=== PATIENT | female | born 1950 | race Caucasian/White ===

== ENCOUNTER 2019-08-18 16:56 | Emergency (ER) | payer MEDICARE, SELFPAY ==
--- NOTE | 2019-08-18 17:00 | ED.GENADULT ---
HPI - General Adult General Chief complaint: Upper Respiratory Infection Stated complaint: cough and loss of voice Time Seen by Provider: 08/18/19 17:13 Source: patient and RN notes reviewed Mode of arrival: ambulatory Limitations: no limitations History of Present Illness HPI narrative: This patient has a history of asthma and 2 days ago she started having a cough which is been nonproductive. Cough is beginning to bother her sleep at night. In the past when she has had asthma flares with bronchitis she is needed to be on steroids and has been able to take Biaxin and Tessalon Perles well without adverse effects. She has had no chest pain. She has not noticed any wheezing. She has not had any ear pain, no nasal drainage, no sore throat. She has had no rashes. There is been no nausea, no vomiting, no diarrhea. She has had no hematuria, no dysuria, no pyuria. She has not been traveling. She has had no known exposure to anyone with strep throat, mono, influenza, bronchitis, pneumonia that she is aware of. Related Data Home Medications Medication Instructions Recorded Confirmed albuterol sulfate 2.5 mg INHALATION Q6H PRN 06/24/19 albuterol sulfate 90 mcg/actuation 1 puff INHALATION Q4H PRN 06/24/19 aerosol inhaler alprazolam 0.25 mg tablet 0.25 mg PO BID 06/24/19 cholestyramine-aspartame 4 gram 4 gm PO TID PRN gm 06/24/19 oral powder clopidogrel 75 mg tablet 75 mg PO DAILY 06/24/19 metoprolol succinate 50 mg 50 mg PO DAILY 06/24/19 tablet,extended release 24 hr nitroglycerin 0.4 mg sublingual 0.4 mg SUBLINGUAL Q5M PRN 06/24/19 tablet Allergies Allergy/AdvReac Type Severity Reaction Status Date / Time Sulfa (Sulfonamide Allergy Mild HIVES Verified 08/18/19 17:14 Antibiotics) clavulanic acid AdvReac Mild VOMITING Verified 04/27/19 19:12 propoxyphene AdvReac Mild FLIPPED Verified 04/27/19 19:12 OUT codeine AdvReac Unknown PASSES OUT Verified 08/18/19 17:14 Review of Systems Review of Systems: Narrative: CONSTITUTIONAL: Denies fever, chills, or sweats. Noncontributory except as pertains the past medical history and history of present illness. EYES: Denies visual changes, redness, or discharge. ENT: Denies rhinorrhea, congestion, sore throat, or otalgia. CARDIOVASCULAR: Denies chest pain, palpitations, or edema. RESPIRATORY: Denies cough or dyspnea. GASTROINTESTINAL: Denies abdominal pain, nausea, vomiting, or diarrhea. GENITOURINARY: Denies dysuria or hematuria. SKIN: Denies rash or itching. MUSCULOSKELETAL: Denies back pain, joint pain, or myalgia. NEUROLOGIC: Denies headache, numbness, or weakness. PSYCHIATRIC: Denies anxiety or depression. [facility] Family History Family History (Updated 07/04/17 @ 14:25 by DOCTOR UNKNOWN) Mother Hypertension Cerebrovascular accident Family history of diabetes mellitus in first degree relative Family history of congestive heart failure Diabetes mellitus Family history of hypercholesterolemia Grandparent Cerebrovascular accident Family history of hepatitis Family history of malignant neoplasm Father Hypertension Acute myocardial infarction Social History Social History Smoking status: Former smoker Smoking end date: 07/22/07 Alcohol intake: never Gender identity (if verbalized by the patient): Female Comments At time of signature, I have reviewed and agree with nursing past medical, surgical, social, and family history.Please see nursing chart for further information. There is no relevant family history pertinent to the presenting complaint. Exam Narrative: Exam Narrative: GENERAL: Well-appearing, well-nourished, and in no acute distress. HEAD: Normocephalic, atraumatic. EYES: PERRLA and EOMI. EARS: TM's clear bilaterally and the canals are clear. NOSE: Nares clear, no rhinorrhea or epistaxis. THROAT:Mucous membranes moist.Oropharynx normal without erythema or exudates. NECK: Supple. No adenopathy of the neck, supraclav
[2019-08-18 17:09] VITALS: BP 133/64; PULSE 88; RESP 16; TEMP 37.1; O2SAT 98
== END 2019-08-18 17:41 | disposition home or self-care (01) ==
PROVIDERS: Emergency Provider Family Medicine; PCP Internal Medicine
DX: J40 Bronchitis, not specified as acute or chronic (principal); J45.909 Unspecified asthma, uncomplicated; Z87.891 Personal history of nicotine dependence; I20.9 Angina pectoris, unspecified; I25.10 Atherosclerotic heart disease of native coronary artery without angina pectoris; Z95.5 Presence of coronary angioplasty implant and graft; E78.00 Pure hypercholesterolemia, unspecified; I34.1 Nonrheumatic mitral (valve) prolapse; J44.9 Chronic obstructive pulmonary disease, unspecified; K21.9 Gastro-esophageal reflux disease without esophagitis; E11.9 Type 2 diabetes mellitus without complications
CPT/HCPCS: 99213; G0463

== ENCOUNTER 2020-05-09 10:06 | Outpatient (CLI) | payer MEDICARE, SELFPAY ==
--- NOTE | ~2020-05-09 | DEXA_ITS ---
Bone Density Report Name: Beatrice Calero Age: 70 Sex: Female Ethnicity: White Date of : 1950 Indication: postmenopausal; parental hip fracture; height loss; asthma or emphysema; rheumatoid arthritis; Referring Provider: CALISTA UMAÑA Study: Bone densitometry was performed. Exam Date: May 09, 2020 Accession number: [id number] Bone Density: Region BMD T-score Z-score Classification AP Spine (L1-L4) 0.810 -2.2 0.0 Osteopenia Femoral Neck (Left) 0.555 -2.6 -0.8 Osteoporosis Total Hip (Left) 0.669 -2.2 -0.7 Osteopenia Total Hip Bilateral Avg 0.682 -2.1 -0.6 Osteopenia Femoral Neck (Right) 0.579 -2.4 -0.6 Osteopenia Total Hip (Right) 0.693 -2.0 -0.5 Osteopenia World Health Organization criteria for BMD impression classify patients as: Normal (T-score at or above -1.0), Osteopenia (T-score between -1.0 and -2.5), or Osteoporosis (T-score at or below -2.5). 10-year Fracture Risk: FRAX not reported because: Some T-score for Spine Total or Hip Total or Femoral Neck at or below -2.5 Clinical Information Provided by Patient: Parent has had a hip fracture Has rheumatoid arthritis Has the following medical conditions: Asthma or Emphysema Patient maximum height was 66 Menopause Age: 50 No regular weight bearing exercise Drinks caffeinated beverages Onset of menses at age 14 Number of children 1 Impression: The patient has osteoporosis, based on the Left Femoral Neck T-score. The patient has risk factors, including: parental hip fracture. Discussion: INCREASED RISK OF FRACTURE. BONE DENSITY IS UNDESIRABLY LOW AT ONE OR MORE SKELETAL SITES, CONSISTENT WITH POSTMENOPAUSAL OSTEOPOROSIS. This patient's lowest T-score meets the World Health Organization's (WHO) criteria for osteoporosis at one or more sites (T-score -2.5 or below). In untreated patients, the risk of osteoporotic fracture increases approximately two-fold for each 1.0 SD decrease in T-score. Low bone density is not the only risk factor for fracture; also consider factors such as patient's age, frailty or poor health, risk of falling, risk of injury, previous osteoporotic fracture, family history of osteoporosis, cigarette smoking, low body weight, etc. Not everyone with low bone mineral density has osteoporosis; osteomalacia and other metabolic bone disorders should also be considered. Patients who have osteoporosis should be evaluated for specific diseases and conditions (secondary causes) that may cause or contribute to bone loss. The [place] [employer]ocrinologists (AACE) and National Osteoporosis Foundation (NOF) recommend pharmacologic intervention for all postmenopausal women whose T-score is in this range. The patient should follow a healthful lifestyle (good nutrition with adequate calcium and vitamin D, and appropriate weight-b
== END 2020-05-09 10:07 | disposition home or self-care (01) ==
LOC: ANHIMG 10:10
PROVIDERS: PCP Internal Medicine; Visit Provider Nurse Practitioner
DX: Z78.0 Asymptomatic menopausal state (principal); M85.88 Other specified disorders of bone density and structure, other site; M81.0 Age-related osteoporosis without current pathological fracture; M85.852 Other specified disorders of bone density and structure, left thigh; M85.851 Other specified disorders of bone density and structure, right thigh
CPT/HCPCS: 77080

== ENCOUNTER 2020-10-13 14:45 | Emergency (ER) | payer MEDICARE, SELFPAY ==
[2020-10-13 15:02] VITALS: BP 114/61; PULSE 91; RESP 20; TEMP 36.5; O2SAT 97
--- NOTE | 2020-10-13 15:04 | ED.GENADULT ---
HPI - General Adult General Chief complaint: Skin/Abscess/Foreign Body Stated complaint: Boil on Back Time Seen by Provider: 10/13/20 15:04 Source: patient and RN notes reviewed Mode of arrival: ambulatory Limitations: no limitations History of Present Illness HPI narrative: 70-year-old female presents with complaints of tenderness and swelling to genital area for the past 3 days. Beatrice reports increase tenderness over the past 48 hours. No treatment. Tender to touch. No drainage. Denies history of skin abscess. No fever. No abdominal pain, nausea, and vomiting. Tolerating po intake well. LMP postmenopausal. Remains active. The patient reports she received second COVID-19 vaccine 09/30/20. The patient reports she have not been diagnosed with COVID-19. The patient reports she is not waiting for the results of a COVID-19 lab test. The patient reports she do not have chills, weakness, or fatigue. The patient reports she do not have a new or worsening cough or shortness of breath. Denies chest pain. The patient reports she do not have any rhinorrhea, congestion, sore throat, loss of taste or smell, and diarrhea. Denies recent traveling. Denies concerns for COVID-19 or exposures been home with limited outdoor exposure except for essential household needs and return home. At this time, patient is not suspected of having COVID-19. Some parts of this dictation were generated by voice recognition software and may contain typographical and/or grammatical inaccuracies. Related Data Home Medications Medication Instructions Recorded Confirmed cholestyramine-aspartame 4 gram 4 gm PO TID gm 06/24/19 10/13/20 oral powder metoprolol succinate 50 mg 50 mg PO DAILY 06/24/19 10/13/20 tablet,extended release 24 hr beclomethasone dipropionate 2 inh INHALATION Q12H 08/18/19 10/13/20 doxycycline hyclate 20 mg PO BID 10/13/20 10/13/20 Allergies Allergy/AdvReac Type Severity Reaction Status Date / Time Sulfa (Sulfonamide Allergy Mild HIVES Verified 10/13/20 14:54 Antibiotics) clavulanic acid AdvReac Mild VOMITING Verified 10/13/20 14:54 propoxyphene AdvReac Mild FLIPPED Verified 10/13/20 14:54 OUT codeine AdvReac Unknown PASSES OUT Verified 10/13/20 14:54 Review of Systems Review of Systems: Narrative: CONSTITUTIONAL: Denies fever, chills, sweats. EYES: Denies visual changes, redness, discharge. ENT: Denies rhinorrhea, congestion, sore throat, otalgia. CARDIOVASCULAR: Denies chest pain, palpitations, edema. RESPIRATORY: Denies dyspnea, wheezing, cough. GASTROINTESTINAL: Denies abdominal pain, nausea, vomiting, diarrhea. SKIN: Denies rash or itching. complaints of tenderness and swelling to genital area. Denies drainage. MUSCULOSKELETAL: Denies acute back pain, joint pain, or myalgia. NEUROLOGIC: Denies numbness or focal weakness. PSYCHIATRIC: Denies anxiety or depression. All systems reviewed & are unremarkable except as noted in HPI and below. [facility] Past Medical History Medical History (Updated 10/13/20 @ 16:25 by BARON Agustin) ASHD (arteriosclerotic heart disease) Benign essential hypertension Brain aneurysm CAD (coronary atherosclerotic disease) Cataract Chronic GERD Chronic obstructive pulmonary disease, unspecified Depression History of CVA (cerebrovascular accident) without residual deficits Low back pain Migraine Mitral valve prolapse On long term care phlebotomist drug therapy DARCY (obstructive sleep apnea) Other and unspecified hyperlipidemia Postmenopausal disorder Type 2 diabetes mellitus without complication, without long-term current use of insulin Surgical History Surgical History (Updated 10/13/20 @ 16:25 by BARON Agustin) History of cardiac catheterization History of carotid endarterectomy LT History of cholecystectomy History of tonsillectomy Family History Family History Mother Hypertension Cerebrovascular ac
--- NOTE | 2020-10-13 15:28 | PC.NURSE ---
1523-- PUBLICATION MANAGER attempt to stick #18 gauge needle and to squeeze out some pus for culture, but when poked no fluid came out.
== END 2020-10-13 15:31 | disposition home or self-care (01) ==
PROVIDERS: Emergency Provider Nurse Practitioner Family; PCP Internal Medicine
DX: L02.31 Cutaneous abscess of buttock (principal); Z87.891 Personal history of nicotine dependence; K21.9 Gastro-esophageal reflux disease without esophagitis; Z86.73 Personal history of transient ischemic attack (TIA), and cerebral infarction without residual deficits; G47.33 Obstructive sleep apnea (adult) (pediatric); E11.9 Type 2 diabetes mellitus without complications; I25.10 Atherosclerotic heart disease of native coronary artery without angina pectoris
CPT/HCPCS: 10160; 99213; G0463

== ENCOUNTER 2020-12-16 12:12 | Outpatient (CLI) | payer MEDICARE, SELFPAY ==
--- NOTE | 2020-12-16 09:30 | ECG_ITS ---
Measurements Intervals [place] Rate: 61 P: 12 GA: 250 QRS: 4 QRSD: 84 T: 80 QT: 430 QTc: 433 Interpretive Statements SINUS RHYTHM WITH FIRST DEGREE AV BLOCK INCOMPLETE RIGHT BUNDLE BRANCH BLOCK NONSPECIFIC ST & T-WAVE ABNORMALITY- HIGH LATERAL LEADS BASELINE ARTIFACT- I, II, III, AVR, AVL ABNORMAL ECG Electronically Signed On 12-16-2020 10:36:16 CDT by Chago Watkins D.O.
[2020-12-16 10:17] LABS: Anion Gap 4 mmol/L (8-16); Blood Urea Nitrogen 8 mg/dL (7-17); Calcium 9.7 mg/dL (8.4-10.2); Carbon Dioxide 34 mmol/L (22-30); Chloride 101 mmol/L (98-107); Estimated Glomerular Filt Rate > 60; Glucose 202 mg/dL (65-105); Potassium 4.1 mmol/L (3.4-5.0); Sodium 139 mmol/L (137-145)
== END 2020-12-16 12:13 ==
LOC: ANHSURGERY 01-03 12:15
PROVIDERS: Anesthesiology; PCP Internal Medicine; Visit Provider Surgery
DX: E11.9 Type 2 diabetes mellitus without complications (principal); Z01.818 Encounter for other preprocedural examination; I44.0 Atrioventricular block, first degree; I45.10 Unspecified right bundle-branch block
CPT/HCPCS: 36415; 80048; 93005

== ENCOUNTER → 2020-12-17 02:59 | Outpatient (CLI) | payer MEDICARE, SELFPAY ==
[2020-12-17 19:46] LABS: SARS-CoV-2 RNA PCR Negative
== END ==
PROVIDERS: PCP Internal Medicine; Visit Provider Surgery
DX: Z01.812 Encounter for preprocedural laboratory examination (principal); Z20.822 Contact with and (suspected) exposure to COVID-19
CPT/HCPCS: C9803; U0003; U0005

== ENCOUNTER 2020-12-20 00:43 | Day surgery (SDC) | payer MEDICARE, SELFPAY ==
[2020-12-14 15:06] VITALS: BMI 29.1
[2020-12-20] VITALS (9 sets, daily range): BP systolic 92–105; BP diastolic 49–73; PULSE 63–82; RESP 10–23; TEMP 36.1–36.8; O2SAT 92–100; BMI 28.0
--- NOTE | 2020-12-20 09:20 | WPDANESEPPF ---
Anes - Initial Pre Proc Eval Procedure: Operation Date: 12/20/20 10:30 Proposed Procedures p Anal Fistulotomy - German Barcenas MD Date/Time: 12/20/20 09:20 Surgeon: German Barcneas MD Pre Op Diagnosis: fistula in ano Patient Data Age: 70 Gender: F Height: 5 ft 6 in Weight: 79 kg Allergies Allergy/AdvReac Type Severity Reaction Status Date / Time Sulfa (Sulfonamide Allergy Mild HIVES Verified 12/20/20 08:40 Antibiotics) propoxyphene AdvReac Mild FLIPPED Verified 12/20/20 08:40 OUT codeine AdvReac Unknown PASSES OUT Verified 12/20/20 08:40 Home Medications Medication Instructions Recorded Confirmed Type cholestyramine-aspartame 4 gram 4 gm PO TID gm 06/24/19 12/20/20 History oral powder metoprolol succinate 50 mg 50 mg PO HS 06/24/19 12/20/20 History tablet,extended release 24 hr umeclidinium 62.5 mcg/actuation 1 inhalation INHALATION DAILY #30 11/11/19 12/14/20 Rx blister powder for inhalation each albuterol sulfate 2.5 mg INHALATION Q6H PRN #90 ml 04/18/20 12/20/20 Rx nitroglycerin 0.4 mg sublingual 0.4 mg SUBLINGUAL Q5M PRN #30 05/05/20 12/14/20 Rx tablet tablet omega-3 fatty acids 1,000 mg 1,000 mg PO DAILY #90 cap 05/05/20 12/20/20 Rx capsule denosumab 60 mg/mL subcutaneous 60 mg SUBCUT [id number] #1 ml 05/10/20 12/14/20 Rx syringe calcium carbonate 500 mg(1,250 1 tablet PO DAILY #90 tablet 05/12/20 12/20/20 Rx mg)-vitamin D3 400 unit chewable tablet blood-glucose meter #1 ea 11/08/20 12/12/20 Rx blood sugar diagnostic #100 ea 11/10/20 12/12/20 Rx clopidogrel 75 mg tablet 75 mg PO DAILY #90 tablet 11/10/20 12/20/20 Rx lancets #100 ea 11/10/20 12/12/20 Rx alprazolam [Xanax] 0.25 mg PO BID PRN 12/14/20 12/20/20 History aspirin 325 mg PO HS 12/14/20 12/20/20 History atorvastatin 10 mg HS 12/14/20 12/20/20 History doxycycline hyclate 20 mg PO HS 12/14/20 12/20/20 History pantoprazole 40 mg PO HS 12/14/20 12/20/20 History sitagliptin [Januvia] 100 mg PO HS 12/14/20 12/20/20 History Patient hx anesthesia problems: post op nausea/vomiting Family hx anesthesia problems: none PMFSH Past Medical History Medical History ASHD (arteriosclerotic heart disease) Asthma Benign essential hypertension Brain aneurysm CAD (coronary atherosclerotic disease) Cataract Chronic GERD Chronic obstructive pulmonary disease, unspecified Depression Heart attack High cholesterol History of CVA (cerebrovascular accident) without residual deficits Kidney stone Low back pain Migraine Mitral valve prolapse On retirement drug therapy DARCY (obstructive sleep apnea) Other and unspecified hyperlipidemia Peptic ulcer disease Postmenopausal disorder Type 2 diabetes mellitus without complication, without long-term current use of insulin Surgical History Surgical History History of cardiac catheterization History of carotid endarterectomy LT History of cholecystectomy History of tonsillectomy Family History Family History Mother Hypertension Cerebrovascular accident Family history of diabetes mellitus in first degree relative Family history of congestive heart failure Diabetes mellitus Family history of hypercholesterolemia CHF (congestive heart failure) Grandparent Cerebrovascular accident Family history of hepatitis Family history of malignant neoplasm Father Hypertension Acute myocardial infarction Social History Social History Smoking packs per day: 2 Smoking cigarettes per day: 40.0 Years smoked: 30 Smoking pack-years: 60.00 Smoking status: Former smoker Tobacco type: cigarettes Second hand tobacco smoke exposure: Yes Smoking end date: 07/22/07 Additional smoking assessment comments: QUIT 2007 Alcohol intake: never
[2020-12-20 09:22] LABS: Glucose Point of Care 205 mg/dl (65-105)
[2020-12-20] MEDS: LACTATED RINGERS 1,000 ML 30 ML IV CONT (09:25)
[2020-12-20] MEDS: MIDAZOLAM HCL (*CRX) 2 MG/2 ML VIAL 1 MG IV PUSH (09:28)
--- NOTE | 2020-12-20 09:33 | SUR.PREOP ---
0900; DR BHAT NOTIFIED THAT PT STATES SHE FELL GETTING OFF THE TOILET THIS MORNING. PT STATES SHE IS UNHARMED. DENIES PAIN. BLOOD SUGAR 205, AND PT C/O ANXIOUSNESS. DR BHAT NOTIFIED OF ALL THESE. 0930; PT GIVEN VERSED PER ORDER.
--- NOTE | 2020-12-20 09:47 | SUR.PREOP ---
PT RESTING QUIETLY. RESP EVEN UNLABORED. P,W,D. CALL LIGHT IN REACH
--- NOTE | 2020-12-20 09:56 | WPDHPUPDATE1 ---
History and Physical Update Update Date/Time: 12/20/20 09:56 History and Physical has been reviewed, including an updated exam of the patient. There are NO changes in the patient's condition. Risks, benefits, and alternatives have been discussed and questions answered. Patient agrees to proceed with procedure.
[2020-12-20] MEDS: ceFAZolin 2 GM/D5W 50 ML 2 GM/50 ML BAG IVPB (10:36)
--- NOTE | 2020-12-20 10:36 | SUR.PREOP ---
DR HOPSON NOTIFIED THAT PT STATES SHE FELL GETTING OFF THE TOILET THIS MORNING. PT STATES SHE IS UNHARMED
[2020-12-20] MEDS: BUPIVACAINE HCL 0.5% PF 30 ML VIAL INFILTRATE (10:59)
--- NOTE | 2020-12-20 11:49 | P.OP_ITS ---
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 She was then turned into prone yvette-knife position. The buttocks were taped apart. Prep and drape was carried out. Hill-Mckeon anoscope were introduced into the rectum. No internal opening was readily apparent. Even by palpation on the external opening, I was unable to elicit any purulent fluid from the rectum. Using a blunt clamp I gently probed into the external opening. It wanted to track towards the rectum. I increased this opening slightly with the scalpel. I continued to probe both with a rectal probe as well as a curved clamp. Eventually the probe directed to the rectum to the left lateral position. It was directed to a small opening in the left lateral position and then was advanced into the rectum delineating the fistula. I then infiltrated local anesthetic throughout the area of the fistula and the overlying skin mucosa and skin. I then unroof the fistula using the cautery. There was minimal bleeding. The probe was removed. I curetted the fistula tract. All granulation tissue was removed. Cautery was again used and the wound was made hemostatic. I then dressed the fistulotomy wound with Xeroform gauze fluffs and promise panties. The patient was returned to a supine position, awakened and taken to recovery in good condition. Sponge and needle counts were correct x2. Anesthesia: GETA and local (0.5% Marcaine with Exparel) Surgeon: German Barcenas MD Residential Care Facility Manager: Antonio BARBOUR Estimated blood loss (mL): 5 Drains: No Packing: No Pathology: none sent Complications: None Condition: stable Disposition: PACU Findings: Fistula in ANO of the left anterior quadrant, status post fistulotomy, intersphincteric fistula.
[2020-12-21 07:22] LABS: Glucose Point of Care 183 mg/dl (65-105)
== END 2020-12-20 13:33 | disposition home or self-care (01) ==
PROVIDERS: PCP Internal Medicine; Visit Provider Surgery
PROC: (CPT 46275; principal; 2020-12-20 10:30)
DX: K60.3 Anal fistula (principal); I25.10 Atherosclerotic heart disease of native coronary artery without angina pectoris; I10 Essential (primary) hypertension; J45.909 Unspecified asthma, uncomplicated; K21.9 Gastro-esophageal reflux disease without esophagitis; J44.9 Chronic obstructive pulmonary disease, unspecified; F32.9 Major depressive disorder, single episode, unspecified; E78.00 Pure hypercholesterolemia, unspecified; Z86.73 Personal history of transient ischemic attack (TIA), and cerebral infarction without residual deficits; I34.1 Nonrheumatic mitral (valve) prolapse; G47.33 Obstructive sleep apnea (adult) (pediatric); E78.5 Hyperlipidemia, unspecified; E11.9 Type 2 diabetes mellitus without complications; K27.9 Peptic ulcer, site unspecified, unspecified as acute or chronic, without hemorrhage or perforation; Z79.51 Long term (current) use of inhaled steroids; Z79.02 Long term (current) use of antithrombotics/antiplatelets; Z79.84 Long term (current) use of oral hypoglycemic drugs; Z87.891 Personal history of nicotine dependence
CPT/HCPCS: 46275; 82948; 99281; A9270; C9290; C9803; J0330; J0690; J1100; J2250; J2405; J2704; J7120; U0003; U0005

== ENCOUNTER 2020-12-20 22:56 | Emergency (ER) | payer MEDICARE, SELFPAY ==
[2020-12-20 23:24] VITALS: BP 110/57; PULSE 104; RESP 18; TEMP 37.2; O2SAT 94
--- NOTE | 2020-12-21 03:07 | PC.NURSE ---
diabetic pt who has hx of rectal fistula with repair 12/20 (yesterday). c/o increased bleeding to surgical site.
--- NOTE | 2020-12-21 04:38 | PC.NURSE ---
pt has multiple complaints the longer she is in department. First, requested a nebulizer for breathing issues. pt currently has O2 sats 98% and HR 80. no s/s of resp distress or increased work of breathing. pt reports she was told to breathe deeply post surgery, but has chronic bronchitis and sometimes coughs, making it difficult to do so. will continue to monitor. pt used restroom and reported that it was more difficult to urinate than normal. stated that's new . also requested new adult brief and provided with new pad for drainage. abd pad in place that pt removed had dried dark red/brown drainage, but was not saturated when changed. pt stated the bleeding has eased up since earlier. Pt did not like style of adult brief that ED could provide, and instead chose to use her own extra adult brief brought from home. awaiting further instructions from .
--- NOTE | 2020-12-21 04:45 | ED.GENADULT ---
HPI - General Adult General Chief complaint: Unspecified Stated complaint: rectal bleed Time Seen by Provider: 12/21/20 02:52 Source: patient and RN notes reviewed Limitations: no limitations History of Present Illness HPI narrative: Patient is 70 years old white female status post fistula in ano 12 hours ago presents to the ED with bleeding at the site of surgery. Patient denies other symptoms. Related Data Home Medications Medication Instructions Recorded Confirmed cholestyramine-aspartame 4 gram 4 gm PO TID gm 06/24/19 12/20/20 oral powder metoprolol succinate 50 mg 50 mg PO HS 06/24/19 12/20/20 tablet,extended release 24 hr Januvia 100 mg PO HS 12/14/20 12/20/20 alprazolam [Xanax] 0.25 mg PO BID PRN 12/14/20 12/20/20 aspirin 325 mg PO HS 12/14/20 12/20/20 atorvastatin 10 mg HS 12/14/20 12/20/20 pantoprazole 40 mg PO HS 12/14/20 12/20/20 Allergies Allergy/AdvReac Type Severity Reaction Status Date / Time Sulfa (Sulfonamide Allergy Mild HIVES Verified 12/20/20 08:40 Antibiotics) propoxyphene AdvReac Mild FLIPPED Verified 12/20/20 08:40 OUT codeine AdvReac Unknown PASSES OUT Verified 12/20/20 08:40 Review of Systems Review of Systems: Narrative: CONSTITUTIONAL: Denies fever, chills, or sweats. EYES: Denies visual changes, redness, or discharge. ENT: Denies rhinorrhea, congestion, sore throat, or otalgia. CARDIOVASCULAR: Denies chest pain, palpitations, or edema. RESPIRATORY: Denies cough or dyspnea. GASTROINTESTINAL: Denies abdominal pain, nausea, vomiting, or diarrhea. GENITOURINARY: Denies dysuria or hematuria. SKIN: Denies rash or itching. MUSCULOSKELETAL: Denies back pain, joint pain, or myalgia. NEUROLOGIC: Denies headache, numbness, or weakness. PSYCHIATRIC: Denies anxiety or depression. 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 DARCY (obstructive sleep apnea) Other and unspecified hyperlipidemia Peptic ulcer disease Postmenopausal disorder Type 2 diabetes mellitus without complication, without long-term current use of insulin Surgical History Surgical History History of cardiac catheterization History of carotid endarterectomy LT History of cholecystectomy History of tonsillectomy Family History Family History Mother Hypertension Cerebrovascular accident Family history of diabetes mellitus in first degree relative Family history of congestive heart failure Diabetes mellitus Family history of hypercholesterolemia CHF (congestive heart failure) Grandparent Cerebrovascular accident Family history of hepatitis Family history of malignant neoplasm Father Hypertension Acute myocardial infarction Social History Social History Smoking packs per day: 2 Smoking cigarettes per day: 40.0 Years smoked: 30 Smoking pack-years: 60.00 Smoking status: Former smoker Tobacco type: cigarettes Second hand tobacco smoke exposure: Yes Smoking end date: 07/22/07 Additional smoking assessment comments: QUIT 2007 Alcohol intake: never Substance use: never Substance use type: does not use Additional living arrangements comments: LIVES WITH SON Additional occupation/education comments: looking for a job Gender identity (if verbalized by the patient): Female Spiritual care concerns: No Exam Narrative: Exam Narrative: General appearance: Well-dev
[2020-12-21 04:55] VITALS: PULSE 86; RESP 20; O2SAT 98
== END 2020-12-21 04:57 | disposition home or self-care (01) ==
PROVIDERS: Emergency Provider Emergency Medicine; PCP Internal Medicine
DX: K91.841 Postprocedural hemorrhage of a digestive system organ or structure following other procedure (principal); Z87.891 Personal history of nicotine dependence; J45.909 Unspecified asthma, uncomplicated; I10 Essential (primary) hypertension; I25.10 Atherosclerotic heart disease of native coronary artery without angina pectoris; K21.9 Gastro-esophageal reflux disease without esophagitis; G47.30 Sleep apnea, unspecified; E78.5 Hyperlipidemia, unspecified; I25.2 Old myocardial infarction; E11.9 Type 2 diabetes mellitus without complications
CPT/HCPCS: 99281

== ENCOUNTER 2021-04-19 10:02 | Observation (INO) | payer MEDICARE, SELFPAY ==
[2021-04-19] VITALS (9 sets, daily range): BP systolic 128–144; BP diastolic 66–88; PULSE 62–85; RESP 13–18; TEMP 36.3–36.6; O2SAT 93–96; BMI 30.9
--- NOTE | ~2021-04-19 | XR_ITS ---
EXAMINATION: XR chest 1V EXAM DATE: 04/19/2021 11:48 INDICATION: Cough. TECHNIQUE: Portable AP frontal chest x-ray was obtained. Comparison is made to prior examination from 10/12/2014. FINDINGS: The lungs are clear. There are no pleural effusions. The cardiomediastinal silhouette is within normal limits. There is no pneumothorax suspected. The bones and soft tissues are unremarka ble. IMPRESSION: No acute cardiopulmonary findings. Reviewed, dictated and finalized at location A.
--- NOTE | ~2021-04-19 | CT_ITS ---
EXAMINATION: CTA brain carotid EXAM DATE: 04/19/2021 13:13 INDICATION: Double/blurry vision, dizziness . TECHNIQUE: Spiral CTA of the carotid arteries was performed with intravenous injection 100 cc of Om nipaque 350. Axial, coronal, sagittal reformatted images reviewed. Additional reformatted images cre ated on dedicated 3-D workstation. NASCET comparable standard used to assess the degree of arterial stenosis. Spiral CT angiogram cerebral arteries performed with the same intravenous injection of con trast. Source images of the brain CTA transferred to dedicated workstation for 3-D rotational image c reation. Coronal, sagittal maximum intensity pixel images also reviewed. The dose-length product (D LP) for this examination was 1103.66 mGy-cm. The exposure was tailored according to patient size, a nd iterative reconstruction (ASIR) was used as additional dose reduction technique. Comparison is mad e to prior examination from 11/30/2010. FINDINGS: There is mild to moderate right carotid, mild left carotid atherosclerosis with 25% stenosi s on the right and 0% stenosis on the left. There is right-sided suprasellar aneurysm coiling which i s obscuring evaluation of the right carotid siphon. There is mild left carotid parasellar arterial sc lerosis with no stenosis. There is right-sided posterior communicating artery dominant posterior cere bral artery. There is no carotid or vertebral basilar arterial dissection or fibromuscular dysplas ia. There are no cerebral artery aneurysms. The sagittal, transverse and sigmoid sinuses enhance norm ally, no venous sinus thrombosis. Internal cerebral veins also enhance normally. Moderate stenosis of the right M1 segment before the trifurcation. Severe stenosis of one of the righ t trifurcation, M2 branches. Compared to previous examination, the right ICA aneurysm has been coiled , and there has been interval development of severe stenosis of the left P1 segment (indicated on seq uence 3 image 107). This left PHD INTERN has a small but patent posterior communicating artery. Remainder of this posterior cerebral artery enhances normally. Incidental Findings: Moderate-sized left maxillary sinus mucous retention cyst. Small old left fronto parietal lobe infarctions. IMPRESSION: 1. No acute carotid or intracranial findings. 2. Interval development of scattered intracranial cerebral atherosclerosis. 3. Old left frontoparietal lobe infarctions. 4. Right carotid bulb 25% stenosis. Reviewed, dictated and finalized at location A.
--- NOTE | ~2021-04-19 | US_ITS ---
EXAMINATION: US carotid duplex BI EXAM DATE: 04/19/2021 11:48 INDICATION: Double vision, dizziness. TECHNIQUE: Grayscale, color and pulsed Doppler images of the cervical carotid arteries were obtained . The degree of vessel stenosis is placed in one of the following categories: normal, <50% stenosis, 50-69% stenosis, >=70% stenosis but less than near-occlusion, near-occlusion, or occlusion. Note that percent stenosis relative to normal distal artery lumen diameter is indirectly measured from velocit y measurements as described by Wild, et al. Radiology 2003; 229:340-346. Comparison is made to prior examination from 01/07/2012. FINDINGS: RIGHT SIDE: Right common carotid artery peak systolic velocity (PSV in cm/s): 78 Right bulb/internal carotid artery peak systolic velocity (PSV in cm/s): 86 Right internal carotid artery end diastolic velocity (EDV in cm/s): 25 Right ICA/CCA peak systolic ratio: 1.1 Right external carotid artery peak systolic velocity (PSV in cm/s): 89 Right vertebral artery antegrade flow: yes There is no focal plaque identified. LEFT SIDE: Left common carotid artery peak systolic velocity (PSV in cm/s): 79 Left bulb/internal carotid artery peak systolic velocity (PSV in cm/s): 111 Left internal carotid artery end diastolic velocity (EDV in cm/s): 36 Left ICA/CCA peak systolic ratio: 1.4 Left external carotid artery peak systolic velocity (PSV in cm/s): 92 Left vertebral artery antegrade flow: yes There is no focal plaque identified. IMPRESSION: 1. Normal right internal carotid artery. 2. Normal left internal carotid artery. Reviewed, dictated and finalized at location A.
--- NOTE | ~2021-04-19 | CT_ITS ---
EXAMINATION: CT brain wo con DATE: 04/19/2021 11:25 INDICATION: Blurred vision TECHNIQUE: Computed tomography (CT) of the head was performed without intravenous contrast. Sagittal and coronal reconstructions were performed. The mA was adjusted according to patient size. Iterative reconstruction technique was employed. The dose-length product was 605.33 mGy-cm. COMPARISON: head CT dated 11/30/2010 FINDINGS: Metallic streak artifact centered in the region of the right carotid siphon where an aneurysms identi fied on the prior CT angiogram suggesting interval aneurysm coiling. No acute intracranial hemorrhage , acute infarction or abnormal extra axial fluid collection. There are a few small chronic regions of encephalomalacia in the left frontoparietal region consistent with chronic infarcts. There is mild s cattered white matter hypoattenuation consistent with chronic small vessel ischemic disease. Ventric les are normal and symmetric. No mass/mass effect. The orbits and mastoid air cells are normal. Mucou s retention cyst in the left maxillary sinus. IMPRESSION: 1. No acute intracranial process. 2. A few small chronic infarcts in the left frontoparietal region. 3. 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 4. Mild scattered white matter hypoattenuation consistent with chronic small vessel ischemic disease. Reviewed, dictated and finalized at location A. IMPRESSION: 1. No acute intracranial process. 2. A few small chronic infarcts in the left frontoparietal region. 3. 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 4. Mild scattered white matter hypoattenuation consistent with chronic small ve ssel ischemic disease.
--- NOTE | 2021-04-19 10:51 | ED.EYEPROB ---
HPI - Eye Problem General Chief complaint: Eye Problems <Nurys Montague PA-C - Last Filed: 04/19/21 16:19> Stated complaint: double vision <Nurys Montague PA-C - Last Filed: 04/19/21 16:19> Time Seen by Provider: 04/19/21 10:33 <Nurys Montague PA-C - Last Filed: 04/19/21 16:19> Source: patient <WILBER Lopez Last Filed: 04/19/21 16:19> Mode of arrival: ambulatory <WILBER Lopez Last Filed: 04/19/21 16:19> Limitations: no limitations <Nurys Montague PA-C - Last Filed: 04/19/21 16:19> History of Present Illness HPI Narrative: This is a 71 year old female that presents to the ER for intermittent double vision present over the last couple of days. Reports the episodes are sometimes brought on by standing. They last very briefly, only seconds. Associated with some lightheadedness. She also reports some mild cold symptoms over the last couple of days. Reports some sinus congestion and cough. Denies fever, chest pain, shortness of breath, numbness or weakness. <Nurys Montague PA-C - Last Filed: 04/19/21 16:19> Related Data Home medications: Home Medications Medication Instructions Recorded Confirmed metoprolol succinate 50 mg 50 mg PO HS 06/24/19 04/11/21 tablet,extended release 24 hr atorvastatin 10 mg HS 12/14/20 04/11/21 <Nurys Montague PA-C - Last Filed: 04/19/21 16:19> Allergies/adverse reactions: Allergies Allergy/AdvReac Type Severity Reaction Status Date / Time Sulfa (Sulfonamide Allergy Mild HIVES Verified 04/11/21 12:21 Antibiotics) propoxyphene AdvReac Mild FLIPPED Verified 04/11/21 12:21 OUT codeine AdvReac Unknown PASSES OUT Verified 04/11/21 12:21 <WILBER Lopez Last Filed: 04/19/21 16:19> Review of Systems Review of Systems: CONSTITUTIONAL: Denies fever ENT: Reports rhinorrhea, congestion CARDIOVASCULAR: Denies chest pain, or edema. RESPIRATORY: Reports cough GASTROINTESTINAL: Denies nausea, vomiting GENITOURINARY: Denies dysuria NEUROLOGIC: Reports headache. Denies numbness, or weakness. <Nurys Montague PA-C - Last Filed: 04/19/21 16:19> All systems reviewed & are unremarkable except as noted in HPI and below <Nurys Montague PA-C - Last Filed: 04/19/21 16:19> [facility] Past Medical History Medical History: Medical History ASHD (arteriosclerotic heart disease) Asthma Benign essential hypertension Brain aneurysm CAD (coronary atherosclerotic disease) Cataract Chronic GERD Chronic obstructive pulmonary disease, unspecified Depression Heart attack High cholesterol History of CVA (cerebrovascular accident) without residual deficits Kidney stone Low back pain Migraine Mitral valve prolapse On prison drug therapy DARCY (obstructive sleep apnea) Other and unspecified hyperlipidemia Peptic ulcer disease Postmenopausal disorder Type 2 diabetes mellitus without complication, without long-term current use of insulin <Nurys Montague PA-C - Last Filed: 04/19/21 16:19> Surgical History Surgical History: Surgical History History of cardiac catheterization History of carotid endarterectomy LT History of cholecystectomy History of rectal surgery 12/20/20 Anal fistulotomy History of tonsillectomy <Nurys Montague PA-C - Last Filed: 04/19/21 16:19> Family History Family History: Family History Mother Hypertension Cerebrovascular accident Family history of diabetes mellitus in first degree relative Family history of congestive heart failure Diabetes mellitus Family history of hypercholesterolemia CHF (congestive heart failure) Grandparent Cerebrovascular accident Family history of hepatitis Family history of malignant neoplasm Father Hypertension Acute myocardial infarction <Brigida
[2021-04-19 11:14] LABS: Basophils Percent Auto 0.5 % (0.2-1.2); Eosinophils Absolute Auto 0.2 K/mm3 (0-0.3); Eosinophils Percent Auto 3.7 % (0-4.4); Hematocrit 39.4 % (37.0-47.0); Hemoglobin 13.8 g/dL (12.0-15.0); Immature Granulocyte Absolute 0.03 K/mm3 (0.00-0.031); Immature Granulocyte Percent A 0.5 % (0-0.5); Lymphocytes Absolute Auto 2.31 K/mm3 (0.9-3.2); Mean Corpuscular Volume 94.3 fl (80-100); Mean Platelet Volume 10.7 fl (7.4-10.4); Monocytes Absolute Auto 0.5 K/mm3 (0.1-0.6); Monocytes Percent Auto 7.7 % (2.6-8.5); Neutrophils Absolute Auto 3.2 K/mm3 (1.3-6.7); Neutrophils Percent Auto 50.6 % (45.5-73.1); Platelet Count Result 263 k/mm3 (150-375); Red Blood Count 4.18 M/mm3 (4.2-5.4); Red Cell Distribution Width 12.2 % (11.5-14.5); White Blood Count 6.2 K/mm3 (4.5-10.0)
[2021-04-19 11:26] LABS: Alanine Aminotransferase 21 U/L (4-35); Albumin Level 4.2 g/dL (3.5-5.1); Alkaline Phosphatase 172 U/L (38-126); Anion Gap 5 mmol/L (8-16); Aspartate Amino Transferase 31 U/L (14-36); Bilirubin,Total 0.9 mg/dL (0.2-1.3); Blood Urea Nitrogen 7 mg/dL (7-17); Calcium 9.2 mg/dL (8.4-10.2); Carbon Dioxide 29 mmol/L (22-30); Chloride 102 mmol/L (98-107); Estimated CRCL calculation 81 ml/min; Estimated Glomerular Filt Rate > 60; Glucose 228 mg/dL (65-110); Lipase 101 U/L (23-300); Potassium 3.9 mmol/L (3.4-5.0); Sodium 136 mmol/L (137-145)
--- NOTE | 2021-04-19 11:29 | ECG_ITS ---
Measurements Intervals [place] Rate: 62 P: 11 ME: 268 QRS: 4 QRSD: 80 T: 79 QT: 419 QTc: 429 Interpretive Statements SINUS RHYTHM WITH FIRST DEGREE AV BLOCK EARLY PRECORDIAL R/S TRANSITION NONSPECIFIC ST & T-WAVE ABNORMALITY- HIGH LATERAL LEADS BASELINE ARTIFACT- II, III, AVF ABNORMAL ECG Electronically Signed On 04-19-2021 16:17:33 CDT by Chago Watkins D.O.
[2021-04-19 13:07] LABS: Add Urine Microscopic? NO; Appearance Urine Clear (Clear); Bilirubin Urine Negative (Negative); Blood Urine Negative (Negative); Color Urine Yellow (Yellow); Glucose Urine UA Negative (Negative); Ketones Urine Negative (Negative); Leukocyte Esterase Ur Negative LEU/UL (Negative); Nitrate Urine Negative (Negative); Protein Urine Negative (Negative); Specific Grav Ur 1.009 (1.001-1.035); Urobilinogen Urine Negative mg/dL (<2.0)
[2021-04-19 16:58] LABS: Glucose Point of Care 212 mg/dl (65-105)
--- NOTE | 2021-04-19 17:06 | WPDNEURCNPN ---
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, and normal internal carotid arteries on carotid study, we are waiting for the MRI to give the final recommendations with the patient has any acute problem or chronic or subacute problem and needs further intervention Consult date: 04/19/21 Time Seen: 17:15 HPI: Beatrice Calero is a 71 year old female Has been admitted to [facility] through the emergency room for the complaints of diplopia over the last 48 hours with specific description that episodes of sometime brought on by standing last for very few seconds along with the lightheadedness she also gave the history of some cold symptoms and congestion over the last couple of days has been taking metoprolol 50 mg at night extended release COVID statin 10 mg at night in addition she has ongoing history of multiple medical problems particularly 1. Hypertension 2. History of brain aneurysm 3. History of coronary artery disease 4. History of chronic obstructive pulmonary disease 5. Previous cerebrovascular accident with no residual of deficit 6. Mitral valve prolapse 7. Obstructive sleep apnea and 8. Peptic ulcer disease and 9. Diabetes mellitus, she has smoked 40 cigarettes per day for years smoked 30 and smoking pack years 60 but no drinker Review of Systems Review of Systems: All systems reviewed & are unremarkable except as noted in HPI and below PMFSH Past Medical History Medical History ASHD (arteriosclerotic heart disease) Asthma Benign essential hypertension Brain aneurysm CAD (coronary atherosclerotic disease) Cataract Chronic GERD Chronic obstructive pulmonary disease, unspecified Depression Heart attack High cholesterol History of CVA (cerebrovascular accident) without residual deficits Kidney stone Low back pain Migraine Mitral valve prolapse On half-way drug therapy DARCY (obstructive sleep apnea) Other and unspecified hyperlipidemia Peptic ulcer disease Postmenopausal disorder Type 2 diabetes mellitus without complication, without long-term current use of insulin Surgical History Surgical History History of cardiac catheterization History of carotid endarterectomy LT History of cholecystectomy History of rectal surgery 12/20/20 Anal fistulotomy History of tonsillectomy Family History Family History Mother Hypertension Cerebrovascular accident Family history of diabetes mellitus in first degree relative Family history of congestive heart failure Diabetes mellitus Family history of hypercholesterolemia CHF (congestive heart failure) Grandparent Cerebrovascular accident Family history of hepatitis Family history of malignant neoplasm Father Hypertension Acute myocardial infarction Social History Social History Smoking packs per day: 2 Smoking cigarettes per day: 40.0 Years smoked: 30 Smoking pack-years: 60.00 Tobacco type: cigarettes Second hand tobacco smoke exposure: Yes Smoking end date: 07/22/07 Additional smoking assessment comments: QUIT 2007 Alcohol intake: never Substance use: never Substance use type: does not use Additional living arrangements comments: LIVES WITH SON Additional occupation/education comments: looking for a job Gender identity (if verbalized by the patient): Female Spiritual care concerns: No Meds Home Medications and Allergies Home Medications Medication Instructions Recorded Confirmed Type metoprolol succinate 50 mg 50 mg PO HS 06/24/19 04/11/21 History tablet,extended release 24 hr umeclidinium 62.5 mcg/actuation 1 inhalation INHALATION DAILY #30 11/11/19 09
[2021-04-19 21:25] LABS: Glucose Point of Care 224 mg/dl (65-105)
--- NOTE | 2021-04-19 22:00 | PM.IMHP ---
H&P: HPI History of Present Illness Date/Time: 04/19/21 22:00 this is a 71-year-old female patient who has a past medical history of hypertension and prediabetes. The patient stated that she did not receive a glucose monitor strips and thought that she had await for a prescription in order to get 1. The patient has not been monitoring her blood sugars. The patient came to the emergency room today for intermittent double vision that has been coming and going over the last couple days. She currently does not have double vision. She stated that this occurred by standing up. It only lasted a few seconds. She has some lightheadedness as well. Patient denies any fever chills or any numbness or tingling. No focal weakness. Neurology has been consulted and has already seen the patient. 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 We are awaiting an MRI final recommendations. Her blood sugars have been in the 200s. The patient is being admitted for observation Chief Complaint: Diplopia Review of Systems Review of Systems: All systems reviewed & are unremarkable except as noted in HPI and below Constitutional: Constitutional: Reports as per HPI and Reports no additional constitutional complaints Eyes: Eyes: Reports as per HPI and Reports no additional eye complaints ENT: Reports system reviewed and no additional complaints, except as documented and Reports Normal hearing present Cardiovascular: Cardiovascular: Reports no additional cardiovascular complaints Respiratory: Respiratory: Reports no additional respiratory complaints and Reports no additional respiratory complaints Gastrointestinal: Gastrointestinal: Reports as per HPI and Reports no additional gastrointestinal complaints Musculoskeletal: Musculoskeletal: Reports no additional musculoskeletal complaints Integumentary/Breasts: Skin/Breast: Reports system reviewed and no additional complaints, except as docu and Reports as per HPI Neurologic: Reports system reviewed and no additional complaints, except as documented, Reports as per HPI and Reports Normal hearing present Psychiatric: Psychiatric: Reports no additional psychiatric complaints and Reports as per HPI Endocrine: Endocrine: Reports no additional endocrine complaints Hematologic/Lymphatic: Hematologic/Lymphatic: Reports no additional hematologic/lymphatic complaints Allergic/Immunologic: Allergic/Immunologic: Reports no additional allergic/immunologic complaints [facility] Past Medical History Medical History (Updated 04/19/21 @ 22:15 by Mirian Fink NP) ASHD (arteriosclerotic heart disease) Asthma Benign essential hypertension Brain aneurysm CAD (coronary atherosclerotic disease) Cataract Chronic GERD Chronic obstructive pulmonary disease, unspecified Depression Heart attack Hemorrhoids High cholesterol History of CVA (cerebrovascular accident) without residual deficits Kidney stone Low back pain Migraine Mitral valve prolapse On detention drug therapy DARCY (obstructive sleep apnea) Other and unspecified hyperlipidemia Peptic ulcer disease Postmenopausal disorder Type 2 diabetes mellitus without complication, without long-term current use of insulin Surgical History Surgical History (Updated 04/19/21 @ 22:06 by Mirian Fink NP) History of cardiac catheterization History of carotid endarterectomy LT History of cholecystectomy History of rectal surgery 12/20/20 Anal fistulotomy History of tonsillectomy S/P coil embolization of cerebral aneurysm Family History Family History Mother Hypertension Cerebrovascular accident Family history of diabetes mellitus in first degree relative Family history of congestive heart failure Diabetes mellitus Family history
[2021-04-19] MEDS: INSULIN ASPART (*BKC) 100 UNITS/ML SUB-Q (22:25)
[2021-04-19] MEDS: ATORVASTATIN 10 MG TABLET PO (22:26)
[2021-04-19] MEDS: PANTOPRAZOLE 40 MG TABLET PO (22:27)
[2021-04-19] MEDS: METOPROLOL SUCCINATE EXT REL 50 MG TABCR PO (22:27)
[2021-04-19] MEDS: CYCLOBENZAPRINE HCL 5 MG TABLET PO (22:56)
[2021-04-20] VITALS: PULSE 65
--- NOTE | 2021-04-20 | ECHO_ITS ---
Patient Info Name: Beatrice Calero Age: 71 years : 1950 Gender: Female Ht: 66 in Wt: 191 lbs BSA: 2.04 m2 HR: 56 bpm BP: 103 / 47 mmHg Technical Quality: Fair Exam Date: 04/20/2021 10:17 AM Exam Location: [facility] Pul[facility] Patient Status: Outpatient Admit Date: 04/19/2021 Staff Ordering Physician: Mirian Fink NP Blending Machine Feeder: Trena Elizabeth RDCS Attending Provider: Shi Ugarte MD Referring Physician: Aleks DAWN; Exam Type: CA echo doppler color flow Study Info Indications - STROKE LIKE SYMPTOMS Complete two-dimensional, color flow and Doppler transthoracic echocardiogram is performed. Summary 1. Complete two-dimensional, color flow and Doppler transthoracic echocardiogram is performed. 2. Left ventricular systolic function is normal, estimated at 60-65%. 3. There is mildly increased left ventricular wall thickness. 4. The left ventricular diastolic function is grade I diastolic dysfunction. 5. Left atrial chamber dimension is mildly enlarged. 6. There is mild aortic valve calcification. 7. There is no aortic valve stenosis. 8. There is trace mitral valve regurgitation. 9. There is mild tricuspid valve regurgitation. 10. No pulmonary hypertension, estimated pulmonary arterial systolic pressure is 15 mmHg. Left Ventricle Left ventricular chamber dimension is normal. Left ventricular systolic function is normal, estimated at 60-65%. There is mildly increased left ventricular wall thickness. Left ventricular septal wall motion is normal. The left ventricular diastolic function is grade I diastolic dysfunction. Global longitudinal strain is normal at -18 %. Right Ventricle Right ventricular chamber dimension is normal. Right ventricular systolic function is normal. Left Atria Left atrial chamber dimension is mildly enlarged. Right Atria Right atrial chamber dimension is normal. Atrial Septum Intact interatrial septum visualized by color flow imaging. Aortic Valve The aortic valve is trileaflet. There is no aortic valve stenosis. There is no aortic valve regurgitation. There is mild aortic valve calcification. Pulmonic Valve The pulmonic valve is normal. There is no pulmonic valve stenosis. There is no pulmonic regurgitation. Mitral Valve The mitral valve has normal leaflets. There is no mitral valve stenosis. There is trace mitral valve regurgitation. There is mild mitral valve calcification. Tricuspid Valve The tricuspid valve leaflets are normal. There is no significant tricuspid valve stenosis. There is mild tricuspid valve regurgitation. No pulmonary hypertension, estimated pulmonary arterial systolic pressure is 15 mmHg. Pericardium/Pleural The pericardium appears normal. There is no pericardial effusion. Inferior Vena Cava Normal inferior vena cava with >50% collapse upon inspiration consistent with Empty right atrial pressure, 5 mmHg. Aorta The aortic root size at the sinus of Valsalva is normal. The prox ascending aorta size is normal. Left Ventricular Outflow Tract Name Value Normal LVOT 2D LVOT Diameter 2.0 cm LVOT Doppler
[2021-04-20 04:00] VITALS: PULSE 56
[2021-04-20 06:00] VITALS: BP 103/47; PULSE 57; RESP 13; TEMP 36.4; O2SAT 96
[2021-04-20 06:19] LABS: Basophils Percent Auto 0.5 % (0.2-1.2); Eosinophils Absolute Auto 0.3 K/mm3 (0-0.3); Eosinophils Percent Auto 3.4 % (0-4.4); Hematocrit 40.3 % (37.0-47.0); Hemoglobin 13.6 g/dL (12.0-15.0); Immature Granulocyte Absolute 0.02 K/mm3 (0.00-0.031); Immature Granulocyte Percent A 0.3 % (0-0.5); Lymphocytes Absolute Auto 2.92 K/mm3 (0.9-3.2); Lymphocytes Percent Auto 39.2 % (18.3-44.2); Mean Corpuscular HGB Conc 33.7 g/dl (32-36); Mean Corpuscular Hemoglobin 32.8 pg (26-34); Mean Corpuscular Volume 97.1 fl (80-100); Mean Platelet Volume 11.3 fl (7.4-10.4); Monocytes Absolute Auto 0.6 K/mm3 (0.1-0.6); Monocytes Percent Auto 7.8 % (2.6-8.5); Neutrophils Absolute Auto 3.6 K/mm3 (1.3-6.7); Neutrophils Percent Auto 48.8 % (45.5-73.1); Platelet Count Result 255 k/mm3 (150-375); Red Blood Count 4.15 M/mm3 (4.2-5.4); Red Cell Distribution Width 12.2 % (11.5-14.5); White Blood Count 7.5 K/mm3 (4.5-10.0)
[2021-04-20 06:20] LABS: Hemoglobin A1C 8.7 % (<5.7)
[2021-04-20 06:29] LABS: Alanine Aminotransferase 18 U/L (4-35); Albumin Level 4.1 g/dL (3.5-5.1); Alkaline Phosphatase 153 U/L (38-126); Anion Gap 7 mmol/L (8-16); Aspartate Amino Transferase 28 U/L (14-36); Blood Urea Nitrogen 9 mg/dL (7-17); CRP < 0.5 mg/dL (<1.0); Calcium 9.1 mg/dL (8.4-10.2); Carbon Dioxide 28 mmol/L (22-30); Chloride 104 mmol/L (98-107); Estimated CRCL calculation 71 ml/min; Estimated Glomerular Filt Rate > 60; Glucose 168 mg/dL (65-110); Lactate Dehydrogenase 537 U/L (313-618); Magnesium 1.8 mg/dL (1.6-2.3); Potassium 3.6 mmol/L (3.4-5.0); Sodium 139 mmol/L (137-145)
[2021-04-20 08:00] VITALS: PULSE 57; PULSE 60; RESP 13; O2SAT 96
[2021-04-20 08:15] LABS: Glucose Point of Care 146 mg/dl (65-105)
[2021-04-20] MEDS: OMEGA 3 POLYUNSAT FATTY ACIDS 1 GM CAP PO (08:30)
[2021-04-20] MEDS: CLOPIDOGREL BISULFATE 75 MG TABLET PO (08:33)
[2021-04-20] MEDS: UMECLIDINIUM BROMIDE 62.5 MCG ELLIPTA 1 PUFF INHALATION (08:33)
--- NOTE | 2021-04-20 10:35 | WPDNEUROPN ---
Progress Note: A&P Additional Plan patient does have history of documented stroke on the left side but in addition she is diabetic she can easily have 6 nerve involvement but the nystagmus this morning is completely gone and her neurological examination is stable no further intervention is necessary and I explained to her accordingly Subjective Date/time seen: 04/20/21 10:35 71 years old lady admitted to the hospital for the complaints of diplopia of 48 hours duration and with clinical examination revealing her to have mild nystagmus on looking to the right side, patient is known diabetic has undergone coiling of the aneurysm in the region of the right carotid siphon evaluation documented mild to moderate right carotid mild left carotid sclerosis with 25% stenosis and obvious right-sided suprasellar aneurysm coiling which is obscuring the evaluation of the right carotid siphon the right posterior communicating artery is dominant there is no evidence of fibromuscular dysplasia or any other additional aneurysm but there is documentation of left frontoparietal infarction Review of Systems Review of Systems: All systems reviewed & are unremarkable except as noted in HPI and below Exam Narrative: examination revealed her to be awake alert cooperative in no obvious acute distress his speech normal with no dysphagia no dysarthria cranial examination revealed no change in the focal neurological deficit motor and sensory exam normal reflexes symmetrical and plantars downgoing Objective Data Vital Signs Vital Signs: Vital Signs - 24 hr 04/19/21 14:04 04/19/21 14:05 04/19/21 14:32 Temperature Pulse Rate 63 78 62 Respiratory Rate 18 Blood Pressure 141/82 H 144/88 H 139/71 Pulse Oximetry 96 04/19/21 16:00 04/19/21 16:15 04/19/21 20:00 Temperature 36.3 C L Pulse Rate 80 78 65 Respiratory Rate 14 Blood Pressure 139/73 Pulse Oximetry 96 04/19/21 22:00 04/19/21 22:27 04/20/21 00:00 Temperature 36.6 C Pulse Rate 66 85 65 Respiratory Rate 13 Blood Pressure 134/66 Pulse Oximetry 93 04/20/21 04:00 04/20/21 06:00 Temperature 36.4 C Pulse Rate 56 L 57 L Respiratory Rate 13 Blood Pressure 103/47 L Pulse Oximetry 96 Intake/Output Intake/Output: Intake & Output 04/17/21 04/18/21 04/19/21 04/20/21 23:59 23:59 23:59 23:59 Intake Total 240 200 Output Total 300 Balance 240 -100 Meds/Results Medications: Active Medications Generic Name Dose Route Start Last Admin Trade Name Freq PRN Reason Stop Dose Admin Acetaminophen 650 mg 04/19/21 22:06 Acetaminophen 325 Mg Tablet PO Q4H PRN Headache Albuterol 2 puff 04/19/21 21:51 Albuterol Sulfate (*Sp) Aerosol 1 Puff INHALATION Q4H PRN shortness of breath or wheezing Alprazolam 0.25 mg 04/19/21 21:51 Alprazolam (*Crx) 0.25 Mg Tablet PO BID PRN Anxiety Atorvastatin Calcium 40 mg 04/20/21 21:00 Atorvastatin 40 Mg Tablet PO HS TIFFANY Calcium Carbonate 500 mg 04/20/21 09:00 04/20/21 08:30 Calcium/Vitamin D 500 Mg Tablet PO 500 mg DAILY TIFFANY Administration Clopidogrel Bisulfate 75 mg 04/20/21 09:00 04/20/21 08:33 Clopidogrel Bisulfate 75 Mg Tablet PO 75 mg DAILY TIFFANY Administration Cyclobenzaprine HCl 5 mg 04/19/21 22:30 04/19/21 22:56 Cyclobenzaprine Hcl 5 Mg Tablet PO 5 mg Q8H PRN Administration Muscle Spasm Dextrose 12.5 gm 04/19/21 21:52 Dextrose 50% 25 Gm/50 Ml Syringe IV PUSH PRN PRN Hypoglycemia Protocol Fenofibrate 145 mg 04/21/21 09:00 Fenofibrate Nanocrystallized 145 Mg Tablet PO QAM TIFFANY Fish Oil 1 gm 04/20/21 09:00 04/20/21 08:30 [place] 3 Polyunsat Fatty Acids 1 Gm Cap PO 1 gm DAILY TIFFANY Administration Glucagon 1 mg 04/19/21 21:52 Glucagon For Inj 1 Mg Vial IM PRN PRN Hypoglycemia Protocol Glucose 15 gm 04/19/21 21:52 Glucose Oral Gel 15 Gm Of Glucse In 37.5 Gm Tub
--- NOTE | 2021-04-20 10:44 | PM.IMPN ---
Progress Note: A&P Additional Plan START OF DOCTOR NAVJOT?S PROGRESS NOTE Subjective: The patient complains of some degree of diplopia/blurry vision. Aside from that she endorses no complaints. She denies dysphasia, dysphagia, paresthesia/anesthesia/biopsy of any part of her body. She denies headache, lightheadedness, dizziness, chest pain, palpitations, sensory rapid heartbeat, soft tissue Heart Penilla. Overnight she had fever, rigors, nausea, vomiting, cough, wheeze, abdominal pain, chest pain. I have explained to the patient her current medical condition and plan of care and answered all questions Objective: General: -Alert -No acute distress -No dyspnea -No tachypnea -obese Heart: -Regular rate -Regular rhythm -No murmurs -No gallops -No rubs Lungs: -No wheeze -No rhonchi -No rales -distant breath sounds bilaterally Abdomen: -Normal bowel sounds in all four quadrants -No rebound -No guarding -No tenderness Extremities: -2/4 pulse in all four extremities -No clubbing -No cyanosis -No edema Additional Details / Additional Findings / Exceptions / Miscellaneous: Cranial nerves 2-12 are intact. Eyes: Pupils equally round and reactive to light accommodation. Extraocular muscles are intact The patient has 5/5 bilateral upper and lower extremity strength. Toes are bilateral upper lower extremities are equal and intact Pertinent Laboratory Results / Pertinent Radiology Results / Pertinent Diagnostic Results / Pertinent Vital Signs: Heart rate 57, alkaline phosphatase 153 Assessment / Plan: CVA versus TIA. CT of the head and neck unremarkable. Appreciate Neurology evaluate the patient. Echocardiogram pending. MRI of the brain pending. Will monitor patient on telemetry and check serial cardiac enzymes. Neuro checks q.4 hours. Check B12, folic acid, magnesium, free T4. TSH within normal limits. Lipitor 40 mg p.o. q.h.s. plus Plavix 75 mg p.o. daily History of CVA. Lipitor 40 mg p.o. q.h.s. plus Plavix at 5 mg. Diabetes. Will check fingerstick glucose q.a.c. and HS and provide [place]ak/scale Hyperlipidemia/Hypertriglyceridemia. Tricor 145 mg p.o. daily plus fish oil 1000 mg p.o. daily History of right carotid siphon aneurysm, status post coiling COPD. Incruse Ellipta 1 inhalation daily Osteoporosis. Calcium/vitamin-D: 500 mg p.o. daily Coronary artery disease, status post [place]. Lipitor 40 mg p.o. q.h.s. post Plavix and 5 mg p.o. daily plus metoprolol XL 50 mg p.o. q.h.s. History of mitral valve prolapse Peptic ulcer disease/GERD. Protonix 40 mg p.o. q.h.s. Anxiety Obesity. Patient counseled regarding lifestyle modification History of nephrolithiasis Diverticulosis Hypertension. Metoprolol XL 50 mg p.o. q.h.s. Depression History of migraine Obstructive sleep apnea. CPAP/BiPAP: Okay to use home device and/or pressure when sleeping if the patient uses CPAP/BiPAP at home Peripheral vascular disease with history of carotid endarterectomy. Lipitor 40 mg p.o. q.h.s. post Plavix and high mg p.o. daily DVT prophylaxis. Bilateral SCDs Disposition: The patient may potentially account for discharge on this day of April 20, 2021. This is pending results of echocardiogram, MRI of the brain, reassessment by Neurology, evaluation by Physical therapy, evaluation by Occupational therapy. I suspect the patient will be medically stable for discharge END OF DOCTOR NAVJOT?S PROGRESS NOTE Subjective Date/time seen: 04/20/21 10:44 Objective Data Vital Signs Vital Signs: Vital Signs - 24 hr 04/19/21 14:04 04/19/21 14:05 04/19/21 14:32 Temperature Pulse Rate 63 78 62 Respiratory Rate 18 Blood Pressure 141/82 H 144/88 H 139/71 Pulse Oximetry 96 04/19/21 16:00 04/19/21 16:15 04/19/21 20:00 Temperature 97.3 F L Pulse Rate 80 78 65 Respiratory Rate 14 Blood Pressure 139/73 Pulse Oximetry 96 04/19/21
[2021-04-20 11:25] LABS: Free T4 Free Thyroxine 1.11 ng/mL (0.78-2.19)
[2021-04-20 11:26] LABS: Troponin I < 0.012 ng/mL (0.000-0.034)
[2021-04-20 12:00] VITALS: PULSE 82
[2021-04-20 12:15] LABS: Glucose Point of Care 190 mg/dl (65-105)
[2021-04-20 14:00] VITALS: BP 138/70; PULSE 82; RESP 21; TEMP 36; O2SAT 94
[2021-04-20] MEDS: HYDROCORTISONE ACETATE 25 MG SUPPOSITORY RECTAL (14:01)
--- NOTE | 2021-04-20 14:48 | PM.DS ---
DS: Admitting Diagnosis Discharge Date 2:40 p.m. on April 20, 2021 Admitting Diagnosis TIA DS: Summary Hospital Course Hospital Course: See discharge summary below Time Spent with Patient Time attestation: Total time spent providing and/or coordinating discharge services: START OF DOCTOR NAVJOT?S DISCHARGE SUMMARY Date of Admission: April 19, 2021 Date of Discharge: 2:49 p.m. on April 20, 2021 Primary Diagnosis: TIA Secondary Diagnosis: History of CVA Diabetes Hyperlipidemia/Hypertriglyceridemia History of right carotid siphon aneurysm, status post coiling COPD. Osteoporosis Coronary artery disease, status post [place] Mitral valve prolapse GERD/peptic ulcer disease paragraph anxiety paragraph obesity paragraph history of nephrolithiasis Diverticulosis Hypertension Depression History of migraine Obstructive sleep apnea Peripheral vascular disease with history of carotid endarterectomy Consultations: Neurology Disposition: The patient will be dialyzed follow up with Neurology as directed The patient is advised follow-up with her primary care physician 5-7 days post discharge for post hospitalization evaluation Discharge Medications: Albuterol 2.5 mg nebulized q.6 hours Proventil HFA: 90 microsphere spray: 2 puffs q.4 hours p.r.n. shortness of breath/wheeze Xanax 0.25 mg p.o. b.i.d. p.r.n. anxiety Lipitor 40 mg p.o. q.h.s. Calcium/vitamin-D: 500 mg/400 IU: 1 tab p.o. daily Plavix 75 mg p.o. daily Metoprolol XL 50 mg p.o. q.h.s. Nicotine gum: 2 mg p.o. q.2 hours p.r.n. nicotine withdrawal Nitroglycerin 0.4 mg sublingual Q 5 minutes p.r.n. chest pain. She has culture 911 if there is no resolution of chest pain after 3rd dose Fish oil 1000 mg p.o. daily Protonix 40 mg p.o. q.h.s. Incruse Ellipta 62.5 mg inhaled daily Tricor 145 mg p.o. daily END OF DOCTOR NAVJOT?S DISCHARGE SUMMARY DS: Data Data Completed and Pending Labs on day of discharge: Labs from last 24 hours 04/20/21 04/20/21 04/20/21 12:09 10:57 08:08 WBC RBC Hgb Hct MCV MCH MCHC RDW Plt Count MPV Immature Gran % (Auto) Neut % (Auto) Lymph % (Auto) Cecil % (Auto) Eos % (Auto) Baso % (Auto) Lymph # (Auto) Cecil # (Auto) Eos # (Auto) Baso # (Auto) Abs Immat Gran (auto) Absolute Neuts (auto) Absolute Nucleated RBC Nucleated RBC % Sodium Potassium Chloride Carbon Dioxide Anion Gap BUN Creatinine Estim Creat Clear Calc Estimated GFR Glucose POC Capillary Glucose 190 H 146 H Hemoglobin A1c Calcium Magnesium Total Bilirubin AST ALT Alkaline Phosphatase Lactate Dehydrogenase Troponin I < 0.012 C-Reactive Protein Total Protein Albumin Vitamin B12 Folate TSH (Reflex) Free T4 04/20/21 04/20/21 04/20/21 05:49 05:49 05:49 WBC RBC Hgb Hct MCV MCH MCHC RDW Plt Count MPV Immature Gran % (Auto) Neut % (Auto) Lymph % (Auto) Cecil % (Auto) Eos % (Auto) Baso % (Auto) Lymph # (Auto) Cecil # (Auto) Eos # (Auto) Baso # (Auto) Abs Immat Gran (auto) Absolute Neuts (auto) Absolute Nucleated RBC Nucleated RBC % Sodium Potassium Chloride Carbon Dioxide Anion Gap BUN Creatinine Estim Creat Clear Calc Estimated GFR Glucose POC Capillary Glucose Hemoglobin A1c 8.7 H Calcium Magnesium Cancelled Total Bilirubin AST ALT Alkaline Phosphatase Lactate Dehydrogenase Troponin I C-Reactive Protein Total Protein Albumin Vitamin B12 261.0 Folate 17.0 TSH (Reflex) Free T4 1.11 04/20/21 04/20/21 04/20/21 05:49 05:49 05:49 WBC 7.5 RBC 4.15 L Hgb 13.6 Hct 40.3 MCV 97.1 MCH 32.8 MCHC
[2021-04-20 15:40] LABS: Troponin I 0.025 ng/mL (0.000-0.034)
== END 2021-04-20 16:35 | disposition home or self-care (01) ==
LOC: ANHED 10:33 → ANHCPC 15:54
PROVIDERS: Nurse Practitioner; Physician Assistant; Admitting Provider Family Medicine; Emergency Provider Emergency Medicine; PCP Internal Medicine; Visit Provider Internal Medicine
DX: G45.9 Transient cerebral ischemic attack, unspecified (principal); H53.2 Diplopia; E11.9 Type 2 diabetes mellitus without complications; E78.5 Hyperlipidemia, unspecified; F41.8 Other specified anxiety disorders; G47.33 Obstructive sleep apnea (adult) (pediatric); I10 Essential (primary) hypertension; I25.2 Old myocardial infarction; J44.9 Chronic obstructive pulmonary disease, unspecified; K64.9 Unspecified hemorrhoids; K21.9 Gastro-esophageal reflux disease without esophagitis; Z86.73 Personal history of transient ischemic attack (TIA), and cerebral infarction without residual deficits; Z79.899 Other long term (current) drug therapy; Z87.891 Personal history of nicotine dependence
CPT/HCPCS: 36415; 70450; 70496; 70498; 71045; 80053; 81003; 82607; 82746; 82948; 83036; 83615; 83690; 83735; 84439; 84443; 84484; 85025; 86140; 93005; 93306; 93880; 94640; 97165; 99285; A9270; G0378; J1815; Q9967

== ENCOUNTER → 2021-05-16 01:46 | Outpatient (CLI) | payer MEDICARE, SELFPAY ==
[2021-05-16 18:23] LABS: SARS-CoV-2 RNA PCR Negative
== END ==
PROVIDERS: PCP Internal Medicine; Visit Provider Internal Medicine
DX: Z20.822 Contact with and (suspected) exposure to COVID-19 (principal)
CPT/HCPCS: C9803; U0003; U0005

== ENCOUNTER → 2021-08-10 10:29 | Outpatient (CLI) | payer MEDICARE, SELFPAY ==
[2021-08-10 21:12] LABS: SARS-CoV-2 RNA PCR Negative
== END ==
PROVIDERS: PCP Internal Medicine; Visit Provider Internal Medicine
DX: R09.89 Other specified symptoms and signs involving the circulatory and respiratory systems (principal); Z20.822 Contact with and (suspected) exposure to COVID-19
CPT/HCPCS: C9803; U0003; U0005

== ENCOUNTER 2021-09-11 01:17 | Emergency (ER) | payer MEDICARE, SELFPAY ==
--- NOTE | ~2021-09-11 | CT_ITS ---
EXAMINATION: CTA brain carotid EXAM DATE: 09/11/2021 02:35 INDICATION: eye pain/ headache X 2 DAYS. TECHNIQUE: Noncontrast head CT. Spiral CTA of the carotid arteries was performed with intravenous i njection 100 cc of Omnipaque 350. Axial, coronal, sagittal reformatted images reviewed. Additional r eformatted images created on dedicated 3-D workstation. NASCET comparable standard used to assess th e degree of arterial stenosis. Spiral CT angiogram cerebral arteries performed with the same intrave nous injection of contrast. Source images of the brain CTA transferred to dedicated workstation for 3 -D rotational image creation. Coronal, sagittal maximum intensity pixel images also reviewed. The d ose-length product (DLP) for this examination was 1915.90 mGy-cm. The exposure was tailored accordi ng to patient size, and iterative reconstruction (ASIR) was used as additional dose reduction techniq ue. Comparison is made to prior examination from 04/19/2021. FINDINGS: There is mild to moderate right carotid, mild left carotid atherosclerosis with 20% stenosi s on the right and 0% stenosis on the left. There is right-sided suprasellar aneurysm coiling which i s obscuring evaluation of the right carotid siphon. There is mild left carotid parasellar arterial sc lerosis with no stenosis. There is right-sided posterior communicating artery dominant posterior cere bral artery. Mildly patulous appearing basilar tip, an infundibulum on the left and on the right, unc ertain whether or not this is an infundibulum to a very small or occluded P1 segment versus a 2 mm an eurysm. Moderate stenosis of the right M1 segment before the trifurcation. Severe stenosis of one of the right trifurcation, M2 branches. Severe left P1 segment stenosis. There is no carotid or verteb ral basilar arterial dissection or fibromuscular dysplasia. The sagittal, transverse and sigmoid sin uses enhance normally, no venous sinus thrombosis. Internal cerebral veins also enhance normally. The re is right ICA embolic coil material, a treated parasellar aneurysm causing some artifact and limita tions. Incidental Findings: Moderate-sized left maxillary sinus mucous retention cyst. Small old left fronto parietal lobe infarctions are unchanged. There is mild atrophy and microangiopathy. No brain mass, ex tra-axial collections, obstructive hydrocephalus or evidence of acute infarction. There is no significant interval change. IMPRESSION: 1. No acute carotid or intracranial findings or interval change. 2. Scattered intracranial cerebral atherosclerosis. 3. Old left frontoparietal lobe infarctions. 4. Right carotid bulb 20% stenosis. 5. Basilar tip infundibulum versus 2 mm aneurysm. Reviewed, dictated and finalized at location [employer]
[2021-09-11 01:16] VITALS: BP 138/66; PULSE 86; RESP 18; TEMP 36.9; O2SAT 95
--- NOTE | 2021-09-11 01:39 | ED.GENADULT ---
HPI - General Adult General Chief complaint: Headache Stated complaint: headache x 2 days with blurry vision Time Seen by Provider: 09/11/21 01:20 Source: patient, RN notes reviewed and old records reviewed Mode of arrival: ambulatory Limitations: no limitations History of Present Illness HPI narrative: 71-year-old female presents [facility] for evaluation of headache and sinus congestion for the past few days. Patient states that she has had worsening sinus congestion, fatigue and headache. Patient states earlier she did have some double vision but denies any current double vision at this time. Patient does have prior history of brain aneurysm that was coiled in 2010. Related Data Home Medications Medication Instructions Recorded Confirmed metoprolol succinate 50 mg 50 mg PO HS 06/24/19 07/20/21 tablet,extended release 24 hr Incruse Ellipta 1 inhalation INHALATION DAILY PRN 04/19/21 07/20/21 nicotine (polacrilex) [Nicorette] 2 mg BUCCAL Q2-3H PRN 04/19/21 07/20/21 Allergies Allergy/AdvReac Type Severity Reaction Status Date / Time Sulfa (Sulfonamide Allergy Mild HIVES Verified 09/11/21 01:23 Antibiotics) propoxyphene AdvReac Mild FLIPPED Verified 09/11/21 01:23 OUT codeine AdvReac Unknown PASSES OUT Verified 09/11/21 01:23 Review of Systems Review of Systems: CONSTITUTIONAL: Denies fever, chills, or sweats. EYES: Denies visual changes, redness, or discharge. ENT: Sinus pressure and nasal congestion CARDIOVASCULAR: Denies chest pain, palpitations, or edema. RESPIRATORY: Denies cough or dyspnea. GASTROINTESTINAL: Denies abdominal pain, nausea, vomiting, or diarrhea. GENITOURINARY: Denies dysuria or hematuria. SKIN: Denies rash or itching. MUSCULOSKELETAL: Denies back pain, joint pain, or myalgia. NEUROLOGIC: Sinus pressure headache but denies any associated numbness or weakness. PSYCHIATRIC: Denies anxiety or depression. 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 DARCY (obstructive sleep apnea) Other and unspecified hyperlipidemia Peptic ulcer disease Postmenopausal disorder Type 2 diabetes mellitus without complication, without long-term current use of insulin Surgical History Surgical History History of cardiac catheterization History of carotid endarterectomy LT History of cholecystectomy History of rectal surgery 12/20/20 Anal fistulotomy History of tonsillectomy S/P coil embolization of cerebral aneurysm Family History Family History Mother Hypertension Cerebrovascular accident Family history of diabetes mellitus in first degree relative Family history of congestive heart failure Diabetes mellitus Family history of hypercholesterolemia CHF (congestive heart failure) Grandparent Cerebrovascular accident Family history of hepatitis Family history of malignant neoplasm Father Hypertension Acute myocardial infarction Social History Social History Social History: The patient is single home and has 1 son. 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 She is a full code and son is the durable power of vaccine customer representative for healthcare. The patient smokes cigarettes in the past. No alcohol marijuana or illicit drugs. She lives with her son Smoking packs per day: 1.25 Smoking cigarettes
--- NOTE | 2021-09-11 01:52 | PC.NURSE ---
Pt refused after opening medication.
[2021-09-11 01:56] LABS: Basophils Absolute Auto 0.1 K/mm3 (0.0-0.1); Basophils Percent Auto 0.5 % (0.2-1.2); Eosinophils Absolute Auto 0.2 K/mm3 (0-0.3); Eosinophils Percent Auto 1.7 % (0-4.4); Hematocrit 41.3 % (37.0-47.0); Immature Granulocyte Absolute 0.06 K/mm3 (0.00-0.031); Immature Granulocyte Percent A 0.5 % (0-0.5); Lymphocytes Absolute Auto 3.49 K/mm3 (0.9-3.2); Lymphocytes Percent Auto 30.9 % (18.3-44.2); Mean Corpuscular HGB Conc 33.9 g/dl (32-36); Mean Corpuscular Hemoglobin 32.4 pg (26-34); Mean Corpuscular Volume 95.6 fl (80-100); Mean Platelet Volume 10.7 fl (7.4-10.4); Monocytes Absolute Auto 0.9 K/mm3 (0.1-0.6); Monocytes Percent Auto 7.6 % (2.6-8.5); Neutrophils Absolute Auto 6.6 K/mm3 (1.3-6.7); Neutrophils Percent Auto 58.8 % (45.5-73.1); Platelet Count Result 298 k/mm3 (150-375); Red Blood Count 4.32 M/mm3 (4.2-5.4); White Blood Count 11.3 K/mm3 (4.5-10.0)
[2021-09-11 02:07] LABS: Alanine Aminotransferase 14 U/L (4-35); Albumin Level 4.1 g/dL (3.5-5.1); Alkaline Phosphatase 159 U/L (38-126); Anion Gap 7 mmol/L (8-16); Aspartate Amino Transferase 28 U/L (14-36); Bilirubin,Total 0.7 mg/dL (0.2-1.3); Blood Urea Nitrogen 14 mg/dL (7-17); Calcium 9.8 mg/dL (8.4-10.2); Carbon Dioxide 28 mmol/L (22-30); Chloride 103 mmol/L (98-107); Estimated CRCL calculation 60 ml/min; Estimated Glomerular Filt Rate > 60; Glucose 115 mg/dL (65-110); Potassium 3.8 mmol/L (3.4-5.0); Sodium 138 mmol/L (137-145)
--- NOTE | 2021-09-11 02:20 | PC.NURSE ---
Patient taken to CT via w/c.
[2021-09-11 02:21] LABS: Partial Thromboplastin Time 27.1 SECONDS (22.3-36.8)
[2021-09-11 02:26] LABS: Prothrombin Time 12.3 Seconds (11.1-14.7)
[2021-09-11 02:45] LABS: SARS-CoV-2 RNA PCR Negative
[2021-09-11 03:46] VITALS: BP 116/60; PULSE 80; RESP 16; O2SAT 99
== END 2021-09-11 03:52 | disposition home or self-care (01) ==
PROVIDERS: Emergency Provider Emergency Medicine; PCP Internal Medicine
DX: R51.9 Headache, unspecified (principal); Z20.822 Contact with and (suspected) exposure to COVID-19; I25.10 Atherosclerotic heart disease of native coronary artery without angina pectoris; I10 Essential (primary) hypertension; E11.9 Type 2 diabetes mellitus without complications; I25.2 Old myocardial infarction; I34.1 Nonrheumatic mitral (valve) prolapse; J45.909 Unspecified asthma, uncomplicated; E78.00 Pure hypercholesterolemia, unspecified; K21.9 Gastro-esophageal reflux disease without esophagitis; G47.33 Obstructive sleep apnea (adult) (pediatric); Z87.11 Personal history of peptic ulcer disease; Z87.442 Personal history of urinary calculi; Z87.891 Personal history of nicotine dependence; Z79.84 Long term (current) use of oral hypoglycemic drugs
CPT/HCPCS: 36415; 70496; 70498; 80053; 85025; 85610; 85730; 99284; A9270; C9803; Q9967; U0003; U0005

== ENCOUNTER 2021-09-18 01:34 | Emergency (ER) | payer MEDICARE, SELFPAY ==
[2021-09-18 01:36] VITALS: BP 139/81; PULSE 100; RESP 16; TEMP 36.6; O2SAT 100
[2021-09-18 01:49] LABS: Glucose Point of Care 140 mg/dl (65-105)
--- NOTE | 2021-09-18 02:20 | ED.GENADULT ---
HPI - General Adult General Chief complaint: Unspecified Stated complaint: unsure if she took two pills instead of one Time Seen by Provider: 09/18/21 01:46 Source: patient Mode of arrival: ambulatory Limitations: no limitations History of Present Illness HPI narrative: This is a 71 year old female with history of diabetes mellitus who presents for evaluation of possible accidental overdose. Patient takes metformin 500 mg once day. She is afraid that she took 1000 mg tonight accidentally. She thinks she took 500 mg at 8 and another 500 mg at 10pm . She was afraid her blood sugar would drop too low so she came to ER. She denies issues with hypoglycemia. She denies abdominal pain, nausea, vomiting, diarrhea or fatigue. Her blood sugar in normal in ER. Related Data Home Medications Medication Instructions Recorded Confirmed metoprolol succinate 50 mg 50 mg PO HS 06/24/19 07/20/21 tablet,extended release 24 hr Incruse Ellipta 1 inhalation INHALATION DAILY PRN 04/19/21 07/20/21 nicotine (polacrilex) [Nicorette] 2 mg BUCCAL Q2-3H PRN 04/19/21 07/20/21 Allergies Allergy/AdvReac Type Severity Reaction Status Date / Time Sulfa (Sulfonamide Allergy Mild HIVES Verified 09/18/21 01:46 Antibiotics) propoxyphene AdvReac Mild FLIPPED Verified 09/18/21 01:46 OUT codeine AdvReac Unknown PASSES OUT Verified 09/18/21 01:46 Review of Systems Review of Systems: All systems reviewed & are unremarkable except as noted in HPI and below PMFSH Past Medical History Medical History ASHD (arteriosclerotic heart disease) Asthma Benign essential hypertension Brain aneurysm CAD (coronary atherosclerotic disease) Cataract Chronic GERD Chronic obstructive pulmonary disease, unspecified Depression Heart attack Hemorrhoids High cholesterol History of CVA (cerebrovascular accident) without residual deficits Kidney stone Low back pain Migraine Mitral valve prolapse On snf drug therapy DARCY (obstructive sleep apnea) Other and unspecified hyperlipidemia Peptic ulcer disease Postmenopausal disorder Type 2 diabetes mellitus without complication, without long-term current use of insulin Surgical History Surgical History History of cardiac catheterization History of carotid endarterectomy LT History of cholecystectomy History of rectal surgery 12/20/20 Anal fistulotomy History of tonsillectomy S/P coil embolization of cerebral aneurysm Family History Family History Mother Hypertension Cerebrovascular accident Family history of diabetes mellitus in first degree relative Family history of congestive heart failure Diabetes mellitus Family history of hypercholesterolemia CHF (congestive heart failure) Grandparent Cerebrovascular accident Family history of hepatitis Family history of malignant neoplasm Father Hypertension Acute myocardial infarction Social History Social History Social History: The patient is single home and has 1 son. 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 She is a full code and son is the durable power of cellar hand for healthcare. The patient smokes cigarettes in the past. No alcohol marijuana or illicit drugs. She lives with her son Smoking packs per day: 1.25 Smoking cigarettes per day: 25.0 Years smoked: 30 Smoking pack-years: 37.50 Smoking status: Former smoker Second hand tobacco smoke exposure: Yes Smoking end date: 07/22/07 Additional smoking assessment comments: QUIT 2007 Alcohol intake: former Alcohol use details: quit 1998 Substance use: never Substance use type: does not use Additional living arrangements comments: LIVES WITH SON Additional occupation/education comments: looking for a job Gender identity
[2021-09-18 02:40] VITALS: BP 117/60; PULSE 90; RESP 16; O2SAT 95
== END 2021-09-18 02:44 | disposition home or self-care (01) ==
PROVIDERS: Emergency Provider General Practice; PCP Internal Medicine
DX: T38.3X1A Poisoning by insulin and oral hypoglycemic [antidiabetic] drugs, accidental (unintentional), initial encounter (principal); E11.9 Type 2 diabetes mellitus without complications; I25.10 Atherosclerotic heart disease of native coronary artery without angina pectoris; J44.9 Chronic obstructive pulmonary disease, unspecified; I10 Essential (primary) hypertension; I25.2 Old myocardial infarction; E78.00 Pure hypercholesterolemia, unspecified; I34.1 Nonrheumatic mitral (valve) prolapse; K21.9 Gastro-esophageal reflux disease without esophagitis; G47.33 Obstructive sleep apnea (adult) (pediatric); F32.A Depression, unspecified; Z86.73 Personal history of transient ischemic attack (TIA), and cerebral infarction without residual deficits; Z87.442 Personal history of urinary calculi; Z87.11 Personal history of peptic ulcer disease; Z79.84 Long term (current) use of oral hypoglycemic drugs; Z87.891 Personal history of nicotine dependence
CPT/HCPCS: 82948; 99282

== ENCOUNTER 2021-10-25 17:30 | Emergency (ER) | payer MEDICARE, SELFPAY ==
[2021-10-25 17:37] VITALS: BP 143/69; PULSE 76; RESP 16; TEMP 36.6; O2SAT 100
--- NOTE | 2021-10-25 17:55 | ED.URI ---
HPI - URI/Sore Throat General Chief Complaint: Upper Respiratory Infection Stated Complaint: cough Time Seen by Provider: 10/25/21 17:55 Source: patient Mode of arrival: ambulatory Limitations: no limitations History of Present Illness HPI Narrative: Ms. Calero is a 71-year-old female patient presenting to the clinic today with complaints of cough, nasal congestion, headache, sore throat, body aches, x5 days. 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 She denies any known exposure to anyone with Covid or influenza. She has been vaccinated against Covid MD elicited complaint: sore throat and nasal congestion Related Data Home Medications Medication Instructions Recorded Confirmed metoprolol succinate 50 mg 50 mg PO HS 06/24/19 10/25/21 tablet,extended release 24 hr Incruse Ellipta 1 inhalation INHALATION DAILY PRN 04/19/21 10/25/21 nicotine (polacrilex) [Nicorette] 2 mg BUCCAL Q2-3H PRN 04/19/21 10/25/21 Allergies Allergy/AdvReac Type Severity Reaction Status Date / Time Sulfa (Sulfonamide Allergy Mild HIVES Verified 10/25/21 17:41 Antibiotics) propoxyphene AdvReac Mild FLIPPED Verified 10/25/21 17:41 OUT codeine AdvReac Unknown PASSES OUT Verified 10/25/21 17:41 Review of Systems Review of Systems: Pertinent positives per HPI. Patient denies any fever, chills, rash, headache, visual changes, dizziness, cough, shortness of breath, chest pain, palpitations, nausea, vomiting, diarrhea, constipation, abdominal pain, or any urinary issues. [facility] Past Medical History Medical History ASHD (arteriosclerotic heart disease) Asthma Benign essential hypertension Brain aneurysm CAD (coronary atherosclerotic disease) Cataract Chronic GERD Chronic obstructive pulmonary disease, unspecified Depression Heart attack Hemorrhoids High cholesterol History of CVA (cerebrovascular accident) without residual deficits Kidney stone Low back pain Migraine Mitral valve prolapse On tank terminal gauger drug therapy DARCY (obstructive sleep apnea) Other and unspecified hyperlipidemia Peptic ulcer disease Postmenopausal disorder Type 2 diabetes mellitus without complication, without long-term current use of insulin Surgical History Surgical History History of cardiac catheterization History of carotid endarterectomy LT History of cholecystectomy History of rectal surgery 12/20/20 Anal fistulotomy History of tonsillectomy S/P coil embolization of cerebral aneurysm Family History Family History Mother Hypertension Cerebrovascular accident Family history of diabetes mellitus in first degree relative Family history of congestive heart failure Diabetes mellitus Family history of hypercholesterolemia CHF (congestive heart failure) Grandparent Cerebrovascular accident Family history of hepatitis Family history of malignant neoplasm Father Hypertension Acute myocardial infarction Social History Social History Social History: The patient is single home and has 1 son. 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 She is a full code and son is the durable power of criminal attorney for healthcare. The patient smokes cigarettes in the past. No alcohol marijuana or illicit drugs. She lives with her son Smoking packs per day: 1.25 Smoking cigarettes per day: 25.0 Years smoked: 30 Smoking pack-years: 37.50 Smoking status: Former smoker Second hand tobacco smoke exposure: Yes Smoking end date: 07/22/07 Additional smoking assessment comments: QUIT 2007 Alcohol intake: former Alcohol use details: quit 1998 Substance use: never Substance use type: does not use Additional living arrangements comments: LIVES WITH SON Additional occupation/education comments: looking
== END 2021-10-25 18:28 | disposition home or self-care (01) ==
PROVIDERS: Emergency Provider Nurse Practitioner Family
DX: J06.9 Acute upper respiratory infection, unspecified (principal); B34.9 Viral infection, unspecified; Z20.822 Contact with and (suspected) exposure to COVID-19; Z87.891 Personal history of nicotine dependence; I25.10 Atherosclerotic heart disease of native coronary artery without angina pectoris; K21.9 Gastro-esophageal reflux disease without esophagitis; J44.9 Chronic obstructive pulmonary disease, unspecified; I25.2 Old myocardial infarction; E78.00 Pure hypercholesterolemia, unspecified; I34.1 Nonrheumatic mitral (valve) prolapse; G47.33 Obstructive sleep apnea (adult) (pediatric); E11.9 Type 2 diabetes mellitus without complications; I10 Essential (primary) hypertension; Z79.84 Long term (current) use of oral hypoglycemic drugs
CPT/HCPCS: 87081; 87426; 87804; 87880; 99213; C9803; G0463

== ENCOUNTER 2022-01-26 13:19 | Emergency (ER) | payer MEDICARE, SELFPAY ==
[2022-01-26 13:28] VITALS: BP 142/97; PULSE 89; RESP 18; O2SAT 98
--- NOTE | 2022-01-26 13:37 | PC.NURSE ---
Dr. Quinn at bedside to assess pt.
--- NOTE | 2022-01-26 14:03 | ED.GENADULT ---
HPI - General Adult General Chief complaint: Extremity Problem,Nontraumatic Stated complaint: right leg pain Time Seen by Provider: 01/26/22 13:28 History of Present Illness HPI narrative: Patient is a 71-year-old female who presents ER with right thigh pain. Sudden onset last night while sleeping. Pain is decreased. She did not take any pain medication. She has no numbness or tingling to lower extremity. No functional deficit. Able to walk without issue. Reports she thought she did see her PCP about it today because she had a previously scheduled appointment. Unfortunately she arrived in 15 minutes late and could not be seen. Apparently she was threatened that the police may be called to have her removed from the building. Unsure what transpired. Related Data Home Medications Medication Instructions Recorded Confirmed metoprolol succinate 50 mg 50 mg PO HS 06/24/19 10/25/21 tablet,extended release 24 hr nicotine (polacrilex) 2 mg gum 2 mg buccal Q2-3H PRN Nicotine 04/19/21 10/25/21 (Nicorette) Cravings umeclidinium 62.5 mcg/actuation 1 inhalation inhalation DAILY PRN 04/19/21 10/25/21 blister powder for inhalation Shortness Of Breath (Incruse Ellipta) Allergies Allergy/AdvReac Type Severity Reaction Status Date / Time Sulfa (Sulfonamide Allergy Mild HIVES Verified 10/25/21 17:41 Antibiotics) propoxyphene AdvReac Mild FLIPPED Verified 10/25/21 17:41 OUT codeine AdvReac Unknown PASSES OUT Verified 10/25/21 17:41 Review of Systems Review of Systems: All systems reviewed & are unremarkable except as noted in HPI and below Constitutional: Constitutional: Denies chills and Denies fever(s) Cardiovascular: Cardiovascular: Denies chest pain and Denies rapid heart rate Gastrointestinal: Gastrointestinal: Denies abdominal pain, Denies nausea and Denies vomiting Musculoskeletal: Musculoskeletal: Denies back pain, Denies arthralgias, Denies joint swelling and Reports muscle cramps PMFSH Past Medical History Medical History ASHD (arteriosclerotic heart disease) Asthma Benign essential hypertension Brain aneurysm CAD (coronary atherosclerotic disease) Cataract Chronic GERD Chronic obstructive pulmonary disease, unspecified Depression Heart attack Hemorrhoids High cholesterol History of CVA (cerebrovascular accident) without residual deficits Kidney stone Low back pain Migraine Mitral valve prolapse On intermediate frame tender drug therapy DARCY (obstructive sleep apnea) Other and unspecified hyperlipidemia Peptic ulcer disease Postmenopausal disorder Type 2 diabetes mellitus without complication, without long-term current use of insulin Surgical History Surgical History History of cardiac catheterization History of carotid endarterectomy LT History of cholecystectomy History of rectal surgery 12/20/20 Anal fistulotomy History of tonsillectomy S/P coil embolization of cerebral aneurysm Family History Family History Mother Hypertension Cerebrovascular accident Family history of diabetes mellitus in first degree relative Family history of congestive heart failure Diabetes mellitus Family history of hypercholesterolemia CHF (congestive heart failure) Grandparent Cerebrovascular accident Family history of hepatitis Family history of malignant neoplasm Father Hypertension Acute myocardial infarction Social History Social History Social History: The patient is single home and has 1 son. 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 She is a full code and son is the durable power of family law attorney for healthcare. The patient smokes cigarettes in the past. No alcohol marijuana or illicit drugs. She lives with her son Smoking packs per day: 1.25 Smoking cigarettes per day
[2022-01-26 14:29] LABS: Anion Gap 7 mmol/L (8-16); Blood Urea Nitrogen 10 mg/dL (7-17); Calcium 9.5 mg/dL (8.4-10.2); Carbon Dioxide 26 mmol/L (22-30); Chloride 104 mmol/L (98-107); Estimated CRCL calculation 59 ml/min; Estimated Glomerular Filt Rate > 60; Glucose 81 mg/dL (65-110); Magnesium 1.7 mg/dL (1.6-2.3); Potassium 3.4 mmol/L (3.4-5.0); Sodium 137 mmol/L (137-145)
== END 2022-01-26 15:32 | disposition home or self-care (01) ==
PROVIDERS: Emergency Provider Emergency Medicine
DX: R25.2 Cramp and spasm (principal); I25.10 Atherosclerotic heart disease of native coronary artery without angina pectoris; I10 Essential (primary) hypertension; J44.9 Chronic obstructive pulmonary disease, unspecified; I25.2 Old myocardial infarction; I34.1 Nonrheumatic mitral (valve) prolapse; E11.9 Type 2 diabetes mellitus without complications; G47.33 Obstructive sleep apnea (adult) (pediatric); K21.9 Gastro-esophageal reflux disease without esophagitis; Z86.73 Personal history of transient ischemic attack (TIA), and cerebral infarction without residual deficits; Z87.442 Personal history of urinary calculi; Z87.11 Personal history of peptic ulcer disease; Z87.891 Personal history of nicotine dependence; Z79.84 Long term (current) use of oral hypoglycemic drugs
CPT/HCPCS: 36415; 80048; 83735; 99283

== ENCOUNTER 2022-02-14 10:13 | Emergency (ER) | payer MEDICARE, SELFPAY ==
--- NOTE | ~2022-02-14 | CT_ITS ---
EXAMINATION: CT brain wo con INDICATION: Headache COMPARISON: 09/11/2021 TECHNIQUE: Standard unenhanced head CT. The dose-length product (DLP) was 681.00 mGy-cm. The mA was a djusted according to patient size. Iterative reconstruction technique was employed. FINDINGS: There is no acute intraparenchymal hemorrhage. No evidence of mass lesion. No evidence of a cute infarction. There is an old infarct in the left frontoparietal region. Embolization coils are no bret in the right internal cerebral artery region. There is mild periventricular and subcortical hypod ensity probably related to small vessel ischemic disease. There is mild prominence of the sulci and v entricles related to cerebral atrophy. Intracranial calcified cerebral atherosclerosis is noted. Ther e are no extra-axial collections. There is no mass effect or midline shift. The orbits and soft tissu es are unremarkable. There is a polyp or mucous retention cyst in the left maxillary sinus. IMPRESSION: 1. Prior infarct and aneurysm coiling without acute intracranial abnormality. 2. Age related findings. Reviewed, dictated and finalized at location B.
--- NOTE | 2022-02-14 10:17 | ED.HA ---
HPI - Headache General Chief Complaint: Headache Stated Complaint: acute ko History of Present Illness HPI Narrative: Pt was sitting at doctor's office waiting on appointment and developed a posterior KO and pain in her neck. Pt has a history of SAH so 911 called. Pt says the pain is better now than what it was. Pt denies injury or numbness weakness or nausea Related Data Home Medications Medication Instructions Recorded Confirmed metoprolol succinate 50 mg 50 mg PO HS 06/24/19 10/25/21 tablet,extended release 24 hr nicotine (polacrilex) 2 mg gum 2 mg buccal Q2-3H PRN Nicotine 04/19/21 10/25/21 (Nicorette) Cravings Allergies Allergy/AdvReac Type Severity Reaction Status Date / Time Sulfa (Sulfonamide Allergy Mild HIVES Verified 02/14/22 10:24 Antibiotics) propoxyphene AdvReac Mild FLIPPED Verified 02/14/22 10:24 OUT codeine AdvReac Unknown PASSES OUT Verified 02/14/22 10:24 Review of Systems Review of Systems: All systems reviewed & are unremarkable except as noted in HPI and below PMFSH Past Medical History Medical History ASHD (arteriosclerotic heart disease) Asthma Benign essential hypertension Brain aneurysm CAD (coronary atherosclerotic disease) Cataract Chronic GERD Chronic obstructive pulmonary disease, unspecified Depression Heart attack Hemorrhoids High cholesterol History of CVA (cerebrovascular accident) without residual deficits Kidney stone Low back pain Migraine Mitral valve prolapse On prison drug therapy DARCY (obstructive sleep apnea) Other and unspecified hyperlipidemia Peptic ulcer disease Postmenopausal disorder Type 2 diabetes mellitus without complication, without long-term current use of insulin Surgical History Surgical History History of cardiac catheterization History of carotid endarterectomy LT History of cholecystectomy History of rectal surgery 12/20/20 Anal fistulotomy History of tonsillectomy S/P coil embolization of cerebral aneurysm Family History Family History Mother Hypertension Cerebrovascular accident Family history of diabetes mellitus in first degree relative Family history of congestive heart failure Diabetes mellitus Family history of hypercholesterolemia CHF (congestive heart failure) Grandparent Cerebrovascular accident Family history of hepatitis Family history of malignant neoplasm Father Hypertension Acute myocardial infarction Social History Social History Social History: The patient is single home and has 1 son. 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 She is a full code and son is the durable power of health and nutrition specialist for healthcare. The patient smokes cigarettes in the past. No alcohol marijuana or illicit drugs. She lives with her son Smoking packs per day: 1.25 Smoking cigarettes per day: 25.0 Years smoked: 30 Smoking pack-years: 37.50 Smoking status: Former smoker Second hand tobacco smoke exposure: Yes Smoking end date: 07/22/07 Additional smoking assessment comments: QUIT 2007 Alcohol intake: former Alcohol use details: quit 1998 Substance use: never Substance use type: does not use Additional living arrangements comments: LIVES WITH SON Additional occupation/education comments: looking for a job Gender identity (if verbalized by the patient): Female Spiritual care concerns: No Exam Const: General: healthy appearing Nutritional Appearance: well nourished Orientation/consciousness: patient oriented x3 Limitations: no limitations HENMT: Head: normal to inspection Eyes: Conjunctivae: conjunctivae normal Pupils: Equal, round and reactive pupils present EOM: EOMs intact bilaterally Direct Ophthalmoscopy: no photophobia Neck: Neck: normal visual inspection and no m
[2022-02-14 10:20] VITALS: BP 124/75; PULSE 88; RESP 22; TEMP 36.6; O2SAT 93
[2022-02-14 10:22] LABS: Glucose Point of Care 260 mg/dl (65-105)
[2022-02-14] MEDS: CYCLOBENZAPRINE HCL 10 MG TABLET PO (10:38)
== END 2022-02-14 11:16 | disposition home or self-care (01) ==
PROVIDERS: Emergency Provider Emergency Medicine; PCP Internal Medicine
DX: G44.209 Tension-type headache, unspecified, not intractable (principal); J45.909 Unspecified asthma, uncomplicated; I25.10 Atherosclerotic heart disease of native coronary artery without angina pectoris; K21.9 Gastro-esophageal reflux disease without esophagitis; I25.2 Old myocardial infarction; E78.5 Hyperlipidemia, unspecified; E11.9 Type 2 diabetes mellitus without complications
CPT/HCPCS: 70450; 82948; 99284; A9270; J3010

== ENCOUNTER 2022-05-31 11:36 | Emergency (ER) | payer MEDICARE, SELFPAY ==
[2022-05-31 11:50] VITALS: BP 147/77; PULSE 81; RESP 16; TEMP 36.2; O2SAT 97
--- NOTE | 2022-05-31 12:09 | ED.FEMALEGU ---
HPI - Female Genitourinary General Chief complaint: Urogenital-Female Stated complaint: BLADDER INFECTION Time Seen by Provider: 05/31/22 12:00 Source: patient Mode of arrival: ambulatory Limitations: no limitations History of Present Illness HPI Narrative: Beatrice is a 72-year-old female patient presenting to clinic today with complaints of possible urinary tract infection. She reports that she developed some burning with urination, some blood in her urine, and increase urgency and low output. She denies any fever chills. She denies any back pain or flank pain. Related Data Home Medications Medication Instructions Recorded Confirmed metoprolol succinate 50 mg 50 mg PO HS 06/24/19 05/31/22 tablet,extended release 24 hr nicotine (polacrilex) 2 mg gum 2 mg buccal Q2-3H PRN Nicotine 04/19/21 05/31/22 (Nicorette) Cravings Allergies Allergy/AdvReac Type Severity Reaction Status Date / Time Sulfa (Sulfonamide Allergy Mild HIVES Verified 04/03/22 13:56 Antibiotics) propoxyphene AdvReac Mild FLIPPED Verified 04/03/22 13:56 OUT codeine AdvReac Unknown PASSES OUT Verified 04/03/22 13:56 Review of Systems Review of Systems: Pertinent positives per HPI. Patient denies any fever, chills, rash, headache, visual changes, dizziness, cough, runny nose, sore throat, shortness of breath, chest pain, palpitations, nausea, vomiting, diarrhea, constipation, abdominal pain. 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 DARCY (obstructive sleep apnea) Other and unspecified hyperlipidemia Peptic ulcer disease Postmenopausal disorder Type 2 diabetes mellitus without complication, without long-term current use of insulin Surgical History Surgical History History of cardiac catheterization History of carotid endarterectomy LT History of cholecystectomy History of rectal surgery 6/1/21 Anal fistulotomy History of tonsillectomy S/P coil embolization of cerebral aneurysm Family History Family History Mother Hypertension Cerebrovascular accident Family history of diabetes mellitus in first degree relative Family history of congestive heart failure Diabetes mellitus Family history of hypercholesterolemia CHF (congestive heart failure) Grandparent Cerebrovascular accident Family history of hepatitis Family history of malignant neoplasm Father Hypertension Acute myocardial infarction Social History Social History Social History: The patient is single home and has 1 son. 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 She is a full code and son is the durable power of trademark attorney for healthcare. The patient smokes cigarettes in the past. No alcohol marijuana or illicit drugs. She lives with her son Smoking packs per day: 1.25 Smoking cigarettes per day: 25.0 Years smoked: 30 Smoking pack-years: 37.50 Smoking status: Former smoker Second hand tobacco smoke exposure: Yes Smoking end date: 07/22/07 Additional smoking assessment comments: QUIT 2007 Alcohol intake: former Alcohol use details: quit 1998 Substance use: never Substance use type: does not use Additional living arrangements comments: LIVES WITH SON Additional occupation/education comments: looking for a job Gender identity (if verbalized by the patient): Female Spiritual car
== END 2022-05-31 12:15 | disposition home or self-care (01) ==
PROVIDERS: Emergency Provider Nurse Practitioner Family; PCP Internal Medicine
DX: N39.0 Urinary tract infection, site not specified (principal); Z87.891 Personal history of nicotine dependence; I25.10 Atherosclerotic heart disease of native coronary artery without angina pectoris; I10 Essential (primary) hypertension; K21.9 Gastro-esophageal reflux disease without esophagitis; J44.9 Chronic obstructive pulmonary disease, unspecified; I25.2 Old myocardial infarction; E78.00 Pure hypercholesterolemia, unspecified; I34.1 Nonrheumatic mitral (valve) prolapse; G47.33 Obstructive sleep apnea (adult) (pediatric); E11.9 Type 2 diabetes mellitus without complications; Z79.84 Long term (current) use of oral hypoglycemic drugs
CPT/HCPCS: 81003; 87086; 99213; G0463

== ENCOUNTER 2022-07-03 05:11 | Emergency (ER) | payer MEDICARE, SELFPAY ==
--- NOTE | ~2022-07-03 | XR_ITS ---
EXAMINATION: XR chest 2V DATE: 07/03/2022 05:59 INDICATION: Back pain. TECHNIQUE: Frontal and lateral views of the chest were obtained. COMPARISON: Chest single view 04/19/2021, CT abdomen and pelvis 02/05/2018 FINDINGS: There is stable mild scarring at the lung apices. There is mild atelectasis at left lung ba se. No pleural effusion or pneumothorax. The heart size is normal. Surgical clips in the right upper quadrant are likely from cholecystectomy. IMPRESSION: 1. Mild atelectasis at left lung base. 2. Stable mild scarring at the lung apices. Reviewed, dictated and finalized at location A. IT RISK ANALYTICS MANAGER
--- NOTE | ~2022-07-03 | CT_ITS ---
EXAMINATION: CT abdomen pelvis w con DATE: 07/03/2022 07:47 INDICATION: Abdominal pain. Back pain. TECHNIQUE: Computed tomography (CT) of the abdomen and pelvis was performed with 100 mL Omnipaque 350 intravenous contrast. Automated exposure control and iterative reconstruction technique were employe d. The dose-length product was 454.56 mGy-cm. COMPARISON: CT abdomen and pelvis 02/05/2018 FINDINGS: The visualized portions of the lung bases demonstrate mild atelectasis. No pleural effusion . The heart size is normal. No pericardial effusion. The liver is normal. There are changes of cholec ystectomy. The spleen, pancreas, adrenal glands, and kidneys are normal. There are scattered divertic reji in the colon. There is mild fat stranding around the sigmoid colon, consistent with diverticuliti s. The appendix is normal. There are no pathologically enlarged lymph nodes. There is no free intrape ritoneal fluid. There is mild thoracolumbar spondylosis. IMPRESSION: 1. Mild sigmoid diverticulitis. No perforation or abscess. Reviewed, dictated and finalized at location A. K FEEDER
[2022-07-03 05:13] VITALS: BP 117/67; PULSE 76; RESP 18; TEMP 36.6; O2SAT 92
--- NOTE | 2022-07-03 05:22 | ECG_ITS ---
Measurements Intervals [place] Rate: 72 P: 20 IN: 240 QRS: 16 QRSD: 89 T: 65 QT: 405 QTc: 444 Interpretive Statements SINUS RHYTHM WITH SINUS ARRHYTHMIA WITH FIRST DEGREE AV BLOCK COMPARED TO ECG 04/19/2021 12:47:37 SINUS ARRHYTHMIA NOW PRESENT Electronically Signed On 07-03-2022 16:25:15 MOTOR VEHICLE ASSEMBLY SUPERVISOR by Cally Florentino M.D.
[2022-07-03 05:49] LABS: Basophils Absolute Auto 0.1 K/mm3 (0.0-0.1); Basophils Percent Auto 0.5 % (0.2-1.2); Eosinophils Absolute Auto 0.2 K/mm3 (0-0.3); Hematocrit 36.5 % (37.0-47.0); Hemoglobin 12.3 g/dL (12.0-15.0); Immature Granulocyte Absolute 0.04 K/mm3 (0.00-0.031); Immature Granulocyte Percent A 0.4 % (0-0.5); Lymphocytes Absolute Auto 2.53 K/mm3 (0.9-3.2); Lymphocytes Percent Auto 24.7 % (18.3-44.2); Mean Corpuscular HGB Conc 33.7 g/dl (32-36); Mean Corpuscular Hemoglobin 32.9 pg (26-34); Mean Corpuscular Volume 97.6 fl (80-100); Monocytes Absolute Auto 0.7 K/mm3 (0.1-0.6); Monocytes Percent Auto 6.9 % (2.6-8.5); Neutrophils Absolute Auto 6.7 K/mm3 (1.3-6.7); Neutrophils Percent Auto 65.5 % (45.5-73.1); Platelet Count Result 256 k/mm3 (150-375); Red Blood Count 3.74 M/mm3 (4.2-5.4); Red Cell Distribution Width 12.1 % (11.5-14.5); White Blood Count 10.2 K/mm3 (4.5-10.0)
[2022-07-03 05:58] LABS: Alanine Aminotransferase 14 U/L (6-35); Albumin Level 3.8 g/dL (3.5-5.1); Alkaline Phosphatase 136 U/L (38-126); Anion Gap 5 mmol/L (8-16); Aspartate Amino Transferase 21 U/L (14-36); Bilirubin,Total 0.7 mg/dL (0.2-1.3); Blood Urea Nitrogen 15 mg/dL (7-17); Calcium 8.8 mg/dL (8.4-10.2); Carbon Dioxide 31 mmol/L (22-30); Chloride 104 mmol/L (98-107); Estimated CRCL calculation 52 ml/min; Estimated Glomerular Filt Rate > 60; Glucose 129 mg/dL (65-110); Lipase 186 U/L (23-300); Potassium 3.6 mmol/L (3.4-5.0); Sodium 140 mmol/L (137-145)
[2022-07-03 06:00] LABS: Partial Thromboplastin Time 29.3 SECONDS (22.3-36.8); Prothrombin Time 13.1 Seconds (11.1-14.7)
[2022-07-03 06:10] LABS: Troponin I < 0.012 ng/mL (0.000-0.034)
[2022-07-03] MEDS: ASPIRIN 81 MG CHEWABLE TABLET 324 MG PO (06:13)
--- NOTE | 2022-07-03 07:14 | ED.GENADULT ---
HPI - General Adult General Chief complaint: Back Pain/Injury Stated complaint: CHEST PAIN Time Seen by Provider: 07/03/22 06:51 History of Present Illness HPI narrative: 72-year-old female presenting to the emergency department for evaluation of back pain. Patient states that the back pain woke her from sleep. Patient states that she took some baking soda and water and this helped a small amount. Patient tried ice and Aleve and a muscle relaxant with no significant improvement. Patient states she does have a prior history of coronary disease and had a stent back in 2014. Patient states she has since had a stress test and does follow-up with Dr. Burciaga. And last month she had a kidney infection and does have a kidney stone and is scheduled to follow-up with Dr. Kellogg on July 25. Related Data Home Medications Medication Instructions Recorded Confirmed metoprolol succinate 50 mg 50 mg PO HS 06/24/19 05/31/22 tablet,extended release 24 hr nicotine (polacrilex) 2 mg gum 2 mg buccal Q2-3H PRN Nicotine 04/19/21 05/31/22 (Nicorette) Cravings Allergies Allergy/AdvReac Type Severity Reaction Status Date / Time Sulfa (Sulfonamide Allergy Mild HIVES Verified 04/03/22 13:56 Antibiotics) propoxyphene AdvReac Mild FLIPPED Verified 04/03/22 13:56 OUT codeine AdvReac Unknown PASSES OUT Verified 04/03/22 13:56 Review of Systems Review of Systems: CONSTITUTIONAL: Denies fever, chills, or sweats. EYES: Denies visual changes, redness, or discharge. ENT: Denies rhinorrhea, congestion, sore throat, or otalgia. CARDIOVASCULAR: Denies chest pain, palpitations, or edema. RESPIRATORY: Denies cough or dyspnea. GASTROINTESTINAL: Denies abdominal pain, nausea, vomiting, or diarrhea. GENITOURINARY: Denies dysuria or hematuria. SKIN: Denies rash or itching. MUSCULOSKELETAL: Back pain, see HPI NEUROLOGIC: Denies headache, numbness, or weakness. PSYCHIATRIC: Denies anxiety or depression. [facility] Past Medical History Medical History ASHD (arteriosclerotic heart disease) Asthma Benign essential hypertension Brain aneurysm CAD (coronary atherosclerotic disease) Cataract Chronic GERD Chronic obstructive pulmonary disease, unspecified Depression Heart attack Hemorrhoids High cholesterol History of CVA (cerebrovascular accident) without residual deficits Kidney stone Low back pain Migraine Mitral valve prolapse On senior care drug therapy DARCY (obstructive sleep apnea) Other and unspecified hyperlipidemia Peptic ulcer disease Postmenopausal disorder Type 2 diabetes mellitus without complication, without long-term current use of insulin Surgical History Surgical History History of cardiac catheterization History of carotid endarterectomy LT History of cholecystectomy History of rectal surgery 12/20/20 Anal fistulotomy History of tonsillectomy S/P coil embolization of cerebral aneurysm Family History Family History Mother Hypertension Cerebrovascular accident Family history of diabetes mellitus in first degree relative Family history of congestive heart failure Diabetes mellitus Family history of hypercholesterolemia CHF (congestive heart failure) Grandparent Cerebrovascular accident Family history of hepatitis Family history of malignant neoplasm Father Hypertension Acute myocardial infarction Social History Social History Social History: The patient is single home and has 1 son. 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 She is a full code and son is the durable power of patent attorney for healthcare. The patient smokes cigarettes in the past. No alcohol marijuana or illicit drugs. She lives with her son Smoking packs per day: 1.25 Smoking cigarettes per day: 2
--- NOTE | 2022-07-03 07:49 | PC.NURSE ---
Pt refused fentanyl. States she never takes narcotics. States she usually uses ice, heat, or takes ibuprofen or tylenol. Ice pack given to pt. Will ask MD for PO tylenol.
[2022-07-03 08:11] VITALS: BP 141/62; PULSE 73; RESP 16; O2SAT 94
[2022-07-03] MEDS: ACETAMINOPHEN 325 MG TABLET 650 MG PO (08:12)
[2022-07-03 08:45] LABS: Add Urine Microscopic? NO; Appearance Urine Clear (Clear); Bilirubin Urine Negative (Negative); Blood Urine Negative (Negative); Color Urine Light Yellow (Yellow); Glucose Urine UA Negative (Negative); Ketones Urine Negative (Negative); Leukocyte Esterase Ur Negative LEU/UL (Negative); Nitrate Urine Negative (Negative); Protein Urine Negative (Negative); Urobilinogen Urine 0.2 mg/dL (<2.0)
[2022-07-03 08:47] LABS: Troponin I < 0.012 ng/mL (0.000-0.034)
[2022-07-03 09:34] VITALS: BP 105/92; PULSE 82; RESP 18; TEMP 36.6; O2SAT 100
[2022-07-03] MEDS: AMOXICILLIN/CLAVULANATE K 875-125 MG TAB 1 TABLET PO (09:38)
[2022-07-03 09:55] VITALS: BP 110/90; PULSE 80; RESP 18; TEMP 36.6; O2SAT 99
== END 2022-07-03 09:57 | disposition home or self-care (01) ==
PROVIDERS: Emergency Medicine; Emergency Provider Emergency Medicine; PCP Internal Medicine
DX: K57.32 Diverticulitis of large intestine without perforation or abscess without bleeding (principal); J45.909 Unspecified asthma, uncomplicated; I10 Essential (primary) hypertension; K21.9 Gastro-esophageal reflux disease without esophagitis; F32.9 Major depressive disorder, single episode, unspecified; I25.2 Old myocardial infarction; E11.9 Type 2 diabetes mellitus without complications; Z79.4 Long term (current) use of insulin
CPT/HCPCS: 36415; 71046; 74177; 80053; 81003; 83690; 84484; 85025; 85610; 85730; 93005; 99284; A9270; Q9967

== ENCOUNTER 2022-07-08 17:34 | Emergency (ER) | payer MEDICARE, SELFPAY ==
--- NOTE | 2022-07-08 17:39 | ED.URI ---
HPI - URI/Sore Throat General Chief Complaint: Upper Respiratory Infection Stated Complaint: uri Time Seen by Provider: 07/08/22 18:08 Source: patient, RN notes reviewed and old records reviewed Mode of arrival: ambulatory Limitations: no limitations History of Present Illness HPI Narrative: 72-year-old female presents to the [facility] with sinus congestion, fatigue, cough, postnasal drainage, sore throat since Saturday or . Was seen in the ER on SaturdayJuly 03. Patient at the time in the emergency room was diagnosed with diverticulitis, prescribed Augmentin which she is currently taking. States that she takes her daily medications. Has been using her inhaler. Denies taking any other medications. Related Data Home Medications Medication Instructions Recorded Confirmed metoprolol succinate 50 mg 50 mg PO HS 06/24/19 07/08/22 tablet,extended release 24 hr nicotine (polacrilex) 2 mg gum 2 mg buccal Q2-3H PRN Nicotine 04/19/21 07/08/22 (Nicorette) Cravings Allergies Allergy/AdvReac Type Severity Reaction Status Date / Time Sulfa (Sulfonamide Allergy Mild HIVES Verified 07/08/22 18:07 Antibiotics) propoxyphene AdvReac Mild FLIPPED Verified 07/08/22 18:07 OUT codeine AdvReac Unknown PASSES OUT Verified 07/08/22 18:07 Review of Systems Review of Systems: All systems reviewed & are unremarkable except as noted in HPI and below Constitutional: Constitutional: Reports as per HPI, Reports chills, Reports fatigue and Reports fever(s) Eyes: Eyes: Reports no additional eye complaints ENT: Reports as per HPI, Reports nasal congestion and Reports sore throat Cardiovascular: Cardiovascular: Reports no additional cardiovascular complaints, Denies chest pain and Denies dyspnea Respiratory: Respiratory: Reports as per HPI, Reports chest congestion, Reports cough and Denies dyspnea Gastrointestinal: Gastrointestinal: Reports no additional gastrointestinal complaints, Denies abdominal pain, Denies nausea and Denies vomiting Musculoskeletal: Musculoskeletal: Reports no additional musculoskeletal complaints Integumentary/Breasts: Skin/Breast: Reports system reviewed and no additional complaints, except as docu Neurologic: Reports system reviewed and no additional complaints, except as documented Psychiatric: Psychiatric: Reports no additional psychiatric complaints Allergic/Immunologic: Allergic/Immunologic: Reports no additional allergic/immunologic complaints PMFSH Past Medical History Medical History ASHD (arteriosclerotic heart disease) Asthma Benign essential hypertension Brain aneurysm CAD (coronary atherosclerotic disease) Cataract Chronic GERD Chronic obstructive pulmonary disease, unspecified Depression Heart attack Hemorrhoids High cholesterol History of CVA (cerebrovascular accident) without residual deficits Kidney stone Low back pain Migraine Mitral valve prolapse On half-way drug therapy DARCY (obstructive sleep apnea) Other and unspecified hyperlipidemia Peptic ulcer disease Postmenopausal disorder Type 2 diabetes mellitus without complication, without long-term current use of insulin Surgical History Surgical History History of cardiac catheterization History of carotid endarterectomy LT History of cholecystectomy History of rectal surgery 12/20/20 Anal fistulotomy History of tonsillectomy S/P coil embolization of cerebral aneurysm Family History Family History Mother Hypertension Cerebrovascular accident Family history of diabetes mellitus in first degree relative Family history of congestive heart failure Diabetes mellitus Family history of hypercholesterolemia CHF (congestive heart failure) Grandparent Cerebrovascular accident Family history of hepatitis Family history of malignant royce
[2022-07-08 17:42] VITALS: BP 124/74; PULSE 99; RESP 16; TEMP 36.5; O2SAT 100
== END 2022-07-08 18:29 | disposition home or self-care (01) ==
PROVIDERS: Emergency Provider Nurse Practitioner; PCP Internal Medicine
DX: U07.1 COVID-19 (principal); Z87.891 Personal history of nicotine dependence; I25.10 Atherosclerotic heart disease of native coronary artery without angina pectoris; I10 Essential (primary) hypertension; K21.9 Gastro-esophageal reflux disease without esophagitis; J44.9 Chronic obstructive pulmonary disease, unspecified; I25.2 Old myocardial infarction; E78.00 Pure hypercholesterolemia, unspecified; Z86.73 Personal history of transient ischemic attack (TIA), and cerebral infarction without residual deficits; I34.1 Nonrheumatic mitral (valve) prolapse; E11.9 Type 2 diabetes mellitus without complications; E78.5 Hyperlipidemia, unspecified
CPT/HCPCS: 87426; 87804; 99213; C9803; G0463

== ENCOUNTER 2022-08-16 16:23 | Emergency (ER) | payer MEDICARE, SELFPAY ==
--- NOTE | 2022-08-16 16:28 | ED.URI ---
HPI - URI/Sore Throat General Chief Complaint: Upper Respiratory Infection Stated Complaint: Sore Throat/ Sinus Time Seen by Provider: 08/16/22 17:03 Source: patient and RN notes reviewed Mode of arrival: ambulatory Limitations: no limitations History of Present Illness HPI Narrative: 72-year-old female presents concern for cough, nasal congestion, runny nose, sneezing metallic taste in her mouth that started on Saturday. She reports she had COVID in June. 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 MD elicited complaint: cough and sore throat Related Data Home Medications Medication Instructions Recorded Confirmed metoprolol succinate 50 mg 50 mg PO HS 06/24/19 08/16/22 tablet,extended release 24 hr nicotine (polacrilex) 2 mg gum 2 mg buccal Q2-3H PRN Nicotine 04/19/21 08/16/22 (Nicorette) Cravings Allergies Allergy/AdvReac Type Severity Reaction Status Date / Time Sulfa (Sulfonamide Allergy Mild HIVES Verified 08/16/22 16:33 Antibiotics) propoxyphene AdvReac Mild FLIPPED Verified 08/16/22 16:33 OUT codeine AdvReac Unknown PASSES OUT Verified 08/16/22 16:33 Review of Systems Review of Systems: CONSTITUTIONAL: Reports malaise. Denies chills, sweats, or fever. EYES: Denies visual changes, redness, or discharge. ENT: Reports rhinorrhea, congestion, and sore throat. Denies sinus pain or otalgia CARDIOVASCULAR: Denies chest pain, palpitations, or edema. RESPIRATORY: Reports cough. Denies dyspnea. GASTROINTESTINAL: Denies abdominal pain, nausea, vomiting, diarrhea SKIN: Denies rash or itching. MUSCULOSKELETAL: Denies myalgia. NEUROLOGIC: Reports headache. All systems reviewed & are unremarkable except as noted in HPI and below PMFSH Past Medical History Medical History ASHD (arteriosclerotic heart disease) Asthma Benign essential hypertension Brain aneurysm CAD (coronary atherosclerotic disease) Cataract Chronic GERD Chronic obstructive pulmonary disease, unspecified Depression Heart attack Hemorrhoids High cholesterol History of CVA (cerebrovascular accident) without residual deficits Kidney stone Low back pain Migraine Mitral valve prolapse On long term care social worker drug therapy DARCY (obstructive sleep apnea) Other and unspecified hyperlipidemia Peptic ulcer disease Postmenopausal disorder Type 2 diabetes mellitus without complication, without long-term current use of insulin Surgical History Surgical History History of cardiac catheterization History of carotid endarterectomy LT History of cholecystectomy History of rectal surgery 12/20/20 Anal fistulotomy History of tonsillectomy S/P coil embolization of cerebral aneurysm Family History Family History Mother Hypertension Cerebrovascular accident Family history of diabetes mellitus in first degree relative Family history of congestive heart failure Diabetes mellitus Family history of hypercholesterolemia CHF (congestive heart failure) Grandparent Cerebrovascular accident Family history of hepatitis Family history of malignant neoplasm Father Hypertension Acute myocardial infarction Social History Social History Social History: The patient is single home and has 1 son. 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 She is a full code and son is the durable power of collections attorney for healthcare. The patient smokes cigarettes in the past. No alcohol marijuana or illicit drugs. She lives with her son Smoking packs per day: 1.25 Smoking cigarettes per day: 25.0 Years smoked: 30 Smoking pack-years: 37.50 Smoking status: Former smoker Second hand tobacco smoke exposure: Yes Smoking end date: 07/22/07 Additional smoking assessment comments: QUIT 2007 Alcohol intake: former Alcohol use details: quit 1998 Substance
[2022-08-16 16:41] VITALS: BP 126/63; PULSE 74; RESP 16; TEMP 36.5; O2SAT 100
== END 2022-08-16 17:25 | disposition home or self-care (01) ==
PROVIDERS: Emergency Provider Nurse Practitioner; PCP Internal Medicine
DX: J06.9 Acute upper respiratory infection, unspecified (principal); R05.9 Cough, unspecified; Z87.891 Personal history of nicotine dependence; I25.10 Atherosclerotic heart disease of native coronary artery without angina pectoris; I10 Essential (primary) hypertension; J44.9 Chronic obstructive pulmonary disease, unspecified; I25.2 Old myocardial infarction; Z86.73 Personal history of transient ischemic attack (TIA), and cerebral infarction without residual deficits; I34.1 Nonrheumatic mitral (valve) prolapse; E11.9 Type 2 diabetes mellitus without complications; Z86.16 Personal history of COVID-19
CPT/HCPCS: 87081; 87804; 87880; 99213; G0463

== ENCOUNTER 2022-12-01 13:26 | Emergency (ER) | payer MEDICARE, SELFPAY ==
--- NOTE | ~2022-12-01 | CT_ITS ---
EXAMINATION: CT brain wo con DATE: 12/01/2022 14:28 INDICATION: Head Injury, On Blood Thinners . TECHNIQUE: Computed tomography (CT) of the head was performed without intravenous contrast. The mA wa s adjusted according to patient size. Iterative reconstruction technique was employed. The dose-lengt h product was 908.00 mGy-cm. COMPARISON: 02/14/2022. FINDINGS: No acute intracranial hemorrhage or extra-axial fluid collection. No hydrocephalus, mass, or herniation. No acute ischemic infarct. Unremarkable dural venous sinus attenuation. No acute osseous abnormality. The aerated spaces are clear. Moderate atrophy and chronic white matter change. Atherosclerotic intracranial calcification. Encepha lomalacia in the left MCA territory, likely old infarct. Embolization coils in the right suprasellar cistern. IMPRESSION: No acute intracranial process. Reviewed, dictated and finalized at location K.
--- NOTE | ~2022-12-01 | XR_ITS ---
EXAM: XR ankle LT min 3V DATE: 12/01/2022 15:43 HISTORY: pain, fall, PAIN AND SWELLING TO LATERAL ANKLE . COMPARISON: None available. FINDINGS: Normal mineralization. Cortical regularly over the origin of the talonavicular capsule. No other fracture. No dislocation. No lytic or blastic lesion. Mild scattered degenerative change. Achi lles and plantar enthesopathy. No erosion or periosteal change. Lateral soft tissue swelling. IMPRESSION: Talonavicular capsular avulsion. Reviewed, dictated and finalized at location K.
--- NOTE | ~2022-12-01 | CT_ITS ---
EXAMINATION: CT cervical spine wo con DATE: 12/01/2022 14:29 INDICATION: fall, neck pain TECHNIQUE: Computed tomography (CT) of the cervical spine was performed without intravenous contrast. Automated exposure control and iterative reconstruction technique were employed. The dose-length pro duct was 177.81 mGy-cm. COMPARISON: None. FINDINGS: Vertebral Body Alignment: Intact. Craniocervical and atlantoaxial alignment: Moderate degenerative change. Alignment intact. Osseous structures/fracture: No evidence of a lytic or blastic process in the visualized spine. No e vidence of acute fracture. . Cervical soft tissues: The paraspinal soft tissues planes are maintained. Biapical scarring, greater on the right. Degenerative changes: Severe left C4-5 and right C5-6 neural foraminal narrowing. No significant cent ral canal stenosis. Multilevel facet arthropathy and degenerative disc disease. IMPRESSION: No acute fracture or traumatic malalignment in the cervical spine. Reviewed, dictated and finalized at location K.
[2022-12-01 13:33] VITALS: BP 133/59; PULSE 65; RESP 18; TEMP 36.4; O2SAT 100
--- NOTE | 2022-12-01 15:07 | ED.FALL ---
HPI - Fall General Chief Complaint: Fall Stated Complaint: Fall, Blood Thinners Time Seen by Provider: 12/01/22 15:03 Source: patient and RN notes reviewed Mode of arrival: ambulatory Limitations: no limitations History of Present Illness HPI Narrative: This is a 72 year old female who presents for evaluation of head injury. Patient states she was trying to step onto bleachers and she lost her balance. This caused her to fall backwards and hit her head. She denies LOC, dizziness, nausea, vomiting or rib pain. She reports chronic back pain but she denies new or worsening pain. She does reports left ankle pain but she states she is able to walk. She denies swelling or bruising to her ankle. She takes plavix. Related Data Home Medications Medication Instructions Recorded Confirmed metoprolol succinate 50 mg 50 mg PO HS 06/24/19 10/26/22 tablet,extended release 24 hr nicotine (polacrilex) 2 mg gum 2 mg buccal Q2-3H PRN Nicotine 04/19/21 10/26/22 (Nicorette) Cravings Allergies Allergy/AdvReac Type Severity Reaction Status Date / Time Sulfa (Sulfonamide Allergy Mild HIVES Verified 10/26/22 15:23 Antibiotics) propoxyphene AdvReac Mild FLIPPED Verified 10/26/22 15:23 OUT codeine AdvReac Unknown PASSES OUT Verified 10/26/22 15:23 Review of Systems Constitutional: Constitutional: Denies weakness Cardiovascular: Cardiovascular: Denies syncope, Denies rapid heart rate, Denies irregular heart rhythm, Denies leg edema and Denies dyspnea Respiratory: Respiratory: Denies chest congestion, Denies hemoptysis, Denies excessive phlegm production and Denies dyspnea Gastrointestinal: Gastrointestinal: Denies abdominal pain, Denies hematochezia, Denies diarrhea and Denies vomiting Genitourinary: Genitourinary: Denies hematuria and Denies dysuria Musculoskeletal: Musculoskeletal: Denies joint swelling, Denies loss of height and Denies muscle weakness Neurologic: Denies syncope, Denies focal weakness and Denies weakness PMFSH Past Medical History Medical History ASHD (arteriosclerotic heart disease) Asthma Benign essential hypertension Brain aneurysm CAD (coronary atherosclerotic disease) Cataract Chronic GERD Chronic obstructive pulmonary disease, unspecified Depression Heart attack Hemorrhoids High cholesterol History of CVA (cerebrovascular accident) without residual deficits Kidney stone Low back pain Migraine Mitral valve prolapse On pmo business analyst drug therapy DARCY (obstructive sleep apnea) Other and unspecified hyperlipidemia Peptic ulcer disease Postmenopausal disorder Type 2 diabetes mellitus without complication, without long-term current use of insulin Surgical History Surgical History History of cardiac catheterization History of carotid endarterectomy LT History of cholecystectomy History of rectal surgery 12/20/20 Anal fistulotomy History of tonsillectomy S/P coil embolization of cerebral aneurysm Family History Family History Mother Hypertension Cerebrovascular accident Family history of diabetes mellitus in first degree relative Family history of congestive heart failure Diabetes mellitus Family history of hypercholesterolemia CHF (congestive heart failure) Grandparent Cerebrovascular accident Family history of hepatitis Family history of malignant neoplasm Father Hypertension Acute myocardial infarction Social History Social History Social History: The patient is single home and has 1 son. 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 She is a full code and son is the durable power of tax associate attorney for healthcare. The patient smokes cigarettes in the past. No alcohol marijuana or illicit drugs. She lives with her son Smoking packs per day: 2 Smoking cigarettes p
[2022-12-01 15:45] VITALS: BP 135/76; PULSE 70; RESP 18; O2SAT 100
== END 2022-12-01 15:45 | disposition home or self-care (01) ==
PROVIDERS: Emergency Provider General Practice; PCP Family Medicine
DX: S93.402A Sprain of unspecified ligament of left ankle, initial encounter (principal); S09.90XA Unspecified injury of head, initial encounter; I10 Essential (primary) hypertension; I25.10 Atherosclerotic heart disease of native coronary artery without angina pectoris; E11.9 Type 2 diabetes mellitus without complications; J44.9 Chronic obstructive pulmonary disease, unspecified; Z87.891 Personal history of nicotine dependence; W17.89XA Other fall from one level to another, initial encounter
CPT/HCPCS: 70450; 72125; 73610; 99284

== ENCOUNTER 2023-03-06 15:01 | Outpatient (CLI) | payer MEDICARE, SELFPAY ==
--- NOTE | ~2023-03-06 | XR_ITS ---
EXAM: XR abdomen obstructive series DATE: 03/06/2023 15:21 HISTORY: Abdominal pain X 1 week . COMPARISON: 01/16/2018; CT abdomen pelvis 07/03/2022. FINDINGS: Left basilar atelectasis/consolidation. Cholecystectomy clips. Normal bowel gas pattern. N o organomegaly. No abnormal abdominal calcification. Lumbar degenerative disc disease. Bilateral hip osteoarthritis. IMPRESSION: No radiographic evidence of obstruction or ileus. Reviewed, dictated and finalized at location K.
== END 2023-03-06 15:02 | disposition home or self-care (01) ==
LOC: ANHIMG 15:03
PROVIDERS: PCP Family Medicine; Visit Provider Family Medicine
DX: R10.9 Unspecified abdominal pain (principal)
CPT/HCPCS: 74019

== ENCOUNTER 2023-04-03 15:55 | Emergency (ER) | payer MEDICARE, SELFPAY ==
[2023-04-03 16:04] VITALS: BP 107/75; PULSE 89; RESP 16; TEMP 37.2; O2SAT 98
--- NOTE | 2023-04-03 16:09 | ED.SKABFB ---
HPI - Skin/Abscess/Foreign Bdy General Chief complaint: Skin/Abscess/Foreign Body Stated complaint: Insect Bite Time Seen by Provider: 04/03/23 16:09 Source: patient Mode of arrival: ambulatory Limitations: no limitations History of Present Illness HPI narrative: 73 yo F presents with concern for spider bite to R hand. Reports red bump to R hand since yesterday. Denies pain, itching, swelling. States yesterday her blood sugars were up and down. Went to her PCP office for evaluation and was told she was fine. Pt's A1C was normal at last visit and was told to stop takign her metformin but she states last week her BS were high and restarted metformin. did not tell her PCP she restarted metformin. States she stopped taking it again. Ate more often today and BS better today. Pt is alert and oriented. all systems reviewed and negative except as noted above. Related Data Home Medications Medication Instructions Recorded Confirmed metoprolol succinate 50 mg 50 mg PO HS 06/24/19 04/03/23 tablet,extended release 24 hr nicotine (polacrilex) 2 mg gum 2 mg buccal Q2-3H PRN Nicotine 04/19/21 04/03/23 (Nicorette) Cravings Allergies Allergy/AdvReac Type Severity Reaction Status Date / Time Sulfa (Sulfonamide Allergy Mild HIVES Verified 04/03/23 16:08 Antibiotics) propoxyphene AdvReac Mild FLIPPED Verified 04/03/23 16:08 OUT codeine AdvReac Unknown PASSES OUT Verified 04/03/23 16:08 Review of Systems Review of Systems: CONSTITUTIONAL: Denies fever, chills, or sweats. EYES: Denies visual changes, redness, or discharge. ENT: Denies rhinorrhea, congestion, sore throat, or otalgia. CARDIOVASCULAR: Denies chest pain, palpitations, or edema. RESPIRATORY: Denies cough or dyspnea. GASTROINTESTINAL: Denies abdominal pain, nausea, vomiting, or diarrhea. GENITOURINARY: Denies dysuria or hematuria. SKIN: Denies rash or itching. reports bump to R hand. MUSCULOSKELETAL: Denies back pain, joint pain, or myalgia. NEUROLOGIC: Denies headache, numbness, or weakness. PSYCHIATRIC: Denies anxiety or depression. All other systems reviewed are negative, except as documented in HPI. [facility] Past Medical History Medical History ASHD (arteriosclerotic heart disease) Asthma Benign essential hypertension Brain aneurysm CAD (coronary atherosclerotic disease) Cataract Chronic GERD Chronic obstructive pulmonary disease, unspecified Depression Heart attack Hemorrhoids High cholesterol History of CVA (cerebrovascular accident) without residual deficits Kidney stone Low back pain Migraine Mitral valve prolapse On care home drug therapy DARCY (obstructive sleep apnea) Other and unspecified hyperlipidemia Peptic ulcer disease Postmenopausal disorder Type 2 diabetes mellitus without complication, without long-term current use of insulin Surgical History Surgical History History of cardiac catheterization History of carotid endarterectomy LT History of cholecystectomy History of rectal surgery 12/20/20 Anal fistulotomy History of tonsillectomy S/P coil embolization of cerebral aneurysm Family History Family History Mother Hypertension Cerebrovascular accident Family history of diabetes mellitus in first degree relative Family history of congestive heart failure Diabetes mellitus Family history of hypercholesterolemia CHF (congestive heart failure) Grandparent Cerebrovascular accident Family history of hepatitis Family history of malignant neoplasm Father Hypertension Acute myocardial infarction Social History Social History Social History: The patient is single home and has 1 son. 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 She is a full code and son is the durable power of environmental attorney for healthcare. The broderick
== END 2023-04-03 16:48 | disposition home or self-care (01) ==
PROVIDERS: Emergency Provider Nurse Practitioner Family; PCP Family Medicine
DX: S60.521A Blister (nonthermal) of right hand, initial encounter (principal); X58.XXXA Exposure to other specified factors, initial encounter; J44.9 Chronic obstructive pulmonary disease, unspecified; K21.9 Gastro-esophageal reflux disease without esophagitis; E78.00 Pure hypercholesterolemia, unspecified; I34.1 Nonrheumatic mitral (valve) prolapse; E78.49 Other hyperlipidemia; I25.10 Atherosclerotic heart disease of native coronary artery without angina pectoris; I10 Essential (primary) hypertension; I25.2 Old myocardial infarction; E11.9 Type 2 diabetes mellitus without complications; Z79.84 Long term (current) use of oral hypoglycemic drugs
CPT/HCPCS: 82948; 99212; G0463

== ENCOUNTER 2023-06-04 10:39 | Emergency (ER) | payer MEDICARE, SELFPAY ==
--- NOTE | ~2023-06-04 | XR_ITS ---
XR chest 2V DATE: 06/04/2023 11:45 INDICATION: Wheezing, congestion TECHNIQUE: PA and lateral views COMPARISON: 07/03/2022 PA and lateral chest FINDINGS: Normal heart size. There is minimal aortic unfolding. No hilar or mediastinal enlargement. There is bilateral pulmonary moderate hyperinflation suggesting obstructive airways disease. Mild kj ateral apical capping. No pulmonary infiltrate or consolidation, pleural effusion or pulmonary vascul ar congestion or pneumothorax is detected. Mild thoracic levoscoliosis and mild spurring. Osteopenia. Status post cholecystectomy. IMPRESSION: Moderate bilateral hyperinflation suggesting obstructive airways disease; otherwise no ac tive cardiopulmonary disease Status post cholecystectomy Reviewed, dictated and finalized at location L. PER FEEDER IMPRESSION: Moderate bilateral hyperinflation suggesting obstructive airways di sease; otherwise no active cardiopulmonary disease Status post cholecystectomy
[2023-06-04 10:56] VITALS: BP 127/72; PULSE 62; RESP 18; TEMP 36.4; O2SAT 98
--- NOTE | 2023-06-04 11:03 | ED.URI ---
HPI - URI/Sore Throat General Chief Complaint: Upper Respiratory Infection Stated Complaint: Ears/Throat/Cough Time Seen by Provider: 06/04/23 11:03 Source: patient, RN notes reviewed and old records reviewed Mode of arrival: ambulatory Limitations: no limitations History of Present Illness HPI Narrative: 73-year-old female presents to the [facility] with complaints of 2-3 days history of sneezing, sore throat, ear pain and a frontal headache. Denies fevers. Has tried taking Zyrtec D and Mucinex with no relief. Patient also reports shortness of breath. Denies chest pain or abdominal pain. Related Data Home Medications Medication Instructions Recorded Confirmed metoprolol succinate 50 mg 50 mg PO HS 06/24/19 06/04/23 tablet,extended release 24 hr nicotine (polacrilex) 2 mg gum 2 mg buccal Q2-3H PRN Nicotine 04/19/21 06/04/23 (Nicorette) Cravings albuterol sulfate 90 mcg/actuation 2 inh inhalation Q4H shortness of 06/04/23 06/04/23 aerosol inhaler breath or wheezing alprazolam 0.25 mg tablet (Xanax) 0.25 mg PO BID Anxiety 06/04/23 06/04/23 cyclobenzaprine 10 mg tablet 10 mg PO TID muscle spasm 06/04/23 06/04/23 Allergies Allergy/AdvReac Type Severity Reaction Status Date / Time Sulfa (Sulfonamide Allergy Mild HIVES Verified 06/04/23 10:52 Antibiotics) propoxyphene AdvReac Mild FLIPPED Verified 06/04/23 10:52 OUT codeine AdvReac Unknown PASSES OUT Verified 06/04/23 10:52 Review of Systems Review of Systems: All systems reviewed & are unremarkable except as noted in HPI and below Constitutional: Constitutional: Reports no additional constitutional complaints Eyes: Eyes: Reports no additional eye complaints ENT: Reports as per HPI Cardiovascular: Cardiovascular: Reports no additional cardiovascular complaints, Denies chest pain and Denies dyspnea Respiratory: Respiratory: Reports no additional respiratory complaints, Denies chest congestion, Denies cough and Denies dyspnea Gastrointestinal: Gastrointestinal: Reports no additional gastrointestinal complaints, Denies abdominal pain, Denies nausea and Denies vomiting Musculoskeletal: Musculoskeletal: Reports no additional musculoskeletal complaints Integumentary/Breasts: Skin/Breast: Reports system reviewed and no additional complaints, except as docu Neurologic: Reports system reviewed and no additional complaints, except as documented Psychiatric: Psychiatric: Reports no additional psychiatric complaints Allergic/Immunologic: Allergic/Immunologic: Reports no additional allergic/immunologic complaints [facility] Past Medical History Medical History ASHD (arteriosclerotic heart disease) Asthma Benign essential hypertension Brain aneurysm CAD (coronary atherosclerotic disease) Cataract Chronic GERD Chronic obstructive pulmonary disease, unspecified Depression Heart attack Hemorrhoids High cholesterol History of CVA (cerebrovascular accident) without residual deficits Kidney stone Low back pain Migraine Mitral valve prolapse On tank terminal gauger drug therapy DARCY (obstructive sleep apnea) Other and unspecified hyperlipidemia Peptic ulcer disease Postmenopausal disorder Type 2 diabetes mellitus without complication, without long-term current use of insulin Surgical History Surgical History History of cardiac catheterization History of carotid endarterectomy LT History of cholecystectomy History of rectal surgery 12/20/20 Anal fistulotomy History of tonsillectomy S/P coil embolization of cerebral aneurysm Family History Family History Mother Hypertension Cerebrovascular accident Family history of diabetes mellitus in first degree relative Family history of congestive heart failure Diabetes mellitus Family history of hypercholesterolemia CHF (congestive heart failure) Grandpa
--- NOTE | 2023-06-04 11:40 | PC.NURSE ---
pt reports she is dizzy and hasnt eaten. Pt is diabetic. Will check blood glucose, provide crackers. Breathing tx to follow.
[2023-06-04 11:45] LABS: Glucose Point of Care 115 mg/dl (65-105)
[2023-06-04] MEDS: ALBUTEROL SULFATE NEB 2.5 MG/3 ML INH INHALATION (11:56)
[2023-06-04] MEDS: IPRATROPIUM BR 0.02% INH SOLN 0.5 MG/2.5 ML VIAL INHALATION (11:56)
== END 2023-06-04 12:50 | disposition home or self-care (01) ==
PROVIDERS: Emergency Provider Nurse Practitioner; PCP Family Medicine
DX: J40 Bronchitis, not specified as acute or chronic (principal); J06.9 Acute upper respiratory infection, unspecified; Z20.822 Contact with and (suspected) exposure to COVID-19; Z87.891 Personal history of nicotine dependence; I25.10 Atherosclerotic heart disease of native coronary artery without angina pectoris; I10 Essential (primary) hypertension; K21.9 Gastro-esophageal reflux disease without esophagitis; J44.9 Chronic obstructive pulmonary disease, unspecified; I25.2 Old myocardial infarction; E78.00 Pure hypercholesterolemia, unspecified; I34.1 Nonrheumatic mitral (valve) prolapse; E11.9 Type 2 diabetes mellitus without complications; Z79.84 Long term (current) use of oral hypoglycemic drugs; Z86.73 Personal history of transient ischemic attack (TIA), and cerebral infarction without residual deficits
CPT/HCPCS: 71046; 82948; 87081; 87426; 87804; 87880; 99213; C9803; G0463

== ENCOUNTER 2023-09-25 03:35 | Inpatient (IN) | payer MEDICARE, SELFPAY ==
[2023-09-25] VITALS (25 sets, daily range): BP systolic 124–153; BP diastolic 51–80; PULSE 50–85; RESP 11–20; TEMP 36–36.4; O2SAT 92–99; BMI 24.8
--- NOTE | ~2023-09-25 | NM_ITS ---
EXAMINATION: NM tito stress w perfusion DATE: 09/26/2023 11:49 INDICATION: Chest pain TECHNIQUE: Rest images were obtained following intravenous administration of 9.6 mCi Tc99m tetrofosmi n (Myoview). The patient was infused intravenously with Lexiscan (Regadenoson). Then, 30.8 mCi Tc99m tetrofosmin (Myoview) was administered intravenously, and stress images were obtained. Data was recon structed into short axis and horizontal and vertical long axis SPECT images. Gated SPECT images were also obtained. COMPARISON: None. FINDINGS: There is no definite reversible or fixed perfusion abnormality to suggest ischemia or infar ction. There is normal left ventricular chamber size, wall motion and ejection fraction. Left ventr icular ejection fraction measures 68%. IMPRESSION: 1. Normal myocardial perfusion at rest and during stress. 2. Left ventricular ejection fraction measuring 68%. Reviewed, dictated and finalized at location A. TTER SETTER UP
--- NOTE | ~2023-09-25 | XR_ITS ---
Portable chest x-ray Comparison: 06/04/2023 Clinical History: Chest pain Findings: Lungs are clear, without focal consolidation or pleural effusion. Cardiomediastinal silho uette is stable. Bones and soft tissues are unremarkable. Impression: Normal chest. Reviewed, dictated and finalized at [facility]. ING CREELER Impression: Normal chest.
--- NOTE | 2023-09-25 03:39 | ECG_ITS ---
Measurements Intervals [place] Rate: 59 P: -3 [place]: 241 QRS: 30 QRSD: 75 T: 80 QT: 430 QTc: 427 Interpretive Statements SINUS BRADYCARDIA WITH FIRST DEGREE AV BLOCK NONSPECIFIC ST & T-WAVE ABNORMALITY- HIGH LATERAL LEADS BASELINE ARTIFACT- V1, V3-V4 BORDERLINE ECG COMPARED TO ECG 07/03/2022 05:28:19 SINUS BRADYCARDIA NOW PRESENT Electronically Signed On 09-25-2023 6:37:45 RN SURGERY ICU by Chago Watkins D.O.
[2023-09-25 03:58] LABS: Basophils Percent Auto 0.5 % (0.2-1.2); Eosinophils Absolute Auto 0.2 K/mm3 (0-0.3); Eosinophils Percent Auto 2.2 % (0-4.4); Hematocrit 37.3 % (37.0-47.0); Hemoglobin 12.5 g/dL (12.0-15.0); Immature Granulocyte Absolute 0.02 K/mm3 (0.00-0.031); Immature Granulocyte Percent A 0.2 % (0-0.5); Lymphocytes Absolute Auto 2.14 K/mm3 (0.9-3.2); Lymphocytes Percent Auto 26.1 % (18.3-44.2); Mean Corpuscular HGB Conc 33.5 g/dl (32-36); Mean Corpuscular Hemoglobin 32.9 pg (26-34); Mean Corpuscular Volume 98.2 fl (80-100); Monocytes Absolute Auto 0.6 K/mm3 (0.1-0.6); Monocytes Percent Auto 7.8 % (2.6-8.5); Neutrophils Absolute Auto 5.2 K/mm3 (1.3-6.7); Neutrophils Percent Auto 63.2 % (45.5-73.1); Platelet Count Result 262 k/mm3 (150-375); Red Cell Distribution Width 11.9 % (11.5-14.5); White Blood Count 8.2 K/mm3 (4.5-10.0)
[2023-09-25] MEDS: ASPIRIN 81 MG CHEWABLE TABLET 324 MG PO (03:59)
[2023-09-25 04:08] LABS: Lactic Acid Reflex 0.8 mmol/L (0.7-2.0)
[2023-09-25 04:09] LABS: Prothrombin Time 13.2 Seconds (11.1-14.7)
[2023-09-25 04:10] LABS: Alanine Aminotransferase 12 U/L (6-35); Albumin Level 3.8 g/dL (3.5-5.1); Alkaline Phosphatase 136 U/L (38-126); Anion Gap 3 mmol/L (8-16); Aspartate Amino Transferase 23 U/L (14-36); Bilirubin,Total 0.9 mg/dL (0.2-1.3); Blood Urea Nitrogen 15 mg/dL (7-17); Calcium 9.4 mg/dL (8.4-10.2); Carbon Dioxide 28 mmol/L (22-30); Chloride 106 mmol/L (98-107); Estimated CRCL calculation 58 ml/min; Estimated Glomerular Filt Rate > 60; Glucose 128 mg/dL (65-110); Lipase 167 U/L (23-300); Partial Thromboplastin Time 29.2 SECONDS (22.3-36.8); Potassium 3.6 mmol/L (3.4-5.0); Sodium 137 mmol/L (137-145)
[2023-09-25 04:22] LABS: Troponin I < 0.012 ng/mL (0.000-0.034)
[2023-09-25] MEDS: PANTOPRAZOLE SODIUM IV 40 MG VIAL IV PUSH (04:30)
--- NOTE | 2023-09-25 05:20 | ED.CHESTPAIN ---
HPI - Chest Pain General Chief Complaint: Chest Pain Stated Complaint: cp Time Seen by Provider: 09/25/23 03:46 History of Present Illness HPI narrative: Patient is a 73-year-old female who presents to the emergency department this morning complaining of chest pain and back pain. Patient admits that she normally gets chest pain with indigestion or acid reflux as she has a history of hiatal hernia and she takes baking soda for it which usually alleviates her symptoms. Patient states that she tried to do that today with mild to no resolution of her symptoms. Patient called EMS and was brought to our facility for further evaluation. Patient admits to mid thoracic back pain as well. She denies any recent falls or trauma and denies lifting any heavy objects. Related Data Home Medications Medication Instructions Recorded Confirmed metoprolol succinate 50 mg 50 mg PO HS 06/24/19 09/25/23 tablet,extended release 24 hr alprazolam 0.25 mg tablet (Xanax) 0.25 mg PO BID PRN Anxiety 06/04/23 09/25/23 sitagliptin phosphate 100 mg 100 mg PO HS 09/25/23 09/25/23 tablet (Januvia) Allergies Allergy/AdvReac Type Severity Reaction Status Date / Time Sulfa (Sulfonamide Allergy Mild HIVES Verified 06/12/23 08:48 Antibiotics) propoxyphene AdvReac Mild FLIPPED Verified 06/12/23 08:48 OUT codeine AdvReac Unknown PASSES OUT Verified 06/12/23 08:48 Review of Systems Review of Systems: All systems are reviewed and are negative unless stated otherwise in the HPI. [facility] Past Medical History Medical History Anxiety Asthma Benign essential hypertension Brain aneurysm Cerebrovascular accident Chronic obstructive pulmonary disease, unspecified Coronary artery disease Depression Gastroesophageal reflux disease Hemorrhoids Hyperlipidemia Kidney stone Migraine Mitral valve prolapse Myocardial infarction Obstructive sleep apnea does not use CPAP Peptic ulcer disease Postmenopausal disorder Type 2 diabetes mellitus without complication, without long-term current use of insulin Surgical History Surgical History History of cardiac catheterization History of cholecystectomy History of left-sided carotid endarterectomy History of rectal surgery anal fistulotomy History of tonsillectomy Status post coil embolization of cerebral aneurysm Family History Family History Mother Hypertension Cerebrovascular accident Family history of diabetes mellitus in first degree relative Family history of congestive heart failure Diabetes mellitus Family history of hypercholesterolemia CHF (congestive heart failure) Grandparent Cerebrovascular accident Family history of hepatitis Family history of malignant neoplasm Father Hypertension Acute myocardial infarction Social History Social History Social History: Surrogate medical decision maker: Sheldon Troncoso, son. Code status: Full code. Smoking packs per day: 1 Smoking cigarettes per day: 20.0 Years smoked: 39 Smoking pack-years: 39.00 Smoking status: Former smoker Second hand tobacco smoke exposure: Yes Smoking end date: 07/22/07 Additional smoking assessment comments: quit 2007 Alcohol intake: former Alcohol use details: quit 1998 Substance use: never Substance use type: does not use Do You Feel Safe in your Home?: Yes Lack of Transportation: No Lack of Food: Never True Current Housing: I Have Housing Concerned About Future Housing: No Difficulty Paying Gas/Electric Bills: No Difficulty Paying for Meds: No Currently Unemployed: No Education: Master's Degree or Higher Difficulty w/ Childcare or Family Care: No Living arrangements: with family Additional living arrangements comments: Single. [place]
[2023-09-25] MEDS: KETOROLAC 15 MG/ML VIAL (*BKC) IV PUSH (05:26)
--- NOTE | 2023-09-25 06:25 | ECG_ITS ---
Measurements Intervals [place] Rate: 54 P: 96 TN: 245 QRS: 36 QRSD: 77 T: 82 QT: 442 QTc: 422 Interpretive Statements SINUS BRADYCARDIA WITH FIRST DEGREE AV BLOCK BORDERLINE ST-T WAVE ABNORMALITY- HIGH LATERAL LEADS BORDERLINE ECG COMPARED TO ECG 09/25/2023 03:42:44 NO SIGNIFICANT CHANGES Electronically Signed On 09-25-2023 6:39:29 VARITYPE OPERATOR by Chago Watkins D.O.
[2023-09-25 07:00] LABS: Troponin I 0.029 ng/mL (0.000-0.034)
[2023-09-25 09:55] LABS: Glucose Point of Care 135 mg/dl (65-105)
--- NOTE | 2023-09-25 09:56 | PC.NURSE ---
6 HOUR EKG COMPLETED AND SHOWN TO PROVIDER
--- NOTE | 2023-09-25 09:56 | ECG_ITS ---
Measurements Intervals [place] Rate: 60 P: 91 IL: 246 QRS: 36 QRSD: 77 T: 90 QT: 426 QTc: 427 Interpretive Statements SINUS RHYTHM WITH FIRST DEGREE AV BLOCK BORDERLINE ST-T WAVE ABNORMALITY- LAT/HIGH LAT LEADS BASELINE WANDER- II BORDERLINE ECG COMPARED TO ECG 09/25/2023 06:33:02 SINUS RHYTHM NOW PRESENT Electronically Signed On 09-25-2023 10:18:27 TRANSPORTATION DISPATCHER by Chago Watkins D.O.
[2023-09-25 10:21] LABS: Troponin I < 0.012 ng/mL (0.000-0.034)
--- NOTE | 2023-09-25 10:42 | ADMGEN ---
This patient, Beatrice Calero, was admitted to IMU Room 205-01 at 1034. Patient/family oriented to hospital policies and general routines including ID bracelet, bed and alarms, visiting hours, pain management, procedures, bathroom and other care routines, personal items, smoking policy, room service/diet, and visiting hours. Information on how to activate the Rapid Response Team has been discussed. Patient/Family are encouraged to report perceived risks to care and to ask questions if they do not understand what they are told or what they should do.
--- NOTE | 2023-09-25 13:18 | PM.IMHP ---
H&P: HPI History of Present Illness Date/Time: 09/25/23 13:00 Chief Complaint: Chest pain. Narrative: This is a 73-year-old female with history of coronary artery disease, myocardial infarction with stent to the circumflex marginal branch in July 2014, cerebrovascular accident without residual deficits, cerebral aneurysm status post coiling, carotid artery disease status post endarterectomy, hypertension, hyperlipidemia, type 2 diabetes mellitus, gastroesophageal reflux disease, and remote history of peptic ulcers who presented to the emergency department via EMS from home for evaluation of chest pain. The patient provides the following history. The last several days she has been experiencing more indigestion than usual and has been taking baking soda with water without much benefit. She has been belching and reports feeling gassy and bloated in the stomach. Gas-X did help somewhat. Today she developed a tightness in the upper chest which was different and she came in for evaluation. She also mentions mid to upper back pain however that is chronic and unchanged. She typically takes Aleve a couple of times a week for the back pain and alternates heat and ice which seems to help. She denies sweats, syncope, near syncope, pleuritic pain, palpitations, sensations of racing heart, shortness of breath, nausea, vomiting, and dark stools. In the ED: She was afebrile on arrival with stable vital signs. CMP, CBC, and lipase were unremarkable. Initial troponin was negative. EKG showed borderline ST T-wave abnormalities in the lateral/high lateral leads. Chest x-ray was unremarkable. She was given a GI cocktail and aspirin 324 mg and is being admitted in this setting for further evaluation. Review of Systems Review of Systems: Twelve systems were reviewed and are negative except for as per HPI. [facility] Past Medical History Medical History Anxiety Asthma Benign essential hypertension Brain aneurysm Cerebrovascular accident Chronic obstructive pulmonary disease, unspecified Coronary artery disease Depression Gastroesophageal reflux disease Hemorrhoids Hyperlipidemia Kidney stone Migraine Mitral valve prolapse Myocardial infarction Obstructive sleep apnea does not use CPAP Peptic ulcer disease Postmenopausal disorder Type 2 diabetes mellitus without complication, without long-term current use of insulin Surgical History Surgical History History of cardiac catheterization History of cholecystectomy History of left-sided carotid endarterectomy History of rectal surgery anal fistulotomy History of tonsillectomy Status post coil embolization of cerebral aneurysm Family History Family History Mother Hypertension Cerebrovascular accident Family history of diabetes mellitus in first degree relative Family history of congestive heart failure Diabetes mellitus Family history of hypercholesterolemia CHF (congestive heart failure) Grandparent Cerebrovascular accident Family history of hepatitis Family history of malignant neoplasm Father Hypertension Acute myocardial infarction Social History Social History Social History: Surrogate medical decision maker: Sheldon Troncoso, son. Code status: Full code. Smoking packs per day: 1 Smoking cigarettes per day: 20.0 Years smoked: 39 Smoking pack-years: 39.00 Smoking status: Former smoker Second hand tobacco smoke exposure: Yes Smoking end date: 07/22/07 Additional smoking assessment comments: quit 2007 Alcohol intake: former Alcohol use details: quit 1998 Substance use: never Substance use type: does not use Do You Feel Safe in your Home?: Yes Lack of Transportation: No Lack of Food: Never True Current Housing: [place]
--- NOTE | 2023-09-25 16:22 | PM.CNCAR ---
Assessment and Plan Assessment and plan (1) Chest pain: Code(s): R07.9 - Chest pain, unspecified Status: Acute Assessment and Plan: Given her cardiac history and her symptoms, reasonable to obtain stress testing. Will obtain Lexiscan tomorrow. Patient to be NPO at midnight. (2) Coronary artery disease: Code(s): I25.10 - Atherosclerotic heart disease of [place] coronary artery without angina pectoris Status: Acute Assessment and Plan: S/p stenting to the circumflex marginal branch in July 2014. Continue Plavix, statin, beta andriy (3) Hypertension: Code(s): I10 - Essential (primary) hypertension Status: Acute Assessment and Plan: Stable, continue beta andriy (4) Hyperlipidemia: Code(s): E78.5 - Hyperlipidemia, unspecified Status: Acute Assessment and Plan: Continue statin. (5) Type 2 diabetes mellitus: Code(s): E11.9 - Type 2 diabetes mellitus without complications Status: Acute Assessment and Plan: Management as per primary team. History of Present Illness History of Present Illness Consult date/time: 09/25/23 16:22 Requesting physician: Joy Johansen PA-C Consult reason: chest pain Reason For Visit: cp Narrative: We are consulted for chest pain. This is a 73 year old female patient of Dr. Burciaga's with coronary artery disease s/p stenting to the circumflex marginal branch in July 2014. She last saw Dr. Burciaga in August 2023 and was doing well at that time. Patient reports significant indigestion and back pain that has been ongoing since the weekend. Chest pain is epigastric and to the right chest. When she normally gets ingestion, she takes baking soda which usually helps but it did not help this time. Patient states when she had her PCI done, she was having back pain at that time and no chest pain. Troponins are negative x 3. EKG with sinus rhythm, first degree AVB, nonspecific STTW in the high lateral leads; no changes compared to previously. Review of Systems Review of Systems: All systems reviewed & are unremarkable except as noted in HPI and below (HPI) [facility] Past Medical History Medical History Anxiety Asthma Benign essential hypertension Brain aneurysm Cerebrovascular accident Chronic obstructive pulmonary disease, unspecified Coronary artery disease Depression Gastroesophageal reflux disease Hemorrhoids Hyperlipidemia Kidney stone Migraine Mitral valve prolapse Myocardial infarction Obstructive sleep apnea does not use CPAP Peptic ulcer disease Postmenopausal disorder Type 2 diabetes mellitus without complication, without long-term current use of insulin Surgical History Surgical History History of cardiac catheterization History of cholecystectomy History of left-sided carotid endarterectomy History of rectal surgery anal fistulotomy History of tonsillectomy Status post coil embolization of cerebral aneurysm Family History Family History Mother Hypertension Cerebrovascular accident Family history of diabetes mellitus in first degree relative Family history of congestive heart failure Diabetes mellitus Family history of hypercholesterolemia CHF (congestive heart failure) Grandparent Cerebrovascular accident Family history of hepatitis Family history of malignant neoplasm Father Hypertension Acute myocardial infarction Social History Social History Social History: Surrogate medical decision maker: Sheldon Troncoso, son. Code status: Full code. Smoking packs per day: 1 Smoking cigarettes per day: 20.0 Years smoked: 39 Smoking pack-years: 39.00 Smoking status: Former smoker Second hand tobacco smoke exposure: Yes Smoking end date: 07/22/07
[2023-09-25 17:02] LABS: Glucose Point of Care 156 mg/dl (65-105)
[2023-09-25] MEDS: ENOXAPARIN 40 MG/0.4 ML SYRINGE SUB-Q (17:21)
[2023-09-25] MEDS: BELLADONNA ALK/PHENOB ELIX 10 ML, MAG HYDROX/ALUMINUM HYD/SIMETH 30 ML, LIDOCAINE HCL 2... PO (17:35)
[2023-09-25] MEDS: IPRATROPIUM 0.5 MG/ALBUTEROL SULFATE 2.5 MG AMPUL.NEB 3 ML INHALATION (17:58)
[2023-09-25] MEDS: ALPRAZolam (*CRX) 0.25 MG TABLET PO (18:35)
[2023-09-25] MEDS: ATORVASTATIN 40 MG TABLET PO (20:07)
[2023-09-25] MEDS: METOPROLOL SUCCINATE EXT REL 50 MG TABCR PO (20:07)
[2023-09-25] MEDS: PANTOPRAZOLE 40 MG TABLET PO (20:07)
[2023-09-25 20:32] LABS: Glucose Point of Care 133 mg/dl (65-105)
[2023-09-26] VITALS (11 sets, daily range): BP systolic 143–144; BP diastolic 57–66; PULSE 50–70; RESP 20; TEMP 36.1–36.6; O2SAT 94–100
--- NOTE | 2023-09-26 | EST_ITS ---
Patient Info Name: Beatrice Calero Age: 73 years : 1950 Gender: Female Ht: 66 in Wt: 154 lbs BSA: 1.81 m2 HR: 47 bpm BP: 136 / 62 mmHg Heart Rhythm: Sinus Rhythm Exam Date: 09/26/2023 11:00 AM Exam Location: Echo Lab Patient Status: Inpatient Admit Date: 09/25/2023 Staff Ordering Physician: Cally Florentino MD Attending Provider: Lisa Barajas MD Exercise Technologist: Janiya Jin, BRET Nurse: Marianne Salvador APN Exam Type: CA stress tito w NM Study Info Indications R07.89 - Other chest pain A regadenoson stress test was performed. Summary 1. Please correlate with nuclear medicine images, reported separately. 2. No abnormal ST-T wave changes with lexiscan. 3. Stress test was supervised and personally interpreted by Dr. Sheldon Stock. Protocol: Lexiscan Stress ECG Details Stage: REST Duration (min): 1 min : 28 sec HR (bpm): 48 SBP (mmHg): 136 DBP (mmHg): 62 Stage: REST Duration (min): 6 min : 14 sec HR (bpm): 47 SBP (mmHg): 136 DBP (mmHg): 62 Stage: STAGE 1 Duration (min): 1 min : 0 sec HR (bpm): 64 SBP (mmHg): 113 DBP (mmHg): 61 Stage: RECOVERY Duration (min): 1 min : 0 sec HR (bpm): 75 SBP (mmHg): 113 DBP (mmHg): 61 Stage: RECOVERY Duration (min): 2 min : 0 sec HR (bpm): 72 SBP (mmHg): 113 DBP (mmHg): 61 Stage: RECOVERY Duration (min): 3 min : 0 sec HR (bpm): 69 SBP (mmHg): 106 DBP (mmHg): 60 Stage: RECOVERY Duration (min): 3 min : 18 sec HR (bpm): 68 SBP (mmHg): 106 DBP (mmHg): 60 Rest HR: 47 bpm Peak HR: 77 bpm Rest Sys BP: 136 mmHg Peak Sys BP: 113 mmHg Max Pred HR: 147 bpm % Max Pred HR: 52 % Target HR: 125 bpm Max RPP: 8,701 bpm*mmHg Target HR Summary: Hemodynamic response to exercise was normal BP Response: Normal blood pressure response Termination Reason: Completed protocol Cardiac Symptoms: Shortness of breath Total Time: 1 min : 0 sec Rest [place] BP: 62 mmHg Peak [place] BP: 61 mmHg Total Dose: 0.4 mg Resting ECG Sinus bradycardia. Resting ST/T wave changes. Stress ECG No abnormal ST/T wave changes with exercise. Arrhythmias None. Report Signatures
[2023-09-26 05:48] LABS: Anion Gap 2 mmol/L (8-16); Blood Urea Nitrogen 12 mg/dL (7-17); Calcium 9.1 mg/dL (8.4-10.2); Carbon Dioxide 31 mmol/L (22-30); Chloride 105 mmol/L (98-107); Estimated CRCL calculation 51 ml/min; Estimated Glomerular Filt Rate > 60; Glucose 94 mg/dL (65-110); Magnesium 2.1 mg/dL (1.6-2.3); Potassium 3.8 mmol/L (3.4-5.0); Sodium 138 mmol/L (137-145)
[2023-09-26 08:08] LABS: Glucose Point of Care 117 mg/dl (65-105)
--- NOTE | 2023-09-26 08:50 | WPDGICN ---
Assessment and Plan Assessment and plan (1) Chest pain: Code(s): R07.9 - Chest pain, unspecified Status: Acute Assessment and Plan: -chest pain since the weekend that was not relieved with baking soda. It was relieved with Nitroglycerin in ER. LFT and Lipase were normal. Hx of cholecystectomy in the past -EGD in 2007 was normal -symptoms could be related to GERD or esophagitis or dysmotility. Cardiac is being rule out at this time. -she is having a stress test today to rule out cardiac etiology due to her past cardiac history. stress test normal -would recommend continued PPI IV twice per day, continue PO at discharge -consider EGD tomorrow if stress test is normal. she does not want EGD at this time f/u outpatient in GI clinic if symptoms persist. (2) Gastroesophageal reflux disease: Code(s): K21.9 - Gastro-esophageal reflux disease without esophagitis Status: Acute Assessment and Plan: PPI IV BID (3) Coronary artery disease: Code(s): I25.10 - Atherosclerotic heart disease of [place] coronary artery without angina pectoris Status: Acute Assessment and Plan: on Plavix (4) Hypertension: Code(s): I10 - Essential (primary) hypertension Status: Acute (5) Type 2 diabetes mellitus: Code(s): E11.9 - Type 2 diabetes mellitus without complications Status: Acute (6) Hyperlipidemia: Code(s): E78.5 - Hyperlipidemia, unspecified Status: Acute (7) Chronic back pain: Code(s): M54.9 - Dorsalgia, unspecified; G89.29 - Other chronic pain Status: Acute GI Consult Note Consult date/time: 09/26/23 08:50 Reason for consult: epigastric pain and hx of PUD HPI: Beatrice Calero is a 73 year old female asked to be seen at the request of the hospitalist for epigastric pain and history of peptic ulcer disease. She has a past medical history of coronary artery disease status post stenting in 2014, CVA, cerebral aneurysm status post coiling, carotid artery disease status post endarterectomy, hypertension, hyperlipidemia, type 2 diabetes, GERD, history of cholecystectomy, and fistulotomy and peptic ulcer disease. She presented to [facility] ER yesterday as she had been experiencing chest pain and back pain that had been ongoing since the weekend. Typically when she gets ?indigestion? she will take baking soda which will alleviate the symptoms. She did try taking baking soda at home for the symptoms and did not get any relief. She does report that she had been having increasing belching and complaints of lower abdominal bloating and feeling ?gassy?-she did get relief with Gas-X for this. She takes Aleve around 1 time per week on average but sometimes she will not take it for over 1 month. She is not on any other NSAIDs. She denies any dysphagia, odynophagia, decreased appetite, nausea, vomiting, epigastric abdominal pain, unintentional weight loss, melena or hematochezia. She does report chronic diarrhea since her gallbladder has been removed and will intermittently use Questran powder. No recent EGD, last EGD reviewed in 2007 was normal. Cardiology has been consult to due to her cardiac history and plans to do stress test today and has been NPO for this. Her troponin have been negative. CBC, CMP, lipase were unremarkable. Review of Systems Review of Systems: As of right now she is concerned just complaining of upper back pain. She denies any chest pain or indigestion or reflux symptoms. Constitutional: Constitutional: Denies headache(s) and Denies weakness Eyes: Eyes: Denies blurry vision ENT: Reports Normal hearing present, Denies headache(s) and Denies neck pain Cardiovascular: Cardiovascular: Denies chest pain and Denies dyspnea Respiratory: Respiratory: Denies dyspnea Gastrointestinal: Gastrointestinal: Reports no additional gastrointestinal complaints Genitourinary: Genitourinary: Denies dysuria
[2023-09-26] MEDS: FLUTICASONE PROPIONATE 0.05% NA SPR 16 GM BTL (*BKC) 2 SPRAY NASAL (09:03)
[2023-09-26] MEDS: CLOPIDOGREL BISULFATE 75 MG TABLET PO (09:03)
[2023-09-26] MEDS: ACETAMINOPHEN 325 MG TABLET 650 MG PO (09:03)
[2023-09-26] MEDS: FLUTICASONE/SALMETEROL 115-21 MCG INHALER 1 PUFF 2 PUFF INHALATION (09:48)
--- NOTE | 2023-09-26 11:37 | PM.PNCARD ---
Progress Note: A&P Assessment and Plan (1) Chest pain: Code(s): R07.9 - Chest pain, unspecified Status: Acute Assessment and Plan: Lexiscan performed this morning and showed normal perfusion - no infarct or ischemia, EF 68%. Continue plavix and statin. No further cardiac workup recommended at this time. OK for discharge from a cardiac standpoint. Cardiology will sign off please call with questions. (2) Coronary artery disease: Code(s): I25.10 - Atherosclerotic heart disease of [place] coronary artery without angina pectoris Status: Acute Assessment and Plan: S/p stenting to the circumflex marginal branch in July 2014. Continue Plavix, statin, beta andriy (3) Hypertension: Code(s): I10 - Essential (primary) hypertension Status: Acute Assessment and Plan: Stable, continue beta andriy (4) Hyperlipidemia: Code(s): E78.5 - Hyperlipidemia, unspecified Status: Acute Assessment and Plan: Continue statin. (5) Type 2 diabetes mellitus: Code(s): E11.9 - Type 2 diabetes mellitus without complications Status: Acute Assessment and Plan: Management as per primary team. Subjective Date/time seen: 09/26/23 11:37 Interval history: Cardiology follow up for chest pain, CAD Complaining of back and neck pain. No chest pain or shortness of breath. Review of Systems Review of Systems: All systems reviewed & are unremarkable except as noted in HPI and below (HPI) Exam Const: General: comfortable and no acute distress HENMT: Mouth: Yes moist mucous membranes Eyes: General: appearance normal, both eyes and all related structures Sclera: sclerae normal Neck: Neck: supple Resp: Effort & Inspection: normal respiratory effort Auscultation: clear to auscultation bilaterally Cardio: Rate: regular rate Rhythm: regular rhythm Heart sounds: no murmurs Skin: General skin exam: normal color Neuro: Speech: normal speech Extrem: General: normal to inspection Psych: Mental Status: mental status grossly normal Affect: normal affect Objective Data Vital Signs Vital Signs: Vital Signs - 24 hr 09/25/23 12:00 09/25/23 12:00 09/25/23 14:00 Temperature Pulse Rate 70 65 Respiratory Rate Blood Pressure Pulse Oximetry 99 Oxygen Delivery Room Air Fraction of Inspired Oxygen 09/25/23 16:00 09/25/23 16:00 09/25/23 16:00 Temperature 36.1 C L Pulse Rate 66 72 Respiratory Rate 20 Blood Pressure 153/55 H Pulse Oximetry 98 Oxygen Delivery Room Air Fraction of Inspired Oxygen 09/25/23 17:58 09/25/23 17:58 09/25/23 18:05 Temperature Pulse Rate 74 82 Respiratory Rate 18 18 Blood Pressure Pulse Oximetry 98 Oxygen Delivery Room Air Fraction of Inspired Oxygen 21 09/25/23 18:00 09/25/23 20:07 09/25/23 20:12 Temperature Pulse Rate 74 74 Respiratory Rate Blood Pressure Pulse Oximetry 97 Oxygen Delivery Fraction of Inspired Oxygen 09/25/23 20:00 09/25/23 20:00 09/25/23 20:00 Temperature 36.3 C L Pulse Rate 74 85 Respiratory Rate 20 Blood Pressure 143/63 H Pulse Oximetry 96 97 Oxygen Delivery Room Air Fraction of Inspired Oxygen 09/26/23 00:00 09/26/23 00:00 09/25/23 22:00 Temperature 36.1 C L Pulse Rate 70 84 Respiratory Rate 20 Blood Pressure 144/58 H Pulse Oximetry 98 Oxygen Delivery Room Air Fraction of Inspired Oxygen 09/26/23 00:00 09/26/23 02:00 09/26/23 04:00 Temperature Pulse Rate 52 L 56 L Respiratory Rate Blood Pressure Pulse Oximetry 98 Oxygen Delivery Room Air Fraction of Inspired Oxygen 09/26/23 04:57 09/26/23 04:00 09/26/23 06:00 Temperature 36.5 C Pulse Rate 57 L 51 L 53 L Respiratory Rate 20 Blood Pressure 144/66 H Pulse Oximetry 100 Oxygen Delivery Fraction of Inspired Oxygen 09/26/23 08:22 09/26/23 08:00 09/26/23 08:00 Temper
--- NOTE | 2023-09-26 14:34 | PC.NURSE ---
Patient states to this nurse and the customer care consultant that she prefer to have the scope [EGD], outpatient if possible . This RN let the doctor know the patient requests at this time.
--- NOTE | 2023-10-10 17:59 | PM.DS ---
DS: Admitting Diagnosis Discharge Date 09/26/23 Admitting Diagnosis 09/25/23 DS: Discharge Diagnosis Discharge Diagnosis (1) Chest pain: Code(s): R07.9 - Chest pain, unspecified Status: Acute Assessment and Plan: The patient presented to the emergency department for evaluation of chest pain as detailed in HPI. Labs, imaging, EKG, and all reports were personally reviewed. Initial troponin was negative and her EKG did not demonstrate any acute ST segment depressions or elevations. Her symptoms are somewhat atypical however her pain did resolve with nitroglycerin. Given her cardiac history, she is being admitted for close monitoring and consultation with her traffic reporter. Symptoms may very well be related to GERD and she may possibly have a recurrent peptic ulcer. Troponins will be trended. Continue clopidogrel, metoprolol, and atorvastatin. Cardiology and GI have been consulted. Continue PPI. Her blood pressures were reviewed and they have been stable. Random glucose was 130; continue sitagliptin. Initiate sliding scale insulin, Accu-Cheks, and hypoglycemic protocol. The rest of her home medications will be reviewed and resumed as appropriate. Regarding her back pain, a heating pad has been ordered. We discussed that she should probably avoid taking NSAIDs and try Tylenol instead. (2) Gastroesophageal reflux disease: Code(s): K21.9 - Gastro-esophageal reflux disease without esophagitis Status: Acute (3) Coronary artery disease: Code(s): I25.10 - Atherosclerotic heart disease of wiyot coronary artery without angina pectoris Status: Acute (4) Hypertension: Code(s): I10 - Essential (primary) hypertension Status: Acute (5) Type 2 diabetes mellitus: Code(s): E11.9 - Type 2 diabetes mellitus without complications Status: Acute (6) Hyperlipidemia: Code(s): E78.5 - Hyperlipidemia, unspecified Status: Acute (7) Chronic back pain: Code(s): M54.9 - Dorsalgia, unspecified; G89.29 - Other chronic pain Status: Acute DS: Summary Hospital Course Hospital Course: Pt has cad, cva and here with chest pain with negative cardiac work up and some indigestion, she is feeling better now and prefers conservative treatment without egd. She is going home. she can follow-up in office if similar problem and always can set up EGD as outpatient if indicated Back pain she will go to physical therapy for more therapy. Time Spent with Patient Time attestation: Total time spent providing and/or coordinating discharge services:40 minutes Exam Narrative: General: Well-developed, nontoxic-appearing female Neck: Supple. Respiratory: Lungs are clear to auscultation bilaterally. Chest: Mild tenderness to palpation over the upper, anterior chest. Cardiovascular: Regular rate and rhythm with S1-S2. Gastrointestinal: Abdomen is soft and nondistended with positive bowel sounds. Mild tenderness to deeper palpation epigastric region. No guarding or rebound tenderness. Skin: Warm and dry. No rash or lesions on limited exam. Extremities: No cyanosis, clubbing, or edema. Radial and pedal pulses intact. Neurological: Alert. Cranial nerves 2-12 are grossly intact. No gross focal deficits to casual conversation. Psychiatric: Pleasant and cooperative with normal mood and affect. Judgment and insight intact. Discharge Plan Discharge Attending physician on discharge: Lisa Barajas Consulting providers: Cally Florentino; Mikie Jamil; Shania Barbosa; Sheldon Stock; Joy Johansen Rafe M.; Marianne Salvador; Lonnie Oneil Discharging Clinician: Lisa Barajas Anticipated Discharge Date/Time: 09/26/23 15:06 Patient Disposition: Home, Self-Care Activity: as tolerated Diet: bland Discharge Instructions: CAN CONTACT GI IF SHE DOES NOT FEEL BETTER CAN CONTACT ORTHOPEDIC CLINIC FOR BACK PAINS Patient Instructions: An
== END 2023-09-26 16:29 | disposition home or self-care (01) | DRG 313 ==
LOC: ANHED 07:23 → ANHIMU 07:50
PROVIDERS: Physician Assistant; Admitting Provider Family Medicine; Emergency Provider Emergency Medicine; PCP Family Medicine; Visit Provider Family Medicine
DX: R07.9 Chest pain, unspecified (principal); K21.9 Gastro-esophageal reflux disease without esophagitis; I25.10 Atherosclerotic heart disease of native coronary artery without angina pectoris; E78.5 Hyperlipidemia, unspecified; M54.9 Dorsalgia, unspecified; G89.29 Other chronic pain; I10 Essential (primary) hypertension; J44.9 Chronic obstructive pulmonary disease, unspecified; G47.33 Obstructive sleep apnea (adult) (pediatric); I25.2 Old myocardial infarction; Z87.11 Personal history of peptic ulcer disease; Z86.73 Personal history of transient ischemic attack (TIA), and cerebral infarction without residual deficits; Z90.49 Acquired absence of other specified parts of digestive tract; Z87.891 Personal history of nicotine dependence; Z95.5 Presence of coronary angioplasty implant and graft
CPT/HCPCS: 36415; 71045; 78452; 80048; 80053; 82948; 83605; 83690; 83735; 84484; 85025; 85610; 85730; 93005; 93017; 94640; 96374; 96375; 99285; A9270; A9502; C9113; J1650; J1885; J2785

== ENCOUNTER 2023-10-12 20:01 | Emergency (ER) | payer MEDICARE, SELFPAY ==
[2023-10-12 20:11] VITALS: BP 117/81; PULSE 91; RESP 19; TEMP 36.4; O2SAT 97
[2023-10-12 22:36] VITALS: BP 133/75; PULSE 83; RESP 16; O2SAT 97
--- NOTE | 2023-10-12 23:00 | ED.DENTAL ---
HPI - Dental/Oral General Chief complaint: Dental/Oral Stated complaint: bit tongue, bldng wont stop Time Seen by Provider: 10/12/23 22:10 History of Present Illness HPI Narrative: This is a 73-year-old female, with history of coronary artery disease Plavix, presents emergency department after biting her tongue. The patient states she better time around 05:00 o'clock and noticed persistent bleeding. She was unable to stop the bleeding despite direct pressure. She has no other complaints at this time. Related Data Home Medications Medication Instructions Recorded Confirmed metoprolol succinate 50 mg 50 mg PO HS 06/24/19 09/30/23 tablet,extended release 24 hr alprazolam 0.25 mg tablet (Xanax) 0.25 mg PO BID PRN Anxiety 06/04/23 09/30/23 sitagliptin phosphate 100 mg 100 mg PO HS 09/25/23 09/30/23 tablet (Januvia) Allergies Allergy/AdvReac Type Severity Reaction Status Date / Time Sulfa (Sulfonamide Allergy Mild HIVES Verified 10/12/23 20:15 Antibiotics) propoxyphene AdvReac Mild FLIPPED Verified 10/12/23 20:15 OUT codeine AdvReac Unknown PASSES OUT Verified 10/12/23 20:15 Review of Systems Review of Systems: CONSTITUTIONAL: Denies fever, chills, or sweats. ENT: Tongue laceration and bleeding Denies rhinorrhea, congestion, sore throat, or otalgia. CARDIOVASCULAR: Denies chest pain, palpitations, or edema. RESPIRATORY: Denies cough or dyspnea. GASTROINTESTINAL: Denies abdominal pain, nausea, vomiting, or diarrhea. MUSCULOSKELETAL: Denies back pain, joint pain, or myalgia. NEUROLOGIC: Denies headache, numbness, dizziness, or weakness. PSYCHIATRIC: Denies anxiety or depression. [facility] Past Medical History Medical History Anxiety Asthma Benign essential hypertension Brain aneurysm Cerebrovascular accident Chronic obstructive pulmonary disease, unspecified Coronary artery disease Depression Gastroesophageal reflux disease Hemorrhoids Hyperlipidemia Kidney stone Migraine Mitral valve prolapse Myocardial infarction Obstructive sleep apnea does not use CPAP getting fitted for mouth appliance Peptic ulcer disease Postmenopausal disorder Type 2 diabetes mellitus without complication, without long-term current use of insulin Surgical History Surgical History History of cardiac catheterization History of cholecystectomy History of left-sided carotid endarterectomy History of rectal surgery anal fistulotomy History of tonsillectomy Status post coil embolization of cerebral aneurysm Family History Family History Mother Hypertension Cerebrovascular accident Family history of diabetes mellitus in first degree relative Family history of congestive heart failure Diabetes mellitus Family history of hypercholesterolemia CHF (congestive heart failure) Grandparent Cerebrovascular accident Family history of hepatitis Family history of malignant neoplasm Father Hypertension Acute myocardial infarction Social History Social History Social History: Surrogate medical decision maker: Sheldon Troncoso, son. Code status: Full code. Smoking packs per day: 1 Smoking cigarettes per day: 20.0 Years smoked: 39 Smoking pack-years: 39.00 Smoking status: Former smoker Second hand tobacco smoke exposure: Yes Smoking end date: 07/22/07 Additional smoking assessment comments: quit 2007 Alcohol intake: former Alcohol use details: quit 1998 Substance use: never Substance use type: does not use Do You Feel Safe in your Home?: Yes Lack of Transportation: No Lack of Food: Never True Current Housing: I Have Housing Concerned About Future Housing: No Difficulty Paying Gas/Electric Bills: No Difficulty Paying for Meds: No Currently Unemployed
== END 2023-10-12 23:12 | disposition home or self-care (01) ==
PROVIDERS: Emergency Provider Preventive Medicine Aerospace Medicine; PCP Family Medicine
DX: S01.552A Open bite of oral cavity, initial encounter (principal); I25.10 Atherosclerotic heart disease of native coronary artery without angina pectoris; I10 Essential (primary) hypertension; I34.1 Nonrheumatic mitral (valve) prolapse; I25.2 Old myocardial infarction; J44.9 Chronic obstructive pulmonary disease, unspecified; E78.5 Hyperlipidemia, unspecified; E11.9 Type 2 diabetes mellitus without complications; G47.33 Obstructive sleep apnea (adult) (pediatric); K21.9 Gastro-esophageal reflux disease without esophagitis; F32.A Depression, unspecified; Z87.442 Personal history of urinary calculi; Z87.11 Personal history of peptic ulcer disease; Z86.73 Personal history of transient ischemic attack (TIA), and cerebral infarction without residual deficits; Z87.891 Personal history of nicotine dependence; Z90.49 Acquired absence of other specified parts of digestive tract; Z79.02 Long term (current) use of antithrombotics/antiplatelets; Z79.84 Long term (current) use of oral hypoglycemic drugs; X58.XXXA Exposure to other specified factors, initial encounter
CPT/HCPCS: 99281

== ENCOUNTER 2023-12-07 14:25 | Emergency (ER) | payer MEDICARE, SELFPAY ==
[2023-12-07 14:37] VITALS: BP 150/61; PULSE 62; RESP 16; TEMP 36.4; O2SAT 99
--- NOTE | 2023-12-07 14:55 | ED.URI ---
HPI - URI/Sore Throat General Chief Complaint: Upper Respiratory Infection Stated Complaint: throat hurts Time Seen by Provider: 12/07/23 14:41 Source: patient and RN notes reviewed Mode of arrival: ambulatory Limitations: no limitations History of Present Illness HPI Narrative: Patient presents today complaining of sore throat, nasal congestion, headache, rhinorrhea. Symptoms began yesterday. She feels that these symptoms are similar symptoms that she had in the past when she had COVID. Denies fever, shortness of breath, nausea or vomiting. She currently rates her sore throat 04/30 and has been taking Zyrtec without much relief. Related Data Home Medications Medication Instructions Recorded Confirmed metoprolol succinate 50 mg 50 mg PO HS 06/24/19 12/07/23 tablet,extended release 24 hr alprazolam 0.25 mg tablet (Xanax) 0.25 mg PO BID PRN Anxiety 06/04/23 12/07/23 sitagliptin phosphate 100 mg 100 mg PO HS 09/25/23 12/07/23 tablet (Januvia) Allergies Allergy/AdvReac Type Severity Reaction Status Date / Time Sulfa (Sulfonamide Allergy Mild HIVES Verified 12/07/23 14:28 Antibiotics) propoxyphene AdvReac Mild FLIPPED Verified 12/07/23 14:28 OUT codeine AdvReac Unknown PASSES OUT Verified 12/07/23 14:28 Review of Systems Review of Systems: CONSTITUTIONAL: Denies body aches, fever, chills, or sweats. EYES: Denies visual changes, redness, or discharge. ENT: + rhinorrhea, congestion, sore throat CARDIOVASCULAR: Denies chest pain, palpitations, or edema. RESPIRATORY: Denies cough or dyspnea. GASTROINTESTINAL: Denies abdominal pain, nausea, vomiting, or diarrhea. GENITOURINARY: Denies dysuria or hematuria. SKIN: Denies rash, itching, or wounds. MUSCULOSKELETAL: Denies back pain, joint pain, or myalgia. NEUROLOGIC: Denies numbness, tingling, or weakness.+ headache PSYCH: Denies depression or anxiety. [facility] Past Medical History Medical History Anxiety Asthma Benign essential hypertension Brain aneurysm Cerebrovascular accident Chronic obstructive pulmonary disease, unspecified Coronary artery disease Depression Gastroesophageal reflux disease Hemorrhoids Hyperlipidemia Kidney stone Migraine Mitral valve prolapse Myocardial infarction Obstructive sleep apnea does not use CPAP getting fitted for mouth appliance Peptic ulcer disease Postmenopausal disorder Type 2 diabetes mellitus without complication, without long-term current use of insulin Surgical History Surgical History History of cardiac catheterization History of cholecystectomy History of left-sided carotid endarterectomy History of rectal surgery anal fistulotomy History of tonsillectomy Status post coil embolization of cerebral aneurysm Family History Family History Mother Hypertension Cerebrovascular accident Family history of diabetes mellitus in first degree relative Family history of congestive heart failure Diabetes mellitus Family history of hypercholesterolemia CHF (congestive heart failure) Grandparent Cerebrovascular accident Family history of hepatitis Family history of malignant neoplasm Father Hypertension Acute myocardial infarction Social History Social History Social History: Surrogate medical decision maker: Sheldon Troncoso, son. Code status: Full code. Smoking packs per day: 1 Smoking cigarettes per day: 20.0 Years smoked: 39 Smoking pack-years: 39.00 Smoking status: Former smoker Second hand tobacco smoke exposure: Yes Smoking end date: 07/22/07 Additional smoking assessment comments: quit 2007 Alcohol intake: former Alcohol use details: quit 1998 Substance use: never Substance use type: does not use Do You Feel Safe
== END 2023-12-07 15:25 | disposition home or self-care (01) ==
PROVIDERS: Emergency Provider Nurse Practitioner; PCP Family Medicine
DX: J06.9 Acute upper respiratory infection, unspecified (principal); J02.9 Acute pharyngitis, unspecified; Z20.822 Contact with and (suspected) exposure to COVID-19; Z87.891 Personal history of nicotine dependence; I10 Essential (primary) hypertension; J44.9 Chronic obstructive pulmonary disease, unspecified; I25.10 Atherosclerotic heart disease of native coronary artery without angina pectoris; K21.9 Gastro-esophageal reflux disease without esophagitis; E78.5 Hyperlipidemia, unspecified; I34.1 Nonrheumatic mitral (valve) prolapse; I25.2 Old myocardial infarction; G47.33 Obstructive sleep apnea (adult) (pediatric); E11.9 Type 2 diabetes mellitus without complications; Z86.73 Personal history of transient ischemic attack (TIA), and cerebral infarction without residual deficits; Z79.84 Long term (current) use of oral hypoglycemic drugs; F41.9 Anxiety disorder, unspecified
CPT/HCPCS: 87081; 87426; 87804; 87880; 99213; G0463

== ENCOUNTER 2024-05-11 16:04 | Outpatient (CLI) | payer MEDICARE, SELFPAY ==
--- NOTE | ~2024-05-11 | US_ITS ---
EXAMINATION: US soft tissue head and neck DATE: 05/11/2024 16:47 INDICATION: Localized swelling, mass and lump, neck. TECHNIQUE: Multiple grayscale and Doppler ultrasound images of the head and neck were obtained. COMPARISON: None FINDINGS: The right thyroid lobe measures 3.4 x 1.4 x 1.1 cm. The left thyroid lobe measures 2.6 x 1. 0 x 1.4 cm. There is no abnormal mass or lymphadenopathy in left neck in the patient's area of concer n. IMPRESSION: 1. No abnormal mass or lymphadenopathy in left neck in the patient's area of concern. Reviewed, dictated and finalized at location [facility]. IMPRESSION: 1. No abnormal mass or lymphadenopathy in left neck in the patient's area of co ncern.
== END 2024-05-11 16:05 | disposition home or self-care (01) ==
LOC: ANHIMG 16:09
PROVIDERS: PCP Family Medicine; Visit Provider Nurse Practitioner Family
DX: R22.1 Localized swelling, mass and lump, neck (principal)
CPT/HCPCS: 76536

== ENCOUNTER 2024-06-29 06:01 | Emergency (ER) | payer MEDICARE, SELFPAY ==
[2024-06-29] VITALS (8 sets, daily range): BP systolic 117–128; BP diastolic 46–63; PULSE 92–105; RESP 13–20; TEMP 36.4–37.2; O2SAT 93–96
--- NOTE | ~2024-06-29 | XR_ITS ---
Portable chest x-ray Comparison: 09/25/2023 Clinical History: Cough Findings: Probable focal left lower lobe airspace disease. Right lung clear. Cardiomediastinal silh ouette is stable. Bones and soft tissues are unremarkable. Impression: Possible focal left lower lobe pneumonia. Reviewed, dictated and finalized at [facility]. [place] OPERATOR Impression: Possible focal left lower lobe pneumonia.
[2024-06-29 06:38] LABS: Basophils Percent Auto 0.3 % (0.2-1.2); Eosinophils Absolute Auto 0.1 K/mm3 (0-0.3); Eosinophils Percent Auto 0.8 % (0-4.4); Hematocrit 39.7 % (37.0-47.0); Hemoglobin 13.7 g/dL (12.0-15.0); Immature Granulocyte Absolute 0.07 K/mm3 (0.00-0.031); Immature Granulocyte Percent A 0.5 % (0-0.5); Lymphocytes Absolute Auto 2.01 K/mm3 (0.9-3.2); Lymphocytes Percent Auto 15.4 % (18.3-44.2); Mean Corpuscular HGB Conc 34.5 g/dl (32-36); Mean Corpuscular Hemoglobin 33.7 pg (26-34); Mean Corpuscular Volume 97.8 fl (80-100); Mean Platelet Volume 10.7 fl (7.4-10.4); Monocytes Absolute Auto 1.2 K/mm3 (0.1-0.6); Monocytes Percent Auto 8.9 % (2.6-8.5); Neutrophils Absolute Auto 9.7 K/mm3 (1.3-6.7); Neutrophils Percent Auto 74.1 % (45.5-73.1); Platelet Count Result 261 k/mm3 (150-375); Red Blood Count 4.06 M/mm3 (4.2-5.4); Red Cell Distribution Width 11.9 % (11.5-14.5)
[2024-06-29 06:55] LABS: Alanine Aminotransferase 10 U/L (6-35); Albumin Level 4.1 g/dL (3.5-5.1); Alkaline Phosphatase 130 U/L (38-126); Anion Gap 5 mmol/L (4-12); Aspartate Amino Transferase 20 U/L (14-36); Bilirubin,Total 1.8 mg/dL (0.2-1.3); Blood Urea Nitrogen 8 mg/dL (7-17); Calcium 9.3 mg/dL (8.4-10.2); Carbon Dioxide 30 mmol/L (22-30); Chloride 97 mmol/L (98-107); Estimated CRCL calculation 50 ml/min; Estimated Glomerular Filt Rate > 60; Glucose 156 mg/dL (65-110); Potassium 3.6 mmol/L (3.4-5.0); Sodium 132 mmol/L (137-145)
[2024-06-29 07:15] LABS: Influenza A QL RT-PCR Negative (Negative); Influenza B QL RT-PCR Negative (Negative); RSV RNA, RT-PCR Negative (Negative); SARS-CoV-2 RNA PCR Negative (Negative)
--- NOTE | 2024-06-29 07:34 | ED_ITS ---
HPI - General Adult General Chief complaint: Shortness of Breath/Dyspnea Stated complaint: sob, weak Time Seen by Provider: 06/29/24 07:02 History of Present Illness HPI narrative: Patient is a 74-year-old female who presents ER with reports of productive cough and shortness of breath. Reports her O2 saturation was 88% on a home pulse oximeter. She has not used any breathing treatments and she is satting 96% on room air. Reports she was diagnosed with pneumonia and placed on Augmentin 1 week ago and just finished the antibiotic. She had a temperature 100? last night associated with chills. She has known COPD. She has had 1 episode of diarrhea daily since starting antibiotic. Related Data Home Medications Medication Instructions Recorded Confirmed metoprolol succinate 50 mg 50 mg PO HS 06/24/19 04/06/24 tablet,extended release 24 hr Allergies Allergy/AdvReac Type Severity Reaction Status Date / Time Sulfa (Sulfonamide Allergy Mild HIVES Verified 04/06/24 14:51 Antibiotics) propoxyphene AdvReac Mild FLIPPED Verified 04/06/24 14:51 OUT codeine AdvReac Unknown PASSES OUT Verified 04/06/24 14:51 Review of Systems Review of Systems: All systems reviewed & are unremarkable except as noted in HPI and below Constitutional: Constitutional: Reports chills, Reports fatigue and Reports fever(s) ENT: Reports system reviewed and no additional complaints, except as documented Cardiovascular: Cardiovascular: Reports no additional cardiovascular complaints Respiratory: Respiratory: Reports chest congestion, Reports cough and Reports dyspnea Gastrointestinal: Gastrointestinal: Reports no additional gastrointestinal complaints Genitourinary: Genitourinary: Reports no additional female genitourinary complaints [facility] Past Medical History Medical History Anxiety Asthma Benign essential hypertension Brain aneurysm Cerebrovascular accident Chronic obstructive pulmonary disease, unspecified Coronary artery disease Depression Gastroesophageal reflux disease Hemorrhoids Hyperlipidemia Kidney stone Migraine Mitral valve prolapse Myocardial infarction Obstructive sleep apnea does not use CPAP getting fitted for mouth appliance Peptic ulcer disease Postmenopausal disorder Type 2 diabetes mellitus without complication, without long-term current use of insulin Surgical History Surgical History History of cardiac catheterization History of cholecystectomy History of left-sided carotid endarterectomy History of rectal surgery anal fistulotomy History of tonsillectomy Status post coil embolization of cerebral aneurysm Family History Family History Mother Hypertension Cerebrovascular accident Family history of diabetes mellitus in first degree relative Family history of congestive heart failure Diabetes mellitus Family history of hypercholesterolemia CHF (congestive heart failure) Grandparent Cerebrovascular accident Family history of hepatitis Family history of malignant neoplasm Father Hypertension Acute myocardial infarction Social History Social History Social History: Surrogate medical decision maker: Sheldon Troncoso, son. Code status: Full code. Smoking packs per day: 1 Smoking cigarettes per day: 20.0 Years smoked: 39 Smoking pack-years: 39.00 Smoking status: Former smoker Second hand tobacco smoke exposure: Yes Smoking end date: 07/22/07 Additional smoking assessment comments: quit 2007 Alcohol intake: former Alcohol use details: quit 1998 Substance use: never Substance use type: does not use Do You Feel Safe in your Home?: Yes Lack of Transportation: No Lack of Food: Never True Current Housing: I Have Housing Concerned About Future Housing: No Difficulty Paying Gas/Electric Bills: No Difficulty Paying for Meds: No Currently Unemployed: No Education: Master's Degree or Higher Difficulty w/ Childcare or Family Care: No Living arrangements: with family Additional living arrangements comments: Single. Lives with son. 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 Spiritual care concerns: No Exam Narrative: GENERAL: Well-appearing, well-nourished, and in no acute distress. HEAD: Normocephalic, atraumatic. ENT: Mucous membranes moist. CHEST: Clear to auscultation. No respiratory distress. HEART: Regular rate and rhythm. Normal peripheral pulses. ABDOMEN: Soft, nontender, nondistended. EXTREMITIES: Normal range of motion. No edema. SKIN: Warm, dry, no rash. NEURO: Alert and oriented x3. PSYCH: Normal mood and affect. Course Course Emergency Course: After breathing treatment patient's lung sounds are bit more coarse on left side. Suspect a combination pneumonia and COPD exacerbation. Ambulation without hypoxia. Discharged with azithromycin and cefuroxime. Given patient's history of lung disease she should have been on dual antibiotics. Patient also be given prednisone and a inhaler. Vital Signs Vital signs: Vital Signs Temperature 99.0 F 12/09/24 06:04 Pulse Rate 99 06/29/24 06:04 Respiratory Rate 16 06/29/24 06:04 Blood Pressure 121/47 L 06/29/24 06:04 Pulse Oximetry 96 06/29/24 06:04 Oxygen Delivery Room Air 06/29/24 06:04 Temperature 97.5 F L 06/29/24 07:24 Pulse Rate 105 H 06/29/24 09:05 Respiratory Rate 13 06/29/24 09:05 Blood Pressure 117/63 06/29/24 09:05 Pulse Oximetry 94 06/29/24 09:05 Oxygen Delivery Room Air 06/29/24 09:05 Medical Decision Making Vital Signs Vital Signs: Vital Signs Temperature 99.0 F 06/29/24 06:04 Pulse Rate 99 06/29/24 06:04 Respiratory Rate 16 06/29/24 06:04 Blood Pressure 121/47 L 06/29/24 06:04 Pulse Oximetry 96 06/29/24 06:04 Oxygen Delivery Room Air 06/29/24 06:04 Temperature 97.5 F L 06/29/24 07:24 Pulse Rate 105 H 06/29/24 09:05 Respiratory Rate 13 06/29/24 09:05 Blood Pressure 117/63 06/29/24 09:05 Pulse Oximetry 94 06/29/24 09:05 Oxygen Delivery Room Air 06/29/24 09:05 Lab Data 06/29/24 06:33 06/29/24 06:33 Labs: Lab Results 06/29/24 Range/Units 06:33 WBC 13.0 H (4.5-10.0) K/mm3 RBC 4.06 L (4.2-5.4) M/mm3 Hgb 13.7 (12.0-15.0) g/dL Hct 39.7 (37.0-47.0) % MCV 97.8 (80-100) fl MCH 33.7 (26-34) pg MCHC 34.5 (32-36) g/dl RDW 11.9 (11.5-14.5) % Plt Count 261 (150-375) k/mm3 MPV 10.7 H (7.4-10.4) fl Immature Gran % (Auto) 0.5 (0-0.5) % Neut % (Auto) 74.1 H (45.5-73.1) % Lymph % (Auto) 15.4 L (18.3-44.2) % [place] % (Auto) 8.9 H (2.6-8.5) % Eos % (Auto) 0.8 (0-4.4) % Baso % (Auto) 0.3 (0.2-1.2) % Lymph # (Auto) 2.01 (0.9-3.2) K/mm3 [place] # (Auto) 1.2 H (0.1-0.6) K/mm3 Eos # (Auto) 0.1 (0-0.3) K/mm3 Baso # (Auto) 0.0 (0.0-0.1) K/mm3 Abs Immat Gran (auto) 0.07 H (0.00-0.031) K/mm3 Absolute Neuts (auto) 9.7 H (1.3-6.7) K/mm3 Absolute Nucleated RBC 0.000 (0.0-0.012) K/mm3 Nucleated RBC % 0.0 (0.0-0.2) % Sodium 132 L (137-145) mmol/L Potassium 3.6 (3.4-5.0) mmol/L Chloride 97 L (98-107) mmol/L Carbon Dioxide 30 (22-30) mmol/L Anion Gap 5 (4-12) mmol/L BUN 8 (7-17) mg/dL Creatinine 0.80 (0.7-1.0) mg/dL Estim Creat Clear Calc 50 ml/min Estimated GFR > 60 (59 - ) Glucose 156 H (65-110) mg/dL Calcium 9.3 (8.4-10.2) mg/dL Total Bilirubin 1.8 H (0.2-1.3) mg/dL AST 20 (14-36) U/L ALT 10 (6-35) U/L Alkaline Phosphatase 130 H (38-126) U/L Total Protein 7.0 (6.3-8.2) g/dL Albumin 4.1 (3.5-5.1) g/dL Influenza A (RT-PCR) Negative (Negative) Influenza B (RT-PCR) Negative (Negative) RSV (RT-PCR) Negative (Negative) SARS-CoV-2 RNA (RT-PCR) Negative (Negative) Imaging Data Radiologist's impression: ITS Impressions Chest X-Ray 06/29/24 06:44 Impression: Possible focal left lower lobe pneumonia. Discharge Plan Discharge Clinical Impression: Pneumonia Patient Disposition: Home, Self-Care Condition: Stable Instructions: Antibiotic Form, Pneumonia (ED) Additional Instructions: Return ER if you have worsening ability to breathe, you develop chest pain, you have additional concerns. Use the inhaler 4 times a day all your taking her antibiotics. Prescriptions: New azithromycin 250 mg tablet See Rx Instructions .ROUTE .COMPLEX Qty: 6 0RF Rx Instructions: take 500 mg today (day 1), then 250 mg for 4 days (days 2-5) prednisone 50 mg tablet 50 mg PO DAILY Qty: 7 0RF albuterol sulfate 90 mcg/actuation HFA aerosol inhaler 2 puff inhalation QID PRN (Reason: shortness of breath or wheezing) Qty: 8.5 0RF cefuroxime axetil 500 mg tablet 500 mg PO BID Qty: 10 0RF No Action (DME) Aerochamber MV Spacer See Rx Instructions .Route Qty: 1 0RF Rx Instructions: As directed metoprolol succinate 50 mg tablet extended release 24 hr 50 mg PO HS cholestyramine-aspartame [Cholestyramine Light] 4 gram powder in packet 4 g PO TID PRN (Reason: diarrhea) Qty: 270 1RF Rx Instructions: administer w/meal; avoid other meds within 1hr before or 4-6hr after dose Xiidra 5 % dropperette 1 drp EACH EYE Q12H Qty: 60 0RF cyclobenzaprine 10 mg tablet 10 mg PO QHS PRN (Reason: muscle spasm) Qty: 30 0RF Januvia 100 mg tablet 100 mg PO DAILY Qty: 90 1RF atorvastatin 40 mg tablet 40 mg PO HS Qty: 90 1RF montelukast [Singulair] 10 mg tablet 10 mg PO QHS Qty: 30 5RF ciclopirox 8 % solution 1 applic topical QHS 28 Days Qty: 6.6 3RF albuterol sulfate 90 mcg/actuation HFA aerosol inhaler 2 puff inhalation QID PRN (Reason: shortness of breath or wheezing) Qty: 6.7 0RF fluticasone propionate 50 mcg/actuation spray,suspension 2 spray intranasal DAILY Qty: 48 1RF Rx Instructions: administer into each nostril fluticasone propion-salmeterol [Wixela Inhub] 250-50 mcg/dose blister with device 1 inh inhalation BID Qty: 60 2RF alprazolam [Xanax] 0.25 mg tablet 0.25 mg PO BID PRN (Reason: Anxiety) Qty: 60 0RF (DME) blood-glucose meter [Accu-Chek Guide Glucose Meter] Misc See Rx Instructions .Route Qty: 1 0RF Rx Instructions: Check blood glucose 1xday As directed (DME) Accu-Chek Guide test strips Strip See Rx Instructions .Route Qty: 100 3RF Rx Instructions: Check blood glucose 1xday As directed (DME) lancets [Accu-Chek Softclix Lancets] Misc See Rx Instructions .Route Qty: 200 3RF Rx Instructions: Check blood glucose 1xday As directed (DME) lancing device with lancets Kit See Rx Instructions .Route Qty: 1 0RF Rx Instructions: check glucose daily As directed pantoprazole 40 mg tablet,delayed release (DR/EC) See Rx Instructions .ROUTE .COMPLEX Qty: 180 1RF Dose Instruction: TAKE 1 TABLET BY MOUTH TWICE A DAY Rx Instructions: TAKE 1 TABLET BY MOUTH TWICE A DAY clopidogrel 75 mg tablet See Rx Instructions .ROUTE .COMPLEX Qty: 90 1RF Hold Instructions: Resume on 12/23/20. Dose Instruction: TAKE 1 TABLET BY MOUTH EVERY DAY Rx Instructions: TAKE 1 TABLET BY MOUTH EVERY DAY Follow-up/Referrals: Yo Suresh MD [Primary Care Provider] - 1 Week
[2024-06-29] MEDS: IPRATROPIUM 0.5 MG/ALBUTEROL SULFATE 2.5 MG AMPUL.NEB 3 ML INHALATION (08:26)
== END 2024-06-29 09:43 | disposition home or self-care (01) ==
PROVIDERS: Emergency Medicine; Emergency Provider Emergency Medicine; PCP Family Medicine
DX: J18.9 Pneumonia, unspecified organism (principal); Z20.822 Contact with and (suspected) exposure to COVID-19; J44.9 Chronic obstructive pulmonary disease, unspecified; I10 Essential (primary) hypertension; I25.10 Atherosclerotic heart disease of native coronary artery without angina pectoris; I34.1 Nonrheumatic mitral (valve) prolapse; I25.2 Old myocardial infarction; E78.5 Hyperlipidemia, unspecified; E11.9 Type 2 diabetes mellitus without complications; G47.33 Obstructive sleep apnea (adult) (pediatric); K21.9 Gastro-esophageal reflux disease without esophagitis; Z87.442 Personal history of urinary calculi; Z86.73 Personal history of transient ischemic attack (TIA), and cerebral infarction without residual deficits; Z87.11 Personal history of peptic ulcer disease; Z87.891 Personal history of nicotine dependence; Z90.49 Acquired absence of other specified parts of digestive tract
CPT/HCPCS: 36415; 71045; 80053; 85025; 87637; 94640; 99283

== ENCOUNTER 2024-07-06 08:31 | Outpatient (CLI) | payer MEDICARE, SELFPAY ==
--- NOTE | ~2024-07-06 | XR_ITS ---
XR chest 2V Ordering provider: Lia Downs APRN History: 74 years Female with . FOLLOW UP FOR PNA . Comparison: June 29, 2024 FINDINGS: MEDIASTINUM: The cardiac silhouette is not enlarged. LUNGS: No effusions or pneumothorax. Atelectasis seen in the left lung base. Pneumonia is not exclude d. Underlying emphysematous changes. OTHER: No free air under the diaphragm. Degenerative the spine with kyphosis. IMPRESSION: Left basilar atelectasis versus pneumonia. Follow-up advised. Reviewed, dictated and finalized at location [facility]. PATIAL DEVELOPER
--- OUTSIDE RECORDS SUMMARY | 2024-07-12 15:04 | XMS_ITS | Encounter Summary ---
Author Organization [facility] Address [facility] [place] [address] [place] [address] Care Team Providers Care Clerk Television Production Name Role Phone Darrell Jackson MD Primary Care Provider [phone] Encounter Details Date Type Department Care Team (Late st Contact Info) Description 04/17/2016 Emergency [facility] [place] [address] Jaleesa Steinberg PA-C [address] [facility] [address] [place] [address] Social History Tobacco Use Types Packs/Day Years Used Date Smoking Tobacco: Never Assessed Comments Unknown Sex and Gender Information Value Date Recorded Sex Assigned at Not on file Legal Sex Female 6:43 PM CDT Gender Identity Not on file Sexual Orientation Not on file documented as of this encounter Plan of Treatment Not on file documented as of this encounter Visit Diagnoses Diagnosis Radiculopathy of cervical region Brachial neuritis or radiculitis nos documented in this encounter Care Teams Clerk Television Production Relationship Specialty Start Date End Date Darrell Jackson MD PCP - General 04/17/16 documented as of this encounter
--- OUTSIDE RECORDS SUMMARY | 2024-07-12 15:04 | XMS_ITS | Patient Health Summary ---
Author Organization [facility] Address [address] [facility] [place] [address] Care Team Providers Care Cloth Cutting Inspector Name Role Phone Ignacio Castro DO Primary Care Provider [phone] Note from [facility],non-owned Affiliates and Associated Physician Practices is amultiple site organization consisting of ambulatory clinics and hospital sitesin [place], [place], [place] and [place]. This disclosure is being madepursuant to the Care Everywhere program and may not contain all information available regarding this patient. Last updated 18.[facility] Allergies * Codeine(Unknown) * Sulfa Drugs(Unknown) Social History Tobacco Use Types Packs/Day Years Used Date Smoking Tobacco: Never Assessed Sex and Gender Information Value Date Recorded Sex Assigned at Not on file Gender Identity Not on file Sexual Orientation Not on file Procedures * SKIN TEST PPD - POINT OF CARE(Performed 02/22/2019) Performed for PPD screening test Results * SKIN TEST PPD - POINT OF CARE (02/22/2019 2:42 PM CDT) PPD 0 MM Normal 02/19/2019 @ 5:15pm, PPD read 02/22/2019 @ 2:41pm Other MISCELLANEOUS SAMPLE S / Unknown 02/22/2019 2:42 PM CDT Newton Mccall SURVEY ANALYST-SERVER SERVICE ASSISTANT LAB - POINT OF CA RE ORDERABLES Care Teams Cloth Cutting Inspector Relationship Specialty Start Date End Date Ignacio Castro DO [address] [place] [address] PCP - General Internal Medicine 02/19/19
--- OUTSIDE RECORDS SUMMARY | 2024-07-12 15:04 | XMS_ITS | Encounter Summary ---
Author Organization [facility] Address [address] [place] [address] Care Team Providers Care Foot Gatherer Name Role Phone Ignacio Castro DO Primary Care Provider [phone] Reason for Visit * Reason Comments PPD Skin Test Placement Encounter Details Date Type Department Care Team (Late st Contact Info) Description 02/19/2019 5:00 PM CDT Office Visit [facility] AT [address] [address] Provider, [facility] PPD screening test (Primary Dx) Social History Tobacco Use Types Packs/Day Years Used Date Smoking Tobacco: Never Assessed Sex and Gender Information Value Date Recorded Sex Assigned at Not on file Gender Identity Not on file Sexual Orientation Not on file documented as of this encounter Patient Instructions * Patient Instructions* Newton Mccall APRN-DIAPHRAGM BUILDER - 02/19/2019 5:10 PM CDT Images from the original note were not included. Tuberculosis WHAT YOU NEED TO KNOW: What is tuberculosis (TB)? TB is a severe infection caused by bacteria called Mycobacterium tuberculosis. TB usually starts in the lungs. The bacteria are easily spread from one person to another through the air. They can live in your body a long time without making you sick. This is called latent TB. Latent means you do not have symptoms, but you may develop them later. Latent TB can develop into active TB if it is not treated. What increases my risk for TB? ?? Close contact with someone who has TB ?? Travel to an area where TB is more common, such as [place], [place], or [place] ?? Illegal drug use ?? A weak immune system ?? Living or working with large groups of people in small spaces ?? A medical condition, such as HIV, diabetes, cancer, or kidney disease What are the signs and symptoms of TB? You can spread TB to others even if you do not yet have symptoms. TB mostly affects the lungs, but almost any part of the body can be infected. You may have anyof the following: ?? A fever or night sweats ?? Weight loss without trying ?? Tiredness ?? A cough for at least 3 weeks ?? Blood in your sputum ?? Chest or upper back pain, especially when you breathe ?? Shortness of breath How is TB diagnosed? ?? A TB skin test is an injection into the skin of your forearm. Your skin is checked after 2 to 3 days for signs of TB. This test is done to see if you have been exposed to the germ that causes TB. ?? Blood tests may show a TB infection and how well your organs are working. ?? A sputum sample is tested for the germ that causes TB. It can also help healthcare providers choose the best treatment for you. Mucus from your lungs is collected in a cup when you cough. You may need to give 3 samples of your sputum, usually first thing in the morning. ?? A chest x-ray may show swelling, infection, or lung collapse. ?? A CT scan may show lung damage, infection, and TB. You may be given contrast liquid to help healthcare providers see your lungs better. Tell the healthcare provider if you have ever had an allergic reaction to contrast liquid. How is TB treated? TB is treated with antibiotic medicine to fight the infection. You may need to take 3 to 4 types of antibiotics for up to 8 weeks. Then you may need to take at least 2 types of antibiotics for another 18 to 31 weeks. What can I do to help prevent the spread of TB? ?? Take your medicine as directed. If you forget to take your pills one time, skip that dose and take the next scheduled dose. Write down that you missed a dose and tell your healthcare provider at your next visit. ?? Wash your hands often. Use soap and water. Wash your hands after you use the bathroom, change a child's diapers, or sneeze. Wash your hands before you prepare or eat food. ?? Cover your mouth and nose. You may need to wear a mask. Use tissues when you cough or sneeze. Throw the used tissue away. If possible, flush used tissues down a toilet. ?? Avoid close contact with others. Babies and elderly people are at increased risk for TB. ?? Tell family, friends, and coworkers that you have TB. They may have latent TB and need to take medicine to prevent it from becoming active. Where can I find more information? ?? [facility] National Prevention Information Network [address] [place] [address] Phone: [phone] Web Address: http://www.ADARTIS.Winerist ?? World Health Organization Web Address: www.who.int Call 911 for any of the following: ?? You have chest pain or cough up blood. ?? You have trouble breathing. When should I contact my healthcare provider? ?? You have a fever, headache, and a stiff neck. ?? You have a rash or nausea, or you are vomiting. ?? The whites of your eyes or your skin look yellow. ?? Your urine looks like dark tea or coffee. ?? Your symptoms do not go away, or they get worse, even after you take medicine. ?? You have a cough that does not go away after 3 or 4 weeks. ?? You have questions or concerns about your condition or care. CARE AGREEMENT: You have the right to help plan your care. Learn about your health condition and how it may be treated. Discuss treatment options with your healthcare providers to decide what care you want to receive. You always have the right to refuse treatment. The above information is an educational therapist only. It is not intended as medical advice for individual conditions or treatments. Talk to your doctor, nurse or pharmacist before following any medical regimen to see if it is safe and effective for you. ?? Copyright [employer] 2019 Information is for End User's use only and may not be sold, redistributed or otherwise used for commercial purposes. All illustrations and images included in CareNotes?? are the copyrighted property of [employer].D.A.M[employer] Inc. or [employer] 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 Yes Is patient taking any oral or IV steroid medication now or have they taken it in the last month? no Has the patient ever received the BCG vaccine?: no Has the patient been in recent contact with anyone known or suspected of having active TB disease?:no Date of exposure (if applicable): na Name of person they were exposed to (if applicable): na Patient's Country of origin?: [place] O: Alert and oriented in NAD. P: PPD placed on 02/19/2019. Patient advised to return for reading within 48-72 hours. documented in this encounter Plan of Treatment Not on file documented as of this encounter Procedures Procedure Name Priority Date/Time Associated Diagnosis Comments SKIN TEST PPD - POINT OF CARE Routine 02/22/2019 2:42 PM CDT PPD screening test documented in this encounter Results * SKIN TEST PPD - POINT OF CARE (02/22/2019 2:42 PM CDT) PPD 0 MM Normal 02/19/2019 @ 5:15pm, PPD read 02/22/2019 @ 2:41pm Other MISCELLANEOUS SAMPLE S / Unknown 02/22/2019 2:42 PM CDT Newton [facility] - POINT OF CA RE ORDERABLES documented in this encounter Visit Diagnoses Diagnosis PPD screening test- Primary Screening examination for pulmonary tuberculosis documented in this encounter Administered Medications Administered Medications Medication Order MAR Action Action Date Dose Rate Site PPD Intradermal Given 02/19/2019 0.1 mL Left Forearm documented in this encounter Care Teams Foot Gatherer Relationship Specialty Start Date End Date Ignacio Castro DO [address] [place] [address] PCP - General Internal Medicine 02/19/19 documented as of this encounter
--- OUTSIDE RECORDS SUMMARY | 2024-07-12 15:04 | XMS_ITS | Encounter Summary ---
Author Organization [facility] Address [facility] [place], [place] [address] [place] [address] Care Team Providers Care Telecasting Engineer Name Role Phone Darrell Jackson MD Primary Care Provider [phone] Encounter Details Date Type Department Care Team (Late st Contact Info) Description 10/05/2005 Abstract [facility] [address] [facility] [place] [address] , Zachary Murguia MD Social History Tobacco Use Types Packs/Day Years Used Date Smoking Tobacco: Never Assessed Comments Unknown Sex and Gender Information Value Date Recorded Sex Assigned at Not on file Legal Sex Female 6:43 PM CDT Gender Identity Not on file Sexual Orientation Not on file documented as of this encounter Plan of Treatment Not on file documented as of this encounter Visit Diagnoses Not on filedocumented in this encounter Care Teams Telecasting Engineer Relationship Specialty Start Date End Date Darrell Jackson MD PCP - General 04/17/16 documented as of this encounter
--- OUTSIDE RECORDS SUMMARY | 2024-07-12 15:04 | XMS_ITS | Referral Summary ---
Author Organization [facility] Address [address] [facility] [place] [address] Care Team Providers Care Roll Up Machine Operator Name Role Phone Ignacio Castro DO Primary Care Provider [phone] Source Comments [facility] and Associated Physician Practices is amultiple site organization consisting of ambulatory clinics and hospital sitesin [place], [place], [place] and [place]. This disclosure is being madepursuant to the Care Everywhere program and may not contain all information available regarding this patient. Last updated 18.[facility] [employer] Allergies Active Allergy Reactions Criticality Noted Date Comments Codeine Unknown 02/19/2019 Sulfa Drugs Unknown 02/19/2019 Social History Tobacco Use Types Packs/Day Years Used Date Smoking Tobacco: Never Assessed Sex and Gender Information Value Date Recorded Sex Assigned at Not on file Gender Identity Not on file Sexual Orientation Not on file Plan of Treatment Not on file Administered Medications Care Teams Roll Up Machine Operator Relationship Specialty Start Date End Date Ignacio Castro DO [address] [place] [address] PCP - General Internal Medicine 02/19/19
--- OUTSIDE RECORDS SUMMARY | 2024-07-12 15:04 | XMS_ITS | Encounter Summary ---
Author Organization [facility] Address [facility] access hospital6 [facility]. [place], [place] [address] [place] [address] Care Team Providers Care Grinder Set Up Operator Surface Name Role Phone Darrell Jackson MD Primary Care Provider [phone] Encounter Details Date Type Department Care Team (Late st Contact Info) Description 03/18/2005 Abstract [place] [address] [facility] [place] [address] , Zachary Murguia MD Social History Tobacco [...] on filedocumented in this encounter Care Teams Grinder Set Up Operator Surface Relationship Specialty Start Date End Date Darrell Jackson MD PCP - General 04/17/16 documented as of this encounter
--- OUTSIDE RECORDS SUMMARY | 2024-07-12 15:04 | XMS_ITS | Encounter Summary ---
Author Organization [facility] Address [facility]. [place], [place] [address] [place] [address] Care Team Providers Care Athletic Instructor Name Role Phone Darrell Jackson MD Primary Care Provider [phone] Encounter Details Date Type Department Care Team (Late st Contact Info) Description 05/25/2017 [place] [address] , Generic Conversion, Social History Tobacco Use Types Packs/Day Years [...] on filedocumented in this encounter Care Teams Athletic Instructor Relationship Specialty Start Date End Date Darrell Jackson MD PCP - General 04/17/16 documented as of this encounter
--- OUTSIDE RECORDS SUMMARY | 2024-07-12 15:04 | XMS_ITS | Clinical Summary ---
Author Organization [facility] [employer] Address [address] [facility] [place] [address] Care Team Providers Care Sephora Operations Consultant Name Role Phone Ignacio Castro DO Primary Care Provider Source Comments [facility],non-owned Affiliates and Associated Physician Practices is amultiple site organization consisting of ambulatory clinics and hospital sitesin [place], [place], [place] and [place]. This disclosure is being madepursuant to the Care Everywhere program and may not contain all information available regarding this patient. Last updated 18.[facility] [employer] Allergies Active Allergy Reactions Criticality Noted Date Comments Codeine Unknown 02/19/2019 Sulfa Drugs Unknown 02/19/2019 Social History Tobacco Use Types Packs/Day Years Used Date Smoking Tobacco: Never Assessed Sex and Gender Information Value Date Recorded Sex Assigned at Not on file Gender Identity Not on file Sexual Orientation Not on file Plan of Treatment Health Maintenance Due Date Last Done Comments BONE DENSITY TESTING 1950 COLOGUARD (AGES 45-75) - COL ON CA SCREENING 1950 COLON MONITORING 1950 COLONOSCOPY - COLON CA SCREENING 1950 CT COLONOGRAPHY - COLON CA SCREENING 1950 Colorectal Cancer Screening 1950 FIT - COLON CA SCREENING 1950 FLEX SIG - COLON CA SCREENING 1950 LIPID TESTING 1950 MAMMOGRAM 1950 HEPATITIS C SCREENING 02/06/1968 DTAP/TDAP/TD VACCINES (1 - Tdap) 1969 ZOSTER VACCINE (1 of 2) 02/11/2000 PNEUMOCOCCAL VACCINE 65+ (1 of 1 - PCV) 2015 DEPRESSION SCREENING 07/22/2023 COVID-19 VACCINE (1 - 2024-2 5 season) 2024 INFLUENZA VACCINE (#1) 2024 Respiratory Syncytial Virus (RSV) Vaccine Pt: or over 60 yrs (1 - 1-dose 75+ series) 2025 HEPATITIS B VACCINE Aged Out No longe r eligible based on patient's age to complete this topic HIB VACCINE Aged Out No longer eligi ble based on patient's age to complete this topic HPV VACCINE Aged Out No longer eligi ble based on patient's age to complete this topic MENINGOCOCCAL VACCINE Aged Out No marshall jenny eligible based on patient's age to complete this topic Care Teams Sephora Operations Consultant Relationship Specialty Start Date End Date Ignacio Castro DO [address] [place], [place] [address] PCP - General Internal Medicine 02/19/19
--- OUTSIDE RECORDS SUMMARY | 2024-07-12 15:04 | XMS_ITS | Clinical Summary ---
Author Organization [facility] Address [address] [place] [address]. [place] [id number] [place] [address] Care Team Providers Care Lumber Marker Name Role Phone Darrell Jackson MD Primary Care Provider [phone] Social History Tobacco Use Types Packs/Day Years Used Date Smoking Tobacco: Never Assessed Comments Unknown Sex and Gender Information Value Date Recorded Sex Assigned at Not on file Legal Sex Female 6:43 PM CDT Gender Identity Not on file Sexual Orientation Not on file Plan of Treatment Health Maintenance Due Date Last Done Comments Colorectal Cancer Screening Colonoscopy (10 Years) 1950 Hepatitis C 02/11/1968 DTaP, Tdap and Td Vaccines ( 1 - Tdap) 1969 Mammogram Screening 1990 Zoster Vaccines (1 of 2) 02/11/2000 Dexa Scan (General) 2015 Pneumococcal Vaccine: 65+ Ye ars (1 of 1 - PCV) 2015 COVID-19 Vaccine ( - 2023-2 5 season) 2024 Influenza Adult (#1) 2024 RSV Immunization or 60+ Years (1 - 1-dose 75+ series) 2025 Meningococcal Vaccine Aged Out No marshall jenny eligible based on patient's age to complete this topic RSV Immunizations Under 20 Months Aged Out No longer eligible based on patient's age to complete this topic Care Teams Lumber Marker Relationship Specialty Start Date End Date Darrell Jackson MD PCP - General 04/17/16
--- OUTSIDE RECORDS SUMMARY | 2024-07-12 15:04 | XMS_ITS | Encounter Summary ---
Author Organization [facility] Address [facility]. [place], [place] [address] [place] [address] Care Team Providers Care Qa Auditor Name Role Phone Darrell Jackson MD Primary Care Provider [phone] Encounter Details Date Type Department Care Team (Late st Contact Info) Description 11/14/2007 Emergency [facility] [place] [address] , Zachary Murguia MD Social History Tobacco [...] on filedocumented in this encounter Care Teams Qa Auditor Relationship Specialty Start Date End Date Darrell Jackson MD PCP - General 04/17/16 documented as of this encounter
--- OUTSIDE RECORDS SUMMARY | 2024-07-12 15:04 | XMS_ITS | Encounter Summary ---
Author Organization [facility] Address [address] [facility] [place] [address] Care Team Providers Care Asw/Asuw Tactical Air Controller Name Role Phone Ignacio Castro DO Primary Care Provider [phone] Encounter Details Date Type Department Care Team (Late st Contact Info) Description 10/17/2020 Orders Only [facility] - COVID Vax [address] [place] [address] Mark Rojo MD [address] [facility] [address] [place] [address] Need for vaccination Social History Tobacco Use Types Packs/Day Years Used Date Smoking Tobacco: Never Assessed Sex and Gender Information Value Date Recorded Sex Assigned at Not on file Gender Identity Not on file Sexual Orientation Not on file documented as of this encounter Plan of Treatment Not on file documented as of this encounter Visit Diagnoses Diagnosis Need for vaccination Need for prophylactic vaccination and inoculation against unspecified single disease documented in this encounter Care Teams Asw/Asuw Tactical Air Controller Relationship Specialty Start Date End Date Ignacio Castro DO [address] [place] [address] PCP - General Internal Medicine 02/19/19 documented as of this encounter
--- OUTSIDE RECORDS SUMMARY | 2024-07-12 15:05 | XMS_ITS | Encounter Summary ---
Author Organization [facility] Address [facility] [place], [place] [address] [place] [address] Care Team Providers Care Ortho Tech Name Role Phone Darrell Jackson MD Primary Care Provider [phone] Encounter Details Date Type Department Care Team (Late st Contact Info) Description 03/17/2004 Abstract [place] [address] , Generic Conversion, Social History Tobacco Use [...] on filedocumented in this encounter Care Teams Ortho Tech Relationship Specialty Start Date End Date Darrell Jackson MD PCP - General 04/17/16 documented as of this encounter
--- OUTSIDE RECORDS SUMMARY | 2024-07-12 15:05 | XMS_ITS | Referral Summary ---
Author Organization [facility] [address] [place] [address] Care Team Providers Care Pharmacist Hospital Name Role Phone German Barcenas MD Unavailable [phone] Yo Suresh MD Primary Care Provider [phone] Allergies Active Allergy Reactions Criticality Noted Date Comments Clavulanic Acid Codeine Unknown 02/19/2019 Codeine Sulfate Unknown Propoxyphene N-Acetaminophen Other (See comments) Low 02/03/2019 Reaction: Other Other Unknown 02/19/2019 Propoxyphene Sulfa (Sulfonamide Antibiotics) Medications nitroglycerin (NITROSTAT) 0.[address] 1 tablet by sublingual route at the 1st sign of attack; may repeat every 5 min until relief; if pain persists after 3 tablets in 15 min, prompt medical attention is recommended 0 0 5 Active albuterol HFA (PROVENTIL HFA) 90 mcg/actuation inhaler inhale 2 puff by inhalation route every 4 - 6 hours as needed 0 Inhaler 0 5 Active SITagliptin (JANUVIA) 100 mg tablet take 1 tablet by oral route every day 0 0 6 Active doxycycline (VIBRAMYCIN) 100 mg capsule Take 100 mg by mouth 2 (two) times a day. Active pantoprazole DR (PROTONIX) 40 mg EC tablet Take 1 tablet (40 mg total) by mouth daily Active ALPRAZolam (XANAX) 0.25 mg tablet Take 1 tablet (0.25 mg total) by mouth nightly as needed for anxiety Active clopidogrel (PLAVIX) 75 mg tablet TAKE 1 TABLET BY MOUTH DAILY 90 tablet 1 9 Active Incruse Ellipta 62.5 mcg/actuation blister with device TAKE 1 INHALATION DAILY 0 Active atorvastatin (LIPITOR) 10 mg tablet Take 1 tablet (10 mg total) by mouth daily 90 tablet 3 1 Active metFORMIN XR (GLUCOPHAGE XR) 500 mg 24 hr tablet Take 1 tablet (500 mg total) by mouth daily 2 Active glipiZIDE (GLUCOTROL) 5 mg tablet Take 1 tablet (5 mg total) by mouth daily 2 Active Lotemax SM 0.38 % drops,gel 1 drop 2 (two) times a day 2 Active metoprolol XL (TOPROL-XL) 50 mg extended release tablet TAKE 1 TABLET BY MOUTH EVERY DAY 90 tablet 2 4 Active Active Problems Problem Noted Date Diagnosed Date Coronary artery disease involving [place] coronar y artery 12/27/2016 Status post insertion of drug eluting coronary a rtery stent 12/27/2016 Social History Tobacco Use Types Packs/Day Years Used Date Smoking Tobacco: Former Smokeless Tobacco: Never Tobacco Cessation:Counseling Given: Not Answered Alcohol Use Standard Drinks/Week Comments No 0 (1 standard drink = 0.6 oz pur e alcohol) Personal Safety Answer Date Recorded Getting School Help Needed Not on file 07/09 Comments Unknown Sex and Gender Information Value Date Recorded Sex Assigned at Not on file Legal Sex Female 9:05 AM TIME SIGNAL WIRER Gender Identity Not on file Sexual Orientation Not on file Last Filed Vital Signs Vital Sign Reading Time Taken Comments Blood Pressure 116/64 03/10/2024 4:10 PM CDT Pulse 64 03/10/2024 4:10 PM CDT Temperature - - Respiratory Rate 12 02/16/2020 1:36 PM CDT Oxygen Saturation 98% 03/10/2024 4:10 PM CDT Inhaled Oxygen Concentration - - Weight 74.4 kg (164 lb) 03/10/2024 4:10 PM CDT Height 167.6 cm (5' 6 ) 03/10/2024 4:10 PM CDT Body Mass Index 26.47 03/10/2024 4:10 PM CDT Plan of Treatment Not on file [facility] HUMANA CHOICE MEDICARE PPO HUMANA CHOICE MEDICARE PPO Care Teams Pharmacist Hospital Relationship Specialty Start Date End Date Yo Suresh MD [address] [facility] [address] [place] [address] PCP - General Family Practice 01/08/23 German Barcenas MD [address] [address] Referring Physician Vascular Surgery 07/22/21
--- OUTSIDE RECORDS SUMMARY | 2024-07-12 15:05 | XMS_ITS | Encounter Summary ---
Author Organization [facility] Healthcare Address [address] [place] [address] Care Team Providers Care Proposition Player Name Role Phone German Barcenas MD Unavailable [phone] Yo Suresh MD Primary Care Provider [phone] Encounter Details Date Type Department Care Team (Late st Contact Info) Description 09/10/2023 3:45 PM CHAIN 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 Office Visit [facility] Medical [facility] Cardiology [address] [facility] [address] [facility] [address] [place] [id number] Carter Burciaga MD [address] [facility] [address] [place] [address] Coronary artery disease involving zuni coronary artery of zuni heart without angina pectoris (Primary Dx); Status post insertion of drug eluting coronary artery stent Social History Tobacco Use Types Packs/Day Years Used Date Smoking Tobacco: Former Smokeless Tobacco: Never Alcohol Use Standard Drinks/Week Comments No 0 (1 standard drink = 0.6 oz pur e alcohol) Personal Safety Answer Date Recorded Getting School Help Needed Not on file 07/09 Comments Unknown Sex and Gender Information Value Date Recorded Sex Assigned at Not on file Legal Sex Female 9:05 AM CHAIN 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 Gender Identity Not on file Sexual Orientation Not on file documented as of this encounter Last Filed Vital Signs Vital Sign Reading Time Taken Comments Blood Pressure 112/68 09/10/2023 3:59 PM CHAIN 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 Pulse 84 09/10/2023 3:59 PM CHAIN 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 Temperature - - Respiratory Rate - - Oxygen Saturation 97% 09/10/2023 3:59 PM CHAIN 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 Inhaled Oxygen Concentration - - Weight 72.6 kg (160 lb) 09/10/2023 3:59 PM CHAIN 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 Height 167.6 cm (5' 6 ) 09/10/2023 3:59 PM CHAIN 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 Body Mass Index 25.82 09/10/2023 3:59 PM CHAIN 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 documented in this encounter Progress Notes * Carter Burciaga MD - 09/10/2023 3:45 PM CST [facility] 09/10/2023 Beatrice Calero is a 73 y.o. female who presents for follow up of coronary artery disease. This is a patient with a history of coronary disease who presented with ischemic symptomatology and received stenting to the circumflex marginal branch in July of 2014 and has done well since then. In follow-up today she seems to be doing well overall she does not have any symptoms compatible with myocardial ischemia. She has some episodes where her left hand has reduced sensation/numbness. This is not occurring in an exertional fashion is not associated with any chest pain. REVIEW OF SYSTEMS General ROS: negative for - chills, fatigue, fever, malaise, night sweats, weight gain or weight loss Psychological ROS: negative for - anxiety, depression, memory difficulties or sleep disturbances Ophthalmic ROS: negative for - blurry vision, decreased vision, loss of vision or scotomata ENT ROS: negative for - epistaxis, headaches, hearing change, nasal congestion, nasal discharge, sore throat, vertigo or visual changes Hematological and Lymphatic ROS: negative for - bleeding problems, blood clots, bruising, fatigue or weight loss Endocrine ROS: negative for - hot flashes, palpitations, polydipsia/polyuria or unexpected weight changes Respiratory ROS: negative for - cough, hemoptysis, orthopnea, shortness of breath, tachypnea or wheezing Cardiovascular ROS: negative for - chest pain, dyspnea on exertion, edema, irregular heartbeat, loss of consciousness, murmur, orthopnea, palpitations, paroxysmal nocturnal dyspnea, rapid heart rate or shortness of breath Gastrointestinal ROS: negative for - abdominal pain, appetite loss, blood in stools, constipation, diarrhea, gas/bloating, heartburn, hematemesis, melena or nausea/vomiting Genito-Urinary ROS: negative for - dysuria, erectile dysfunction or hematuria Musculoskeletal ROS: negative for - joint pain, muscle pain or muscular weakness Dermatological ROS: negative for dry skin, eczema, pruritus and rash HOME MEDICATIONS Current Outpatient Medications: ??? metoprolol XL (TOPROL-XL) 50 mg extended release tablet, TAKE 1 TABLET BY MOUTH EVERY DAY, Disp: 90 tablet, Rfl: 2 ??? nitroglycerin (NITROSTAT) 0.4 mg SL tablet, place 1 tablet by sublingual route at the 1st sign of attack; may repeat every 5 min until relief; if pain persists after 3 tablets in 15 min, prompt medical attention is recommended, Disp: 0, Rfl: 0 ??? pantoprazole DR (PROTONIX) 40 mg EC tablet, Take 1 tablet (40 mg total) by mouth daily, Disp: ,Rfl: ??? SITagliptin (JANUVIA) 100 mg tablet, take 1 tablet by oral route every day, Disp: 0, Rfl: 0 ??? albuterol HFA (PROVENTIL HFA) 90 mcg/actuation inhaler, inhale 2 puff by inhalation route every4 - 6 hours as needed, Disp: 0 Inhaler, Rfl: 0 ??? ALPRAZolam (XANAX) 0.25 mg tablet, Take 1 tablet (0.25 mg total) by mouth nightly as needed foranxiety, Disp: , Rfl: ??? atorvastatin (LIPITOR) 10 mg tablet, Take 1 tablet (10 mg total) by mouth daily, Disp: 90 tablet, Rfl: 3 ??? clopidogrel (PLAVIX) 75 mg tablet, TAKE 1 TABLET BY MOUTH DAILY, Disp: 90 tablet, Rfl: 1 ??? doxycycline (VIBRAMYCIN) 100 mg capsule, Take 100 mg by mouth 2 (two) times a day. (Patient nottaking: Reported on 01/04/2022), Disp: , Rfl: ??? glipiZIDE (GLUCOTROL) 5 mg tablet, Take 1 tablet (5 mg total) by mouth daily, Disp: , Rfl: ??? Incruse Ellipta 62.5 mcg/actuation blister with device, TAKE 1 INHALATION DAILY (Patient not taking: Reported on 01/04/2022), Disp: , Rfl: ??? Lotemax SM 0.38 % drops,gel, 1 drop 2 (two) times a day (Patient not taking: Reported on 09/10/2023), Disp: , Rfl: ??? metFORMIN XR (GLUCOPHAGE XR) 500 mg 24 hr tablet, Take 1 tablet (500 mg total) by mouth daily (Patient not taking: Reported on 09/10/2023), Disp: , Rfl: LABS AND OTHER DIAGNOSTIC TESTS Lab Results Component Value Date CHOL 144 10/28/2015 Lab Results Component Value Date HDL 49 10/28/2015 No results found for: LDLCALC Lab Results Component Value Date TRIG 152 (H) 10/28/2015 Lab Results Component Value Date CHOLHDL 2.9 10/28/2015 Lab Results Component Value Date HCT 41.0 10/28/2015 MCV 94.4 10/28/2015 No lab exists for component: LABALBU PHYSICAL EXAM Vitals BP 112/68 (BP Location: Right arm, Patient Position: Sitting) Pulse 84 Ht 167.6 cm (5' 6 ) Wt 72.6 kg (160 lb) SpO2 97% BMI 25.82 kg/m?? Physical Examination: General appearance - alert, well appearing, and in no distress, oriented to person, place, and time and acyanotic, in no respiratory distress Mental status - affect appropriate to mood Eyes - extraocular eye movements intact, sclera anicteric, no pallor Ears - external earsappear normal, hearing grossly normal bilaterally Nose - normal and patent, no erythema or discharge Mouth - mucous membranes moist, pharynx appears normal, dental hygiene good and tongue normal Neck - supple, no significant neck masses, carotids upstroke normal bilaterally, no bruits, no JVD Chest - clear to auscultation, no wheezes, rales or rhonchi, symmetric air entry, no tachypnea, retractions or cyanosis Heart - normal rate, regular rhythm, normal S1, S2, no murmurs, rubs, clicks or gallops, no JVD Abdomen - soft, nontender, nondistended, no masses or organomegaly bowel sounds normal Neurological - alert, oriented, normal speech, no focal findings or movement disorder noted Musculoskeletal - no joint tenderness, deformity or swelling, no muscular tenderness noted Extremities - peripheral pulses normal, no pedal edema, no clubbing or cyanosis Skin - normal coloration and turgor, no rashes, no suspicious skin lesions noted ASSESSMENT Diagnoses and all orders for this visit: Coronary artery disease involving zuni coronary artery of zuni heart without angina pectoris Status post insertion of drug eluting coronary artery stent PLAN/RECOMMENDATIONS Continue current medical regimen and will see her in follow-up at 6 month intervals Her symptoms of nonexertional left hand numbness do not merit an ischemia workup in my opinion thisis atypical noncardiac symptomatology Carter Burciaga MD N 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 documented in this encounter Plan of Treatment Not on file documented as of this encounter Visit Diagnoses Diagnosis Coronary artery disease involving zuni coronary artery of zuni heart without angina pectoris- Primary Status post insertion of drug eluting coronary artery stent documented in this encounter Care Teams Proposition Player Relationship Specialty Start Date End Date Yo Suresh MD [address] [facility] [address] [place] [address] PCP - General Family Practice 01/08/23 German Barcenas MD [address] [facility] [address] [place] [address] Referring Physician Vascular Surgery 07/22/21 documented as of this encounter
--- OUTSIDE RECORDS SUMMARY | 2024-07-12 15:05 | XMS_ITS | Clinical Summary ---
Author Organization [facility] [address] Address [address] [place] [address] Care Team Providers Care Cloth Coverer Name Role Phone German Barcenas MD Unavailable [phone] Yo Suresh MD Primary Care Provider [phone] Allergies Active Allergy Reactions Criticality Noted Date [...] Date Diagnosed Date Coronary artery disease involving [place] coronar y artery 12/27/2016 Status post insertion of drug eluting coronary a rtery stent 12/27/2016 Surgical History Surgery Date Site/Laterality Comments CARDIAC CATHETERIZATION CORONARY STENT PLACEMENT 07/22/2014 - 08/21/2014 Stenting of OM with 3 x 15 mm Xience stent Medical History Medical History Date Comments Coronary artery disease Social History Tobacco Use Types Packs/Day Years [...] on file 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 Gender Identity Not on file Sexual Orientation Not on file Obstetrics History Last Filed Vital Signs Vital Sign Reading [...] 03/10/2024 4:10 PM CDT Plan of Treatment Health Maintenance Due Date Last Done Comments Breast Cancer Screening-Mammogram 1950 Colon Cancer Screening-Colonoscopy 1950 Depression Screening 1950 Fall Risk Assessment 1950 Hepatitis C Screening 1950 Osteoporosis Screening-Bone Density Scan 1950 DTaP/Tdap/Td Vaccine (1 - Tdap) 1961 Hepatitis B Screening 02/11/1968 Pneumococcal vaccine 65+ (1 of 1 - PCV) 2015 08/05/2013 Well Visit 65+ 2015 Influenza Vaccine (#1) 2024 9, 06/21/2018, 05/07/2016, Additional history exists Zoster Vaccine Completed 01/14/2018, 10/23/2017 Insurance [facility] HUMANA CHOICE MEDICARE PPO HUMANA CHOICE MEDICARE PPO Member Subscriber Plan / Payer (Ef fective 2022-Present) Name:Beatrice Calero Relation to Subscriber:Self Name:Beatrice Calero Payer ID:[id number] (NAIC) Type:MEDICARE RISK OTHER Address: [place] [id number] Care Teams Cloth Coverer Relationship Specialty Start Date End Date Yo Suresh MD [address] [facility] [address] [place] [address] PCP - General Family Practice 01/08/23 German Barcenas MD [address] [facility] [address] [place] [address] Referring Physician Vascular Surgery 07/22/21
--- OUTSIDE RECORDS SUMMARY | 2024-07-12 15:05 | XMS_ITS | Encounter Summary ---
Author Organization [facility] Address [facility] [facility] [place], [place] [address] [place] [address] Care Team Providers Care Windrower Operator Name Role Phone Darrell Jackson MD Primary Care Provider [phone] Encounter Details Date Type Department Care Team (Late st Contact Info) Description 02/19/2002 Abstract [facility] [address] [place] [address] Bob Garcia MD Social History Tobacco Use Types Packs/Day [...] on filedocumented in this encounter Care Teams Windrower Operator Relationship Specialty Start Date End Date Darrell Jackson MD PCP - General 04/17/16 documented as of this encounter
--- OUTSIDE RECORDS SUMMARY | 2024-07-12 15:05 | XMS_ITS | Encounter Summary ---
Author Organization [facility] Address [facility]. [place], [place] [address] [place] [address] Care Team Providers Care Cycle Manager Name Role Phone Darrell Jackson MD Primary Care Provider [phone] Encounter Details Date Type Department Care Team (Late st Contact Info) Description 06/07/[address] [facility] [facility] [address] [facility] [address] , Zachary Murguia MD Social History Tobacco [...] on filedocumented in this encounter Care Teams Cycle Manager Relationship Specialty Start Date End Date Darrell Jackson MD PCP - General 04/17/16 documented as of this encounter
--- OUTSIDE RECORDS SUMMARY | 2024-07-12 15:05 | XMS_ITS | Encounter Summary ---
Author Organization [facility] Healthcare Address [address] [place] [address] Care Team Providers Care Dev Manager Name Role Phone German Barcenas MD Unavailable [phone] Yo Suresh MD Primary Care Provider [phone] Reason for Visit * Reason Comments Follow-up 6 mo Encounter Details Date Type Department Care Team (Late st Contact Info) Description 03/10/2024 3:45 PM CDT Office Visit [facility] Cardiology [address] [address] Carter Burciaga MD [address] [facility] [address] [place] [address] Coronary artery disease involving [place] coronary artery of 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 Gender Identity Not on file Sexual Orientation Not on file documented as of this encounter Last Filed Vital Signs Vital Sign Reading Time Taken Comments Blood Pressure 116/64 03/10/2024 4:10 PM CDT Pulse 64 03/10/2024 4:10 PM CDT Temperature - - Respiratory Rate - - Oxygen Saturation 98% 03/10/2024 4:10 PM CDT Inhaled Oxygen Concentration - - Weight 74.4 kg (164 lb) 03/10/2024 4:10 PM CDT Height 167.6 cm (5' 6 ) 03/10/2024 4:10 PM CDT Body Mass Index 26.47 03/10/2024 4:10 PM CDT documented in this encounter Progress Notes * Carter Burciaga MD - 03/10/2024 3:45 PM CDT [facility] 03/10/2024 Beatrice Calero is a 74 y.o. female who presents for follow up of coronary artery disease. This is a patient with a history of coronary disease who presented with ischemic symptomatology and received stenting to the circumflex marginal branch in July of 2014 and has done well since then. She presents today for scheduled six-month appointment. There are records of her being seen at [facility] in September of this year with some chest pain it looks like there was no evidence of acute coronary syndrome. She is doing very well and describes no symptoms that are indicative of ischemic heart disease. She has had a good durable result from her intervention 9 years ago. Lipids were checked in the office and looked fine her LDL is 44 REVIEW OF SYSTEMS General ROS: negative for [...] nausea/vomiting Genito-Urinary ROS: negative for - dysuria, or hematuria Musculoskeletal ROS: negative for - joint pain, muscle pain or muscular weakness Dermatological ROS: negative for dry skin, eczema, pruritus and rash HOME MEDICATIONS Current Outpatient Medications: albuterol HFA (PROVENTIL HFA) 90 mcg/actuation inhaler, inhale 2 puff by inhalation route every 4 -6 hours as needed, Disp: 0 Inhaler, Rfl: 0 ALPRAZolam (XANAX) 0.25 mg tablet, Take 1 tablet (0.25 mg total) by mouth nightly as needed for anxiety, Disp: , Rfl: atorvastatin (LIPITOR) 10 mg tablet, Take 1 tablet (10 mg total) by mouth daily, Disp: 90 tablet, Rfl: 3 clopidogrel (PLAVIX) 75 mg tablet, TAKE 1 TABLET BY MOUTH DAILY, Disp: 90 tablet, Rfl: 1 metoprolol XL (TOPROL-XL) 50 mg extended release tablet, TAKE 1 TABLET BY MOUTH EVERY DAY, Disp: 90tablet, Rfl: 2 nitroglycerin (NITROSTAT) 0.4 mg SL tablet, place 1 tablet by sublingual route at the 1st sign of attack; may repeat every 5 min until relief; if pain persists after 3 tablets in 15 min, prompt medical attention is recommended, Disp: 0, Rfl: [address] (PROTONIX) 40 mg EC tablet, Take 1 tablet (40 mg total) by mouth daily, Disp: , Rfl: SITagliptin (JANUVIA) 100 mg tablet, take 1 tablet by oral route every day, Disp: 0, Rfl: 0 doxycycline (VIBRAMYCIN) 100 mg capsule, Take 100 mg by mouth 2 (two) times a day. (Patient not taking: Reported on 01/04/2022), Disp: , Rfl: glipiZIDE (GLUCOTROL) 5 mg tablet, Take 1 tablet (5 mg total) by mouth daily (Patient not taking: Reported on 03/10/2024), Disp: , Rfl: Incruse Ellipta 62.5 mcg/actuation blister with device, TAKE 1 INHALATION DAILY (Patient not taking: Reported on 01/04/2022), Disp: , Rfl: Lotemax SM 0.38 % drops,gel, 1 drop 2 (two) times a day (Patient not taking: Reported on 09/10/2023), Disp: , Rfl: metFORMIN XR (GLUCOPHAGE XR) 500 mg 24 [...] for component: LABALBU PHYSICAL EXAM Vitals BP 116/64 (BP Location: Left arm, Patient Position: Sitting) Pulse 64 Ht 167.6 cm (5' 6 ) Wt 74.4 kg (164 lb) SpO2 98% BMI 26.47 kg/m?? Physical Examination: General appearance - alert, [...] rashes, no suspicious skin lesions noted ASSESSMENT Beatrice was seen today for follow-up. Diagnoses and all orders for this visit: Coronary artery disease involving [place] coronary artery of [place] heart without angina pectoris Status post insertion of drug eluting coronary artery stent Lipid screening - POCT lipid panel PLAN/RECOMMENDATIONS Continue current medical regimen and will see her in follow-up at 6 month intervals Reassure the patient that her chest pain from several months ago did not appear to be a cardiac problem. She said she was primarily having thoracic back pain and was not greatly concerned about her heart Carter Burciaga MD documented in this encounter Plan of Treatment Not on file documented as of this encounter Procedures Procedure Name Priority Date/Time Associated Diagnosis Comments POCT LIPID PANEL Routine 03/10/2024 4:15 PM CDT Lipid screening documented in this encounter Results * POCT lipid panel (03/10/2024 4:15 PM CDT) Cholesterol, POC 130 mg/dL HDL, POC 56 mg/dL Triglycerides, POC 144 mg/dL LDL Cholesterol POC 44 mg/dL Chol/HDL Ratio, POC 0.8 Non-HDL Cholesterol, POC 73 mg/dL Cholesterol Total, POC 130 mg/dL Capillary blood 03/10/2024 4 :15 PM CDT Carter Burciaga MD POINT OF CARE TEST ORDER ANNIE Final Result documented in this encounter Visit Diagnoses Diagnosis Coronary artery disease involving [place] coronary artery of [place] heart without angina pectoris- Primary Status post insertion of drug eluting coronary artery stent Lipid screening Screening for lipoid disorders documented in this encounter Care Teams Dev Manager Relationship Specialty Start Date End Date Yo Suresh MD [address] [place] [place], [place] [id number] PCP - General Family Practice 01/08/23 German Barcenas MD [address] [place] [address] [place] [address] Referring Physician Vascular Surgery 07/22/21 documented as of this encounter
--- OUTSIDE RECORDS SUMMARY | 2024-07-12 15:05 | XMS_ITS | Encounter Summary ---
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 Gender Identity Not on file Sexual Orientation Not on file documented as of this encounter Plan of Treatment Not on file documented as of this encounter Procedures Procedure Name Priority Date/Time Associated Diagnosis Comments CARDIOLOGY DOCUMENT SCAN 09/25/2023 documented in this encounter Results * Cardiology Document Scan (09/25/2023) Anatomical Region Laterality Modality Other Cally Florentino MD CV CARDIAC SERVICES PRO CEDURES Edited Result - Final documented in this encounter Visit Diagnoses Not on filedocumented in this encounter Care Teams Housing Property Manager Relationship Specialty Start Date End Date Yo Suresh MD [address] [place] [address] PCP - General Family Practice 01/08/23 German Barcenas MD [address] [facility] [address] [place] [address] Referring Physician Vascular Surgery 07/22/21 documented as of this encounter
--- OUTSIDE RECORDS SUMMARY | 2024-07-12 15:05 | XMS_ITS | Encounter Summary ---
Author Organization [facility] Address [facility] [facility]. [place], [place] [address] [place] [address] Care Team Providers Care Lawyer Probate Name Role Phone Darrell Jackson MD Primary Care Provider [phone] Encounter Details Date Type Department Care Team (Late st Contact Info) Description 03/30/2001 Abstract [facility] [address] [place] [address] , Zachary Murguia MD Social History Tobacco [...] on filedocumented in this encounter Care Teams Lawyer Probate Relationship Specialty Start Date End Date Darrell Jackson MD PCP - General 04/17/16 documented as of this encounter
--- OUTSIDE RECORDS SUMMARY | 2024-07-12 15:05 | XMS_ITS | Encounter Summary ---
Author Organization [facility] Address [facility] [place], [place] [address] [place] [address] Care Team Providers Care Director Of Aviation Name Role Phone Darrell Jackson MD Primary Care Provider [phone] Encounter Details Date Type Department Care Team (Late st Contact Info) Description 03/30/2000 Abstract [place] [address] Social History Tobacco Use Types Packs/Day Years [...] on filedocumented in this encounter Care Teams Director Of Aviation Relationship Specialty Start Date End Date Darrell Jackson MD PCP - General 04/17/16 documented as of this encounter
--- OUTSIDE RECORDS SUMMARY | 2024-07-12 15:05 | XMS_ITS | Encounter Summary ---
Author Organization [facility] Address [facility]6 [facility]. [place], [place] [address] [place] [address] Care Team Providers Care Ice Cream Man Name Role Phone Darrell Jackson MD Primary Care Provider [phone] Encounter Details Date Type Department Care Team (Late st Contact Info) Description 11/27/[address] [facility] [address] [facility] [place] [address] , Zachary Murguia MD Social History Tobacco [...] on filedocumented in this encounter Care Teams Ice Cream Man Relationship Specialty Start Date End Date Darrell Jackson MD PCP - General 04/17/16 documented as of this encounter
--- OUTSIDE RECORDS SUMMARY | 2024-07-12 15:05 | XMS_ITS | Encounter Summary ---
Author Organization [facility] Address [facility]6 [facility]. [place], [place] [address] [place] [address] Care Team Providers Care Certified Registered Dental Assistant Name Role Phone Darrell Jackson MD Primary Care Provider [phone] Encounter Details Date Type Department Care Team (Late st Contact Info) Description 11/25/1999 Abstract [facility] [address] [facility] [place] [address] , Zachary Murguia MD Social History Tobacco [...] on filedocumented in this encounter Care Teams Certified Registered Dental Assistant Relationship Specialty Start Date End Date Darrell Jackson MD PCP - General 04/17/16 documented as of this encounter
--- OUTSIDE RECORDS SUMMARY | 2024-07-12 15:05 | XMS_ITS | Encounter Summary ---
Author Organization [facility] Address [facility]6 [facility] [place], [place] [address] [place] [address] Care Team Providers Care Room Server Name Role Phone Darrell Jackson MD Primary Care Provider [phone] Encounter Details Date Type Department Care Team (Late st Contact Info) Description 03/14/2004 Abstract [facility] [address] [place] [address] , Zachary Murguia MD Social History Tobacco [...] on filedocumented in this encounter Care Teams Room Server Relationship Specialty Start Date End Date Darrell Jackson MD PCP - General 04/17/16 documented as of this encounter
--- OUTSIDE RECORDS SUMMARY | 2024-07-12 15:05 | XMS_ITS | Encounter Summary ---
Author Organization [facility] Address [facility]6 [facility]. [place], [place] [address] [place] [address] Care Team Providers Care Toll Test Desk Worker Name Role Phone Darrell Jackson MD Primary Care Provider [phone] Encounter Details Date Type Department Care Team (Late st Contact Info) Description 05/09/[address] [facility] [address] [facility] [place] [address] , Zachary Murguia MD Social History Tobacco [...] on filedocumented in this encounter Care Teams Toll Test Desk Worker Relationship Specialty Start Date End Date Darrell Jackson MD PCP - General 04/17/16 documented as of this encounter
--- OUTSIDE RECORDS SUMMARY | 2024-07-12 15:05 | XMS_ITS | Encounter Summary ---
Author Organization [facility] Healthcare Address [address] [place] [address] Care Team Providers Care Museum Docent Name Role Phone German Barcenas MD Unavailable [phone] Yo Suresh MD Primary Care Provider [phone] Encounter Details Date Type Department Care Team (Late st Contact Info) Description 09/30/2023 Orders Only [facility] Medical Group Cardiology [address] [address] Marianne Salvador NP [address] [facility] [address] [place] [address] Social History Tobacco Use Types Packs/Day Years [...] on file Legal Sex Female 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 Gender Identity Not on file Sexual Orientation Not on file documented as of this encounter Plan of Treatment Not on file documented as of this encounter Procedures Procedure Name Priority Date/Time Associated Diagnosis Comments CARDIOLOGY DOCUMENT SCAN Routine 09/26/2023 3:44 PM FORENSIC ANTHROPOLOGIST documented in this encounter Results * Cardiology Document Scan (09/26/2023 3:44 PM FORENSIC ANTHROPOLOGIST) Anatomical Region Laterality Modality Other Marianne Yulissa Madeleine SHOWROOM SALESPERSON CV CARDIAC SERVICES PROCEDUR ES Final Result documented in this encounter Visit Diagnoses Not on filedocumented in this encounter Care Teams Museum Docent Relationship Specialty Start Date End Date Yo Suresh MD [address] [place] [address] PCP - General Family Practice 01/08/23 German Barcenas MD [address] [place] [address] Referring Physician Vascular Surgery 07/22/21 documented as of this encounter
--- OUTSIDE RECORDS SUMMARY | 2024-07-12 15:05 | XMS_ITS | Encounter Summary ---
Author Organization [facility] Address [facility]6 [facility]. [place], [place] [address] [place] [address] Care Team Providers Care Director Of Casework Services Name Role Phone Darrell Jackson MD Primary Care Provider [phone] Encounter Details Date Type Department Care Team (Late st Contact Info) Description 08/11/2001 Abstract [facility] [address] [facility] [place] [address] , Zachary Murguia MD Social History Tobacco [...] in this encounter Care Teams Director Of Casework Services Relationship Specialty Start Date End Date Darrell Jackson MD PCP - General 04/17/16 documented as of this encounter
--- OUTSIDE RECORDS SUMMARY | 2024-07-12 15:05 | XMS_ITS | Encounter Summary ---
Author Organization [facility] Address [facility]6 [facility]. [place], [place] [address] [place] [address] Care Team Providers Care Coil Placer Name Role Phone Darrell Jackson MD Primary Care Provider [phone] Encounter Details Date Type Department Care Team (Late st Contact Info) Description 03/10/1998 Abstract [place] [address] , Generic Conversion, Social History Tobacco Use [...] on filedocumented in this encounter Care Teams Coil Placer Relationship Specialty Start Date End Date Darrell Jackson MD PCP - General 04/17/16 documented as of this encounter
--- OUTSIDE RECORDS SUMMARY | 2024-07-12 15:05 | XMS_ITS | Encounter Summary ---
Author Organization [facility] Address [facility]. [place], [place] [address] [place] [address] Care Team Providers Care Medical Services Coordinator Name Role Phone Darrell Jackson MD Primary Care Provider [phone] Encounter Details Date Type Department Care Team (Late st Contact Info) Description 02/16/2000 [place] [address] , Generic Conversion, Social History Tobacco Use [...] on filedocumented in this encounter Care Teams Medical Services Coordinator Relationship Specialty Start Date End Date Darrell Jackson MD PCP - General 04/17/16 documented as of this encounter
--- OUTSIDE RECORDS SUMMARY | 2024-07-12 15:05 | XMS_ITS | Encounter Summary ---
Author Organization [facility] Address [facility]6 [facility] [place], [place] [address] [place] [address] Care Team Providers Care Powerbuilder Name Role Phone Darrell Jackson MD Primary Care Provider [phone] Encounter Details Date Type Department Care Team (Late st Contact Info) Description 03/16/2005 [facility] [address] [facility] [place] [address] Nayeli Cruz MD [address] [place] [address] Social History Tobacco Use Types Packs/Day Years [...] on filedocumented in this encounter Care Teams Powerbuilder Relationship Specialty Start Date End Date Darrell Jacskon MD PCP - General 04/17/16 documented as of this encounter
--- OUTSIDE RECORDS SUMMARY | 2024-07-12 15:05 | XMS_ITS | Encounter Summary ---
Author Organization [facility] Address [facility]6 [facility]. [place], [place] [address] [place] [address] Care Team Providers Care Impregnator And Drier Helper Name Role Phone Darrell Jackson MD Primary Care Provider [phone] Encounter Details Date Type Department Care Team (Late st Contact Info) Description 10/19/2003 Abstract [facility] [address] [facility] [place] [address] , Zachary Murguia MD Social History Tobacco [...] on filedocumented in this encounter Care Teams Impregnator And Drier Helper Relationship Specialty Start Date End Date Darrell Jackson MD PCP - General 04/17/16 documented as of this encounter
--- OUTSIDE RECORDS SUMMARY | 2024-07-12 15:05 | XMS_ITS | Encounter Summary ---
Author Organization [facility] Address [facility]6 [facility]. [place], [place] [address] [place] [address] Care Team Providers Care Manifold Builder Name Role Phone Darrell Jackson MD Primary Care Provider [phone] Encounter Details Date Type Department Care Team (Late st Contact Info) Description 08/11/1996 Abstract [place] [address] , Generic Conversion, Social History Tobacco Use [...] on filedocumented in this encounter Care Teams Manifold Builder Relationship Specialty Start Date End Date Darrell Jackson MD PCP - General 04/17/16 documented as of this encounter
--- OUTSIDE RECORDS SUMMARY | 2024-07-12 15:05 | XMS_ITS | Encounter Summary ---
Author Organization [facility] Address [facility]6 [facility]. [place], [place] [address] [place] [address] Care Team Providers Care Marine Steamfitter Name Role Phone Darrell Jackson MD Primary Care Provider [phone] Encounter Details Date Type Department Care Team (Late st Contact Info) Description 05/30/1996 [place] [address] , Generic Conversion, Social History Tobacco Use [...] on filedocumented in this encounter Care Teams Marine Steamfitter Relationship Specialty Start Date End Date Darrell Jackson MD PCP - General 04/17/16 documented as of this encounter
--- OUTSIDE RECORDS SUMMARY | 2024-07-12 15:06 | XMS_ITS | Encounter Summary ---
Author Organization [facility] Address [address] [facility] [address] [place] [address] Care Team Providers Care Licensed Physical Therapy Assistant Name Role Phone Darrell Jackson MD Primary Care Provider [phone] Encounter Details Date Type Department Care Team (Late st Contact Info) Description 03/06/2019 Orders Only [facility] [address] [facility] [address] [place] [address] ProviderScott MD [address] [place] [address] Social History Tobacco Use Types Packs/Day Years Used Date Smoking Tobacco: Former Smokeless Tobacco: Never Alcohol Use Standard Drinks/Week Comments No 0 (1 standard drink = 0.6 oz pur e alcohol) Comments Unknown Sex and Gender Information Value Date Recorded Sex Assigned at Not on file 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 Gender Identity Not on file Sexual Orientation Not on file documented as of this encounter Plan of Treatment Not on file documented as of this encounter Procedures Procedure Name Priority Date/Time Associated Diagnosis Comments LIPID PANEL Routine 11/11/2018 documented in this encounter Results * Lipid panel (11/11/2018) SCRIBED Cholesterol, Total 159 na - na EXTERNAL LAB SCRIBED HDL 59 na - na EXTERNAL LAB SCRIBED LDL 73 na - na EXTERNAL LAB SCRIBED Triglycerides 172 na - na EXTERNAL LAB Blood specimen (specimen) us Historical Provider LAB BLOOD ORDERABLES Edit ed Result - Final EXTERNAL LAB documented in this encounter Visit Diagnoses Not on filedocumented in this encounter Care Teams Licensed Physical Therapy Assistant Relationship Specialty Start Date End Date Darrell Jackson MD [address] [facility] [place] [id number] PCP - General 10/19/16 08/05/19 documented as of this encounter
--- OUTSIDE RECORDS SUMMARY | 2024-07-12 15:06 | XMS_ITS | Encounter Summary ---
Author Organization [facility] Group Address [address] [facility] [address] [place] [address] Care Team Providers Care Production Engineer Track Name Role Phone German Barcenas MD Unavailable [phone] Yo Suresh MD Primary Care Provider [phone] Reason for Visit * Reason Comments Coronary Artery Disease 6 MONTH FOLLOW U P. Encounter Details Date Type Department Care Team (Late st Contact Info) Description 01/08/2023 3:00 PM CDT Office Visit 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 Gender Identity Not on file Sexual Orientation Not on file documented as of this encounter Last Filed Vital Signs Vital Sign Reading Time Taken Comments Blood Pressure 118/78 01/08/2023 3:10 PM CDT Pulse 63 01/08/2023 3:10 PM CDT Temperature - - Respiratory Rate - - Oxygen Saturation 98% 01/08/2023 3:10 PM CDT Inhaled Oxygen Concentration - - Weight 72.1 kg (159 lb) 01/08/2023 3:10 PM CDT Height 167.6 cm (5' 6 ) 01/08/2023 3:10 PM CDT Body Mass Index 25.66 01/08/2023 3:10 PM CDT documented in this encounter Progress Notes * Carter Burciaga MD - 01/08/2023 3:00 PM CDT [facility] FOLLOW UP 01/08/2023 Beatrice Calero is a 72 y.o. female who presents for follow up of coronary artery disease. This is a patient with a history of coronary disease who presented with ischemic symptomatology and received stenting to the circumflex marginal branch in July of 2014 and has done well since then. She returns to the office today for a scheduled annual appointment. She has a variety of complaintstoday that are occurring in a sporadic fashion nothing that is occurring in exertional fashion compatible with angina. She states that she went to the emergency room 1 since her last appointment herefor evaluation of some back pain she was concerned about this being a coronary event. She states there was no cardiac problem identified and she was allowed to go home. REVIEW OF SYSTEMS General ROS: negative for [...] rash HOME MEDICATIONS Current Outpatient Medications: ??? albuterol HFA (PROVENTIL HFA) 90 mcg/actuation [...] daily, Disp: 90 tablet, Rfl: 3 ??? glipiZIDE (GLUCOTROL) 5 mg tablet, Take 1 tablet (5 mg total) by mouth daily, Disp: , Rfl: ??? Lotemax SM 0.38 % drops,gel, 1 drop 2 (two) times a day, Disp: , Rfl: ??? metFORMIN XR (GLUCOPHAGE XR) 500 mg 24 hr tablet, Take 1 tablet (500 mg total) by mouth daily, Disp: , Rfl: ??? nitroglycerin (NITROSTAT) 0.4 mg SL tablet, [...] every day, Disp: 0, Rfl: 0 ??? clopidogrel (PLAVIX) 75 mg tablet, TAKE 1 TABLET BY MOUTH DAILY, Disp: 90 tablet, Rfl: 1 ??? doxycycline (VIBRAMYCIN) 100 mg capsule, Take 100 mg by mouth 2 (two) times a day. (Patient nottaking: Reported on 01/04/2022), Disp: , Rfl: ??? Incruse Ellipta 62.5 mcg/actuation blister with device, TAKE 1 INHALATION DAILY (Patient not taking: Reported on 01/04/2022), Disp: , Rfl: ??? metoprolol XL (TOPROL-XL) 50 mg extended release tablet, TAKE 1 TABLET BY MOUTH EVERY DAY, Disp: 90 tablet, Rfl: 0 LABS AND OTHER DIAGNOSTIC TESTS Lab Results [...] for component: LABALBU PHYSICAL EXAM Vitals BP 118/78 (BP Location: Left arm, Patient Position: Sitting) Pulse 63 Ht 167.6 cm (5' 6 ) Wt 72.1 kg (159 lb) SpO2 98% BMI 25.66 kg/m?? Physical Examination: General appearance - alert, [...] noted ASSESSMENT Beatrice was seen today for coronary artery disease. Diagnoses and all orders for this visit: Coronary artery disease involving wichita coronary artery of wichita heart without angina pectoris Status post insertion of drug eluting coronary artery stent PLAN/RECOMMENDATIONS Continue current medical regimen and will see her in follow-up at 6 month intervals Has a variety of complaints today but none of which are pertinent to her coronary artery disease Carter Burciaga MD documented in this encounter Plan of Treatment Not on file documented as of this encounter Visit Diagnoses Diagnosis Coronary artery disease involving wichita coronary artery of wich[place] heart without angina pectoris- Primary Status post insertion of drug eluting coronary artery stent documented in this encounter Care Teams Production Engineer Track Relationship Specialty Start Date End Date Yo Suresh MD [address] [facility] [address] [place] [address] PCP - General Family Practice 01/08/23 German Barcenas MD [address] [facility] [address] [place] [address] Referring Physician Vascular Surgery 07/22/21 documented as of this encounter
--- OUTSIDE RECORDS SUMMARY | 2024-07-12 15:06 | XMS_ITS | Encounter Summary ---
Author Organization [facility] Medical Group Address [address] [facility] [address] [place] [address] Care Team Providers Care Pot Lining Supervisor Name Role Phone Darrell Jackson MD Primary Care Provider [phone] Encounter Details Date Type Department Care Team (Late st Contact Info) Description 04/15/2017 Telephone [facility] [address] [place] [id number] Carter Burciaga MD [address] [facility] [address] [place] [address] Social History Tobacco Use Types Packs/Day Years Used Date Smoking Tobacco: Former Alcohol Use Standard Drinks/Week Comments No 0 (1 standard drink = 0.6 oz pur e alcohol) Comments Unknown Sex and Gender Information Value Date Recorded Sex Assigned at Not on file Legal 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 30 tablet 5 04/15/2017 05/06/2017 rosuvastatin (CRESTOR) 5 mg tablet Take 1 tablet (5 mg total) by mouth daily. 30 tablet 5 04/15/2017 06/28/2017 documented in this encounter Miscellaneous Notes * Telephone Encounter - Nan Ortiz MA - 04/15/2017 4:39 PM CDT Scripts sent to [facility] pharmacy. documented in this encounter Plan of Treatment Not on file documented as of this encounter Visit Diagnoses Not on filedocumented in this encounter Discontinued Medications Medication Sig Discontinue Reason Start Date End Da te rosuvastatin (CRESTOR) 5 mg tablet TAKE 1 TABLET BY MOUTH EVERY DAY Reorder 04/08/2015 04/15/2017 documented as of this encounter Care Teams Pot Lining Supervisor Relationship Specialty Start Date End Date Darrell Jackson MD [address] [facility] [address] [facility] [place] [id number] PCP - General 10/19/16 08/05/19 documented as of this encounter
--- OUTSIDE RECORDS SUMMARY | 2024-07-12 15:06 | XMS_ITS | Encounter Summary ---
Author Organization [facility] Address [address] [place] [address] Phone Care Team Providers Care Agribusiness Professor Name Role Phone Preeti Leigh Primary Care Provider [phone] German Barcenas MD Unavailable [phone] Reason for Visit * Reason Onset Date Comments Appointment 10/06/2021 New patient refe rral Encounter Details Date Type Department Care Team (Late st Contact Info) Description 10/06/2021 Telephone [facility] Department of Surgery, Section of Colon and Rectal Surgery [facility] 12th Floor, [place] [address] Deyanira Cobos BS Appointment (New patient referral/) Social History Tobacco Use Types Packs/Day Years Used Date Smoking Tobacco: Former Smokeless Tobacco: Never Alcohol Use Standard Drinks/Week Comments No 0 (1 standard drink = 0.6 oz pur e alcohol) Comments Unknown Sex and Gender Information Value Date Recorded Sex Assigned at Not on file 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 Referral in OnBase. Will send letter to patient and referring provider. documented in this encounter Plan of Treatment Not on file documented as of this encounter Visit Diagnoses Not on filedocumented in this encounter Care Teams Agribusiness Professor Relationship Specialty Start Date End Date Preeti Leigh PA PCP - General Stencil Inspector 09/20/21 01/09/22 German Barcenas MD [address] [address] Referring Physician Vascular Surgery 07/22/21 documented as of this encounter
--- OUTSIDE RECORDS SUMMARY | 2024-07-12 15:06 | XMS_ITS | Encounter Summary ---
Author Organization [facility] Address [address] [place] [address] Care Team Providers Care Gritting Machine Operator Name Role Phone Preeti Leigh Primary Care Provider [phone] German Barcenas MD Unavailable [phone] Reason for Visit * Reason Comments Coronary Artery Disease 8 month fu Encounter Details Date Type Department Care Team (Late st Contact Info) Description 01/04/2022 11:30 AM CDT Office Visit [facility] Cardiology [address] [address] Carter Burciaga MD [address] [facility] [address] [place] [address] Coronary artery disease involving [place] coronary artery of [place] heart without angina pectoris (Primary Dx); Status [...] on file 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 Gender Identity Not on file Sexual Orientation Not on file documented as of this encounter Last Filed Vital Signs Vital Sign Reading Time Taken Comments Blood Pressure 132/84 01/04/2022 11:31 AM CDT Pulse 72 01/04/2022 11:31 AM CDT Temperature - - Respiratory Rate - - Oxygen Saturation 96% 01/04/2022 11:31 AM CDT Inhaled Oxygen Concentration - - Weight 76.7 kg (169 lb) 01/04/2022 11:31 AM CDT Height 167.6 cm (5' 6 ) 01/04/2022 11:31 AM CDT Body Mass Index 27.28 01/04/2022 11:31 AM CDT documented in this encounter Progress Notes * Carter Burciaga MD - 01/04/2022 11:30 AM CDT [facility] 01/04/2022 Beatrice Calero is a 71 y.o. female who presents for follow up of coronary artery disease. This is a patient with a history of coronary disease who presented with ischemic symptomatology and received stenting to the circumflex marginal branch in July of 2014 and has done well since then. She returns to the office today for scheduled appointment. She has not had any cardiac problems or issues. She says she was seen in the hospital in April of 2021 with some diplopia and was found tohave very high blood sugar at the time. Does not recall having any cardiac issues. She then stated that she had coronavirus in November of this year last month. She had a significant cough but no other significant problems and did not have to seek hospital care. She tested for COVID a couple of days agoand was negative. REVIEW OF SYSTEMS General ROS: negative for [...] ??? ALPRAZolam (XANAX) 0.25 mg tablet, Take 0.25 mg by mouth nightly as needed for anxiety, Disp: ,Rfl: ??? atorvastatin (LIPITOR) 10 mg tablet, Take 1 tablet (10 mg total) by mouth daily, Disp: 90 tablet, Rfl: 3 ??? clopidogrel (PLAVIX) 75 mg tablet, TAKE 1 TABLET BY MOUTH DAILY, Disp: 90 tablet, Rfl: 1 ??? doxycycline (VIBRAMYCIN) 100 mg capsule, Take 100 mg by mouth 2 (two) times a day., Disp: , Rfl: ??? Incruse Ellipta 62.5 mcg/actuation blister with device, TAKE 1 INHALATION DAILY, Disp: , Rfl: ??? metoprolol XL (TOPROL-XL) [...] DR (PROTONIX) 40 mg EC tablet, Take 40 mg by mouth daily., Disp: , Rfl: ??? SITagliptin (JANUVIA) 100 mg tablet, take 1 tablet by oral route every day, Disp: 0, Rfl: 0 LABS AND OTHER DIAGNOSTIC TESTS [...] exists for component: LABALBU PHYSICAL EXAM Vitals Ht 167.6 cm (5' 6 ) Wt 76.7 kg (169 lb) BMI 27.28 kg/m?? Physical Examination: General appearance - alert, [...] for this visit: Coronary artery disease involving [place] coronary artery of [place] heart without angina pectoris Status post insertion of drug eluting coronary artery stent PLAN/RECOMMENDATIONS Continue current medical regimen and will see her in follow-up at 6 month intervals Carter Burciaga MD documented in this encounter Plan of Treatment Not on file documented as of this encounter Visit Diagnoses Diagnosis Coronary artery disease involving [place] coronary artery of [place] heart without angina pectoris- Primary Status post insertion of drug eluting coronary artery stent documented in this encounter Historical Medications * This list may reflect changes made after this encounter. Lotemax SM 0.38 % drops,gel 1 drop 2 (two) times a day 10/23/2021 glipiZIDE (GLUCOTROL) 5 mg tablet Take 1 tablet (5 mg total) by mouth daily 12/21/2021 metFORMIN XR (GLUCOPHAGE XR) 500 mg 24 hr tablet Take 1 tablet (500 mg total) by mouth daily 12/21/2021 added in this encounter Care Teams Gritting Machine Operator Relationship Specialty Start Date End Date Preeti Leigh PA PCP - General Outdoor Studies Professor 09/20/21 01/09/22 German Barcenas MD [address] [facility] [address] [place] [address] Referring Physician Vascular Surgery 07/22/21 documented as of this encounter
--- OUTSIDE RECORDS SUMMARY | 2024-07-12 15:06 | XMS_ITS | Encounter Summary ---
Author Organization [facility] Address [address] [place] [address] Care Team Providers Care Tour Consultant Name Role Phone Darrell Jackson MD Primary Care Provider [phone] Reason for Visit * Reason Comments Follow-up 6 MO ON cad Encounter Details Date Type Department Care Team (Late st Contact Info) Description 07/29/2018 1:30 PM EVALUATION MANAGER Office Visit [facility] [address] [place] [address] Carter Burciaga MD [address] [address] Status post insertion of drug eluting coronary artery stent (Primary Dx); Coronary artery disease involving [place] coronary artery of [place] heart without angina pectoris Social History Tobacco Use Types Packs/Day Years Used Date Smoking Tobacco: Former Smokeless Tobacco: Never Alcohol Use Standard Drinks/Week Comments No 0 (1 standard drink = 0.6 oz pur e alcohol) Comments Unknown Sex and Gender Information Value Date Recorded Sex Assigned at Not on file Legal Sex Female 9:05 AM EVALUATION MANAGER Gender Identity Not on file Sexual Orientation Not on file documented as of this encounter Last Filed Vital Signs Vital Sign Reading Time Taken Comments Blood Pressure 116/72 07/29/2018 1:40 PM EVALUATION MANAGER Pulse 84 07/29/2018 1:40 PM EVALUATION MANAGER Temperature - - Respiratory Rate - - Oxygen Saturation 94% 07/29/2018 1:40 PM EVALUATION MANAGER Inhaled Oxygen Concentration - - Weight 86.2 kg (190 lb) 07/29/2018 1:40 PM EVALUATION MANAGER Height 167.6 cm (5' 6 ) 07/29/2018 1:40 PM EVALUATION MANAGER Body Mass Index 30.67 07/29/2018 1:40 PM EVALUATION MANAGER documented in this encounter Progress Notes * Carter Burciaga MD - 07/29/2018 1:30 PM CST [facility] 07/29/2018 Beatrice Calero is a 68 y.o. female who presents for follow up of coronary artery disease. This is a patient with a history of coronary disease who presented with ischemic symptomatology and received stenting to the circumflex marginal branch in July of 2014 and has done well since then. She presents today for scheduled follow-up. She has not been having any cardiovascular problems or symptoms her principal health problems in the last couple of years have been chronic low back pain as well as shoulder pain. She says she is considering going to see an orthopedist for consultation. REVIEW OF SYSTEMS General ROS: negative for [...] pruritus and rash HOME MEDICATIONS Current Outpatient Prescriptions: ??? albuterol HFA (PROVENTIL HFA) 90 mcg/actuation inhaler, inhale 2 puff by inhalation route every4 - 6 hours as needed, Disp: 0 Inhaler, Rfl: 0 ??? atorvastatin (LIPITOR) 10 mg tablet, TAKE 1 TABLET BY MOUTH EVERY DAY, Disp: 90 tablet, Rfl: 1 ??? beclomethasone (QVAR) 40 mcg/actuation inhaler, Inhale 2 puffs 2 (two) times a day. Rinse mouthwith water after use to reduce aftertaste and incidence of candidiasis. Do not swallow., Disp: , Rfl: ??? clopidogrel (PLAVIX) 75 mg tablet, TAKE 1 TABLET BY MOUTH DAILY, Disp: 90 tablet, Rfl: 0 ??? doxycycline (VIBRAMYCIN) 100 mg capsule, Take 100 mg by mouth 2 (two) times a day., Disp: , Rfl: ??? metoprolol XL (TOPROL-XL) 50 mg 24 hr tablet, TAKE 1 TABLET BY MOUTH EVERY DAY, Disp: 90 tablet, Rfl: 2 ??? montelukast (SINGULAIR) 10 mg tablet, take 1 tablet by oral route every day in the evening (Patient not taking: Reported on 07/25/2017 ), Disp: 0, Rfl: 0 ??? nitroglycerin (NITROSTAT) 0.4 mg SL tablet, [...] lab exists for component: LABALBU PHYSICAL EXAM There were no vitals taken for this visit. Physical Examination: General appearance - alert, well [...] Diagnoses and all orders for this visit: Status post insertion of drug eluting coronary artery stent Coronary artery disease involving [place] coronary artery of [place] heart without angina pectoris PLAN/RECOMMENDATIONS No change in regimen Continue to see her at 6 month intervals or of course p.r.n. Carter Burciaga MD UATION MANAGER documented in this encounter Plan of Treatment Not on file documented as of this encounter Visit Diagnoses Diagnosis Status post insertion of drug eluting coronary artery stent- Primary Coronary artery disease involving [place] coronary artery of [place] heart without angina pectoris documented in this encounter Discontinued Medications Medication Sig Discontinue Reason Start Date End Da te montelukast (SINGULAIR) 10 mg tablet take 1 tablet by oral route every day in the evening Discontinued by another clinician 08/26/2014 07/29/2018 documented as of this encounter Care Teams Tour Consultant Relationship Specialty Start Date End Date Darrell Jackson MD [address] [facility] [address] [place] [address] PCP - General 10/19/16 08/05/19 documented as of this encounter
--- OUTSIDE RECORDS SUMMARY | 2024-07-12 15:06 | XMS_ITS | Encounter Summary ---
Author Organization [facility] Address [address] [place] [address] Phone Care Team Providers Care Flotation Tender Helper Name Role Phone Preeti Leigh Primary Care Provider [phone] German Barcenas MD Unavailable [phone] Reason for Visit * Reason Onset Date Comments Appointment 09/28/2021 New patient refe rral Encounter Details Date Type Department Care Team (Late st Contact Info) Description 09/28/2021 Telephone [facility] Department of Surgery, Section of Colon and Rectal Surgery [facility] 12th Floor, [place] [address] Deyanira Cobos BS Appointment (New patient referral) Social History Tobacco Use Types Packs/Day Years Used Date Smoking Tobacco: Former Smokeless Tobacco: Never Alcohol Use Standard Drinks/Week Comments No 0 (1 standard drink = 0.6 oz pur e alcohol) Comments Unknown Sex and Gender Information Value Date Recorded Sex Assigned at Not on file Legal Sex Female 9:05 AM FITNESS CLUB MANAGER Gender Identity Not on file Sexual Orientation Not on file documented as of this encounter Miscellaneous Notes * Telephone Encounter - Deyanira Cobos - 09/28/2021 12:24 PM FITNESS CLUB MANAGER Left a voicemail for a return call. Referral in OnBase. Dr. Della Barcenas to Dr. Kali Pérez for fecal incont. Cologard neg test in CareEverywhere. ESS CLUB MANAGER documented in this encounter Plan of Treatment Not on file documented as of this encounter Visit Diagnoses Not on filedocumented in this encounter Care Teams Flotation Tender Helper Relationship Specialty Start Date End Date Preeti Leigh PA PCP - General General Maintenance Mechanic 09/20/21 01/09/22 German Barcenas MD [address] [facility] [address] [place] [address] Referring Physician Vascular Surgery 07/22/21 documented as of this encounter
--- OUTSIDE RECORDS SUMMARY | 2024-07-12 15:06 | XMS_ITS | Encounter Summary ---
Author Organization [facility] Address [address] [place] [address] Care Team Providers Care Process Control Technician Name Role Phone Darrell Jackson MD Primary Care Provider [phone] Encounter Details Date Type Department Care Team (Late st Contact Info) Description 09/02/2017 Telephone [facility] [address] [facility] [address] [place] [address] Carter Burciaga MD [address] [facility] [address] [address] Social History Tobacco Use Types Packs/Day Years Used Date Smoking Tobacco: Former Smokeless Tobacco: Never Alcohol Use Standard Drinks/Week Comments No 0 (1 standard drink = 0.6 oz pur e alcohol) Comments Unknown Sex and Gender Information Value Date Recorded Sex Assigned at Not on file Legal Sex Female 9:05 AM TRANSPORTATION MODELER Gender Identity Not on file Sexual Orientation Not on file documented as of this encounter Miscellaneous Notes * Telephone Encounter - Sonia Cheatham MA - 09/02/2017 11:16 AM CST Pt contacted the office stating per insurance rosuvastatin will no longer be covered and they were recommending a preferred medication. After reviewing notes, informed pt switched her toatorvastatin 10mg Qd. Pt verbalized understanding SPORTATION MODELER documented in this encounter Plan of Treatment Not on file documented as of this encounter Visit Diagnoses Not on filedocumented in this encounter Care Teams Process Control Technician Relationship Specialty Start Date End Date Darrell Jackson MD [address] [facility] [address] [facility] [address] [place] [address] PCP - General 10/19/16 08/05/19 documented as of this encounter
--- OUTSIDE RECORDS SUMMARY | 2024-07-12 15:06 | XMS_ITS | Encounter Summary ---
Author Organization [facility] Address [address] [place] [address] Care Team Providers Care Skip Load Driver Name Role Phone German Barcenas MD Unavailable [phone] Yo Suresh MD Primary Care Provider [phone] Encounter Details Date Type Department Care Team (Late st Contact Info) Description 01/08/2023 Orders Only [facility] Cardiology [address] [place] [address] Provider, MD Scott [address] [place] [address] Social History Tobacco Use Types Packs/Day Years Used Date Smoking Tobacco: Former Smokeless Tobacco: Never Alcohol Use Standard Drinks/Week Comments No 0 (1 standard drink = 0.6 oz pur e alcohol) Comments Unknown Sex and Gender Information Value Date Recorded Sex Assigned at Not on file Legal Sex Female 9:05 AM ADJUSTER [employer] Gender Identity Not on file Sexual Orientation Not on file documented as of this encounter Plan of Treatment Not on file documented as of this encounter Procedures Procedure Name Priority Date/Time Associated Diagnosis Comments LIPID PANEL Routine 10/31/2022 4:11 PM CDT LIPID PANEL Routine 10/31/2022 4:11 PM CDT LIPID PANEL Routine 10/31/2022 4:10 PM CDT documented in this encounter Results * Lipid panel (10/31/2022 4:11 PM CDT) SCRIBED Cholesterol, Total 118 <200 EXTERNAL LAB SCRIBED HDL 54 >40 EXTERNAL LAB SCRIBED LDL 42 <100 EXTERNAL LAB SCRIBED Triglycerides 139 <150 EXTERNAL LAB Blood Historical Provider LAB BLOOD ORDERABLES Edit ed Result - Final EXTERNAL LAB * Lipid panel (10/31/2022 4:11 PM CDT) Blood Historical Provider LAB BLOOD ORDERABLES Ragini l Result * Lipid panel (10/31/2022 4:10 PM CDT) Blood [facility] Provider LAB BLOOD ORDERABLES Ragiin l Result documented in this encounter Visit Diagnoses Not on filedocumented in this encounter Care Teams Skip Load Driver Relationship Specialty Start Date End Date Yo Suresh MD [address] [place] [address] [place] [address] PCP - General Family Practice 01/08/23 German Barcenas MD [address] [place] [address] [place] [address] Referring Physician Vascular Surgery 07/22/21 documented as of this encounter
--- OUTSIDE RECORDS SUMMARY | 2024-07-12 15:06 | XMS_ITS | Encounter Summary ---
Author Organization [facility] Address [address] [facility] [address] [place] [address] Care Team Providers Care Industrial Conveyor Belt Repairer Name Role Phone Darrell Jackson MD Primary Care Provider [phone] Reason for Visit * Reason Comments Coronary Artery Disease 6 mo f/u Encounter Details Date Type Department Care Team (Late st Contact Info) Description 02/04/2018 1:30 PM CDT Office Visit [facility] [address] [facility] [address] [address] Carter Burciaga MD [address] [address] Status post insertion of drug eluting coronary artery stent (Primary Dx); Coronary artery disease involving [place] coronary artery of [place] heart without angina pectoris Social History Tobacco Use Types Packs/Day Years Used Date Smoking Tobacco: Former Smokeless Tobacco: Never Alcohol Use Standard Drinks/Week Comments No 0 (1 standard drink = 0.6 oz pur e alcohol) Comments Unknown Sex and Gender Information Value Date Recorded Sex Assigned at Not on file Legal Sex Female 9:05 AM TABLET MAKING MACHINE OPERATOR Gender Identity Not on file Sexual Orientation Not on file documented as of this encounter Last Filed Vital Signs Vital Sign Reading Time Taken Comments Blood Pressure 110/68 02/04/2018 1:47 PM CDT Pulse 77 02/04/2018 1:47 PM CDT Temperature - - Respiratory Rate - - Oxygen Saturation 94% 02/04/2018 1:47 PM CDT Inhaled Oxygen Concentration - - Weight 84.8 kg (187 lb) 02/04/2018 1:47 PM CDT Height 167.6 cm (5' 6 ) 02/04/2018 1:47 PM CDT Body Mass Index 30.18 02/04/2018 1:47 PM CDT documented in this encounter Progress Notes * Carter Burciaga MD - 02/04/2018 1:30 PM CDT [facility] 02/04/2018 Beatrice Calero is a 67 y.o. female who presents for follow up of coronary artery disease. This is a patient with a history of coronary disease who presented with ischemic symptomatology and received stenting to the circumflex marginal branch in July of 2014 and has done well since then. She presents today for scheduled follow-up. She is being seen at 6 month intervals. she does not describe any cardiovascular symptoms at all. The patient has some occasional left hand paresthesias that are not associated with any chest pain and are nonexertional. Did not sound like this was a symptom concerning for ischemia. REVIEW OF SYSTEMS General ROS: negative for [...] EVERY DAY, Disp: 90 tablet, Rfl: 0 ??? beclomethasone (QVAR) 40 mcg/actuation inhaler, Inhale 2 puffs 2 (two) times a day. Rinse mouthwith water after use to reduce aftertaste and incidence of candidiasis. Do not swallow., Disp: , Rfl: ??? clopidogrel (PLAVIX) 75 mg tablet, TAKE 1 TABLET BY MOUTH DAILY, Disp: 90 tablet, Rfl: 2 ??? doxycycline (VIBRAMYCIN) 100 mg capsule, Take [...] every day, Disp: 0, Rfl: 0 ??? montelukast (SINGULAIR) 10 mg tablet, take 1 tablet by oral route every day in the evening (Patient not taking: Reported on 07/25/2017 ), Disp: 0, Rfl: 0 LABS AND OTHER [...] lab exists for component: LABALBU PHYSICAL EXAM Vitals: 02/04/18 1347 BP: 110/68 Pulse: 77 SpO2: 94% Physical Examination: General appearance - alert, well [...] coronary artery stent Coronary artery disease involving [place] coronary artery of [place] heart without angina pectoris PLAN/RECOMMENDATIONS No change in regimen Continue to see her at 6 month intervals or of course p.r.n. Carter Burciaga MD documented in this encounter Plan of Treatment Not on file documented as of this encounter Visit Diagnoses Diagnosis Status post insertion of drug eluting coronary artery stent- Primary Coronary artery disease involving [place] coronary artery of [place] heart without angina pectoris documented in this encounter Discontinued Medications Medication Sig Discontinue Reason Start Date End Da te omeprazole (PriLOSEC) 20 mg capsule take 1 capsule by oral route every day before a meal Discontinued by another clinician 08/26/2014 02/04/2018 ALPRAZolam (XANAX) 0.25 mg tablet take 1 tablet by oral route 2 times every day as neede Discontinued by another clinician 08/26/2014 02/04/2018 aspirin (ASPIR-81) 81 mg tablet take 1 Tablet by oral route every day Alternate therapy 08/26/2014 02/04/2018 losartan-hydroCHLOROth iazide (HYZAAR) 50-12.5 mg per tablet take 1 tablet by oral route every day Discontinued by another clinician 06/28/2016 02/04/2018 documented as of this encounter Historical Medications * This list may reflect changes made after this encounter. pantoprazole DR (PROTONIX) 40 mg EC tablet Take 1 tablet (40 mg total) by mouth daily doxycycline (VIBRAMYCIN) 100 mg capsule Take 100 mg by mouth 2 (two) times a day. beclomethasone (QVAR) 40 mcg/actuation inhaler Inhale 2 puffs 2 (two) times a day. Rinse mouth with water after use to reduce aftertaste and incidence of candidiasis. Do not swallow. 0 added in this encounter Care Teams Industrial Conveyor Belt Repairer Relationship Specialty Start Date End Date Darrell Jackson MD [address] [facility] [address] [facility] [address] INTERNAL MEDICINE [place], [place] [id number] PCP - General 10/19/16 08/05/19 documented as of this encounter
--- OUTSIDE RECORDS SUMMARY | 2024-07-12 15:06 | XMS_ITS | Encounter Summary ---
Author Organization [facility] Address [address] [facility] [address] [place] [address] Care Team Providers Care Senior Genetic Counselor Name Role Phone Darrell Jackson MD Primary Care Provider Encounter Details Date Type Department Care Team (Late st Contact Info) Description 01/16/2017 9:30 AM CDT Office Visit [facility] [address] [facility] [[email or web address] [address] [phone] Carter Burciaga MD [address] [id number] Coronary artery disease involving [place] coronary artery of [place] heart without angina pectoris (Primary Dx) Social History Tobacco Use Types Packs/Day Years Used Date Smoking Tobacco: Former Alcohol Use Standard Drinks/Week Comments No 0 (1 standard drink = 0.6 oz pur e alcohol) Comments Unknown Sex and Gender Information Value Date Recorded Sex Assigned at Not on file Legal Sex Female 9:05 AM DYNAMITE CARTRIDGE CRIMPER Gender Identity Not on file Sexual Orientation Not on file documented as of this encounter Last Filed Vital Signs Vital Sign Reading Time Taken Comments Blood Pressure 118/74 01/16/2017 10:00 AM CDT Pulse 73 01/16/2017 10:00 AM CDT Temperature - - Respiratory Rate 16 01/16/2017 10:00 AM CDT Oxygen Saturation - - Inhaled Oxygen Concentration - - Weight 85.7 kg (189 lb) 01/16/2017 10:00 AM CDT Height - - Body Mass Index 30.51 06/28/2016 10:59 AM DYNAMITE CARTRIDGE CRIMPER documented in this encounter Progress Notes * Carter Burciaga MD - 01/16/2017 9:30 AM CDT [facility] 01/16/2017 Beatrice Calero is a 66 y.o. female who presents for follow up of coronary artery disease. This is a patient who underwent stenting of the obtuse marginal circumflex in July of 2014 and has done well since then. She was seen in the office recently with some symptoms of thoracic back pain thatwere very atypical for ischemia. I scheduled her for a Lexiscan nuclear study and then a follow-up with me in the office. This study did not show any evidence of reversible ischemia. Her back pain has now resolved and she is no longer experiencing any of this. She has having no exertional symptoms that are suspicious for angina. She does state that previous x-rays have demonstrated evidence of spinal stenosis she has an appointment with her PCP later this summer I will forward this information therefore their review. At this point I do not believe that there is any evidence to be concerned about ischemia. Her next appointment with me can be in 6 months REVIEW OF SYSTEMS General ROS: negative for [...] - joint pain, muscle pain or muscular weakness. Positive for intermittent thoracic back pain Dermatological ROS: negative for dry skin, eczema, pruritus and rash HOME MEDICATIONS (Not in a hospital admission) LABS AND OTHER DIAGNOSTIC TESTS Lab Results Component Value Date CHOL 144 10/28/2015 Lab Results Component Value Date HDL 49 10/28/2015 No results found for: LDLCALC Lab Results Component Value Date TRIG 152 (H) 10/28/2015 Lab Results Component Value Date CHOLHDL 2.9 10/28/2015 Lab Results Component Value Date HCT 41.0 10/28/2015 MCV 94.4 10/28/2015 No lab exists for component: LABALBU PHYSICAL EXAM Vitals: 01/16/17 1000 BP: 118/74 Pulse: 73 Resp: 16 Physical Examination: General appearance - alert, well [...] for this visit: Coronary artery disease involving [place] coronary artery of [place] heart without angina pectoris PLAN/RECOMMENDATIONS No change in current cardiac regimen Follow-up at 6 month intervals Carter Burciaga MD documented in this encounter Plan of Treatment Not on file documented as of this encounter Visit Diagnoses Diagnosis Coronary artery disease involving [place] coronary artery of [place] heart without angina pectoris- Primary documented in this encounter Care Teams Senior Genetic Counselor Relationship Specialty Start Date End Date Darrell Jackson MD [id number] [facility] [address] [facility] [address] [facility] [place] [id number] PCP - General 10/19/16 08/05/19 documented as of this encounter
--- OUTSIDE RECORDS SUMMARY | 2024-07-12 15:06 | XMS_ITS | Encounter Summary ---
Author Organization [facility] Address [address] [facility] [address] [place] [address] Care Team Providers Care Bid Writer Name Role Phone Ignacio Castro DO Primary Care Provider [phone] Reason for Visit * Reason Comments Follow-up 6 mo follow up on CA D Encounter Details Date Type Department Care Team (Late st Contact Info) Description 02/28/2021 1:45 PM CDT Office Visit [facility] Cardiology [address] [facility] [address] [place] [phone] Carter Burciaga MD [address] [facility] [address] [place], [place] [id number] Coronary artery disease involving [place] coronary artery of [place] heart without angina pectoris (Primary Dx); Status [...] on file Legal Sex Female 9:05 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 Gender Identity Not on file Sexual Orientation Not on file documented as of this encounter Last Filed Vital Signs Vital Sign Reading Time Taken Comments Blood Pressure 128/86 02/28/2021 2:07 PM CDT Pulse 73 02/28/2021 2:07 PM CDT Temperature - - Respiratory Rate - - Oxygen Saturation 97% 02/28/2021 2:07 PM CDT Inhaled Oxygen Concentration - - Weight 81.2 kg (179 lb) 02/28/2021 2:07 PM CDT Height 167.6 cm (5' 6 ) 02/28/2021 2:07 PM CDT Body Mass Index 28.89 02/28/2021 2:07 PM CDT documented in this encounter Ordered Prescriptions Prescription Sig Dispense Quantity Refills Last Filled Start Date End Date atorvastatin (LIPITOR) 10 mg tablet Take 1 tablet (10 mg total) by mouth daily 90 tablet 3 02/28/2021 documented in this encounter Progress Notes * Carter Burciaga MD - 02/28/2021 1:45 PM CDT [facility] 02/28/2021 Beatrice Calero is a 71 y.o. female who presents for follow up of coronary artery disease. This is a patient with a history of coronary disease who presented with ischemic symptomatology and received stenting to the circumflex marginal branch in July of 2014 and has done well since then. She returns today to the office for scheduled six-month appointment. The patient does not have any symptoms that suggest myocardial ischemia. She wanted to talk for a while about chronic back pain that she is experiencing that appears to be the result of spinal stenosis. She then also wanted to askquestions about some chronic diarrhea that she is having because she read that this could be a side effect of her Lipitor. I told her that this would be a very uncommon side effect of this medicationbut to assess this further she should interrupt medication for 3 or 4 weeks and see what happens with her diarrhea REVIEW OF SYSTEMS General ROS: negative for [...] DAY, Disp: 90 tablet, Rfl: 1 ??? nitroglycerin (NITROSTAT) 0.4 mg SL tablet, [...] for component: LABALBU PHYSICAL EXAM Vitals BP 128/86 (BP Location: Left arm, Patient Position: Sitting) Pulse 73 Ht 167.6 cm (5' 6 ) Wt 81.2 kg (179 lb) SpO2 97% BMI 28.89 kg/m?? Physical Examination: General appearance - alert, [...] for this visit: Coronary artery disease involving [place] coronary artery of [place] heart without angina pectoris Status post insertion of drug eluting coronary artery stent Other orders - atorvastatin (LIPITOR) 10 mg tablet; Take 1 tablet (10 mg total) by mouth daily PLAN/RECOMMENDATIONS Advised the patient to interrupt her Lipitor for several weeks to see if her diarrhea is potentially associated with this medication If she has a resolution of her diarrhea and which is me to prescribe an alternative statin she can call us for that or see her PCP Continue to see her at 6 month intervals or of course p.r.n. Carter Burciaga MD documented in this encounter Miscellaneous Notes * Addendum Note - Adriana Hernandez MA - 02/28/2021 1:45 PM CDTAddended by: ADRIANA HERNANDEZ on: 02/28/2021 04:29 PM Modules accepted: Orders documented in this encounter Plan of Treatment Not on file documented as of this encounter Procedures Procedure Name Priority Date/Time Associated Diagnosis Comments POCT LIPID PANEL Routine 02/28/2021 4:29 PM CDT Coronary artery disease involving [place] coronary artery of [place] heart without angina pectoris documented in this encounter Results * POCT lipid panel (02/28/2021 4:29 PM CDT) Cholesterol, POC 166 mg/dL HDL, POC 39 mg/dL Triglycerides, POC 190 mg/dL LDL Cholesterol POC 89 mg/dL Chol/HDL Ratio, POC 4.3 Non-HDL Cholesterol, POC 127 mg/dL Cholesterol Total, POC 166 mg/dL Capillary blood 02/28/2021 4 :29 PM CDT us Carter Burciaga MD POINT OF CARE TEST ORDER ANNIE Final Result documented in this encounter Visit Diagnoses Diagnosis Coronary artery disease involving [place] coronary artery of [place] heart without angina pectoris- Primary Status post insertion of drug eluting coronary artery stent documented in this encounter Discontinued Medications Medication Sig Discontinue Reason Start Date End Da te atorvastatin (LIPITOR) 10 mg tablet TAKE 1 TABLET BY MOUTH EVERY DAY Reorder 08/13/2019 02/28/2021 documented as of this encounter Care Teams Bid Writer Relationship Specialty Start Date End Date Ignacio Castro DO PCP - General Internal Medicine 08/06/19 09/19/21 documented as of this encounter
--- OUTSIDE RECORDS SUMMARY | 2024-07-12 15:06 | XMS_ITS | Encounter Summary ---
Author Organization [facility] Address [address] [facility] [address] [place] [address] Care Team Providers Care Firer Helper Name Role Phone Ignacio Castro DO Primary Care Provider [phone] Reason for Visit * Reason Comments Follow-up 6 mo fu cad, h/o claire nt Encounter Details Date Type Department Care Team (Late st Contact Info) Description 08/06/2019 1:45 PM GRITTING MACHINE OPERATOR Office Visit [facility] Cardiology [address] [facility] [address] [place] [phone] Carter Burciaga MD [address] [facility] [address] [place], [place] [phone] Coronary artery disease involving [place] coronary artery of [place] heart without angina pectoris (Primary Dx); Status [...] on file Legal Sex Female 9:05 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 Gender Identity Not on file Sexual Orientation Not on file documented as of this encounter Last Filed Vital Signs Vital Sign Reading Time Taken Comments Blood Pressure 116/74 08/06/2019 1:49 PM GRITTING MACHINE OPERATOR Pulse 71 08/06/2019 1:49 PM GRITTING MACHINE OPERATOR Temperature - - Respiratory Rate - - Oxygen Saturation 96% 08/06/2019 1:49 PM GRITTING MACHINE OPERATOR Inhaled Oxygen Concentration - - Weight 81.6 kg (180 lb) 08/06/2019 1:49 PM GRITTING MACHINE OPERATOR Height 167.6 cm (5' 6 ) 08/06/2019 1:49 PM GRITTING MACHINE OPERATOR Body Mass Index 29.05 08/06/2019 1:49 PM GRITTING MACHINE OPERATOR documented in this encounter Progress Notes * Carter Burciaga MD - 08/06/2019 1:45 PM CST [facility] 08/06/2019 Beatrice Calero is a 69 y.o. female who presents for follow up of coronary artery disease. This is a patient with a history of coronary disease who presented with ischemic symptomatology and received stenting to the circumflex marginal branch in July of 2014 and has done well since then. She presents today for scheduled follow-up. She doesn't describe any symptoms that sound like ischemia. She does have chronic thoracic and lumbar back pain with if she twists in a certain position which has been diagnosed to spinal stenosis. 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 She does not believe her back pain is any resemblance to her previouscardiac symptoms. Her intervention as described above was done about 5 years ago now REVIEW OF SYSTEMS General ROS: negative for [...] ,Rfl: ??? atorvastatin (LIPITOR) 10 mg tablet, TAKE 1 TABLET BY MOUTH EVERY DAY, Disp: 90 tablet, Rfl: 2 ??? beclomethasone (QVAR) 40 mcg/actuation inhaler, Inhale 2 puffs 2 (two) times a day. Rinse mouthwith water after use to reduce aftertaste and incidence of candidiasis. Do not swallow., Disp: , Rfl: ??? cholestyramine (QUESTRAN) 4 gram powder, Take 1 packet (4 g total) by mouth 3 (three) times a day with meals, Disp: 90 packet, Rfl: 3 ??? clopidogrel (PLAVIX) 75 mg [...] for component: LABALBU PHYSICAL EXAM Vitals BP 116/74 (BP Location: Right arm, Patient Position: Sitting) Pulse 71 Ht 167.6 cm (5' 6 ) Wt 81.6 kg (180 lb) SpO2 96% BMI 29.05 kg/m?? Physical Examination: General appearance - alert, [...] for this visit: Coronary artery disease involving [place] coronary artery of [place] heart without angina pectoris Status post insertion of drug eluting coronary artery stent PLAN/RECOMMENDATIONS No change in medical regimen Continue to see her at 6 month intervals or of course p.r.teri. Carter Burciaga MD TING MACHINE OPERATOR documented in this encounter Plan of Treatment Not on file documented as of this encounter Visit Diagnoses Diagnosis Coronary artery disease involving [place] coronary artery of [place] heart without angina pectoris- Primary Status post insertion of drug eluting coronary artery stent documented in this encounter Care Teams Firer Helper Relationship Specialty Start Date End Date Ignacio Castro DO PCP - General Internal Medicine 08/06/19 09/19/21 documented as of this encounter
--- OUTSIDE RECORDS SUMMARY | 2024-07-12 15:06 | XMS_ITS | Encounter Summary ---
Author Organization [facility] Address [address] [facility] [address] [place] [address] Care Team Providers Care Software Test Technician Name Role Phone Ignacio Castro DO Primary Care Provider [phone] Reason for Visit * Reason Comments Follow-up 6 mo f/u CAD Encounter Details Date Type Department Care Team (Late st Contact Info) Description 02/16/2020 1:30 PM CDT Office Visit [facility] Cardiology [address] [facility] [address] [place] [address] Carter Burciaga MD [address] [facility] 102 [place] [address] Coronary artery disease involving [place] coronary artery of [place] heart without angina pectoris (Primary Dx); Coronary artery disease involving [place] coronary artery; Status post insertion of drug eluting coronary artery stent Social History Tobacco Use Types Packs/Day Years Used Date Smoking Tobacco: Former Smokeless Tobacco: Never Alcohol Use Standard Drinks/Week Comments No 0 (1 standard drink = 0.6 oz pur e alcohol) Comments Unknown Sex and Gender Information Value Date Recorded Sex Assigned at Not on file Legal Sex Female 9:05 AM PRESS SETTER Gender Identity Not on file Sexual Orientation Not on file documented as of this encounter Last Filed Vital Signs Vital Sign Reading Time Taken Comments Blood Pressure 100/62 02/16/2020 1:36 PM CDT Pulse 78 02/16/2020 1:36 PM CDT Temperature - - Respiratory Rate 12 02/16/2020 1:36 PM CDT Oxygen Saturation 97% 02/16/2020 1:36 PM CDT Inhaled Oxygen Concentration - - Weight 81.2 kg (179 lb) 02/16/2020 1:36 PM CDT Height 167.6 cm (5' 6 ) 02/16/2020 1:36 PM CDT Body Mass Index 28.89 02/16/2020 1:36 PM CDT documented in this encounter Progress Notes * Carter Burciaga MD - 02/16/2020 1:30 PM CDT [facility] 02/16/2020 Beatrice Calero is a 70 y.o. female who presents for follow up of coronary artery disease. This is a patient with a history of coronary disease who presented with ischemic symptomatology and received stenting to the circumflex marginal branch in July of 2014 and has done well since then. She presents today for scheduled follow-up. The patient does not describe any ischemic symptomatology. 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 REVIEW OF SYSTEMS General ROS: negative for [...] MOUTH EVERY DAY, Disp: 90 tablet, Rfl: 3 ??? cholestyramine (QUESTRAN) 4 gram powder, Take [...] for component: LABALBU PHYSICAL EXAM Vitals BP 100/62 (BP Location: Right arm, Patient Position: Sitting) Pulse 78 Resp 12 Ht 167.6 cm (5' 6 ) Wt [...] for this visit: Coronary artery disease involving [place] coronary artery of [place] heart without angina pectoris - POCT lipid panel Coronary artery disease involving [place] coronary artery Status post insertion of drug eluting coronary artery stent PLAN/RECOMMENDATIONS No change in medical regimen Continue to see her at 6 month intervals or of course p.r.n. Carter Burciaga MD documented in this encounter Plan of Treatment Not on file documented as of this encounter Procedures Procedure Name Priority Date/Time Associated Diagnosis Comments POCT LIPID PANEL Routine 02/16/2020 2:33 PM CDT Coronary artery disease involving [place] coronary artery of [place] heart without angina pectoris documented in this encounter Results * POCT lipid panel (02/16/2020 2:33 PM CDT) Cholesterol, POC 151 mg/dL HDL, POC 41 mg/dL Triglycerides, POC 189 mg/dL LDL Cholesterol POC 73 mg/dL Chol/HDL Ratio, POC 3.7 Non-HDL Cholesterol, POC 110 mg/dL Capillary blood 02/16/2020 2 :33 PM CDT us Carter Burciaga MD POINT OF CARE TEST ORDER ANNIE Final Result documented in this encounter Visit Diagnoses Diagnosis Coronary artery disease involving [place] coronary artery of [place] heart without angina pectoris- Primary Status post insertion of drug eluting coronary artery stent documented in this encounter Discontinued Medications Medication Sig Discontinue Reason Start Date End Da te beclomethasone (QVAR) 40 mcg/actuation inhaler Inhale 2 puffs 2 (two) times a day. Rinse mouth with water after use to reduce aftertaste and incidence of candidiasis. Do not swallow. 02/16/2020 documented as of this encounter Historical Medications * This list may reflect changes made after this encounter. Incruse Ellipta 62.5 mcg/actuation blister with device TAKE 1 INHALATION DAILY 11/11/2019 added in this encounter Care Teams Software Test Technician Relationship Specialty Start Date End Date Ignacio Castro DO PCP - General Internal Medicine 08/06/19 09/19/21 documented as of this encounter
--- OUTSIDE RECORDS SUMMARY | 2024-07-12 15:06 | XMS_ITS | Encounter Summary ---
Author Organization [facility] Address [address] [facility] [address] [place] [address] Care Team Providers Care Gas Well Pumper Name Role Phone Ignacio Castro DO Primary Care Provider [phone] Reason for Visit * Reason Comments Follow-up 6 mo follow up on CA D Encounter Details Date Type Department Care Team (Late st Contact Info) Description 08/23/2020 1:45 PM FLOWER BUNCHER OR PICKER Office Visit [facility] Cardiology [address] [facility] [address] [place] [phone] Carter Burciaga MD [address] [facility] [address] [place] [address] Coronary artery disease involving [place] coronary artery (Primary Dx); Status post insertion of drug eluting coronary artery stent Social History Tobacco Use Types Packs/Day Years Used Date Smoking Tobacco: Former Smokeless Tobacco: Never Alcohol Use Standard Drinks/Week Comments No 0 (1 standard drink = 0.6 oz pur e alcohol) Comments Unknown Sex and Gender Information Value Date Recorded Sex Assigned at Not on file Legal Sex Female 9:05 AM FLOWER BUNCHER OR PICKER Gender Identity Not on file Sexual Orientation Not on file documented as of this encounter Last Filed Vital Signs Vital Sign Reading Time Taken Comments Blood Pressure 110/62 08/23/2020 2:04 PM FLOWER BUNCHER OR PICKER Pulse 91 08/23/2020 2:04 PM FLOWER BUNCHER OR PICKER Temperature - - Respiratory Rate - - Oxygen Saturation 96% 08/23/2020 2:04 PM FLOWER BUNCHER OR PICKER Inhaled Oxygen Concentration - - Weight 83.5 kg (184 lb) 08/23/2020 2:04 PM FLOWER BUNCHER OR PICKER Height 167.6 cm (5' 6 ) 08/23/2020 2:04 PM FLOWER BUNCHER OR PICKER Body Mass Index 29.7 08/23/2020 2:04 PM FLOWER BUNCHER OR PICKER documented in this encounter Progress Notes * Carter Burciaga MD - 08/23/2020 1:45 PM CST [facility] 08/23/2020 Beatrice Calero is a 70 y.o. female who presents for follow up of coronary artery disease. This is a patient with a history of coronary disease who presented with ischemic symptomatology and received stenting to the circumflex marginal branch in July of 2014 and has done well since then. She presents today for scheduled follow-up she is not having any symptoms compatible with or concerning for myocardial ischemia. She has some occasional back pain that is related to spinal stenosis. She also has dealing with intermittent problems with anxiety and depression and trying to minimize her use of anxiolytics medication. REVIEW OF SYSTEMS General ROS: negative for [...] for component: LABALBU PHYSICAL EXAM Vitals BP 110/62 (BP Location: Left arm, Patient Position: Sitting) Pulse 91 Ht 167.6 cm (5' 6 ) Wt 83.5 kg (184 lb) SpO2 96% BMI 29.70 kg/m?? Physical Examination: General appearance - alert, [...] for this visit: Coronary artery disease involving [place] coronary artery Status post insertion of drug eluting coronary artery stent PLAN/RECOMMENDATIONS No change in medical regimen Continue to see her at 6 month intervals or of course p.r.n. Carter Burciaga MD ER BUNCHER OR PICKER documented in this encounter Plan of Treatment Not on file documented as of this encounter Visit Diagnoses Diagnosis Coronary artery disease involving [place] coronary artery- Primary Status post insertion of drug eluting coronary artery stent documented in this encounter Care Teams Gas Well Pumper Relationship Specialty Start Date End Date Ignacio Castro DO PCP - General Internal Medicine 08/06/19 09/19/21 documented as of this encounter
--- OUTSIDE RECORDS SUMMARY | 2024-07-12 15:06 | XMS_ITS | Encounter Summary ---
Author Organization [facility] Address [address] [facility] [address] [place] [address] Care Team Providers Care Bar Machine Operator Name Role Phone Ignacio Castro DO Primary Care Provider Encounter Details Date Type Department Care Team (Late st Contact Info) Description 04/20/2021 Orders Only [facility] Cardiology [address] [facility] [address] [place] [address] Danita Qiu MD [address] [address] Social History Tobacco Use Types Packs/Day Years Used Date Smoking Tobacco: Former Smokeless Tobacco: Never Alcohol Use Standard Drinks/Week Comments No 0 (1 standard drink = 0.6 oz pur e alcohol) Comments Unknown Sex and Gender Information Value Date Recorded Sex Assigned at Not on file 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 Gender Identity Not on file Sexual Orientation Not on file documented as of this encounter Plan of Treatment Not on file documented as of this encounter Procedures Procedure Name Priority Date/Time Associated Diagnosis Comments CARDIOLOGY DOCUMENT SCAN Routine 04/20/2021 documented in this encounter Results * SCAN - CARDIOLOGY (04/20/2021) Anatomical Region Laterality Modality Other Danita Qiu MD CV CARDIAC SERVICES PROCEDURES Final Result documented in this encounter Visit Diagnoses Not on filedocumented in this encounter Care Teams Bar Machine Operator Relationship Specialty Start Date End Date Ignacio Castro DO PCP - General Internal Medicine 08/06/19 09/19/21 documented as of this encounter
--- OUTSIDE RECORDS SUMMARY | 2024-07-12 15:06 | XMS_ITS | Encounter Summary ---
Author Organization [facility] Medical [facility] Address [address] [facility] [address] [place] [address] Care Team Providers Care Process Area Supervisor Name Role Phone Darrell Jackson MD Primary Care Provider [phone] Reason for Visit * Reason Comments Follow-up 6 mo fu on cad Encounter Details Date Type Department Care Team (Late st Contact Info) Description 02/03/2019 1:45 PM CDT Office Visit [facility] [address] [facility] [address] [address] Carter Burciaga MD [address] [address] Status post insertion of drug eluting coronary artery stent (Primary Dx); Coronary artery disease involving sitka coronary artery of sitka heart without angina pectoris Social History Tobacco Use Types Packs/Day Years Used Date Smoking Tobacco: Former Smokeless Tobacco: Never Alcohol Use Standard Drinks/Week Comments No 0 (1 standard drink = 0.6 oz pur e alcohol) Comments Unknown Sex and Gender Information Value Date Recorded Sex Assigned at Not on file Legal Sex Female 9:05 AM SENIOR C SOFTWARE DEVELOPER Gender Identity Not on file Sexual Orientation Not on file documented as of this encounter Last Filed Vital Signs Vital Sign Reading Time Taken Comments Blood Pressure 112/70 02/03/2019 2:03 PM CDT Pulse 75 02/03/2019 2:03 PM CDT Temperature - - Respiratory Rate - - Oxygen Saturation 96% 02/03/2019 2:03 PM CDT Inhaled Oxygen Concentration - - Weight 84.8 kg (187 lb) 02/03/2019 2:03 PM CDT Height 167.6 cm (5' 6 ) 02/03/2019 2:03 PM CDT Body Mass Index 30.18 02/03/2019 2:03 PM CDT documented in this encounter Ordered Prescriptions Prescription Sig Dispense Quantity Refills Last Filled Start Date End Date cholestyramine (QUESTRAN) 4 gram powder Take 1 packet (4 g total) by mouth 3 (three) times a day with meals 90 packet 3 02/03/2019 10/13/2019 documented in this encounter Progress Notes * Carter Burciaga MD - 02/03/2019 1:45 PM CDT [facility] FOLLOW UP 02/03/2019 Beatrice Calero is a 68 y.o. female who presents for follow up of coronary artery disease. This is a patient with a history of coronary disease who presented with ischemic symptomatology and received stenting to the circumflex marginal branch in July of 2014 and has done well since then. She presents today for scheduled follow-up. The patient is not having any cardiovascular complaintsshe wanted to talk to me a for quite a long time about frustration she has having to find a new PCPbecause of Dr. Jackson leaving his previous practice. The patient is not sure she wants to see the physician that his been recommended. She also wanted to talk to me for a long time about diarrhea that she has had since her gallbladder was removed 12 years ago and wanted to know if I will prescribe some cholestyramine for that because she would have has done some reading that it is sometimes beneficial for this. She not having any ischemic chest pain. REVIEW OF SYSTEMS General ROS: [...] coronary artery stent Coronary artery disease involving sitka coronary artery of sitka heart without angina pectoris PLAN/RECOMMENDATIONS Will send a prescription in for cholestyramine for the patient to try to see if this benefits her chronic diarrhea Continue to see her at 6 month intervals or of course p.r.n. Pratik. Fleissner, MD documented in this encounter Plan of Treatment Not on file documented as of this encounter Visit Diagnoses Diagnosis Status post insertion of drug eluting coronary artery stent- Primary Coronary artery disease involving sitka coronary artery of sitka heart without angina pectoris documented in this encounter Historical Medications * This list may reflect changes made after this encounter. ALPRAZolam (XANAX) 0.25 mg tablet Take 1 tablet (0.25 mg total) by mouth nightly as needed for anxiety added in this encounter Care Teams Process Area Supervisor Relationship Specialty Start Date End Date Darrell Jackson MD [address] [facility] [address] [facility] [address] [place] [address] PCP - General 10/19/16 08/05/19 documented as of this encounter
--- OUTSIDE RECORDS SUMMARY | 2024-07-12 15:06 | XMS_ITS | Encounter Summary ---
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
--- OUTSIDE RECORDS SUMMARY | 2024-07-12 15:06 | XMS_ITS | Encounter Summary ---
Author Organization [facility] Medical [facility] Address [address] [facility] [address] [place] [address] Care Team Providers Care Shorthand Reporter Name Role Phone Darrell Jackson MD Primary Care Provider [phone] Reason for Visit * Reason Comments Follow-up 6 mo follow up on CA D Encounter Details Date Type Department Care Team (Late st Contact Info) Description 07/25/2017 1:00 PM BENDING MACHINE SET UP OPERATOR Office Visit [facility] [address] [facility] [address] [address] Carter Burciaga MD [address] [address] Status post insertion of drug eluting coronary artery stent (Primary Dx); Coronary artery disease involving ak chin coronary artery of ak chin heart without angina pectoris Social History Tobacco Use Types Packs/Day Years Used Date Smoking Tobacco: Former Smokeless Tobacco: Never Alcohol Use Standard Drinks/Week Comments No 0 (1 standard drink = 0.6 oz pur e alcohol) Comments Unknown Sex and Gender Information Value Date Recorded Sex Assigned at Not on file Legal Sex Female 9:05 AM BENDING MACHINE SET UP OPERATOR Gender Identity Not on file Sexual Orientation Not on file documented as of this encounter Last Filed Vital Signs Vital Sign Reading Time Taken Comments Blood Pressure 114/68 07/25/2017 1:22 PM BENDING MACHINE SET UP OPERATOR Pulse 81 07/25/2017 1:22 PM BENDING MACHINE SET UP OPERATOR Temperature - - Respiratory Rate - - Oxygen Saturation 95% 07/25/2017 1:22 PM BENDING MACHINE SET UP OPERATOR Inhaled Oxygen Concentration - - Weight 85.3 kg (188 lb) 07/25/2017 1:22 PM BENDING MACHINE SET UP OPERATOR Height 167.6 cm (5' 6 ) 07/25/2017 1:22 PM BENDING MACHINE SET UP OPERATOR Body Mass Index 30.34 07/25/2017 1:22 PM BENDING MACHINE SET UP OPERATOR documented in this encounter Progress Notes * Carter Burciaga MD - 07/25/2017 1:00 PM CST [facility] 07/25/2017 Beatrice Calero is a 67 y.o. female who presents for follow up of coronary artery disease. This is a patient with a history of coronary disease who presented with ischemic symptomatology and received stenting to the circumflex marginal branch in July of 2014 and has done well since then. She presents today for scheduled follow-up. She is doing very well and does not describe any cardiovascular symptoms at all. Her lipids were checked in the office and they are at goal. She has had nosignificant health problems or hospitalizations in the last year. REVIEW OF SYSTEMS General ROS: negative for [...] inhalation route every4 - 6 hours as needed (Patient not taking: Reported on 12/27/2016 ), Disp: 0 Inhaler, Rfl: 0 ??? ALPRAZolam (XANAX) 0.25 mg tablet, take 1 tablet by oral route 2 times every day as neede (Patient not taking: Reported on 12/27/2016 ), Disp: 0, Rfl: 0 ??? aspirin (ASPIR-81) 81 mg tablet, take 1 Tablet by oral route every day, Disp: 0, Rfl: 0 ??? clopidogrel (PLAVIX) 75 mg tablet, TAKE 1 TABLET BY MOUTH DAILY, Disp: 90 tablet, Rfl: 2 ??? losartan-hydroCHLOROthiazide (HYZAAR) 50-12.5 mg per tablet, take 1 tablet by oral route every day (Patient not taking: Reported on 12/27/2016 ), Disp: 0, Rfl: 0 ??? metoprolol XL (TOPROL-XL) 50 mg 24 hr tablet, Take 1 tablet (50 mg total) by mouth daily., Disp: 30 tablet, Rfl: 0 ??? montelukast (SINGULAIR) 10 mg tablet, take 1 tablet by oral route every day in the evening (Patient not taking: Reported on 12/27/2016 ), Disp: 0, Rfl: 0 ??? nitroglycerin (NITROSTAT) 0.4 mg SL tablet, place 1 tablet by sublingual route at the 1st sign of attack; may repeat every 5 min until relief; if pain persists after 3 tablets in 15 min, prompt medical attention is recommended, Disp: 0, Rfl: 0 ??? omeprazole (PriLOSEC) 20 mg capsule, take 1 capsule by oral route every day before a meal, Disp: 0, Rfl: 0 ??? rosuvastatin (CRESTOR) 5 mg tablet, TAKE 1 TABLET BY MOUTH EVERY DAY, Disp: 30 tablet, Rfl: 5 ??? SITagliptin (JANUVIA) 100 mg tablet, take [...] LABALBU PHYSICAL EXAM There were no vitals filed for this visit. Physical Examination: General appearance [...] coronary artery stent Coronary artery disease involving ak chin coronary artery of ak chin heart without angina pectoris PLAN/RECOMMENDATIONS Continue current medical regimen as she is doing very well Continue follow-up at 6 month intervals. Carter Burciaga MD documented in this encounter Plan of Treatment Not on file documented as of this encounter Procedures Procedure Name Priority Date/Time Associated Diagnosis Comments POCT LIPID PANEL Routine 07/25/2017 1:40 PM BENDING MACHINE SET UP OPERATOR Coronary artery disease involving ak chin coronary artery of ak chin heart without angina pectoris documented in this encounter Results * POCT lipid panel (07/25/2017 1:40 PM BENDING MACHINE SET UP OPERATOR) Cholesterol, POC 165 mg/dL HDL, POC 66 mg/dL Triglycerides, POC 159 mg/dL LDL Cholesterol POC 67 mg/dL Chol/HDL Ratio, POC 2.5 Non-HDL Cholesterol, POC 99 mg/dL Cholesterol Total, POC 165 mg/dL Blood specimen (specimen) 07/25/2017 1:40 PM BENDING MACHINE SET UP OPERATOR us Carter Burciaga MD POINT OF CARE TEST ORDER ANNIE Final Result documented in this encounter Visit Diagnoses Diagnosis Status post insertion of drug eluting coronary artery stent- Primary Coronary artery disease involving ak chin coronary artery of ak chin heart without angina pectoris documented in this encounter Care Teams Shorthand Reporter Relationship Specialty Start Date End Date Darrell Jackson MD [address] [facility] [address] [facility] [address] [place] [address] PCP - General 10/19/16 08/05/19 documented as of this encounter
--- OUTSIDE RECORDS SUMMARY | 2024-07-12 15:06 | XMS_ITS | Encounter Summary ---
Author Organization [facility] Facility Care Team Providers Care Barrel Stave Inspector Name Role Phone Darrell Jackson MD Primary Care Provider [phone] Encounter Details Date Type Department Care Team (Latest Contact Info) Description 02/03/2019 Travel Social History Tobacco Use Types Packs/Day Years Used Date Smoking Tobacco: Former Smokeless Tobacco: Never Alcohol Use Standard Drinks/Week Comments No 0 (1 standard drink = 0.6 oz pur e alcohol) Comments Unknown Sex and Gender Information Value Date Recorded Sex Assigned at Not on file Legal Sex Female 9:05 AM SPECIAL LOAN OFFICER Gender Identity Not on file Sexual Orientation Not on file documented as of this encounter Plan of Treatment Not on file documented as of this encounter Visit Diagnoses Not on filedocumented in this encounter Care Teams Barrel Stave Inspector Relationship Specialty Start Date End Date Darrell Jackson MD [address] [facility] [address] [facility] [address] [place] [address] PCP - General 10/19/16 08/05/19 documented as of this encounter
--- OUTSIDE RECORDS SUMMARY | 2024-07-12 15:07 | XMS_ITS | Encounter Summary ---
Author Organization [facility] Medical Group Address [address] [facility] [address] [place] [address] Care Team Providers Care Coal Equipment Operator Name Role Phone Darrell Jackson MD Primary Care Provider [phone] Reason for Visit * Diagnostic Imaging (Routine) - Closed Specialty Diagnoses / Procedures Referred By Contac t Referred To Contact Diagnoses Chronic back pain, unspecified back location, unspecified back pain laterality Procedures NM MPI Spect (Rest And Stress) Multiple Studies Carter Burciaga MD Phone: tel: fax: Referral ID Status Reason Start Date Expiration Date Visits Re quested Visits Authorized [id number] Closed 12/27/2016 06/25/2017 1 1 Encounter Details Date Type Department Care Team (Latest Contact Info) Description 01/08/2017 8:45 AM CDT Ancillary Procedure [facility] Medical [facility] Cardiology [address] [place] [address] Chronic back pain, unspecified back location, unspecified back pain laterality Social History Tobacco Use Types Packs/Day Years Used Date Smoking Tobacco: Former Alcohol Use Standard Drinks/Week Comments No 0 (1 standard drink = 0.6 oz pur e alcohol) Comments Unknown Sex and Gender Information Value Date Recorded Sex Assigned at Not on file Legal Sex Female 9:05 AM SALES FORCE ADMINISTRATOR Gender Identity Not on file Sexual Orientation Not on file documented as of this encounter Plan of Treatment Not on file documented as of this encounter Procedures Procedure Name Priority Date/Time Associated Diagnosis Comments NM MPI SPECT (REST AND/OR STRESS) MULTIPLE STUDIES Schedule Routine, Read Routine (OP Routine) 01/08/2017 10:21 AM CDT Chronic back pain, unspecified back location, unspecified back pain laterality documented in this encounter Results * NM MPI Spect (Rest And Stress) Multiple Studies (01/08/2017 10:21 AM CDT) Anatomical Region Laterality Modality Body N/A Nuclear Medicine 01/08/2017 10:2 1 AM CDT Narrative 01/08/2017 4:13 PM CDT [facility] [address] [facility] [address], [place] [address] [facility] [address], [place] [address] P:[phone] P:[phone] MPI Imaging Report Patient Name: BEATRICE BURCIAGA A : [id number] Study Date: 01/08/2017 10:21:02 AM Gender: F Tech: LUNA Culver ?Location: [facility] ? Ref.Physician: CARTER BURCIAGA ?Height(Cm): 167.6 ? BSA: Weight(Kg): 86.2 BMI: 30.69Order Physician: CARTER BURCIAGA Physician: Referring Physician: Dr. Jackson. HCG Physician: Carter Burciaga M.D.,EnriqueCTheaC. Interpreting Physician: Carter Burciaga M.D.,To.CTheaCThea Stress Supervision: Carter Burciaga M.D.,Chelsey.A.CTheaC. Procedures: Myocardial perfusion imaging with Tc99M Sestamibi SPECT at rest and stress post regadenoson (Lexiscan) infusion. Indications: Coronary Artery Disease, Hypertension, and Back pain. Findings: Procedural Findings: One day rest/stress was used. Tc99m Sestamibi injected IV at rest was 10.4 millicuries. 30.0 millicuries of Tc99M Sestamibi injected IV during Lexiscan stress. Lexiscan 0.4mg administered IV over 10 seconds. Pharmacologic stress related symptoms and/or side effects during infusion include nausea and abdominal cramping. Symptoms were resolved with 100 mg of aminophylline IVP. Baseline heart rate was 67 BPM. Maximum Heart Rate Achieved was: 84 BPM. Baseline blood pressure was 134/90 mmHg. Post Stress Blood Pressure was 126/78 mmHg. Termination: Protocol complete. Resting ECG: Normal sinus rhythm. Post ECG: No diagnostic ST changes. Perfusion Findings: A TID of 0.87 was automatically calculated. defect 1: Size is small to moderate. Severity is mild to moderate in intensity. Location of defect is in the basal anterior segment and mid anterior segment. Reversibility is not present, defect is fixed. Type of defect is most likely attenuation artifact. LV Function: Global left ventricular function is normal. Left ventricular ejection fraction is 74 %. Conclusions: Normal sinus rhythm. No diagnostic ST changes. Size is small to moderate. Severity is mild to moderate in intensity. Location of defect is in the basal anterior segment and mid anterior segment. Reversibility is not present, defect is fixed. Type of defect is most likely attenuation artifact. Global left ventricular function is normal. Left ventricular ejection fraction is 74 %. Based on the results of this test, the patient`s symptoms do not appear to be due to myocardial ischemia. Electronically Signed By: Carter Burciaga MD, [facility] 2017-01-08 16:13:16 CDT Electronically Signed By: Carter Burciaga MD, [facility] 2017-01-08 16:13:17 CDT CC: CC: Procedure Note Carter Burciaga MD - 01/08/2017 [facility] [address] [facility] [address], [place] [address] [facility] [address], [place] [address] P:[phone] P:[phone] MPI Imaging Report Patient Name: BEATRICE BURCIAGA APatiedanielle ID: [id number] : [id number] Date: 01/08/2017 10:21:02 AM Gender: FAccession #: [id number] Tech: Daina Johnson [facility] Location: [facility] Ref.Physician: CARTER BURCIAGA Height(Cm): 167.6 BSA: Weight(Kg): 86.2 BMI: 30.69Order Physician: CARTER BURCIAGA Physician: Referring Physician: Dr. Jackson. HCG Physician: Carter Burciaga M.D.,Tu Interpreting Physician: Carter Burciaga M.D.,Tu Stress Supervision: Carter Burciaga M.D.,Tu Procedures: Myocardial perfusion imaging with Tc99M Sestamibi SPECT at rest and stresspost regadenoson (Lexiscan) infusion. Indications: Coronary Artery Disease, Hypertension, and Back pain. Findings: Procedural Findings: One day rest/stress was used. Tc99m Sestamibi injected IV at rest was 10.4millicuries. 30.0 millicuries of Tc99M Sestamibi injected IV during Lexiscan stress.Lexiscan 0.4mg administered IV over 10 seconds. Pharmacologic stress related symptomsand/or side effects during infusion include nausea and abdominal cramping. Symptomswere resolved with 100 mg of aminophylline IVP. Baseline heart rate was 67 BPM. MaximumHeart Rate Achieved was: 84 BPM. Baseline blood pressure was 134/90 mmHg. Post StressBlood Pressure was 126/78 mmHg. Termination: Protocol complete. Resting ECG: Normal sinus rhythm. Post ECG: No diagnostic ST changes. Perfusion Findings: A TID of 0.87 was automatically calculated. defect 1: Size is small to moderate. Severity is mild to moderate in intensity.Location of defect is in the basal anterior segment and mid anterior segment. Reversibilityis not present, defect is fixed. Type of defect is most likely attenuation artifact. LV Function: Global left ventricular function is normal. Left ventricular ejectionfraction is 74 %. Conclusions: Normal sinus rhythm. No diagnostic ST changes. Size is small to moderate. Severity is mild to moderate in intensity.Location of defect is in the basal anterior segment and mid anterior segment. Reversibilityis not present, defect is fixed. Type of defect is most likely attenuation artifact. Global left ventricular function is normal. Left ventricular ejectionfraction is 74 %. Based on the results of this test, the patient`s symptoms do not appear shania due to myocardial ischemia. Electronically Signed By: Carter Burciaga MD, [facility] 2017-01-08 16:13:16 CDT Electronically Signed By: Carter Burciaga MD, [facility] 2017-01-08 16:13:17 CDT CC: CC: Result [facility] Carter Burciaga MD IM NM PROCEDURES Final Result documented in this encounter Visit Diagnoses Diagnosis Chronic back pain, unspecified back location, unspecified back pain laterality documented in this encounter Administered Medications Inactive Administered Medications - up to 3 most recent administrations Medication Order MAR Action Action Date Dose Rate Site regadenoson (LEXISCAN) 0.4 mg/5 mL injection 0.4 mg 0.4 mg, intravenous, Once, On Sat01/08/17 at 1200, For 1 dose, Indications: Myocardial Perfusion Imaging AdjunctIndications:Myocard ial Perfusion Imaging Adjunct Given 01/08/2017 11:24 AM CDT 0.4 mg tc-99m sestamibi unit dose injection 10.4 millicurie 10.4 millicurie, intravenous, Once in imaging, radiopharmaceutical, Starting on Sat01/08/17 at 0910, For 1 dose, Indications: Diagnostic RadiographyIndications:Staci gnostic Radiography Given 01/08/2017 10:27 AM CDT 10.4 millicuries tc-99m sestamibi unit dose injection 30 millicurie 30 millicurie, intravenous, Once in imaging, radiopharmaceutical, Starting on Sat01/08/17 at 1040, For 1 dose, Indications: Diagnostic RadiographyIndications:Staci gnostic Radiography Given 01/08/2017 11:23 AM CDT 30 millicuries documented in this encounter Care Teams Coal Equipment Operator Relationship Specialty Start Date End Date Darrell Jackson MD [address] [facility] [address] [place] [address] [place] [address] PCP - General 10/19/16 08/05/19 documented as of this encounter
--- OUTSIDE RECORDS SUMMARY | 2024-07-12 15:07 | XMS_ITS | Encounter Summary ---
Author Organization [facility] Address [address] [facility] [address] [place] [address] Care Team Providers Care Trench Digging Machine Operator Name Role Phone Darrell Jackson MD Primary Care Provider [phone] Reason for Visit * Reason Comments Follow-up 6 mos, CAD Encounter Details Date Type Department Care Team (Late st Contact Info) Description 12/27/2016 11:15 AM CDT Office Visit [facility] [address] [facility] [address] [facility] [address] [place] [address] Carter Burciaga MD [address] [id number] Coronary artery disease involving [place] coronary artery of [place] heart without angina pectoris (Primary Dx) Social History Tobacco Use Types Packs/Day Years Used Date Smoking Tobacco: Former Alcohol Use Standard Drinks/Week Comments No 0 (1 standard drink = 0.6 oz pur e alcohol) Comments Unknown Sex and Gender Information Value Date Recorded Sex Assigned at Not on file Legal Sex Female 9:05 AM PROCESS SPECIALIST Gender Identity Not on file Sexual Orientation Not on file documented as of this encounter Last Filed Vital Signs Vital Sign Reading Time Taken Comments Blood Pressure 110/70 12/27/2016 11:30 AM CDT Pulse 70 12/27/2016 11:30 AM CDT Temperature - - Respiratory Rate 16 12/27/2016 11:30 AM CDT Oxygen Saturation - - Inhaled Oxygen Concentration - - Weight 86.2 kg (190 lb) 12/27/2016 11:30 AM CDT Height - - Body Mass Index 30.67 06/28/2016 10:59 AM PROCESS SPECIALIST documented in this encounter Progress Notes * Carter Burciaga MD - 12/27/2016 11:15 AM CDT [facility] FOLLOW UP 12/27/2016 Beatrice Calero is a 66 y.o. female who presents for follow up of coronary artery disease. The patient was 1st seen in July of 2014 during acute coronary syndrome and underwent stenting of the obtuse marginal circumflex branch with an Evera LO slough Ting stent with a good result. She presents today to the office for scheduled follow-up and for most of the time it sounded like she was doing very well. She that wanted to talk for a long time about intermittent thoracic back pain which isnot exertional in nature not typical of angina but she indicated that her ischemic pain was in the same location but much more severe. After this discussion we decided to go ahead and perform an ischemia evaluation with a Lexiscan nuclear stress test and I will see her in follow-up to discuss thesefindings. REVIEW OF SYSTEMS General ROS: negative for [...] hospital admission) LABS AND OTHER DIAGNOSTIC TESTS No results found for: CHOL No results found for: HDL No results found for: LDLCALC Lab Results Component Value Date TRIG 152 (H) 10/28/2015 No results found for: CHOLHDL Lab Results Component Value Date WBC 6.5 10/28/2015 HGB 13.6 10/28/2015 HCT 41.0 10/28/2015 MCV 94.4 10/28/2015 PLT 303 10/28/2015 No lab exists for component: LABALBU PHYSICAL EXAM Vitals: 12/27/16 1130 BP: 110/70 Pulse: 70 Resp: 16 Physical Examination: General appearance - [...] for this visit: Coronary artery disease involving [place] coronary artery of [place] heart without angina pectoris PLAN/RECOMMENDATIONS Schedule Lexiscan nuclear stress test for further evaluation of intermittent interscapular back pain to ensure that this is not a significant ischemia equivalent. Carter Burciaga MD documented in this encounter Miscellaneous Notes * Addendum Note - Tu Sarmiento MA - 12/27/2016 11:15 AM CDTAddended by: TU SARMIENTO on: 12/27/2016 12:22 PM Modules accepted: Orders documented in this encounter Plan of Treatment Not on file documented as of this encounter Procedures Procedure Name Priority Date/Time Associated Diagnosis Comments POCT LIPID PANEL Routine 12/27/2016 12:1 8 PM CDT Coronary artery disease involving [place] coronary artery of [place] heart without angina pectoris documented in this encounter Results * Lipid panel POC (performed in office) (12/27/2016 12:18 PM CDT) HDL, POC 56 mg/dL Triglycerides, POC 206 mg/dL LDL Cholesterol POC 57 mg/dL Chol/HDL Ratio, POC 2.8 Non-HDL Cholesterol, POC 98 mg/dL Cholesterol Total, POC 154 mg/dL Blood specimen (specimen) 12/27/2016 12:18 PM CDT Carter Burciaga MD POINT OF CARE TEST ORDER ANNIE Final Result documented in this encounter Visit Diagnoses Diagnosis Coronary artery disease involving [place] coronary artery of [place] heart without angina pectoris- Primary documented in this encounter Care Teams Trench Digging Machine Operator Relationship Specialty Start Date End Date Darrell Jackson MD [address] [place] [address] PCP - General 10/19/16 08/05/19 documented as of this encounter
--- OUTSIDE RECORDS SUMMARY | 2024-07-12 15:07 | XMS_ITS | Encounter Summary ---
Author Organization [facility] Facility Care Team Providers Care Relocation Director Name Role Phone Unavailable Primary Care Provider Unavailabl e Encounter Details Date Type Department Care Team (Late st Contact Info) Description 12/27/2011 9:21 AM CDT - 12/27/2011 4:00 PM CDT Hospital [facility] Cerebral aneurysm, nonruptured; Subarachnoid hemorrhage (CMS/HCC) (HCC) Social History Tobacco Use Types Packs/Day Years Used Date Smoking Tobacco: Never Assessed Comments Unknown Sex and Gender Information Value Date Recorded Sex Assigned at Not on file Legal Sex Female 9:05 AM MINERAL ECONOMIST Gender Identity Not on file Sexual Orientation Not on file documented as of this encounter Plan of Treatment Not on file documented as of this encounter Visit Diagnoses Diagnosis Cerebral aneurysm, nonruptured Subarachnoid hemorrhage (CMS/HCC) (HCC) Subarachnoid hemorrhage documented in this encounter
--- OUTSIDE RECORDS SUMMARY | 2024-07-12 15:07 | XMS_ITS | Encounter Summary ---
Author Organization [facility] Facility Care Team Providers Care Principal Statistical Scientist Name Role Phone Unavailable Primary Care Provider Unavailabl e Encounter Details Date Type Department Care Team (Late st Contact Info) Description 11/30/2010 7:46 PM CDT - 12/05/2010 1:11 PM CDT Hospital Encounter [facility] Cottrell Jr., MD [address] [facility] [address] [place] [address] Cerebral aneurysm, nonruptured; Paralytic strabismus, sixth or abducens nerve palsy; Mitral valve disorder; Asthma; Chronic bronchitis (HCC); Essential hypertension; Other depressive disorder; Anxiety state; Occlusion and stenosis of carotid artery; Diplopia; 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; Personal history of transient ischemic attack (TIA) and cerebral infarction without residual deficit; Examination of participant in clinical trial Social History Tobacco Use Types Packs/Day Years Used Date Smoking Tobacco: Never Assessed Comments Unknown Sex and Gender Information Value Date Recorded Sex Assigned at Not on file Legal Sex Female 9:05 AM LUMBER MARKER Gender Identity Not on file Sexual Orientation Not on file documented as of this encounter Plan of Treatment Not on file documented as of this encounter Visit Diagnoses Diagnosis Cerebral aneurysm, nonruptured Paralytic strabismus, sixth or abducens nerve palsy Mitral valve disorder Mitral valve disorders Asthma Unspecified asthma Chronic bronchitis (HCC) Unspecified chronic bronchitis Essential hypertension Unspecified essential hypertension Other depressive disorder Anxiety state Anxiety state, unspecified Occlusion and stenosis of carotid artery Diplopia 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
== END 2024-07-06 08:32 | disposition home or self-care (01) ==
PROVIDERS: PCP Nurse Practitioner Family; Visit Provider Nurse Practitioner Family
DX: J18.9 Pneumonia, unspecified organism (principal); R91.8 Other nonspecific abnormal finding of lung field
CPT/HCPCS: 71046

== ENCOUNTER 2024-07-18 12:51 | Emergency (ER) | payer MEDICARE, SELFPAY ==
--- NOTE | ~2024-07-18 | XR_ITS ---
XR chest 2V Ordering provider: Cristina Cortez APRN History: 74 years Female with . cough congestion recent pneumonia . Comparison: July 06, 2024 FINDINGS: MEDIASTINUM: The cardiac silhouette is not enlarged. LUNGS: No infiltrates, effusions or pneumothorax. Possible nodule in the right lower lobe. 3 months follow-up advised. Underlying emphysematous changes . OTHER: No free air under the diaphragm. Degenerative changes of the spine. IMPRESSION: No acute cardiopulmonary pathology. Possible nodule in the right lower lobe. 3 months follow-up advis ed. Reviewed, dictated and finalized at location A. [facility] NURSE SUPERVISOR IMPRESSION: No acute cardiopulmonary pathology. Possible nodule in the right lower lobe. 3 months follow-up advised.
[2024-07-18 13:12] VITALS: BP 127/63; PULSE 106; RESP 16; TEMP 36.1; O2SAT 93
[2024-07-18 14:04] LABS: Glucose Point of Care 152 mg/dl (65-105)
--- NOTE | 2024-07-18 14:23 | ED_ITS ---
HPI - URI/Sore Throat General Chief Complaint: Upper Respiratory Infection Stated Complaint: Sinus Time Seen by Provider: 07/18/24 14:23 Source: patient, RN notes reviewed and old records reviewed Mode of arrival: ambulatory Limitations: no limitations History of Present Illness HPI Narrative: Patient presents with multiple complaints today. She reports that she was recently treated for pneumonia, says that she feels as though she was getting better and is now worsening again. She reports she has continued productive cough, occasional wheezing, generalized tiredness. She also reports headache. She denies any fevers. Related Data Home Medications ?Medication ?Instructions ?Recorded ?Confirmed ?Last Taken ?Type metoprolol succinate 50 mg 50 mg PO HS 06/24/19 07/18/24 04/18/21 History tablet,extended release 24 hr Allergies Allergy/AdvReac Type Severity Reaction Status Date / Time Sulfa (Sulfonamide Allergy Mild HIVES Verified 07/18/24 14:11 Antibiotics) propoxyphene AdvReac Mild FLIPPED Verified 07/18/24 14:11 OUT codeine AdvReac Unknown PASSES OUT Verified 07/18/24 14:11 Review of Systems Review of Systems: All systems reviewed & are unremarkable except as noted in HPI and below Constitutional: Constitutional: Reports no additional constitutional complaints, Reports headache(s) and Reports lethargy ENT: Reports system reviewed and no additional complaints, except as documented Cardiovascular: Cardiovascular: Reports no additional cardiovascular complaint s Respiratory: Respiratory: Reports no additional respiratory complaints, Reports change in phlegm color, Reports chest congestion, Reports cough and Reports excessive phlegm production Gastrointestinal: Gastrointestinal: Reports no additional gastrointestinal complaints PMFSH Past Medical History Medical History Obstructive sleep apnea does not use CPAP getting fitted for mouth appliance Cerebrovascular accident Hyperlipidemia Myocardial infarction Gastroesophageal reflux disease Coronary artery disease Hemorrhoids Anxiety Peptic ulcer disease Kidney stone Asthma Mitral valve prolapse Brain aneurysm Migraine Depression Benign essential hypertension Chronic obstructive pulmonary disease, unspecified Postmenopausal disorder Type 2 diabetes mellitus without complication, without long-term current use of insulin Surgical History Surgical History Status post coil embolization of cerebral aneurysm History of left-sided carotid endarterectomy History of rectal surgery anal fistulotomy History of cholecystectomy History of tonsillectomy History of cardiac catheterization Family History Family History Mother Hypertension Cerebrovascular accident Family history of diabetes mellitus in first degree relative Family history of congestive heart failure Diabetes mellitus Family history of hypercholesterolemia CHF (congestive heart failure) Grandparent Cerebrovascular accident Family history of hepatitis Family history of malignant neoplasm Father Hypertension Acute myocardial infarction Social History Social History Social History: Surrogate medical decision maker: Sheldon Troncoso, son. Code status: Full code. Smoking packs per day: 1 Smoking cigarettes per day: 20.0 Years smoked: 39 Smoking pack-years: 39.00 Smoking status: Former smoker Second hand tobacco smoke exposure: Yes Smoking end date: 07/22/07 Additional smoking assessment comments: quit 2007 Alcohol intake: former Alcohol use details: quit 1998 Substance use: never Substance use type: does not use Do You Feel Safe in your Home?: Yes Lack of Transportation: No Lack of Food: Never True Current Housing: I Have Housing Concerned About Future Housing: No Difficulty Paying Gas/Electric Bills: No Difficulty Paying for Meds: No Currently Unemployed: No Education: Master's Degree or Higher Difficulty w/ Childcare or Family Care: No Living arrangements: with family Additional living arrangements comments: Single. Lives with son. 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 Spiritual care concerns: No Comments At the time of my signature, I reviewed and agree with the nursing past medical, surgical, social, and family history. There is no relevant family history pertinent to the patient complaint. Exam Const: General: cooperative, no acute distress, alert and awake Orientation/consciousness: oriented to person, oriented to place and oriented to time HENMT: Head: normal to inspection Mouth: Yes moist mucous membranes Throat: posterior oropharynx normal Resp: Effort & Inspection: normal respiratory effort and able to speak in complete sentences Auscultation: clear to auscultation bilaterally, no crackl es, no rales, no rhonchi and no wheezes Cardio: Palpation: normal PMI Rate: regular rate Rhythm: regular rhythm Heart sounds: S1 normal heart sound present and S2 normal heart sound present Neuro: General: oriented to person, oriented to place and oriented to time Cranial nerves: Yes CN's II-XII intact bilaterally Psych: Appearance: grossly normal Thought process: Normal thought process present Insight: Good insight present (Psych) Judgement: Good judgement present (Psych) Course Course Level of Care: Express Care Visit Vital Signs Vital signs: Vital Signs Temperature 97.0 F L 07/18/24 13:12 Pulse Rate 106 H 07/18/24 13:12 Respiratory Rate 16 07/18/24 13:12 Blood Pressure 127/63 07/18/24 13:12 Pulse Oximetry 93 07/18/24 13:12 Oxygen Delivery Room Air 07/18/24 13:12 Temperature 97.0 F L 07/18/24 13:12 Pulse Rate 106 H 07/18/24 13:12 Respiratory Rate 16 07/18/24 13:12 Blood Pressure 127/63 07/18/24 13:12 Pulse Oximetry 93 07/18/24 13:12 Oxygen Delivery Room Air 07/18/24 13:12 Reviewed MDM - URI/Sore Throat MDM Narrative Medical decision making narrative: Reassuring physical exam. Negative COVID, negative flu, chest x-ray without acute findings. Treat symptomatically, patient nontoxic appearing. Discharge instructions reviewed with patient, as well as provided in writing per nursing staff. The instructions also include specific and strict return/GO TO THE ER as well as f/u information. All questions have been answered, and the patient deny any further questions wi discharge and discharge plan. Some parts of this dictation were generated by voice recognition software and may contain typographical and/or grammatical inaccuracies. Differential Diagnosis Differential diagnosis: Likely upper respiratory infection, otitis media, sinusitis, viral infection, bronchitis and influenza Medical Records Attestation: I reviewed the patient's medical records. Lab Data Attestation: I reviewed the patient's lab results. Labs: Lab Results 07/18/24 Range/Units 14:02 POC Capillary Glucose 152 H (65-105) mg/dl Imaging Data My impression: no acute findings Radiologist's impression: [facility] [address] [place] [address] XRay Report Signed Patient: Beatrice Calero : 1950 MR#: [id number] Age: 74 Acct:[id number] Loc: [facility] ADM Date: 07/18/24Attending Dr: Ordering Physician: Cristina Cortez FNP Date of Service: 07/18/24 Procedure(s): XR chest 2V Accession Number(s): [id number] cc: Cristina Cortez FNP; Lia Downs APRN~ XR chest 2V Ordering provider: Cristina Cortez APRN History: 74 years Female with . cough congestion recent pneumonia . Comparison: July 06, 2024 FINDINGS: MEDIASTINUM: The cardiac silhouette is not enlarged. LUNGS: No infiltrates, effusions or pneumothorax. Possible nodule in the right lower lobe. 3 months follow-up advised. Underlying emphysematous changes. OTHER: No free air under the diaphragm. Degenerative changes of the spine. IMPRESSION: No acute cardiopulmonary pathology. Possible nodule in the right lower lobe. 3 months follow-up advised. Reviewed, dictated and finalized at location A. WORKER POWER SHOVEL Dictated By: Lexa Mercado MD 07/18/24 1450 Signed By: <Electronically signed by Lexa Mercado MD in OV> 07/18/24 1452 Discharge Plan Discharge Clinical Impression: Upper respiratory infection Qualifiers: URI type: unspecified viral URI Qualified Code(s): J06.9 - Acute upper respiratory infection, unspecified Patient Disposition: Home, Self-Care Condition: Stable Instructions: Antibiotic Form, Cold Symptoms (ED) Additional Instructions: Please follow-up with your primary care provider. Chest x-ray today does not show any pneumonia, but does show a possible nodule. It is recommended that you have follow-up imaging in 3 months. It is very important to discuss this with your primary care provider. Please go to the emergency department with any new or worse symptoms Patient Language: Tongan Prescriptions: No Action (DME) Aerochamber MV Spacer See Rx Instructions .Route Qty: 1 0RF Rx Instructions: As directed metoprolol succinate 50 mg tablet extended release 24 hr 50 mg PO HS Xiidra 5 % dropperette 1 drp EACH EYE Q12H Qty: 60 0RF albuterol sulfate 1.25 mg/3 mL solution for nebulization 1.25 mg inhalation Q4-6H PRN (Reason: shortness of breath or wheezing) Qty: 90 0RF Januvia 100 mg tablet 100 mg PO DAILY Qty: 90 1RF atorvastatin 40 mg tablet 40 mg PO HS Qty: 90 1RF albuterol sulfate 90 mcg/actuation HFA aerosol inhaler 2 puff inhalation QID PRN (Reason: shortness of breath or wheezing) Qty: 8.5 0RF albuterol sulfate 90 mcg/actuation HFA aerosol inhaler 2 puff inhalation QID PRN (Reason: shortness of breath or wheezing) Qty: 6.7 0RF alprazolam [Xanax] 0.25 mg tablet 0.25 mg PO BID PRN (Reason: Anxiety) Qty: 60 0RF (DME) blood-glucose meter [Accu-Chek Guide Glucose Meter] Misc See Rx Instructions .Route Qty: 1 0RF Rx Instructions: Check blood glucose 1xday As directed (DME) Accu-Chek Guide test strips Strip See Rx Instructions .Route Qty: 100 3RF Rx Instructions: Check blood glucose 1xday As directed (DME) lancets [Accu-Chek Softclix Lancets] Misc See Rx Instructions .Route Qty: 200 3RF Rx Instructions: Check blood glucose 1xday As directed (DME) lancing device with lancets Kit See Rx Instructions .Route Qty: 1 0RF Rx Instructions: check glucose daily As directed clopidogrel 75 mg tablet See Rx Instructions .ROUTE .COMPLEX Qty: 90 1RF Dose Instruction: TAKE 1 TABLET BY MOUTH EVERY DAY Rx Instructions: TAKE 1 TABLET BY MOUTH EVERY DAY pantoprazole 40 mg tablet,delayed release (DR/EC) See Rx Instructions .ROUTE .COMPLEX Qty: 180 1RF Dose Instruction: TAKE 1 TABLET BY MOUTH TWICE A DAY Rx Instructions: TAKE 1 TABLET BY MOUTH TWICE A DAY Follow-up/Referrals: Lia Downs APRN [Primary Care Provider] - 3 Days Time of Disposition: 15:16
[2024-07-18 16:13] LABS: EDCOVIDSCREEN Negative (Negative); EDINFLUASCREEN Negative (Negative); EDINFLUBSCREEN Negative (Negative)
== END 2024-07-18 15:24 | disposition home or self-care (01) ==
PROVIDERS: Emergency Provider Nurse Practitioner Family; PCP Nurse Practitioner Family
DX: J06.9 Acute upper respiratory infection, unspecified (principal); Z87.891 Personal history of nicotine dependence; I10 Essential (primary) hypertension; E11.9 Type 2 diabetes mellitus without complications; E78.5 Hyperlipidemia, unspecified; K21.9 Gastro-esophageal reflux disease without esophagitis; I25.10 Atherosclerotic heart disease of native coronary artery without angina pectoris; I34.1 Nonrheumatic mitral (valve) prolapse; G47.33 Obstructive sleep apnea (adult) (pediatric); I25.2 Old myocardial infarction; J44.9 Chronic obstructive pulmonary disease, unspecified
CPT/HCPCS: 71046; 82948; 87426; 87804; 99213; G0463

== ENCOUNTER 2024-07-22 02:04 | Emergency (ER) | payer MEDICARE, SELFPAY ==
[2024-07-22 02:15] VITALS: BP 168/83; PULSE 101; RESP 17; TEMP 36.3; O2SAT 98
[2024-07-22 02:39] LABS: Glucose Point of Care 303 mg/dl (65-105)
--- NOTE | 2024-07-22 04:57 | PC.NURSE ---
Pt ambulatory to triage desk asking for repeat BG check. BG now 195 mg/dL. Pt reports she would like to be taken off of the list and is going to call for a ride home. Pt educated on s/s that warrant a return visit. Pt to follow up w pcp.
[2024-07-22 05:01] LABS: Glucose Point of Care 195 mg/dl (65-105)
--- OUTSIDE RECORDS SUMMARY | 2024-07-29 02:01 | XMS_ITS | Encounter Summary ---
Author Organization [facility] Address Critical access hospital[address] [facility]. [place], [place] [address] [place] [address] Care Team Providers Care Offset Platemaker Name Role Phone Darrell Jackson MD Primary Care Provider [phone] Encounter Details Date Type Department Care Team (Late st Contact Info) Description 08/11/2001 [facility] [address] [facility] [place] [address] , Zachary Murguia MD Social History Tobacco [...] on filedocumented in this encounter Care Teams Offset Platemaker Relationship Specialty Start Date End Date Darrell Jackson MD PCP - General 04/17/16 documented as of this encounter
--- OUTSIDE RECORDS SUMMARY | 2024-07-29 02:01 | XMS_ITS | Encounter Summary ---
Author Organization [facility] Address [address] [place] [address] Care Team Providers Care Quality Control Inspector Heading Name Role Phone Ignacio Castro DO Primary Care Provider [phone] Encounter Details Date Type Department Care Team (Late st Contact Info) Description 10/17/2020 Orders Only [facility] - [facility] [address] [place] [address] Mark Rojo MD [address] [facility] [address] [place] [address] Need for vaccination Social History [...] disease documented in this encounter Care Teams Quality Control Inspector Heading Relationship Specialty Start Date End Date Ignacio Castro DO [address] [place] [address] PCP - General Internal Medicine 02/19/19 documented as of this encounter
--- OUTSIDE RECORDS SUMMARY | 2024-07-29 02:01 | XMS_ITS | Encounter Summary ---
Author Organization [place] Address [facility] [facility] [place], [place] [address] [place] [address] Care Team Providers Care Limousine Rental Clerk Name Role Phone Darrell Jackson MD Primary Care Provider [phone] Encounter Details Date Type Department Care Team (Late st Contact Info) Description 05/09/[address] [facility] [address] [place] [address] , Zachary Murguia MD Social History Tobacco [...] on filedocumented in this encounter Care Teams Limousine Rental Clerk Relationship Specialty Start Date End Date Darrell Jackson MD PCP - General 04/17/16 documented as of this encounter
--- OUTSIDE RECORDS SUMMARY | 2024-07-29 02:01 | XMS_ITS | Referral Summary ---
Author Organization [facility] Address [address] [facility] [place] [address] Care Team Providers Care Solutions Manager Name Role Phone Ignacio Castro DO Primary Care Provider [phone] Source Comments [facility] and Associated Physician Practices is amultiple site organization consisting of ambulatory clinics and hospital sitesin [place], [place], [place] and [place]. This disclosure is being madepursuant to the Care Everywhere program and may not contain all information available regarding this patient. Last updated 18.[facility] [employer] Allergies Active Allergy Reactions Criticality Noted Date Comments Codeine Unknown 02/19/2019 Sulfa Drugs Unknown 02/19/2019 Social History Tobacco Use Types Packs/Day Years Used Date Smoking Tobacco: Never Assessed Sex and Gender Information Value Date Recorded Sex Assigned at Not on file Gender Identity Not on file Sexual Orientation Not on file Plan of Treatment Not on file Administered Medications Care Teams Solutions Manager Relationship Specialty Start Date End Date Ignacio Castro DO [address] [place] [address] PCP - General Internal Medicine 02/19/19
--- OUTSIDE RECORDS SUMMARY | 2024-07-29 02:01 | XMS_ITS | Encounter Summary ---
Author Organization [facility] Address [facility] [facility] [place] [address] [place] [address] Care Team Providers Care Scanning Supervisor Name Role Phone Darrell Jackson MD Primary Care Provider [phone] Encounter Details Date Type Department Care Team (Late st Contact Info) Description 04/17/2016 Emergency [facility] [place] [address] Jaleesa Steinberg PA-C [address] [facility] [address] [place] [address] Social History Tobacco Use Types Packs/Day Years [...] nos documented in this encounter Care Teams Scanning Supervisor Relationship Specialty Start Date End Date Darrell Jackson MD PCP - General 04/17/16 documented as of this encounter
--- OUTSIDE RECORDS SUMMARY | 2024-07-29 02:01 | XMS_ITS | Encounter Summary ---
Author Organization [facility] Address [facility]6 [facility]. [place], [place] [address] [place] [address] Care Team Providers Care Senior Marketing Associate Name Role Phone Darrell Jackson MD Primary Care Provider [phone] Encounter Details Date Type Department Care Team (Late st Contact Info) Description 11/14/2007 Emergency [facility] [place] [address] , Zachary Murguia MD Social History Tobacco [...] on filedocumented in this encounter Care Teams Senior Marketing Associate Relationship Specialty Start Date End Date Darrell Jacskon MD PCP - General 04/17/16 documented as of this encounter
--- OUTSIDE RECORDS SUMMARY | 2024-07-29 02:01 | XMS_ITS | Encounter Summary ---
Author Organization [facility] Address [facility]6 [facility]. [place], [place] [address] [place] [address] Care Team Providers Care Lot Technician Name Role Phone Darrell Jackson MD Primary Care Provider [phone] Encounter Details Date Type Department Care Team (Late st Contact Info) Description 03/30/2001 Abstract [facility] [address] [facility] [place] [address] , Zachary Murguia MD Social History Tobacco [...] on filedocumented in this encounter Care Teams Lot Technician Relationship Specialty Start Date End Date Darrell Jackson MD PCP - General 04/17/16 documented as of this encounter
--- OUTSIDE RECORDS SUMMARY | 2024-07-29 02:01 | XMS_ITS | Encounter Summary ---
Author Organization [facility] Address [facility]6 [facility]. [place], [place] [address] [place] [address] Care Team Providers Care Reel Man Name Role Phone Darrell Jackson MD Primary Care Provider [phone] Encounter Details Date Type Department Care Team (Late st Contact Info) Description 06/07/[address] [facility] [address] [facility] [place] [address] , Zachary Murguia MD Social History Tobacco [...] on filedocumented in this encounter Care Teams Reel Man Relationship Specialty Start Date End Date Darrell Jackson MD PCP - General 04/17/16 documented as of this encounter
--- OUTSIDE RECORDS SUMMARY | 2024-07-29 02:01 | XMS_ITS | Encounter Summary ---
Author Organization [facility] Address [facility]6 [facility]. [place], [place] [address] [place] [address] Care Team Providers Care Elementary School Counselor Name Role Phone Darrell Jackson MD Primary Care Provider [phone] Encounter Details Date Type Department Care Team (Late st Contact Info) Description 02/19/2002 [facility] [address] [place] [address] Bob Garcia MD Social History Tobacco Use [...] on filedocumented in this encounter Care Teams Elementary School Counselor Relationship Specialty Start Date End Date Darrell Jackson MD PCP - General 04/17/16 documented as of this encounter
--- OUTSIDE RECORDS SUMMARY | 2024-07-29 02:01 | XMS_ITS | Encounter Summary ---
Author Organization [facility] Address [facility]6 [facility]. [place], [place] [address] [place] [address] Care Team Providers Care Press Clippings Cutter And Paster Name Role Phone Darrell Jackson MD Primary Care Provider [phone] Encounter Details Date Type Department Care Team (Late st Contact Info) Description 03/18/2005 Abstract [facility] [address] [place] [address] , Zachary Murguia MD Social History Tobacco [...] on filedocumented in this encounter Care Teams Press Clippings Cutter And Paster Relationship Specialty Start Date End Date Darrell Jackson MD PCP - General 04/17/16 documented as of this encounter
--- OUTSIDE RECORDS SUMMARY | 2024-07-29 02:01 | XMS_ITS | Clinical Summary ---
Author Organization [facility] Address [address] [place] [address]. [place] [id number] [place] [address] Care Team Providers Care Watershed Manager Name Role Phone Darrell Jackson MD Primary Care Provider [phone] Social History Tobacco Use Types Packs/Day Years [...] age to complete this topic Care Teams Watershed Manager Relationship Specialty Start Date End Date Darrell Jackson MD PCP - General 04/17/16
--- OUTSIDE RECORDS SUMMARY | 2024-07-29 02:01 | XMS_ITS | Encounter Summary ---
Author Organization [facility] Address [facility]6 [facility]. [place], [place] [address] [place] [address] Care Team Providers Care Hoop Flaring Machine Operator Name Role Phone Darrell Jackson MD Primary Care Provider [phone] Encounter Details Date Type Department Care Team (Late st Contact Info) Description 03/14/2004 Abstract [facility] [address] [place] [address] , Zachary Murguia MD Social History Tobacco [...] on filedocumented in this encounter Care Teams Hoop Flaring Machine Operator Relationship Specialty Start Date End Date Darrell Jackson MD PCP - General 04/17/16 documented as of this encounter
--- OUTSIDE RECORDS SUMMARY | 2024-07-29 02:01 | XMS_ITS | Encounter Summary ---
Author Organization [facility] Address [facility]6 [facility] [place] [address] [place] [address] Care Team Providers Care Vamp Cut Out Worker Name Role Phone Darrell Jackson MD Primary Care Provider [phone] Encounter Details Date Type Department Care Team (Late st Contact Info) Description 03/16/2005 Abstract [facility] [address] [facility] [place] [address] Nayeli Cruz MD [address] [place] [address] Social History Tobacco Use Types Packs/Day Years [...] on filedocumented in this encounter Care Teams Vamp Cut Out Worker Relationship Specialty Start Date End Date Darrell Jackson MD PCP - General 04/17/16 documented as of this encounter
--- OUTSIDE RECORDS SUMMARY | 2024-07-29 02:01 | XMS_ITS | Encounter Summary ---
Author Organization [facility] Address [facility]6 [facility]. [place] [address] [place] [address] Care Team Providers Care Welding Systems And Equipment Repairer Name Role Phone Darrell Jackson MD Primary Care Provider [phone] Encounter Details Date Type Department Care Team (Late st Contact Info) Description 03/10/1998 [place] [address] , Generic Conversion, Social History Tobacco Use [...] on filedocumented in this encounter Care Teams Welding Systems And Equipment Repairer Relationship Specialty Start Date End Date Darrell Jackson MD PCP - General 04/17/16 documented as of this encounter
--- OUTSIDE RECORDS SUMMARY | 2024-07-29 02:01 | XMS_ITS | Encounter Summary ---
Author Organization [facility] Address [facility]6 [facility]. [place], [place] [address] [place] [address] Care Team Providers Care Melter Supervisor Oxygen Furnace Name Role Phone Darrell Jackson MD Primary Care Provider [phone] Encounter Details Date Type Department Care Team (Late st Contact Info) Description 05/25/2017 [place] [address] , Generic Conversion, Social History Tobacco Use [...] on filedocumented in this encounter Care Teams Melter Supervisor Oxygen Furnace Relationship Specialty Start Date End Date Darrell Jackson MD PCP - General 04/17/16 documented as of this encounter
--- OUTSIDE RECORDS SUMMARY | 2024-07-29 02:01 | XMS_ITS | Clinical Summary ---
Author Organization [facility] [employer] Address [address] [facility] [place] [address] Care Team Providers Care Shell Grader Name Role Phone Ignacio Castro DO Primary Care Provider [phone] Source Comments [facility],non-owned Affiliates and Associated Physician Practices is amultiple site organization consisting of ambulatory clinics and hospital sitesin [place], [place], [place] and [place]. This disclosure is being madepursuant to the Care Everywhere program and may not contain all information available regarding this patient. Last updated 18.[facility] [employer] Allergies Active Allergy Reactions Criticality Noted Date [...] 65+ (1 of 1 - PCV) 2015 COVID-19 VACCINE (1 - 2023-2 5 season) 2024 INFLUENZA VACCINE (#1) 2024 DEPRESSION SCREENING 07/22/2024 Respiratory Syncytial Virus (RSV) Vaccine Pt: or [...] age to complete this topic Care Teams Shell Grader Relationship Specialty Start Date End Date Ignacio Castro DO [address] [place], [place] [address] PCP - General Internal Medicine 02/19/19
--- OUTSIDE RECORDS SUMMARY | 2024-07-29 02:01 | XMS_ITS | Encounter Summary ---
Author Organization [facility] Address [facility]6 [facility]. [place], [place] [address] [place] [address] Care Team Providers Care Fabric Worker Leader Name Role Phone Darrell Jackson MD Primary Care Provider [phone] Encounter Details Date Type Department Care Team (Late st Contact Info) Description 10/05/2005 Abstract [facility] [address] [facility] [place] [address] , Zachary Murguia MD Social History Tobacco [...] on filedocumented in this encounter Care Teams Fabric Worker Leader Relationship Specialty Start Date End Date Darrell Jackson MD PCP - General 04/17/16 documented as of this encounter
--- OUTSIDE RECORDS SUMMARY | 2024-07-29 02:01 | XMS_ITS | Encounter Summary ---
Author Organization [facility] Address [facility]6 [facility]. [place], [place] [address] [place] [address] Care Team Providers Care Multiple Drum Sander Helper Name Role Phone Darrell Jackson MD Primary Care Provider [phone] Encounter Details Date Type Department Care Team (Late st Contact Info) Description 11/25/1999 [facility] [address] [facility] [place] [address] , Zachary Murguia MD Social History Tobacco [...] on filedocumented in this encounter Care Teams Multiple Drum Sander Helper Relationship Specialty Start Date End Date Darrell Jackson MD PCP - General 04/17/16 documented as of this encounter
--- OUTSIDE RECORDS SUMMARY | 2024-07-29 02:01 | XMS_ITS | Encounter Summary ---
Author Organization [facility] Address [address] [place] [address] Care Team Providers Care Processing Supervisor Name Role Phone Ignacio Castro DO Primary Care Provider [phone] Reason for Visit * Reason Comments PPD Skin Test Placement Encounter Details Date Type Department Care Team (Late st Contact Info) Description 02/19/2019 5:00 PM CDT Office Visit [facility] [address] [place] [address] [address] Provider, [facility] PPD screening test (Primary Dx) Social History Tobacco Use Types Packs/Day Years Used Date Smoking Tobacco: Never Assessed Sex and Gender Information Value Date Recorded Sex Assigned at Not on file Gender Identity Not on file Sexual Orientation Not on file documented as of this encounter Patient Instructions * Patient Instructions* Newton Mccall APRN-HAM STRIPPER - 02/19/2019 5:10 PM CDT Images from [...] Where can I find more information? ?? [facility] National Prevention Information Network [address] [place] [address] Phone: [phone] Web Address: [email or web address] ?? World Health Organization Web Address: www.who.int [...] treatment. The above information is an educational coordinator only. It is not intended as medical advice for individual conditions or treatments. Talk to your doctor, nurse or pharmacist before following any medical regimen to see if it is safe and effective for you. ?? Copyright [employer] 2019 Information is for End User's use only and may not be sold, redistributed or otherwise used for commercial purposes. All illustrations and images included in CareNotes?? are the copyrighted property of A.D.A.M[employer] Inc. or [employer] documented in this encounter Progress Notes * [...] Forearm documented in this encounter Care Teams Processing Supervisor Relationship Specialty Start Date End Date Ignacio Castro DO [address] [place] [address] PCP - General Internal Medicine 02/19/19 documented as of this encounter
--- OUTSIDE RECORDS SUMMARY | 2024-07-29 02:01 | XMS_ITS | Encounter Summary ---
Author Organization [facility] Address [facility]6 [facility]. [place], [place] [address] [place] [address] Care Team Providers Care World History Teacher Name Role Phone Darrell Jackson MD Primary Care Provider [phone] Encounter Details Date Type Department Care Team (Late st Contact Info) Description 03/30/2000 Abstract [place] [address] Social History Tobacco Use Types Packs/Day Years [...] on filedocumented in this encounter Care Teams World History Teacher Relationship Specialty Start Date End Date Darrell Jackson MD PCP - General 04/17/16 documented as of this encounter
--- OUTSIDE RECORDS SUMMARY | 2024-07-29 02:01 | XMS_ITS | Encounter Summary ---
Author Organization [facility] Address [facility]6 [facility] [place], [place] [address] [place] [address] Care Team Providers Care Ceramic Products Sales Engineer Name Role Phone Darrell Jackson MD Primary Care Provider [phone] Encounter Details Date Type Department Care Team (Late st Contact Info) Description 10/19/2003 Abstract [facility] [address] [facility] [place] [address] , Zachary Murguia MD Social History Tobacco [...] on filedocumented in this encounter Care Teams Ceramic Products Sales Engineer Relationship Specialty Start Date End Date Darrell Jackson MD PCP - General 04/17/16 documented as of this encounter
--- OUTSIDE RECORDS SUMMARY | 2024-07-29 02:01 | XMS_ITS | Encounter Summary ---
Author Organization [facility] Address [facility]6 [facility] [place], [place] [address] [place] [address] Care Team Providers Care Certified Caregiver Name Role Phone Darrell Jackson MD Primary Care Provider [phone] Encounter Details Date Type Department Care Team (Late st Contact Info) Description 02/16/2000 [place] [address] , Generic Conversion, Social History Tobacco Use [...] filedocumented in this encounter Care Teams Certified Caregiver Relationship Specialty Start Date End Date Darrell Jackson MD PCP - General 04/17/16 documented as of this encounter
--- OUTSIDE RECORDS SUMMARY | 2024-07-29 02:01 | XMS_ITS | Encounter Summary ---
Author Organization [facility] Address [facility]6 [facility]. [place], [place] [address] [place] [address] Care Team Providers Care County Assessor Name Role Phone Darrell Jackson MD Primary Care Provider [phone] Encounter Details Date Type Department Care Team (Late st Contact Info) Description 08/11/1996 [place] [address] , Generic Conversion, Social History Tobacco Use [...] on filedocumented in this encounter Care Teams County Assessor Relationship Specialty Start Date End Date Darrell Jackson MD PCP - General 04/17/16 documented as of this encounter
--- OUTSIDE RECORDS SUMMARY | 2024-07-29 02:01 | XMS_ITS | Encounter Summary ---
Author Organization [facility] Address [facility]6 [facility] [place] [place], [place] [address] [place] [address] Care Team Providers Care Fur Examiner Name Role Phone Darrell Jackson MD Primary Care Provider [phone] Encounter Details Date Type Department Care Team (Late st Contact Info) Description 05/30/1996 [place] [address] , Generic Conversion, Social History Tobacco Use [...] on filedocumented in this encounter Care Teams Fur Examiner Relationship Specialty Start Date End Date Darrell Jackson MD PCP - General 04/17/16 documented as of this encounter
--- OUTSIDE RECORDS SUMMARY | 2024-07-29 02:01 | XMS_ITS | Encounter Summary ---
Author Organization [facility] Address [facility]6 [facility]. [place], [place] [address] [place] [address] Care Team Providers Care Acetylene Cutter Name Role Phone Darrell Jackson MD Primary Care Provider [phone] Encounter Details Date Type Department Care Team (Late st Contact Info) Description 03/17/2004 [place] [address] , Generic Conversion, Social History Tobacco Use [...] on filedocumented in this encounter Care Teams Acetylene Cutter Relationship Specialty Start Date End Date Darrell Jackson MD PCP - General 04/17/16 documented as of this encounter
--- OUTSIDE RECORDS SUMMARY | 2024-07-29 02:01 | XMS_ITS | Patient Health Summary ---
Author Organization [facility] [employer] Address [address] [place] [address] Care Team Providers Care Station Usher Name Role Phone Ignacio Castro DO Primary Care Provider Note from [facility],non-owned Affiliates and Associated Physician Practices is amultiple site organization consisting of ambulatory clinics and hospital sitesin [place], [place], [place] and [place]. This disclosure is being madepursuant to the Care Everywhere program and may not contain all information available regarding this patient. Last updated 18.[facility] Allergies * Codeine(Unknown) * Sulfa Drugs(Unknown) Social [...] Unknown 02/22/2019 2:42 PM CDT Newton Mccall TIMBER ESTIMATOR-ADVERTISING DIRECTOR LAB - POINT OF [place] RE ORDERABLES Care Teams Station Usher Relationship Specialty Start Date End Date Ignacio Castro DO [address] [place] [address] PCP - General Internal Medicine 02/19/19
--- OUTSIDE RECORDS SUMMARY | 2024-07-29 02:01 | XMS_ITS | Encounter Summary ---
Author Organization [facility] Address [facility]6 [facility]. [place], [place] [address] [place] [address] Care Team Providers Care Director Ambulatory Name Role Phone Darrell Jackson MD Primary Care Provider [phone] Encounter Details Date Type Department Care Team (Late st Contact Info) Description 11/27/2002 Abstract [facility] [address] [facility] [place] [address] , Zachary Murguia MD Social History Tobacco [...] filedocumented in this encounter Care Teams Director Ambulatory Relationship Specialty Start Date End Date Darrell Jackson MD PCP - General 04/17/16 documented as of this encounter
--- OUTSIDE RECORDS SUMMARY | 2024-07-29 02:02 | XMS_ITS | Encounter Summary ---
Author Organization [facility] Address [address] [place] [address] Care Team Providers Care Pasting Machine Offbearer Name Role Phone German Barcenas MD Unavailable [phone] Yo Suresh MD Primary Care Provider [phone] Encounter Details Date Type Department Care Team (Late st Contact Info) Description 09/10/2023 3:45 PM TARRING MACHINE OPERATOR Office Visit [facility] Cardiology [address] [facility] [address] [facility] [address] [place] [address] Carter Burciaga MD [address] [facility] [address] [place] [address] 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 (Primary Dx); Status [...] on file Legal Sex Female 9:05 AM TARRING MACHINE OPERATOR Gender Identity Not on file Sexual Orientation Not on file documented as of this encounter Last Filed Vital Signs Vital Sign Reading Time Taken Comments Blood Pressure 112/68 09/10/2023 3:59 PM TARRING MACHINE OPERATOR Pulse 84 09/10/2023 3:59 PM TARRING MACHINE OPERATOR Temperature - - Respiratory Rate - - Oxygen Saturation 97% 09/10/2023 3:59 PM TARRING MACHINE OPERATOR Inhaled Oxygen Concentration - - Weight 72.6 kg (160 lb) 09/10/2023 3:59 PM TARRING MACHINE OPERATOR Height 167.6 cm (5' 6 ) 09/10/2023 3:59 PM TARRING MACHINE OPERATOR Body Mass Index 25.82 09/10/2023 3:59 PM TARRING MACHINE OPERATOR documented in this encounter Progress [...] for this visit: 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 Status post insertion of drug eluting coronary artery stent PLAN/RECOMMENDATIONS Continue current medical regimen and will see her in follow-up at 6 month intervals Her symptoms of nonexertional left hand numbness do not merit an ischemia workup in my opinion thisis atypical noncardiac symptomatology Carter Burciaga MD ING MACHINE OPERATOR documented in this encounter Plan of Treatment Not on file documented as of this encounter Visit Diagnoses Diagnosis 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
--- OUTSIDE RECORDS SUMMARY | 2024-07-29 02:02 | XMS_ITS | Encounter Summary ---
Author Organization [facility] Healthcare Address [address] [place] [address] Care Team Providers Care Inserter Promotional Item Name Role Phone German Barcenas MD Unavailable [phone] Yo Suresh MD Primary Care Provider [phone] Encounter Details Date Type Department Care Team (Late st Contact Info) Description 09/30/2023 Orders Only [facility] Medical [facility] Cardiology [address] [address] Marianne Salvador NP [address] [facility] [address] [place] [address] Social History Tobacco Use Types [...] on file Legal Sex Female 9:05 AM GRADUATE RN Gender Identity Not on file Sexual Orientation Not on file documented as of this encounter Plan of Treatment Not on file documented as of this encounter Procedures Procedure Name Priority Date/Time Associated Diagnosis Comments CARDIOLOGY DOCUMENT SCAN Routine 09/26/2023 3:44 PM GRADUATE RN documented in this encounter Results * Cardiology Document Scan (09/26/2023 3:44 PM GRADUATE RN) Anatomical Region Laterality Modality Other Marianne Yulissa Madeleine GAS PLUMBING INSPECTOR CV CARDIAC SERVICES PROCEDUR ES Final Result documented in this encounter Visit Diagnoses Not on filedocumented in this encounter Care Teams Inserter Promotional Item Relationship Specialty Start Date End Date Yo Suresh MD [address] [place] [address] PCP - General Family Practice 01/08/23 German Barcenas MD [address] [place] [address] Referring Physician Vascular Surgery 07/22/21 documented as of this encounter
--- OUTSIDE RECORDS SUMMARY | 2024-07-29 02:02 | XMS_ITS | Encounter Summary ---
Author Organization [facility] Medical Group Address [address] [facility] [address] [place] [address] Care Team Providers Care Gas Brazer Name Role Phone Darrell Jackson MD Primary Care Provider [phone] Encounter Details Date Type Department Care Team (Late st Contact Info) Description 03/06/2019 Orders Only [facility] [address] [facility] [address] [place] [address] ProviderScott MD [address] [place] [address] Social History Tobacco Use Types Packs/Day Years Used Date Smoking Tobacco: Former Smokeless Tobacco: Never Alcohol Use Standard Drinks/Week Comments No 0 (1 standard drink = 0.6 oz pur e alcohol) Comments Unknown Sex and Gender Information Value Date Recorded Sex Assigned at Not on file Legal Sex Female 9:05 AM MOLDER SHOULDER PAD Gender Identity Not on file Sexual Orientation [...] on filedocumented in this encounter Care Teams Gas Brazer Relationship Specialty Start Date End Date Darrell Jackson MD [address] [facility] [place] [id number] PCP - General 10/19/16 08/05/19 documented as of this encounter
--- OUTSIDE RECORDS SUMMARY | 2024-07-29 02:02 | XMS_ITS | Encounter Summary ---
Author Organization [facility] Medical Group Address [address] [facility] [address] [place] [address] Care Team Providers Care Mechanical Artist Name Role Phone German Barcenas MD Unavailable [phone] Yo Suresh MD Primary Care Provider [phone] Reason for Visit * Reason Comments Coronary Artery Disease 6 MONTH FOLLOW U P. Encounter Details Date Type Department Care Team (Late st Contact Info) Description 01/08/2023 3:00 PM CDT Office Visit [facility] Medical [facility] Cardiology [address] [address] Carter Burciaga MD [address] [facility] 102 [place] [address] Coronary artery disease involving [place] coronary artery of [place] heart without angina pectoris (Primary Dx); Status [...] on file Legal Sex Female 9:05 AM TEA BLENDER Gender Identity Not on file Sexual Orientation [...] for this visit: Coronary artery disease involving [place] coronary artery of [place] heart without angina pectoris Status post insertion [...] Visit Diagnoses Diagnosis Coronary artery disease involving [place] coronary artery of [place] heart without angina pectoris- Primary Status post insertion of drug eluting coronary artery stent documented in this encounter Care Teams Mechanical Artist Relationship Specialty Start Date End Date Yo Suresh MD [address] [facility] 121 [place] [address] PCP - General Family Practice 01/08/23 German Barcenas MD [address] [facility] 121 [place] [address] Referring Physician Vascular Surgery 07/22/21 documented as of this encounter
--- OUTSIDE RECORDS SUMMARY | 2024-07-29 02:02 | XMS_ITS | Encounter Summary ---
Author Organization [facility] Medical Group Address [address] [facility] [address] [place] [address] Care Team Providers Care Vehicle Monitor Technician Name Role Phone Darrell Jackson MD Primary Care Provider [phone] Encounter Details Date Type Department Care Team (Late st Contact Info) Description 04/15/2017 Telephone [facility] [address] [place] [phone] Carter Burciaga MD [address] [facility] 102 [place] [address] Social History Tobacco Use Types Packs/Day Years Used Date Smoking Tobacco: Former Alcohol Use Standard Drinks/Week Comments No 0 (1 standard drink = 0.6 oz pur e alcohol) Comments Unknown Sex and Gender Information Value Date Recorded Sex Assigned at Not on file Legal Sex Female 9:05 AM GENERATION ENGINEERING TECHNOLOGIST Gender Identity Not on file Sexual Orientation [...] 04/15/2017 4:39 PM CDT Scripts sent to [facility] pharmacy. documented in this encounter Plan of Treatment Not on file documented as of this encounter Visit Diagnoses Not on filedocumented in this encounter Discontinued Medications Medication Sig Discontinue Reason Start Date End Da te rosuvastatin (CRESTOR) 5 mg tablet TAKE 1 TABLET BY MOUTH EVERY DAY Reorder 04/08/2015 04/15/2017 documented as of this encounter Care Teams Vehicle Monitor Technician Relationship Specialty Start Date End Date Darrell Jackson MD [address] [facility] [address] [facility] [place] [id number] PCP - General 10/19/16 08/05/19 documented as of this encounter
--- OUTSIDE RECORDS SUMMARY | 2024-07-29 02:02 | XMS_ITS | Encounter Summary ---
Author Organization [facility] Medical Group Address [address] [facility] [address] [place] [address] Care Team Providers Care Vp Name Role Phone Darrell Jackson MD Primary Care Provider [phone] Encounter Details Date Type Department Care Team (Late st Contact Info) Description 09/02/2017 Telephone [facility] [address] [facility] [address] [place] [address] Carter Burciaga MD [address] [facility] [address] [address] Social History Tobacco Use Types Packs/Day Years Used Date Smoking Tobacco: Former Smokeless Tobacco: Never Alcohol Use Standard Drinks/Week Comments No 0 (1 standard drink = 0.6 oz pur e alcohol) Comments Unknown Sex and Gender Information Value Date Recorded Sex Assigned at Not on file Legal Sex Female 9:05 AM CARE WORKER Gender Identity Not on file Sexual Orientation Not on file documented as of this encounter Miscellaneous Notes * Telephone Encounter - Sonia Cheatham MA - 09/02/2017 11:16 AM CST Pt contacted the office stating per insurance rosuvastatin will no longer be covered and they were recommending a preferred medication. After reviewing notes, informed pt switched her toatorvastatin 10mg Qd. Pt verbalized understanding WORKER documented in this encounter Plan of Treatment Not on file documented as of this encounter Visit Diagnoses Not on filedocumented in this encounter Care Teams Vp Relationship Specialty Start Date End Date Darrell Jackson MD [address] [facility] [address] [facility] [address] [place] [address] PCP - General 10/19/16 08/05/19 documented as of this encounter
--- OUTSIDE RECORDS SUMMARY | 2024-07-29 02:02 | XMS_ITS | Encounter Summary ---
Author Organization [facility] Medical Group Address [address] [facility] [address] [place] [address] Care Team Providers Care Promotion Writer Name Role Phone Ignacio Castro DO Primary Care Provider [phone] Reason for Visit * Reason Comments Follow-up 6 mo follow up on CA D Encounter Details Date Type Department Care Team (Late st Contact Info) Description 02/28/2021 1:45 PM CDT Office Visit [facility] Cardiology [address] [facility] 102 [place] [phone] Carter Burciaga MD [address] [facility] 102 [place], [place] [phone] Coronary artery disease involving [place] coronary artery of [place] heart without angina pectoris (Primary Dx); Status [...] on file Legal Sex Female 9:05 AM FRUIT AND VEGETABLE PACKER Gender Identity Not on file Sexual Orientation [...] for this visit: Coronary artery disease involving [place] coronary artery of [place] heart without angina pectoris Status post insertion [...] 4:29 PM CDT Coronary artery disease involving [place] coronary artery of [place] heart without angina pectoris documented in this [...] Visit Diagnoses Diagnosis Coronary artery disease involving [place] coronary artery of [place] heart without angina pectoris- Primary Status post insertion of drug eluting coronary artery stent documented in this encounter Discontinued Medications Medication Sig Discontinue Reason Start Date End Da te atorvastatin (LIPITOR) 10 mg tablet TAKE 1 TABLET BY MOUTH EVERY DAY Reorder 08/13/2019 02/28/2021 documented as of this encounter Care Teams Promotion Writer Relationship Specialty Start Date End Date Ignacio Castro DO PCP - General Internal Medicine 08/06/19 09/19/21 documented as of this encounter
--- OUTSIDE RECORDS SUMMARY | 2024-07-29 02:02 | XMS_ITS | Encounter Summary ---
Author Organization [facility] Medical Group Address [address] [facility] [address] [place] [address] Care Team Providers Care Sugar Presser Name Role Phone Ignacio Castro DO Primary Care Provider [phone] Encounter Details Date Type Department Care Team (Late st Contact Info) Description 04/20/2021 Orders Only [facility] Medical Group Cardiology [address] [facility] [address] [place] [address] Danita Qiu MD [address] [address] Social History Tobacco Use Types Packs/Day Years Used Date Smoking Tobacco: Former Smokeless Tobacco: Never Alcohol Use Standard Drinks/Week Comments No 0 (1 standard drink = 0.6 oz pur e alcohol) Comments Unknown Sex and Gender Information Value Date Recorded Sex Assigned at Not on file Legal Sex Female 9:05 AM WIND TURBINE MECHANIC Gender Identity Not on file Sexual Orientation [...] on filedocumented in this encounter Care Teams Sugar Presser Relationship Specialty Start Date End Date Ignacio Castro DO PCP - General Internal Medicine 08/06/19 09/19/21 documented as of this encounter
--- OUTSIDE RECORDS SUMMARY | 2024-07-29 02:02 | XMS_ITS | Encounter Summary ---
Author Organization [facility] Medical Group Address [address] [facility] [address] [place] [address] Care Team Providers Care Corporate Compliance Manager Name Role Phone Darrell Jackson MD Primary Care Provider [phone] Reason for Visit * Reason Comments Follow-up 6 mos, CAD Encounter Details Date Type Department Care Team (Late st Contact Info) Description 12/27/2016 11:15 AM CDT Office Visit [facility] [address] [facility] [address] [facility] 102 [place] [address] Carter Burciaga MD [address] [facility] 102 [place], [place] [phone] Coronary artery disease involving [place] coronary artery of [place] heart without angina pectoris (Primary Dx) Social History Tobacco Use Types Packs/Day Years Used Date Smoking Tobacco: Former Alcohol Use Standard Drinks/Week Comments No 0 (1 standard drink = 0.6 oz pur e alcohol) Comments Unknown Sex and Gender Information Value Date Recorded Sex Assigned at Not on file Legal Sex Female 9:05 AM DISPOSAL WORKER Gender Identity Not on file Sexual [...] Body Mass Index 30.67 06/28/2016 10:59 AM DISPOSAL WORKER documented in this encounter Progress Notes * [...] for this visit: Coronary artery disease involving [place] coronary artery of [place] heart without angina pectoris PLAN/RECOMMENDATIONS Schedule Lexiscan [...] 8 PM CDT Coronary artery disease involving [place] coronary artery of [place] heart without angina pectoris documented in this [...] Visit Diagnoses Diagnosis Coronary artery disease involving [place] coronary artery of [place] heart without angina pectoris- Primary documented in this encounter Care Teams Corporate Compliance Manager Relationship Specialty Start Date End Date Darrell Jackson MD [address] [place] [address] PCP - General 10/19/16 08/05/19 documented as of this encounter
--- OUTSIDE RECORDS SUMMARY | 2024-07-29 02:02 | XMS_ITS | Encounter Summary ---
Author Organization [facility] Medical Group Address [address] [facility] [address] [place] [address] Care Team Providers Care Magazine Worker Name Role Phone Darrell Jackson MD Primary Care Provider [phone] Reason for Visit * Reason Comments Follow-up 6 MO ON cad Encounter Details Date Type Department Care Team (Late st Contact Info) Description 07/29/2018 1:30 PM PATCHER WOOD WELDER Office Visit [facility] [address] [facility] 162 [facility] 102 [place] [address] Carter Burciaga MD [address] [address] Status post insertion of drug eluting coronary artery stent (Primary Dx); Coronary artery disease involving [place] coronary artery of [place] heart without angina pectoris Social History Tobacco Use Types Packs/Day Years Used Date Smoking Tobacco: Former Smokeless Tobacco: Never Alcohol Use Standard Drinks/Week Comments No 0 (1 standard drink = 0.6 oz pur e alcohol) Comments Unknown Sex and Gender Information Value Date Recorded Sex Assigned at Not on file Legal Sex Female 9:05 AM PATCHER WOOD WELDER Gender Identity Not on file Sexual Orientation Not on file documented as of this encounter Last Filed Vital Signs Vital Sign Reading Time Taken Comments Blood Pressure 116/72 07/29/2018 1:40 PM PATCHER WOOD WELDER Pulse 84 07/29/2018 1:40 PM PATCHER WOOD WELDER Temperature - - Respiratory Rate - - Oxygen Saturation 94% 07/29/2018 1:40 PM PATCHER WOOD WELDER Inhaled Oxygen Concentration - - Weight 86.2 kg (190 lb) 07/29/2018 1:40 PM PATCHER WOOD WELDER Height 167.6 cm (5' 6 ) 07/29/2018 1:40 PM PATCHER WOOD WELDER Body Mass Index 30.67 07/29/2018 1:40 PM PATCHER WOOD WELDER documented in this encounter Progress Notes * [...] coronary artery stent Coronary artery disease involving [place] coronary artery of [place] heart without angina pectoris PLAN/RECOMMENDATIONS No change in regimen Continue to see her at 6 month intervals or of course p.r.n. Carter Burciaga MD HER WOOD WELDER documented in this encounter Plan of Treatment Not on file documented as of this encounter Visit Diagnoses Diagnosis Status post insertion of drug eluting coronary artery stent- Primary Coronary artery disease involving [place] coronary artery of [place] heart without angina pectoris documented in this encounter Discontinued Medications Medication Sig Discontinue Reason Start Date End Da te montelukast (SINGULAIR) 10 mg tablet take 1 tablet by oral route every day in the evening Discontinued by another clinician 08/26/2014 07/29/2018 documented as of this encounter Care Teams Magazine Worker Relationship Specialty Start Date End Date Darrell Jackson MD [address] [facility] [address] [place] [address] PCP - General 10/19/16 08/05/19 documented as of this encounter
--- OUTSIDE RECORDS SUMMARY | 2024-07-29 02:02 | XMS_ITS | Encounter Summary ---
Author Organization [facility] Healthcare Address [address] [place] [address] Care Team Providers Care Shared Services And Outsourcing Manager Name Role Phone German Barcenas MD Unavailable [phone] Yo Suresh MD Primary Care Provider [phone] Reason for Visit * Reason Comments Follow-up 6 mo Encounter Details Date Type Department Care Team (Late st Contact Info) Description 03/10/2024 3:45 PM CDT Office Visit [facility] Medical [facility] Cardiology [address] [facility] [address] [place] [address] Carter Burciaga MD [address] [facility] 102 [place] [address] Coronary artery disease involving [place] coronary artery of [place] heart without angina pectoris (Primary Dx); Status [...] on file Legal Sex Female 9:05 AM MILK TANKER DRIVER Gender Identity Not on file Sexual Orientation [...] are records of her being seen at [facility] in September of this year with some [...] for this visit: Coronary artery disease involving [place] coronary artery of [place] heart without angina pectoris Status post insertion [...] Visit Diagnoses Diagnosis Coronary artery disease involving [place] coronary artery of [place] heart without angina pectoris- Primary Status post insertion of drug eluting coronary artery stent Lipid screening Screening for lipoid disorders documented in this encounter Care Teams Shared Services And Outsourcing Manager Relationship Specialty Start Date End Date Yo Suresh MD [address] [place], [place] [phone] PCP - General Family Practice 01/08/23 German Barcenas MD [address] [place] [address] Referring Physician Vascular Surgery 07/22/21 documented as of this encounter
--- OUTSIDE RECORDS SUMMARY | 2024-07-29 02:02 | XMS_ITS | Encounter Summary ---
Author Organization [facility] Medical Group Address [address] [facility] [address] [place] [address] Care Team Providers Care Open Pit Quarry Supervisor Name Role Phone Preeti Leigh Primary Care Provider [phone] German Barcenas MD Unavailable [phone] Reason for Visit * Reason Comments Coronary Artery Disease 8 month fu Encounter Details Date Type Department Care Team (Late st Contact Info) Description 01/04/2022 11:30 AM CDT Office Visit [facility] Medical Group Cardiology [address] [address] Carter Burciaga MD [address] [facility] 102 [place] [address] Coronary artery disease involving [place] coronary artery of [place] heart without angina pectoris (Primary Dx); Status [...] on file Legal Sex Female 9:05 AM IT MANAGER Gender Identity Not on file Sexual [...] for this visit: Coronary artery disease involving [place] coronary artery of [place] heart without angina pectoris Status post insertion of drug eluting coronary artery stent PLAN/RECOMMENDATIONS Continue current medical regimen and will see her in follow-up at 6 month intervals Carter Burciaga MD documented in this encounter Plan of Treatment Not on file documented as of this encounter Visit Diagnoses Diagnosis Coronary artery disease involving [place] coronary artery of [place] heart without angina pectoris- Primary Status post [...] 12/21/2021 added in this encounter Care Teams Open Pit Quarry Supervisor Relationship Specialty Start Date End Date Preeti Leigh PA PCP - General Chute Operator 09/20/21 01/09/22 German Barcenas MD [address] [facility] 121 [place] [address] Referring Physician Vascular Surgery 07/22/21 documented as of this encounter
--- OUTSIDE RECORDS SUMMARY | 2024-07-29 02:02 | XMS_ITS | Encounter Summary ---
Author Organization [facility] Medical Group Address [address] [facility] [address] [place] [address] Care Team Providers Care Balance Wheel Arm Burnisher Name Role Phone Darrell Jackson MD Primary Care Provider [phone] Reason for Visit * Reason Comments Coronary Artery Disease 6 mo f/u Encounter Details Date Type Department Care Team (Late st Contact Info) Description 02/04/2018 1:30 PM CDT Office Visit [facility] [address] [facility] [address] [address] Carter Burciaga MD [address] [address] Status post insertion of drug eluting coronary artery stent (Primary Dx); Coronary artery disease involving [place] coronary artery of [place] heart without angina pectoris Social History Tobacco Use Types Packs/Day Years Used Date Smoking Tobacco: Former Smokeless Tobacco: Never Alcohol Use Standard Drinks/Week Comments No 0 (1 standard drink = 0.6 oz pur e alcohol) Comments Unknown Sex and Gender Information Value Date Recorded Sex Assigned at Not on file Legal Sex Female 9:05 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 Carter Burciaga MD documented in this encounter Plan of Treatment Not on file documented as of this encounter Visit Diagnoses Diagnosis Status post insertion of drug eluting coronary artery stent- Primary Coronary artery disease involving [place] coronary artery of [place] heart without angina pectoris documented in this [...] 0 added in this encounter Care Teams Balance Wheel Arm Burnisher Relationship Specialty Start Date End Date Darrell Jackson MD [address] [facility] [facility] [address] [facility] [address] INTERNAL MEDICINE [place], [place] [phone] PCP - General 10/19/16 08/05/19 documented as of this encounter
--- OUTSIDE RECORDS SUMMARY | 2024-07-29 02:02 | XMS_ITS | Encounter Summary ---
Author Organization [facility] Medical Group Address [address] [facility] [address] [place] [address] Care Team Providers Care Communications Technologist Name Role Phone German Barcenas MD Unavailable [phone] Yo Suresh MD Primary Care Provider [phone] Encounter Details Date Type Department Care Team (Late st Contact Info) Description 01/08/2023 Orders Only [facility] Medical [facility] Cardiology [address] [place] [phone] Provider, MD Scott [address] [place] [address] Social History Tobacco Use Types Packs/Day Years Used Date Smoking Tobacco: Former Smokeless Tobacco: Never Alcohol Use Standard Drinks/Week Comments No 0 (1 standard drink = 0.6 oz pur e alcohol) Comments Unknown Sex and Gender Information Value Date Recorded Sex Assigned at Not on file Legal Sex Female 9:05 AM DRIER BELT CONVEYOR Gender Identity Not on file Sexual Orientation [...] Lipid panel (10/31/2022 4:10 PM CDT) Blood [facility] Provider LAB BLOOD ORDERABLES Ragini l Result documented in this encounter Visit Diagnoses Not on filedocumented in this encounter Care Teams Communications Technologist Relationship Specialty Start Date End Date Yo Suresh MD [address] [place] [address] PCP - General Family Practice 01/08/23 German Barcenas MD [address] [place] [address] Referring Physician Vascular Surgery 07/22/21 documented as of this encounter
--- OUTSIDE RECORDS SUMMARY | 2024-07-29 02:02 | XMS_ITS | Encounter Summary ---
Author Organization [facility] Address [address] [place] [address] Phone Care Team Providers Care Test Developer Name Role Phone Preeti Leigh Primary Care Provider [phone] German Barcenas MD Unavailable [phone] Reason for Visit * Reason Onset Date Comments Appointment 10/06/2021 New patient refe rral Encounter Details Date Type Department Care Team (Late st Contact Info) Description 10/06/2021 Telephone [facility] Department of Surgery, Section of Colon and Rectal Surgery [facility]ly [facility] 12th Floor, [place] [address] Deyanira Cobos BS Appointment (New patient referral/) Social History Tobacco Use Types Packs/Day Years Used Date Smoking Tobacco: Former Smokeless Tobacco: Never Alcohol Use Standard Drinks/Week Comments No 0 (1 standard drink = 0.6 oz pur e alcohol) Comments Unknown Sex and Gender Information Value Date Recorded Sex Assigned at Not on file Legal Sex Female 9:05 AM MEDIA TECHNICIAN Gender Identity Not on file Sexual Orientation [...] on filedocumented in this encounter Care Teams Test Developer Relationship Specialty Start Date End Date Preeti Leigh PA PCP - General Crane Oiler 09/20/21 01/09/22 German Barcenas MD [address] [address] Referring Physician Vascular Surgery 07/22/21 documented as of this encounter
--- OUTSIDE RECORDS SUMMARY | 2024-07-29 02:02 | XMS_ITS | Referral Summary ---
Author Organization [facility] [address] Address [address] [place] [address] Care Team Providers Care Meteorological Technician Name Role Phone German Barcenas MD Unavailable [phone] Yo Suresh MD Primary Care Provider [phone] Allergies Active Allergy Reactions Criticality Noted Date [...] prompt medical attention is recommended 0 0 08/26/19 15 Active albuterol HFA (PROVENTIL HFA) 90 mcg/actuation inhaler inhale 2 puff by inhalation route every 4 - 6 hours as needed 0 Inhaler 0 08/26/19 15 Active SITagliptin (JANUVIA) 100 mg tablet take 1 tablet by oral route every day 0 0 06/28/20 16 Active doxycycline (VIBRAMYCIN) 100 mg capsule Take [...] TABLET BY MOUTH DAILY 90 tablet 1 07/21/20 19 Active Incruse Ellipta 62.5 mcg/actuation blister with device TAKE 1 INHALATION DAILY 11/11/19 20 Active atorvastatin (LIPITOR) 10 mg tablet Take 1 tablet (10 mg total) by mouth daily 90 tablet 3 02/29/20 21 Active metFORMIN XR (GLUCOPHAGE XR) 500 mg 24 hr tablet Take 1 tablet (500 mg total) by mouth daily 12/22/19 22 Active glipiZIDE (GLUCOTROL) 5 mg tablet Take 1 tablet (5 mg total) by mouth daily 12/22/19 22 Active Lotemax SM 0.38 % drops,gel 1 drop 2 (two) times a day 10/24/19 22 Active metoprolol XL (TOPROL-XL) 50 mg extended release tablet TAKE 1 TABLET BY MOUTH EVERY DAY 90 tablet 2 07/13/20 24 025 Active metoprolol XL (TOPROL-XL) 50 mg extended release tablet TAKE 1 TABLET BY MOUTH EVERY DAY 90 tablet 2 11/11/19 24 024 Discontinued Active Problems Problem Noted Date Diagnosed Date Coronary artery disease involving [place] coronar y artery 12/27/2016 Status post insertion [...] file Legal Sex Female 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
--- OUTSIDE RECORDS SUMMARY | 2024-07-29 02:02 | XMS_ITS | Encounter Summary ---
Author Organization [facility] Address [address] [place] [address] Phone Care Team Providers Care Child Day Care Teacher Name Role Phone Preeti Leigh Primary Care Provider [phone] German Barcenas MD Unavailable Reason for Visit * Reason Onset Date Comments Appointment 09/28/2021 New patient refe rral Encounter Details Date Type Department Care Team (Late st Contact Info) Description 09/28/2021 Telephone [facility] Department of Surgery, Section of Colon and Rectal Surgery [facility] 12th Floor, [place] [address] Deyanira Cobos BS Appointment (New patient referral) Social History Tobacco Use Types Packs/Day Years Used Date Smoking Tobacco: Former Smokeless Tobacco: Never Alcohol Use Standard Drinks/Week Comments No 0 (1 standard drink = 0.6 oz pur e alcohol) Comments Unknown Sex and Gender Information Value Date Recorded Sex Assigned at Not on file Legal Sex Female 9:05 AM FAMILY SERVICE CASEWORKER Gender Identity Not on file Sexual Orientation Not on file documented as of this encounter Miscellaneous Notes * Telephone Encounter - Deyanira Cobos - 09/28/2021 12:24 PM FAMILY SERVICE CASEWORKER Left a voicemail for a return call. Referral in [facility]. Dr. Della Barcenas to Dr. Kali Pérez for fecal incont. Cologard neg test in CareEverywhere. LY SERVICE CASEWORKER documented in this encounter Plan of Treatment Not on file documented as of this encounter Visit Diagnoses Not on filedocumented in this encounter Care Teams Child Day Care Teacher Relationship Specialty Start Date End Date Preeti Leigh PA PCP - General Acetylene Cutter 09/20/21 01/09/22 German Barcenas MD [address] [facility] [address] [place] [address] Referring Physician Vascular Surgery 07/22/21 documented as of this encounter
--- OUTSIDE RECORDS SUMMARY | 2024-07-29 02:02 | XMS_ITS | Encounter Summary ---
Author Organization [facility] Address [address] [facility] [address] [place] [address] Care Team Providers Care Plater Supervisor Name Role Phone Darrell Jackson MD Primary Care Provider [phone] Encounter Details Date Type Department Care Team (Late st Contact Info) Description 01/16/2017 9:30 AM CDT Office Visit [facility] [address] [facility] [address] [address] Carter Burciaga MD [address] [id number] Coronary artery disease involving [place] coronary artery of [place] heart without angina pectoris (Primary Dx) Social History Tobacco Use Types Packs/Day Years Used Date Smoking Tobacco: Former Alcohol Use Standard Drinks/Week Comments No 0 (1 standard drink = 0.6 oz pur e alcohol) Comments Unknown Sex and Gender Information Value Date Recorded Sex Assigned at Not on file Legal Sex Female 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 Gender Identity Not on file Sexual [...] Body Mass Index 30.51 06/28/2016 10:59 AM REGIONAL SALES ENGINEER documented in this encounter Progress Notes * [...] for this visit: Coronary artery disease involving [place] coronary artery of [place] heart without angina pectoris PLAN/RECOMMENDATIONS No change in current cardiac regimen Follow-up at 6 month intervals Carter Burciaga MD documented in this encounter Plan of Treatment Not on file documented as of this encounter Visit Diagnoses Diagnosis Coronary artery disease involving [place] coronary artery of [place] heart without angina pectoris- Primary documented in this encounter Care Teams Plater Supervisor Relationship Specialty Start Date End Date Darrell Jackson MD [address] [facility] [facility] [address] [place] [id number] PCP - General 10/19/16 08/05/19 documented as of this encounter
--- OUTSIDE RECORDS SUMMARY | 2024-07-29 02:02 | XMS_ITS | Encounter Summary ---
Author Organization [facility] Facility Care Team Providers Care Mechanical Engineering Professor Name Role Phone Darrell Jackson MD Primary Care Provider [phone] Encounter Details Date Type Department Care Team [...] on file Legal Sex Female 9:05 AM DAIRY TESTER Gender Identity Not on file Sexual Orientation Not on file documented as of this encounter Plan of Treatment Not on file documented as of this encounter Visit Diagnoses Not on filedocumented in this encounter Care Teams Mechanical Engineering Professor Relationship Specialty Start Date End Date Darrell Jackson MD [address] [facility] [facility] [address] [facility] [address] [place] [address] PCP - General 10/19/16 08/05/19 documented as of this encounter
--- OUTSIDE RECORDS SUMMARY | 2024-07-29 02:02 | XMS_ITS | Encounter Summary ---
Author Organization [facility] Address [address] [facility] [address] [place] [address] Care Team Providers Care Meat And Poultry Inspector Name Role Phone Darrell Jackson MD Primary Care Provider [phone] Reason for Visit * Reason Comments Follow-up 6 mo follow up on CA D Encounter Details Date Type Department Care Team (Late st Contact Info) Description 07/25/2017 1:00 PM SURVEY TECHNOLOGIST Office Visit [facility] [address] [facility] [address] [address] Carter Burciaga MD [address] [address] Status post insertion of drug eluting coronary artery stent (Primary Dx); Coronary artery disease involving [place] coronary artery of [place] heart without angina pectoris Social History Tobacco Use Types Packs/Day Years Used Date Smoking Tobacco: Former Smokeless Tobacco: Never Alcohol Use Standard Drinks/Week Comments No 0 (1 standard drink = 0.6 oz pur e alcohol) Comments Unknown Sex and Gender Information Value Date Recorded Sex Assigned at Not on file Legal Sex Female 9:05 AM SURVEY TECHNOLOGIST Gender Identity Not on file Sexual Orientation Not on file documented as of this encounter Last Filed Vital Signs Vital Sign Reading Time Taken Comments Blood Pressure 114/68 07/25/2017 1:22 PM SURVEY TECHNOLOGIST Pulse 81 07/25/2017 1:22 PM SURVEY TECHNOLOGIST Temperature - - Respiratory Rate - - Oxygen Saturation 95% 07/25/2017 1:22 PM SURVEY TECHNOLOGIST Inhaled Oxygen Concentration - - Weight 85.3 kg (188 lb) 07/25/2017 1:22 PM SURVEY TECHNOLOGIST Height 167.6 cm (5' 6 ) 07/25/2017 1:22 PM SURVEY TECHNOLOGIST Body Mass Index 30.34 07/25/2017 1:22 PM SURVEY TECHNOLOGIST documented in this encounter Progress Notes * [...] coronary artery stent Coronary artery disease involving [place] coronary artery of [place] heart without angina pectoris PLAN/RECOMMENDATIONS Continue current medical regimen as she is doing very well Continue follow-up at 6 month intervals. Carter Burciaga MD documented in this encounter Plan of Treatment Not on file documented as of this encounter Procedures Procedure Name Priority Date/Time Associated Diagnosis Comments POCT LIPID PANEL Routine 07/25/2017 1:40 PM SURVEY TECHNOLOGIST Coronary artery disease involving [place] coronary artery of [place] heart without angina pectoris documented in this encounter Results * POCT lipid panel (07/25/2017 1:40 PM SURVEY TECHNOLOGIST) Cholesterol, POC 165 mg/dL HDL, POC 66 mg/dL Triglycerides, POC 159 mg/dL LDL Cholesterol POC 67 mg/dL Chol/HDL Ratio, POC 2.5 Non-HDL Cholesterol, POC 99 mg/dL Cholesterol Total, POC 165 mg/dL Blood specimen (specimen) 07/25/2017 1:40 PM SURVEY TECHNOLOGIST us Carter Burciaga MD POINT OF CARE TEST ORDER ANNIE Final Result documented in this encounter Visit Diagnoses Diagnosis Status post insertion of drug eluting coronary artery stent- Primary Coronary artery disease involving [place] coronary artery of [place] heart without angina pectoris documented in this encounter Care Teams Meat And Poultry Inspector Relationship Specialty Start Date End Date Darrell Jackson MD [address] [facility] [address] [facility] [address] [place] [address] PCP - General 10/19/16 08/05/19 documented as of this encounter
--- OUTSIDE RECORDS SUMMARY | 2024-07-29 02:02 | XMS_ITS | Encounter Summary ---
Author Organization [facility] Care Team Providers Care Press Machine Operator Name Role Phone Unavailable Primary Care Provider Unavailabl e Encounter Details Date Type Department Care Team (Late st Contact Info) Description 11/30/2010 7:46 PM CDT - 12/05/2010 1:11 PM CDT Hospital Encounter [facility] Mendoza Cottrell Jr., MD [address] [facility] [address] [place] [address] Cerebral aneurysm, nonruptured; Paralytic strabismus, sixth or [...] on file Legal Sex Female 9:05 AM IMPORT CUSTOMER SERVICE MANAGER Gender Identity Not on file Sexual [...]
--- OUTSIDE RECORDS SUMMARY | 2024-07-29 02:02 | XMS_ITS | Encounter Summary ---
Author Organization [facility] Address [address] [facility] [address] [place] [address] Care Team Providers Care Cake Icer And Packer Name Role Phone Ignacio Castro DO Primary Care Provider [phone] Reason for Visit * Reason Comments Follow-up 6 mo fu cad, h/o claire nt Encounter Details Date Type Department Care Team (Late st Contact Info) Description 08/06/2019 1:45 PM FLYING TEACHER Office Visit [facility] Cardiology [address] [facility] [address] [place] [address] Carter Burciaga MD [address] [facility] [address] [place], [place] [id number] Coronary artery disease involving [place] coronary artery of [place] heart without angina pectoris (Primary Dx); Status [...] on file Legal Sex Female 9:05 AM FLYING TEACHER Gender Identity Not on file Sexual Orientation Not on file documented as of this encounter Last Filed Vital Signs Vital Sign Reading Time Taken Comments Blood Pressure 116/74 08/06/2019 1:49 PM FLYING TEACHER Pulse 71 08/06/2019 1:49 PM FLYING TEACHER Temperature - - Respiratory Rate - - Oxygen Saturation 96% 08/06/2019 1:49 PM FLYING TEACHER Inhaled Oxygen Concentration - - Weight 81.6 kg (180 lb) 08/06/2019 1:49 PM FLYING TEACHER Height 167.6 cm (5' 6 ) 08/06/2019 1:49 PM FLYING TEACHER Body Mass Index 29.05 08/06/2019 1:49 PM FLYING TEACHER documented in this encounter Progress Notes * [...] 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 Carter Burciaga MD NG TEACHER documented in this encounter Plan of Treatment Not on file documented as of this encounter Visit Diagnoses Diagnosis Coronary artery disease involving [place] coronary artery of [place] heart without angina pectoris- Primary Status post insertion of drug eluting coronary artery stent documented in this encounter Care Teams Cake Icer And Packer Relationship Specialty Start Date End Date Ignacio Castro DO PCP - General Internal Medicine 08/06/19 09/19/21 documented as of this encounter
--- OUTSIDE RECORDS SUMMARY | 2024-07-29 02:02 | XMS_ITS | Encounter Summary ---
Author Organization 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
--- OUTSIDE RECORDS SUMMARY | 2024-07-29 02:02 | XMS_ITS | Encounter Summary ---
Author Organization [facility] Address [address] [facility] [address] [place] [address] Care Team Providers Care Timber Estimator Name Role Phone Darrell Jackson MD Primary Care Provider [phone] Reason for Visit * Diagnostic Imaging (Routine) - Closed Specialty Diagnoses / Procedures Referred By Contac t Referred To Contact Diagnoses Chronic back pain, unspecified back location, unspecified back pain laterality Procedures NM MPI Spect (Rest And Stress) Multiple Studies Carter Burciaga MD Phone: tel: fax: Referral ID Status Reason Start Date Expiration Date Visits Re quested Visits Authorized [id number] Closed 12/27/2016 06/25/2017 1 1 Encounter Details Date Type Department Care Team (Latest Contact Info) Description 01/08/2017 8:45 AM CDT Ancillary Procedure [facility] Cardiology [address] [place] [address] Chronic back pain, unspecified back location, unspecified back pain laterality Social History Tobacco Use Types Packs/Day Years Used Date Smoking Tobacco: Former Alcohol Use Standard Drinks/Week Comments No 0 (1 standard drink = 0.6 oz pur e alcohol) Comments Unknown Sex and Gender Information Value Date Recorded Sex Assigned at Not on file 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 ? Ref.Physician: CARTER BURCIAGA ?Height(Cm): 167.6 ? [...] ischemia. Electronically Signed By: Carter Burciaga MD, [facility] 2017-01-08 16:13:16 CDT Electronically Signed By: Carter Burciaga MD, [facility] 2017-01-08 16:13:17 CDT CC: CC: Procedure Note Carter Burciaga MD - 01/08/2017 [facility] [address] [facility] [address], [place] [address] [address] [facility] [address], [place] [address] P:[phone] P:[phone] MPI Imaging Report Patient Name: BEATRICE BURCIAGA APatiedanielle ID: [id number] : [id number] Date: 01/08/2017 10:21:02 AM Gender: FAccession #: [id number] Tech: Daina Johnson [facility] Location: [facility] Ref.Physician: CARTER BURCIAGA Height(Cm): 167.6 BSA: Weight(Kg): [...] ischemia. Electronically Signed By: Carter Burciaga MD, [facility] 2017-01-08 16:13:16 CDT Electronically Signed By: Carter Burciaga MD, [facility] 2017-01-08 16:13:17 CDT CC: CC: Result [facility] Carter Burciaga MD IM NM [...] millicuries documented in this encounter Care Teams Timber Estimator Relationship Specialty Start Date End Date Darrell Jackson MD [address] [facility] [address] [place] [address] [place] [address] PCP - General 10/19/16 08/05/19 documented as of this encounter
--- OUTSIDE RECORDS SUMMARY | 2024-07-29 02:02 | XMS_ITS | Encounter Summary ---
Author Organization 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
--- OUTSIDE RECORDS SUMMARY | 2024-07-29 02:02 | XMS_ITS | Encounter Summary ---
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
--- OUTSIDE RECORDS SUMMARY | 2024-07-29 02:02 | XMS_ITS | Encounter Summary ---
Author Organization [facility] Address [address] [facility] [address] [place] [address] Care Team Providers Care Library Services Coordinator Name Role Phone Darrell Jackson MD Primary Care Provider [phone] Reason for Visit * Reason Comments Follow-up 6 mo fu on cad Encounter Details Date Type Department Care Team (Late st Contact Info) Description 02/03/2019 1:45 PM CDT Office Visit [facility] [address] [facility] [address] [address] Carter Burciaga MD [address] [address] Status post insertion of drug eluting coronary artery stent (Primary Dx); Coronary artery disease involving [place] coronary artery of [place] heart without angina pectoris Social History Tobacco Use Types Packs/Day Years Used Date Smoking Tobacco: Former Smokeless Tobacco: Never Alcohol Use Standard Drinks/Week Comments No 0 (1 standard drink = 0.6 oz pur e alcohol) Comments Unknown Sex and Gender Information Value Date Recorded Sex Assigned at Not on file Legal Sex Female 9:05 AM GI TECH Gender Identity Not on file Sexual Orientation [...] coronary artery stent Coronary artery disease involving [place] coronary artery of [place] heart without angina pectoris PLAN/RECOMMENDATIONS Will send [...] artery stent- Primary Coronary artery disease involving [place] coronary artery of [place] heart without angina pectoris documented in this encounter Historical Medications * This list may reflect changes made after this encounter. ALPRAZolam (XANAX) 0.25 mg tablet Take 1 tablet (0.25 mg total) by mouth nightly as needed for anxiety added in this encounter Care Teams Library Services Coordinator Relationship Specialty Start Date End Date Darrell Jackson MD [address] [facility] [address] [facility] [address] [place] [address] PCP - General 10/19/16 08/05/19 documented as of this encounter
--- OUTSIDE RECORDS SUMMARY | 2024-07-29 02:02 | XMS_ITS | Encounter Summary ---
Author Organization [facility] Address [address] [facility] [address] [place] [address] Care Team Providers Care Needle Grinder Name Role Phone Ignacio Castro DO Primary Care Provider [phone] Reason for Visit * Reason Comments Follow-up 6 mo follow up on CA D Encounter Details Date Type Department Care Team (Late st Contact Info) Description 08/23/2020 1:45 PM SHEEP STICKER Office Visit [facility] Cardiology [address] [facility] [address] [place] [address] Carter Burciaga MD [address] [facility] [address] [place] [address] Coronary artery disease involving [place] coronary artery (Primary Dx); Status post insertion [...] on file Legal Sex Female 9:05 AM SHEEP STICKER Gender Identity Not on file Sexual Orientation Not on file documented as of this encounter Last Filed Vital Signs Vital Sign Reading Time Taken Comments Blood Pressure 110/62 08/23/2020 2:04 PM SHEEP STICKER Pulse 91 08/23/2020 2:04 PM SHEEP STICKER Temperature - - Respiratory Rate - - Oxygen Saturation 96% 08/23/2020 2:04 PM SHEEP STICKER Inhaled Oxygen Concentration - - Weight 83.5 kg (184 lb) 08/23/2020 2:04 PM SHEEP STICKER Height 167.6 cm (5' 6 ) 08/23/2020 2:04 PM SHEEP STICKER Body Mass Index 29.7 08/23/2020 2:04 PM SHEEP STICKER documented in this encounter Progress Notes * [...] for this visit: Coronary artery disease involving [place] coronary artery Status post insertion of drug eluting coronary artery stent PLAN/RECOMMENDATIONS No change in medical regimen Continue to see her at 6 month intervals or of course p.r.n. Carter Burciaga MD P STICKER documented in this encounter Plan of Treatment Not on file documented as of this encounter Visit Diagnoses Diagnosis Coronary artery disease involving [place] coronary artery- Primary Status post insertion of drug eluting coronary artery stent documented in this encounter Care Teams Needle Grinder Relationship Specialty Start Date End Date Ignacio Castro DO PCP - General Internal Medicine 08/06/19 09/19/21 documented as of this encounter
--- OUTSIDE RECORDS SUMMARY | 2024-07-29 02:02 | XMS_ITS | Encounter Summary ---
Author Organization [facility] Address [address] [facility] [address] [place] [address] Care Team Providers Care Mattress And Boxsprings Supervisor Name Role Phone Ignacio Castro DO Primary Care Provider [phone] Reason for Visit * Reason Comments Follow-up 6 mo f/u CAD Encounter Details Date Type Department Care Team (Late st Contact Info) Description 02/16/2020 1:30 PM CDT Office Visit [facility] Cardiology [address] [facility] 102 [place] [address] Carter Burciaga MD [address] [facility] [address] [place] [address] Coronary artery disease involving [place] coronary artery of [place] heart without angina pectoris (Primary Dx); Coronary artery disease involving [place] coronary artery; Status post insertion of drug eluting coronary artery stent Social History Tobacco Use Types Packs/Day Years Used Date Smoking Tobacco: Former Smokeless Tobacco: Never Alcohol Use Standard Drinks/Week Comments No 0 (1 standard drink = 0.6 oz pur e alcohol) Comments Unknown Sex and Gender Information Value Date Recorded Sex Assigned at Not on file 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 REVIEW OF [...] for this visit: Coronary artery disease involving [place] coronary artery of [place] heart without angina pectoris - POCT lipid panel Coronary artery disease involving [place] coronary artery Status post insertion of [...] 2:33 PM CDT Coronary artery disease involving [place] coronary artery of [place] heart without angina pectoris documented in this [...] Visit Diagnoses Diagnosis Coronary artery disease involving [place] coronary artery of [place] heart without angina pectoris- Primary Status post [...] 11/11/2019 added in this encounter Care Teams Mattress And Boxsprings Supervisor Relationship Specialty Start Date End Date Ignacio Castro DO PCP - General Internal Medicine 08/06/19 09/19/21 documented as of this encounter
--- OUTSIDE RECORDS SUMMARY | 2024-07-29 02:02 | XMS_ITS | Clinical Summary ---
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
--- OUTSIDE RECORDS SUMMARY | 2024-07-29 02:35 | XMS_ITS | Referral Summary ---
Author Organization [facility] Address [address] [facility] [place] [address] Care Team Providers Care Auger Press Operator Name Role Phone Ignacio Castro DO Primary Care Provider Source Comments [facility] and Associated Physician Practices is amultiple site organization consisting of ambulatory clinics and hospital sitesin [place], [place], [place] and [place]. This disclosure is being madepursuant to the Care Everywhere program and may not contain all information available regarding this patient. Last updated 18.[facility] [employer] Allergies Active Allergy Reactions Criticality Noted Date Comments Codeine Unknown 02/19/2019 Sulfa Drugs Unknown 02/19/2019 Social History Tobacco Use Types Packs/Day Years Used Date Smoking Tobacco: Never Assessed Sex and Gender Information Value Date Recorded Sex Assigned at Not on file Gender Identity Not on file Sexual Orientation Not on file Plan of Treatment Not on file Administered Medications Care Teams Auger Press Operator Relationship Specialty Start Date End Date Ignacio Castro DO [address] [place] [address] PCP - General Internal Medicine 02/19/19
--- OUTSIDE RECORDS SUMMARY | 2024-07-29 02:35 | XMS_ITS | Patient Health Summary ---
Author Organization [facility] Address [address] [facility] [place] [address] Care Team Providers Care Medical Biller/Coder Name Role Phone Ignacio Castro DO Primary Care Provider [phone] Note from [facility],non-owned Affiliates and Associated Physician Practices is amultiple site organization consisting of ambulatory clinics and hospital sitesin [place], [place], [place] and [place]. This disclosure is being madepursuant to the Care Everywhere program and may not contain all information available regarding this patient. Last updated 18.[facility] Allergies * Codeine(Unknown) * Sulfa Drugs(Unknown) Social [...] Unknown 02/22/2019 2:42 PM CDT Newton Mccall OPERATING ROOM TECHNICIAN-[facility] - POINT OF CA RE ORDERABLES Care Teams Medical Biller/Coder Relationship Specialty Start Date End Date Ignacio Castro DO [address] [place] [address] PCP - General Internal Medicine 02/19/19
--- OUTSIDE RECORDS SUMMARY | 2024-07-29 02:35 | XMS_ITS | Encounter Summary ---
Author Organization [facility] Address [address] [facility] [place] [address] Care Team Providers Care Gastroenterology Technician Name Role Phone Ignacio Castro DO Primary Care Provider [phone] Encounter Details Date Type Department Care Team (Late st Contact Info) Description 10/17/2020 Orders Only [facility] - COVID Vax [address] [place] [address] Mark Rojo MD [address] [facility] [address] [place] [address] Need for vaccination Social History [...] disease documented in this encounter Care Teams Gastroenterology Technician Relationship Specialty Start Date End Date Ignacio Castro DO [address] [place] [address] PCP - General Internal Medicine 02/19/19 documented as of this encounter
--- OUTSIDE RECORDS SUMMARY | 2024-07-29 02:35 | XMS_ITS | Encounter Summary ---
Author Organization [facility] Address [address] [place] [address] Care Team Providers Care Matrix Repairer Name Role Phone Ignacio Castro DO Primary Care Provider [phone] Reason for Visit * Reason Comments PPD Skin Test Placement Encounter Details Date Type Department Care Team (Late st Contact Info) Description 02/19/2019 5:00 PM CDT Office Visit [facility] AT [address] [address] Provider, [facility] PPD screening test (Primary Dx) Social History Tobacco Use Types Packs/Day Years Used Date Smoking Tobacco: Never Assessed Sex and Gender Information Value Date Recorded Sex Assigned at Not on file Gender Identity Not on file Sexual Orientation Not on file documented as of this encounter Patient Instructions * Patient Instructions* Newton Mccall APRN-PROCESS ENGINEERING INTERN - 02/19/2019 5:10 PM CDT Images from [...] Where can I find more information? ?? [facility] National Prevention Information Network [address] [place] [address] Phone: [phone] Web Address: http://[email or web address].Refer.com ?? World Health Organization Web Address: www.who.int [...] refuse treatment. The above information is an hearing aid repairer only. It is not intended as medical advice for individual conditions or treatments. Talk to your doctor, nurse or pharmacist before following any medical regimen to see if it is safe and effective for you. ?? Copyright [employer] 2019 Information is for End User's use only and may not be sold, redistributed or otherwise used for commercial purposes. All illustrations and images included in CareNotes?? are the copyrighted property of A.D.A.M[employer] Inc. or [employer] documented in this encounter Progress Notes * [...] Forearm documented in this encounter Care Teams Matrix Repairer Relationship Specialty Start Date End Date Ignacio Castro DO [address] [place] [address] PCP - General Internal Medicine 02/19/19 documented as of this encounter
--- OUTSIDE RECORDS SUMMARY | 2024-07-29 02:35 | XMS_ITS | Clinical Summary ---
Author Organization [facility] Address [address] [facility] [place] [address] Care Team Providers Care Global Mobility Specialist Name Role Phone Ignacio Castro DO Primary Care Provider [phone] Source Comments [facility],non-owned Affiliates and Associated Physician Practices is amultiple site organization consisting of ambulatory clinics and hospital sitesin [place], [place], [place] and [place]. This disclosure is being madepursuant to the Care Everywhere program and may not contain all information available regarding this patient. Last updated 18.[facility] Allergies Active Allergy Reactions Criticality Noted Date [...] VACCINE (1 of 2) 02/11/2000 PNEUMOCOCCAL VACCINE 50+ (1 of 1 - PCV) 2015 COVID-19 [...] age to complete this topic Care Teams Global Mobility Specialist Relationship Specialty Start Date End Date Ignacio Castro DO [address] [place], [place] [address] PCP - General Internal Medicine 02/19/19
--- OUTSIDE RECORDS SUMMARY | 2024-07-29 02:36 | XMS_ITS | Encounter Summary ---
Author Organization [facility] Address [facility] [facility] [place], [place] [address] [place] [address] Care Team Providers Care Manager Eligibility Name Role Phone Darrell Jackson MD Primary Care Provider [phone] Encounter Details Date Type Department Care Team (Late st Contact Info) Description 10/05/2005 Abstract [facility] [address] [facility] [place] [address] , Zachary Murguia MD Social History Tobacco [...] on filedocumented in this encounter Care Teams Manager Eligibility Relationship Specialty Start Date End Date Darrell Jackson MD PCP - General 04/17/16 documented as of this encounter
--- OUTSIDE RECORDS SUMMARY | 2024-07-29 02:36 | XMS_ITS | Encounter Summary ---
Author Organization [facility] Address [facility] [place], [place] [address] [place] [address] Care Team Providers Care Glue Jointer Operator Name Role Phone Darrell Jackson MD Primary Care Provider [phone] Encounter Details Date Type Department Care Team (Late st Contact Info) Description 11/14/2007 Emergency [facility] [place] [address] , Zachary Murguia MD Social History Tobacco [...] on filedocumented in this encounter Care Teams Glue Jointer Operator Relationship Specialty Start Date End Date Darrell Jackson MD PCP - General 04/17/16 documented as of this encounter
--- OUTSIDE RECORDS SUMMARY | 2024-07-29 02:36 | XMS_ITS | Encounter Summary ---
Author Organization [facility] Address [facility]. [place], [place] [address] [place] [address] Care Team Providers Care Die Maker Trim Name Role Phone Darrell Jackson MD Primary Care Provider [phone] Encounter Details Date Type Department Care Team (Late st Contact Info) Description 03/14/2004 Abstract [place] [facility] [address] [place] [address] , Zachary Murguia MD Social History Tobacco [...] on filedocumented in this encounter Care Teams Die Maker Trim Relationship Specialty Start Date End Date Darrell Jackson MD PCP - General 04/17/16 documented as of this encounter
--- OUTSIDE RECORDS SUMMARY | 2024-07-29 02:36 | XMS_ITS | Encounter Summary ---
Author Organization [facility] Address [address] [place] [address] Phone Care Team Providers Care Diversional Therapist Name Role Phone Preeti Leigh Primary Care Provider [phone] German Barcenas MD Unavailable [phone] Reason for Visit * Reason Onset Date Comments Appointment 09/28/2021 New patient refe rral Encounter Details Date Type Department Care Team (Late st Contact Info) Description 09/28/2021 Telephone [facility] Department of Surgery, Section of Colon and Rectal Surgery [facility] Advanced Medicine 12th Floor, [place] [address] Deynaira Cobos BS Appointment (New patient referral) Social History Tobacco Use Types Packs/Day Years Used Date Smoking Tobacco: Former Smokeless Tobacco: Never Alcohol Use Standard Drinks/Week Comments No 0 (1 standard drink = 0.6 oz pur e alcohol) Comments Unknown Sex and Gender Information Value Date Recorded Sex Assigned at Not on file Legal Sex Female 9:05 AM NURSE'S ASSISTANT Gender Identity Not on file Sexual Orientation Not on file documented as of this encounter Miscellaneous Notes * Telephone Encounter - Deyanira Cobos - 09/28/2021 12:24 PM NURSE'S ASSISTANT Left a voicemail for a return call. Referral in [facility]. Dr. Della Barcenas to Dr. Kali Pérez for fecal incont. Cologard neg test in CareEverywhere. E'S ASSISTANT documented in this encounter Plan of Treatment Not on file documented as of this encounter Visit Diagnoses Not on filedocumented in this encounter Care Teams Diversional Therapist Relationship Specialty Start Date End Date Preeti Leigh PA PCP - General Pit Supervisor 09/20/21 01/09/22 German Barcenas MD [address] [facility] [address] [place] [address] Referring Physician Vascular Surgery 07/22/21 documented as of this encounter
--- OUTSIDE RECORDS SUMMARY | 2024-07-29 02:36 | XMS_ITS | Encounter Summary ---
Author Organization [facility] Address [address] [facility] [address] [place] [address] Care Team Providers Care Director Financial Analysis Name Role Phone German Barcenas MD Unavailable [phone] Yo Suresh MD Primary Care Provider [phone] Encounter Details Date Type Department Care Team (Late st Contact Info) Description 01/08/2023 Orders Only [facility] Cardiology [address] [place] [address] Provider, MD Scott [address] [place] [address] Social History Tobacco Use Types Packs/Day Years Used Date Smoking Tobacco: Former Smokeless Tobacco: Never Alcohol Use Standard Drinks/Week Comments No 0 (1 standard drink = 0.6 oz pur e alcohol) Comments Unknown Sex and Gender Information Value Date Recorded Sex Assigned at Not on file Legal Sex Female 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 SOFTWARE SECURITY 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
--- OUTSIDE RECORDS SUMMARY | 2024-07-29 02:36 | XMS_ITS | Encounter Summary ---
Author Organization [facility] Address [facility]. [place], [place] [address] [place] [address] Care Team Providers Care Family Support Coordinator Name Role Phone Darrell Jacksno MD Primary Care Provider [phone] Encounter Details Date Type Department Care Team (Late st Contact Info) Description 05/25/2017 [place] [address] , Generic Conversion, Social History Tobacco Use [...] on filedocumented in this encounter Care Teams Family Support Coordinator Relationship Specialty Start Date End Date Darrell Jackson MD PCP - General 04/17/16 documented as of this encounter
--- OUTSIDE RECORDS SUMMARY | 2024-07-29 02:36 | XMS_ITS | Encounter Summary ---
Author Organization [facility] Address [address] [facility] [address] [place] [address] Care Team Providers Care Superintendent [employer] Name Role Phone Ignacio Castro DO Primary Care Provider [phone] Reason for Visit * Reason Comments Follow-up 6 mo follow up on CA D Encounter Details Date Type Department Care Team (Late st Contact Info) Description 08/23/2020 1:45 PM CERTIFIED MEDICATION AIDE Office Visit [facility] Cardiology [address] [facility] [address] [place] [address] Carter Burciaga MD [address] [facility] 102 [place] [address] Coronary artery disease involving [place] coronary artery (Primary Dx); Status post insertion [...] on file Legal Sex Female 9:05 AM CERTIFIED MEDICATION AIDE Gender Identity Not on file Sexual Orientation Not on file documented as of this encounter Last Filed Vital Signs Vital Sign Reading Time Taken Comments Blood Pressure 110/62 08/23/2020 2:04 PM CERTIFIED MEDICATION AIDE Pulse 91 08/23/2020 2:04 PM CERTIFIED MEDICATION AIDE Temperature - - Respiratory Rate - - Oxygen Saturation 96% 08/23/2020 2:04 PM CERTIFIED MEDICATION AIDE Inhaled Oxygen Concentration - - Weight 83.5 kg (184 lb) 08/23/2020 2:04 PM CERTIFIED MEDICATION AIDE Height 167.6 cm (5' 6 ) 08/23/2020 2:04 PM CERTIFIED MEDICATION AIDE Body Mass Index 29.7 08/23/2020 2:04 PM CERTIFIED MEDICATION AIDE documented in this encounter Progress Notes * [...] for this visit: Coronary artery disease involving ho[place] coronary artery Status post insertion of drug eluting coronary artery stent PLAN/RECOMMENDATIONS No change in medical regimen Continue to see her at 6 month intervals or of course p.r.n. Carter Burciaga MD IFIED MEDICATION AIDE documented in this encounter Plan of Treatment Not on file documented as of this encounter Visit Diagnoses Diagnosis Coronary artery disease involving hoopa coronary artery- Primary Status post insertion of drug eluting coronary artery stent documented in this encounter Care Teams Superintendent [employer] Relationship Specialty Start Date End Date Ignacio Castro DO PCP - General Internal Medicine 08/06/19 09/19/21 documented as of this encounter
--- OUTSIDE RECORDS SUMMARY | 2024-07-29 02:36 | XMS_ITS | Encounter Summary ---
Author Organization [facility] Address [address] [facility] [address] [place] [address] Care Team Providers Care Radiation Protection Technician Name Role Phone Ignacio Castro DO Primary Care Provider [phone] Reason for Visit * Reason Comments Follow-up 6 mo f/u CAD Encounter Details Date Type Department Care Team (Late st Contact Info) Description 02/16/2020 1:30 PM CDT Office Visit [facility] Cardiology [address] [facility] [address] [place] [address] Carter Burciaga MD [address] [facility] 102 [place] [address] Coronary artery disease involving [place] coronary artery of [place] heart without angina pectoris (Primary Dx); Coronary artery disease involving [place] coronary artery; Status post insertion of drug eluting coronary artery stent Social History Tobacco Use Types Packs/Day Years Used Date Smoking Tobacco: Former Smokeless Tobacco: Never Alcohol Use Standard Drinks/Week Comments No 0 (1 standard drink = 0.6 oz pur e alcohol) Comments Unknown Sex and Gender Information Value Date Recorded Sex Assigned at Not on file Legal Sex Female 9:05 AM LEATHER STAKER Gender Identity Not on file Sexual Orientation [...] 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 REVIEW [...] for this visit: Coronary artery disease involving [place] coronary artery of [place] heart without angina pectoris - POCT lipid panel Coronary artery disease involving [place] coronary artery Status post insertion of drug [...] 2:33 PM CDT Coronary artery disease involving [place] coronary artery of [place] heart without angina pectoris documented in this [...] Visit Diagnoses Diagnosis Coronary artery disease involving [place] coronary artery of [place] heart without angina pectoris- Primary Status post [...] 11/11/2019 added in this encounter Care Teams Radiation Protection Technician Relationship Specialty Start Date End Date Ignacio Castro DO PCP - General Internal Medicine 08/06/19 09/19/21 documented as of this encounter
--- OUTSIDE RECORDS SUMMARY | 2024-07-29 02:36 | XMS_ITS | Encounter Summary ---
Author Organization [facility] Address [address] [address] [place] [address] Care Team Providers Care In Store Marketing Representative Name Role Phone Ignacio Castro DO Primary Care Provider [phone] Encounter Details Date Type Department Care Team (Late st Contact Info) Description 04/20/2021 Orders Only [facility] Cardiology [address] [facility] [address] [place] [address] Danita Qiu MD [address] [address] Social History Tobacco Use Types Packs/Day Years Used Date Smoking Tobacco: Former Smokeless Tobacco: Never Alcohol Use Standard Drinks/Week Comments No 0 (1 standard drink = 0.6 oz pur e alcohol) Comments Unknown Sex and Gender Information Value Date Recorded Sex Assigned at Not on file Legal Sex Female 9:05 AM 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
--- OUTSIDE RECORDS SUMMARY | 2024-07-29 02:36 | XMS_ITS | Encounter Summary ---
Author Organization [facility] Address [facility]. [place], [place] [address] [place] [address] Care Team Providers Care Muffle Operator Name Role Phone Darrell Jackson MD Primary Care Provider [phone] Encounter Details Date Type Department Care Team (Late st Contact Info) Description 02/16/2000 Abstract [place] [address] , Generic Conversion, Social History Tobacco Use [...] on filedocumented in this encounter Care Teams Muffle Operator Relationship Specialty Start Date End Date Darrell Jackson MD PCP - General 04/17/16 documented as of this encounter
--- OUTSIDE RECORDS SUMMARY | 2024-07-29 02:36 | XMS_ITS | Encounter Summary ---
Author Organization [facility] Address [facility] [facility]. [place], [place] [address] [place] [address] Care Team Providers Care Casting Carrier Name Role Phone Darrell Jackson MD Primary Care Provider [phone] Encounter Details Date Type Department Care Team (Late st Contact Info) Description 11/25/1999 Abstract [facility] [address] [facility] [place] [address] , Zachary Murguia MD Social History Tobacco [...] on filedocumented in this encounter Care Teams Casting Carrier Relationship Specialty Start Date End Date Darrell Jackson MD PCP - General 04/17/16 documented as of this encounter
--- OUTSIDE RECORDS SUMMARY | 2024-07-29 02:36 | XMS_ITS | Encounter Summary ---
Author Organization [facility] Address [address] [facility] [address] [place] [address] Care Team Providers Care Field Identification Specialist Name Role Phone Ignacio Castro DO Primary Care Provider [phone] Reason for Visit * Reason Comments Follow-up 6 mo follow up on CA D Encounter Details Date Type Department Care Team (Late st Contact Info) Description 02/28/2021 1:45 PM CDT Office Visit [facility] Cardiology [address] [facility] [address] [place] [address] Carter Burciaga MD [address] [facility] 102 [place], [place] [address] Coronary artery disease involving [place] coronary artery of [place] heart without angina pectoris (Primary Dx); Status [...] on file Legal 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 Gender Identity Not on file Sexual Orientation [...] for this visit: Coronary artery disease involving [place] coronary artery of [place] heart without angina pectoris Status post insertion [...] 4:29 PM CDT Coronary artery disease involving [place] coronary artery of [place] heart without angina pectoris documented in this [...] Visit Diagnoses Diagnosis Coronary artery disease involving [place] coronary artery of [place] heart without angina pectoris- Primary Status post insertion of drug eluting coronary artery stent documented in this encounter Discontinued Medications Medication Sig Discontinue Reason Start Date End Da te atorvastatin (LIPITOR) 10 mg tablet TAKE 1 TABLET BY MOUTH EVERY DAY Reorder 08/13/2019 02/28/2021 documented as of this encounter Care Teams Field Identification Specialist Relationship Specialty Start Date End Date Ignacio Castro DO PCP - General Internal Medicine 08/06/19 09/19/21 documented as of this encounter
--- OUTSIDE RECORDS SUMMARY | 2024-07-29 02:36 | XMS_ITS | Encounter Summary ---
Author Organization [facility] Address [address] [place] [address] Care Team Providers Care Salt Plant Operator Name Role Phone German Barcenas MD Unavailable [phone] Yo Suresh MD Primary Care Provider [phone] Encounter Details Date Type Department Care Team (Late st Contact Info) Description 09/30/2023 Orders Only [facility] Cardiology [address] [address] Marianne Salvador NP [address] [facility] 102 [place] [address] Social History Tobacco Use Types [...] on file Legal Sex Female 9:05 AM POLICE WORKER Gender Identity Not on file Sexual Orientation Not on file documented as of this encounter Plan of Treatment Not on file documented as of this encounter Procedures Procedure Name Priority Date/Time Associated Diagnosis Comments CARDIOLOGY DOCUMENT SCAN Routine 09/26/2023 3:44 PM POLICE WORKER documented in this encounter Results * Cardiology Document Scan (09/26/2023 3:44 PM POLICE WORKER) Anatomical Region Laterality Modality Other Marianne Yulissa Madeleine PANEL MACHINE SETTER CV CARDIAC SERVICES PROCEDUR ES Final Result documented in this encounter Visit Diagnoses Not on filedocumented in this encounter Care Teams Salt Plant Operator Relationship Specialty Start Date End Date Yo Suresh MD [address] [place] [address] PCP - General Family Practice 01/08/23 German Barcenas MD [address] [place] [address] Referring Physician Vascular Surgery 07/22/21 documented as of this encounter
--- OUTSIDE RECORDS SUMMARY | 2024-07-29 02:36 | XMS_ITS | Clinical Summary ---
Author Organization [facility] Address [address] [place] [address]. [place] [address] [place] [address] Care Team Providers Care Pulling Machine Operator Name Role Phone Darrell Jackson MD Primary Care Provider [phone] Social History Tobacco Use Types Packs/Day Years [...] age to complete this topic Care Teams Pulling Machine Operator Relationship Specialty Start Date End Date Darrell Jackson MD PCP - General 04/17/16
--- OUTSIDE RECORDS SUMMARY | 2024-07-29 02:36 | XMS_ITS | Encounter Summary ---
Author Organization [facility] Address [facility] [facility]. [place], [place] [address] [place] [address] Care Team Providers Care Concrete Tile Machine Operator Name Role Phone Darrell Jackson MD Primary Care Provider [phone] Encounter Details Date Type Department Care Team (Late st Contact Info) Description 03/10/1998 [place] [address] , Generic Conversion, Social History Tobacco Use [...] on filedocumented in this encounter Care Teams Concrete Tile Machine Operator Relationship Specialty Start Date End Date Darrell Jackson MD PCP - General 04/17/16 documented as of this encounter
--- OUTSIDE RECORDS SUMMARY | 2024-07-29 02:36 | XMS_ITS | Encounter Summary ---
Author Organization [facility] Address [facility] [facility]. [place], [place] [address] [place] [address] Care Team Providers Care Manager Car Name Role Phone Darrell Jackson MD Primary Care Provider [phone] Encounter Details Date Type Department Care Team (Late st Contact Info) Description 11/27/2002 Abstract [facility] [address] [facility] [place] [address] , Zachary Murguia MD Social History Tobacco [...] filedocumented in this encounter Care Teams Manager Car Relationship Specialty Start Date End Date Darrell Jackson MD PCP - General 04/17/16 documented as of this encounter
--- OUTSIDE RECORDS SUMMARY | 2024-07-29 02:36 | XMS_ITS | Encounter Summary ---
Author Organization [facility] Address [facility]6 [facility] [place] [address] [place] [address] Care Team Providers Care Head Sampler Name Role Phone Darrell Jackson MD Primary Care Provider [phone] Encounter Details Date Type Department Care Team (Late st Contact Info) Description 03/16/2005 [facility] [address] [facility] [place] [address] Nayeli Cruz MD [address] [place] [address] Social History Tobacco Use Types Packs/Day Years [...] on filedocumented in this encounter Care Teams Head Sampler Relationship Specialty Start Date End Date Darrell Jackson MD PCP - General 04/17/16 documented as of this encounter
--- OUTSIDE RECORDS SUMMARY | 2024-07-29 02:36 | XMS_ITS | Encounter Summary ---
Author Organization [facility] Address [facility]. [place], [place] [address] [place] [address] Care Team Providers Care Safety Officer Name Role Phone Darrell Jackson MD Primary Care Provider [phone] Encounter Details Date Type Department Care Team (Late st Contact Info) Description 10/19/2003 Abstract [facility] [address] [facility] [place] [address] , Zachary Murguia MD Social History Tobacco [...] on filedocumented in this encounter Care Teams Safety Officer Relationship Specialty Start Date End Date Darrell Jackson MD PCP - General 04/17/16 documented as of this encounter
--- OUTSIDE RECORDS SUMMARY | 2024-07-29 02:36 | XMS_ITS | Encounter Summary ---
Author Organization [facility] Address [address] [place] [address] Phone Care Team Providers Care Warehouse Associate Driver Name Role Phone Preeti Leigh Primary Care Provider [phone] German Barcenas MD Unavailable Reason for Visit * Reason Onset Date Comments Appointment 10/06/2021 New patient refe rral Encounter Details Date Type Department Care Team (Late st Contact Info) Description 10/06/2021 Telephone [facility] Department of Surgery, Section of Colon and Rectal Surgery [facility] 12th Floor, [place] [address] Deyanira Cobos BS Appointment (New patient referral/) Social History Tobacco Use Types Packs/Day Years Used Date Smoking Tobacco: Former Smokeless Tobacco: Never Alcohol Use Standard Drinks/Week Comments No 0 (1 standard drink = 0.6 oz pur e alcohol) Comments Unknown Sex and Gender Information Value Date Recorded Sex Assigned at Not on file Legal 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
--- OUTSIDE RECORDS SUMMARY | 2024-07-29 02:36 | XMS_ITS | Encounter Summary ---
Author Organization [facility] Address [facility]6 [facility]. [place], [place] [address] [place] [address] Care Team Providers Care Bi Consultant Name Role Phone Darrell Jackson MD Primary Care Provider [phone] Encounter Details Date Type Department Care Team (Late st Contact Info) Description 08/11/1996 [place] [address] , Generic Conversion, Social History Tobacco Use [...] on filedocumented in this encounter Care Teams Bi Consultant Relationship Specialty Start Date End Date Darrell Jackson MD PCP - General 04/17/16 documented as of this encounter
--- OUTSIDE RECORDS SUMMARY | 2024-07-29 02:36 | XMS_ITS | Encounter Summary ---
Author Organization [facility] Healthcare Address [address] [place] [address] Care Team Providers Care Decay Control Operator Name Role Phone German Barcenas MD Unavailable [phone] Yo Suresh MD Primary Care Provider [phone] Encounter Details Date Type Department Care Team (Late st Contact Info) Description 09/10/2023 3:45 PM SATELLITE PROJECT SITE MONITOR Office Visit [facility] Cardiology [address] [facility] [address] [facility] 102 [place] [address] Carter Burciaga MD [address] [facility] 102 [place] [address] Coronary artery disease involving [place] coronary artery of [place] heart without angina pectoris (Primary Dx); Status [...] on file Legal Sex Female 9:05 AM SATELLITE PROJECT SITE MONITOR Gender Identity Not on file Sexual Orientation Not on file documented as of this encounter Last Filed Vital Signs Vital Sign Reading Time Taken Comments Blood Pressure 112/68 09/10/2023 3:59 PM SATELLITE PROJECT SITE MONITOR Pulse 84 09/10/2023 3:59 PM SATELLITE PROJECT SITE MONITOR Temperature - - Respiratory Rate - - Oxygen Saturation 97% 09/10/2023 3:59 PM SATELLITE PROJECT SITE MONITOR Inhaled Oxygen Concentration - - Weight 72.6 kg (160 lb) 09/10/2023 3:59 PM SATELLITE PROJECT SITE MONITOR Height 167.6 cm (5' 6 ) 09/10/2023 3:59 PM SATELLITE PROJECT SITE MONITOR Body Mass Index 25.82 09/10/2023 3:59 PM SATELLITE PROJECT SITE MONITOR documented in this encounter Progress Notes * [...] for this visit: Coronary artery disease involving [place] coronary artery of [place] heart without angina pectoris Status post insertion of drug eluting coronary artery stent PLAN/RECOMMENDATIONS Continue current medical regimen and will see her in follow-up at 6 month intervals Her symptoms of nonexertional left hand numbness do not merit an ischemia workup in my opinion thisis atypical noncardiac symptomatology Carter Burciaga MD LLITE PROJECT SITE MONITOR documented in this encounter Plan of Treatment Not on file documented as of this encounter Visit Diagnoses Diagnosis Coronary artery disease involving [place] coronary artery of [place] heart without angina pectoris- Primary Status post insertion of drug eluting coronary artery stent documented in this encounter Care Teams Decay Control Operator Relationship Specialty Start Date End Date Yo Suresh MD [address] [place] [address] PCP - General Family Practice 01/08/23 German Barcenas MD [address] [place] [address] Referring Physician Vascular Surgery 07/22/21 documented as of this encounter
--- OUTSIDE RECORDS SUMMARY | 2024-07-29 02:36 | XMS_ITS | Encounter Summary ---
Author Organization [facility] Address [facility]6 [facility]. [place], [place] [address] [place] [address] Care Team Providers Care Civil Engineering Professor Name Role Phone Darrell Jackson MD Primary Care Provider [phone] Encounter Details Date Type Department Care Team (Late st Contact Info) Description 06/07/[address] [facility] [address] [place] [address] , Zachary Murguia MD Social History Tobacco [...] on filedocumented in this encounter Care Teams Civil Engineering Professor Relationship Specialty Start Date End Date Darrell Jackson MD PCP - General 04/17/16 documented as of this encounter
--- OUTSIDE RECORDS SUMMARY | 2024-07-29 02:36 | XMS_ITS | Encounter Summary ---
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
--- OUTSIDE RECORDS SUMMARY | 2024-07-29 02:36 | XMS_ITS | Encounter Summary ---
Author Organization [facility] Address [facility]6 [facility]. [place], [place] [address] [place] [address] Care Team Providers Care Surfboard Maker Name Role Phone Darrell Jackson MD Primary Care Provider [phone] Encounter Details Date Type Department Care Team (Late st Contact Info) Description 02/19/2002 [facility] [address] [place] [address] Bob Garcia MD Social History Tobacco Use [...] on filedocumented in this encounter Care Teams Surfboard Maker Relationship Specialty Start Date End Date Darrell Jackson MD PCP - General 04/17/16 documented as of this encounter
--- OUTSIDE RECORDS SUMMARY | 2024-07-29 02:36 | XMS_ITS | Encounter Summary ---
Author Organization [facility] Address [address] [facility] [address] [place] [address] Care Team Providers Care Etiquette Teacher Name Role Phone German Barcenas MD Unavailable [phone] Yo Suresh MD Primary Care Provider [phone] Reason for Visit * Reason Comments Coronary Artery Disease 6 MONTH FOLLOW U P. Encounter Details Date Type Department Care Team (Late st Contact Info) Description 01/08/2023 3:00 PM CDT Office Visit [facility] Cardiology [address] [address] Carter Burciaga MD [address] [facility] 102 [place] [address] Coronary artery disease involving [place] coronary artery of [place] heart without angina pectoris (Primary Dx); Status [...] on file Legal Sex Female 9:05 AM DIRECTOR OF AGRONOMY Gender Identity Not on file Sexual Orientation [...] for this visit: Coronary artery disease involving [place] coronary artery of [place] heart without angina pectoris Status post insertion [...] Visit Diagnoses Diagnosis Coronary artery disease involving [place] coronary artery of [place] heart without angina pectoris- Primary Status post insertion of drug eluting coronary artery stent documented in this encounter Care Teams Etiquette Teacher Relationship Specialty Start Date End Date Yo Suresh MD [address] [facility] 121 [place] [address] PCP - General Family Practice 01/08/23 German Barcenas MD [address] [facility] 121 [place] [address] Referring Physician Vascular Surgery 07/22/21 documented as of this encounter
--- OUTSIDE RECORDS SUMMARY | 2024-07-29 02:36 | XMS_ITS | Clinical Summary ---
Author Organization [facility] [address] [place] [address] Care Team Providers Care Panel Coverer Name Role Phone German Barcenas MD Unavailable Yo Suresh MD Primary Care Provider [phone] Allergies Active Allergy Reactions Criticality Noted Date [...] Date Diagnosed Date Coronary artery disease involving [place] coronar y artery 12/27/2016 Status post insertion [...] on file Legal Sex Female 9:05 AM GRADE TAMPER Gender Identity Not on file Sexual Orientation [...] exists Zoster Vaccine Completed 01/14/2018, 10/23/2017 Insurance [facility] CHOICE MEDICARE PPO [employer]ICE MEDICARE PPO Care Teams Panel Coverer Relationship Specialty Start Date End Date Yo Suresh MD [address] [facility] 121 [place] [address] PCP - General Family Practice 01/08/23 German Barcenas MD [address] [facility] 121 [place] [address] Referring Physician Vascular Surgery 07/22/21
--- OUTSIDE RECORDS SUMMARY | 2024-07-29 02:36 | XMS_ITS | Encounter Summary ---
Author Organization [facility] Address [facility]6 [facility]. [place], [place] [address] [place] [address] Care Team Providers Care Electrical Instrumentation Technician Name Role Phone Darrell Jackson MD Primary Care Provider [phone] Encounter Details Date Type Department Care Team (Late st Contact Info) Description 05/09/[address] [facility] [address] [facility] [place] [address] , Zachary Murguia MD Social History Tobacco [...] on filedocumented in this encounter Care Teams Electrical Instrumentation Technician Relationship Specialty Start Date End Date Darrell Jackson MD PCP - General 04/17/16 documented as of this encounter
--- OUTSIDE RECORDS SUMMARY | 2024-07-29 02:36 | XMS_ITS | Encounter Summary ---
Author Organization [facility] Address Critical access hospital6 [facility]. [place], [place] [address] [place] [address] Care Team Providers Care Store Loss Prevention Manager Name Role Phone Darrell Jackson MD Primary Care Provider [phone] Encounter Details Date Type Department Care Team (Late st Contact Info) Description 03/18/2005 Abstract [facility] [address] [facility] [place] [address] , Zachary Murguia MD Social History Tobacco [...] on filedocumented in this encounter Care Teams Store Loss Prevention Manager Relationship Specialty Start Date End Date Darrell Jackson MD PCP - General 04/17/16 documented as of this encounter
--- OUTSIDE RECORDS SUMMARY | 2024-07-29 02:36 | XMS_ITS | Encounter Summary ---
Author Organization [facility] Address [facility]6 [facility]. [place], [place] [address] [place] [address] Care Team Providers Care Shake Table Operator Name Role Phone Darrell Jackson MD Primary Care Provider [phone] Encounter Details Date Type Department Care Team (Late st Contact Info) Description 03/30/2001 Abstract [facility] [address] [facility] [place] [address] , Zachary Murguia MD Social History Tobacco [...] on filedocumented in this encounter Care Teams Shake Table Operator Relationship Specialty Start Date End Date Darrell Jackson MD PCP - General 04/17/16 documented as of this encounter
--- OUTSIDE RECORDS SUMMARY | 2024-07-29 02:36 | XMS_ITS | Encounter Summary ---
Author Organization [facility] Address [address] [facility] [address] [place] [address] Care Team Providers Care Technical Intern Name Role Phone Preeti Leigh Primary Care Provider [phone] German Barcenas MD Unavailable [phone] Reason for Visit * Reason Comments Coronary Artery Disease 8 month fu Encounter Details Date Type Department Care Team (Late st Contact Info) Description 01/04/2022 11:30 AM CDT Office Visit [facility] Cardiology [address] [address] Carter Burciaga MD [address] [facility] 102 [place] [address] Coronary artery disease involving [place] coronary artery of [place] heart without angina pectoris (Primary Dx); Status [...] on file Legal Sex Female 9:05 AM BOTTOM STEEP 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 Gender Identity Not on file Sexual Orientation [...] for this visit: Coronary artery disease involving [place] coronary artery of [place] heart without angina pectoris Status post insertion of drug eluting coronary artery stent PLAN/RECOMMENDATIONS Continue current medical regimen and will see her in follow-up at 6 month intervals Carter Burciaga MD documented in this encounter Plan of Treatment Not on file documented as of this encounter Visit Diagnoses Diagnosis Coronary artery disease involving [place] coronary artery of [place] heart without angina pectoris- Primary Status post [...] 12/21/2021 added in this encounter Care Teams Technical Intern Relationship Specialty Start Date End Date Preeti Leigh PA PCP - General Land Sales Agent 09/20/21 01/09/22 German Barcenas MD [address] [facility] 121 [place] [address] Referring Physician Vascular Surgery 07/22/21 documented as of this encounter
--- OUTSIDE RECORDS SUMMARY | 2024-07-29 02:36 | XMS_ITS | Encounter Summary ---
Author Organization [facility] Address [facility] [facility] [place], [place] [address] [place] [address] Care Team Providers Care Idea Worker Name Role Phone Darrell Jackson MD Primary Care Provider [phone] Encounter Details Date Type Department Care Team (Late st Contact Info) Description 03/30/2000 Abstract [place] [address] Social History Tobacco Use Types Packs/Day Years [...] on filedocumented in this encounter Care Teams Idea Worker Relationship Specialty Start Date End Date Darrell Jackson MD PCP - General 04/17/16 documented as of this encounter
--- OUTSIDE RECORDS SUMMARY | 2024-07-29 02:36 | XMS_ITS | Encounter Summary ---
Author Organization [facility] Address [address] [place] [address] Care Team Providers Care Metal Roaster Name Role Phone German Barcenas MD Unavailable [phone] Yo Suresh MD Primary Care Provider [phone] Reason for Visit * Reason Comments Follow-up 6 mo Encounter Details Date Type Department Care Team (Late st Contact Info) Description 03/10/2024 3:45 PM CDT Office Visit [facility] Cardiology [address] [facility] [address] [place] [address] Carter Burciaga MD [address] 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 Gender Identity Not on file Sexual Orientation [...] are records of her being seen at [facility] in September of this year with some [...] for this visit: Coronary artery disease involving [place] coronary artery of [place] heart without angina pectoris Status post insertion [...] Visit Diagnoses Diagnosis Coronary artery disease involving [place] coronary artery of [place] heart without angina pectoris- Primary Status post insertion of drug eluting coronary artery stent Lipid screening Screening for lipoid disorders documented in this encounter Care Teams Metal Roaster Relationship Specialty Start Date End Date Yo Suresh MD [address] [facility] [place], [place] [id number] PCP - General Family Practice 01/08/23 German Barcenas MD [address] [facility] [place] [address] Referring Physician Vascular Surgery 07/22/21 documented as of this encounter
--- OUTSIDE RECORDS SUMMARY | 2024-07-29 02:36 | XMS_ITS | Encounter Summary ---
Author Organization [facility] Address [facility]. [place], [place] [address] [place] [address] Care Team Providers Care Weatherstrip Machine Operator Name Role Phone Darrell Jackson MD Primary Care Provider [phone] Encounter Details Date Type Department Care Team (Late st Contact Info) Description 08/11/2001 Abstract [facility] [address] [place] [address] , Zachary Murguia MD Social History Tobacco [...] on filedocumented in this encounter Care Teams Weatherstrip Machine Operator Relationship Specialty Start Date End Date Darrell Jackson MD PCP - General 04/17/16 documented as of this encounter
--- OUTSIDE RECORDS SUMMARY | 2024-07-29 02:36 | XMS_ITS | Encounter Summary ---
Author Organization [facility] Address [facility]. [place], [place] [address] [place] [address] Care Team Providers Care Bucket Wash Operator Name Role Phone Darrell Jackson MD Primary Care Provider [phone] Encounter Details Date Type Department Care Team (Late st Contact Info) Description 05/30/1996 Abstract [place] [address] , Generic Conversion, Social History Tobacco Use [...] on filedocumented in this encounter Care Teams Bucket Wash Operator Relationship Specialty Start Date End Date Darrell Jackson MD PCP - General 04/17/16 documented as of this encounter
--- OUTSIDE RECORDS SUMMARY | 2024-07-29 02:36 | XMS_ITS | Referral Summary ---
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
--- OUTSIDE RECORDS SUMMARY | 2024-07-29 02:36 | XMS_ITS | Encounter Summary ---
Author Organization [facility] Address [facility] [address] [place] [address] Care Team Providers Care Night Warehouse Selector Name Role Phone Darrell Jackson MD Primary Care Provider [phone] Encounter Details Date Type Department Care Team (Late st Contact Info) Description 04/17/2016 Emergency [facility] [place] [address] Jaleesa Steinberg PA-C [address] [facility] [address] [place] [address] Social History Tobacco Use Types Packs/Day Years [...] nos documented in this encounter Care Teams Night Warehouse Selector Relationship Specialty Start Date End Date Darrell Jackson MD PCP - General 04/17/16 documented as of this encounter
--- OUTSIDE RECORDS SUMMARY | 2024-07-29 02:36 | XMS_ITS | Encounter Summary ---
Author Organization [facility] Address [facility]. [place], [place] [address] [place] [address] Care Team Providers Care Paymaster Of Purses Name Role Phone Darrell Jackson MD Primary Care Provider Encounter Details Date Type Department Care Team (Late st Contact Info) Description 03/17/2004 [place] [address] , Generic Conversion, Social History Tobacco Use [...] on filedocumented in this encounter Care Teams Paymaster Of Purses Relationship Specialty Start Date End Date Darrell Jackson MD PCP - General 04/17/16 documented as of this encounter
--- OUTSIDE RECORDS SUMMARY | 2024-07-29 02:37 | XMS_ITS | Encounter Summary ---
Author Organization [facility] Address [address] [facility] [address] [place] [address] Care Team Providers Care Line Helper Name Role Phone Darrell Jackson MD Primary Care Provider [phone] Encounter Details Date Type Department Care Team (Late st Contact Info) Description 01/16/2017 9:30 AM CDT Office Visit [facility] [address] [facility] [address] [address] Carter Burciaga MD [address] [id number] Coronary artery disease involving [place] coronary artery of [place] heart without angina pectoris (Primary Dx) Social History Tobacco Use Types Packs/Day Years Used Date Smoking Tobacco: Former Alcohol Use Standard Drinks/Week Comments No 0 (1 standard drink = 0.6 oz pur e alcohol) Comments Unknown Sex and Gender Information Value Date Recorded Sex Assigned at Not on file Legal Sex Female 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 Gender Identity Not on file Sexual Orientation [...] Body Mass Index 30.51 06/28/2016 10:59 AM 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 UNIT documented in this encounter Progress Notes * [...] for this visit: Coronary artery disease involving [place] coronary artery of [place] heart without angina pectoris PLAN/RECOMMENDATIONS No change in current cardiac regimen Follow-up at 6 month intervals Carter Burciaga MD documented in this encounter Plan of Treatment Not on file documented as of this encounter Visit Diagnoses Diagnosis Coronary artery disease involving [place] coronary artery of [place] heart without angina pectoris- Primary documented in this encounter Care Teams Line Helper Relationship Specialty Start Date End Date Darrell Jackson MD [address] [facility] [address] [address] [facility] [address] MEDICINE [place] [id number] PCP - General 10/19/16 08/05/19 documented as of this encounter
--- OUTSIDE RECORDS SUMMARY | 2024-07-29 02:37 | XMS_ITS | Encounter Summary ---
Author Organization [facility] Care Team Providers Care Room Service Clerk Name Role Phone Unavailable Primary Care Provider Unavailabl e Encounter Details Date Type Department Care Team (Late st Contact Info) Description 12/27/2011 9:21 AM CDT - 12/27/2011 4:00 PM CDT Hospital En[facility] Cerebral aneurysm, nonruptured; Subarachnoid hemorrhage (CMS/HCC) (HCC) Social History Tobacco Use Types Packs/Day Years Used Date Smoking Tobacco: Never Assessed Comments Unknown Sex and Gender Information Value Date Recorded Sex Assigned at Not on file 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
--- OUTSIDE RECORDS SUMMARY | 2024-07-29 02:37 | XMS_ITS | Encounter Summary ---
Author Organization [facility] Address [address] [facility] [address] [place] [address] Care Team Providers Care Burlap Roll Coverer Name Role Phone Darrell Jackson MD Primary Care Provider [phone] Reason for Visit * Diagnostic Imaging (Routine) - Closed Specialty Diagnoses / Procedures Referred By Contac t Referred To Contact Diagnoses Chronic back pain, unspecified back location, unspecified back pain laterality Procedures NM MPI Spect (Rest And Stress) Multiple Studies Carter Burciaga MD Phone: tel: fax: Referral ID Status Reason Start Date Expiration Date Visits Re quested Visits Authorized [id number] Closed 12/27/2016 06/25/2017 1 1 Encounter Details Date Type Department Care Team (Latest Contact Info) Description 01/08/2017 8:45 AM CDT Ancillary Procedure [facility] Medical [facility] Cardiology [address] [place] [address] Chronic back pain, unspecified back location, unspecified back pain laterality Social History Tobacco Use Types Packs/Day Years Used Date Smoking Tobacco: Former Alcohol Use Standard Drinks/Week Comments No 0 (1 standard drink = 0.6 oz pur e alcohol) Comments Unknown Sex and Gender Information Value Date Recorded Sex Assigned at Not on file Legal 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 Ref.Physician: CARTER BURCIAGA ?Height(Cm): 167.6 [...] ischemia. Electronically Signed By: Carter Burciaga MD, [facility] 2017-01-08 16:13:16 CDT Electronically Signed By: Carter Burciaga MD, [facility] 2017-01-08 16:13:17 CDT CC: CC: Procedure Note Carter Burciaga MD - 01/08/2017 [facility] [address] [facility] [address], [place] [address] [address] [facility] [address], [place] [address] P:[phone] P:[phone] MPI Imaging Report Patient Name: BEATRICE BURCIAGA APatiedanielle ID: [id number] : [id number] Date: 01/08/2017 10:21:02 AM Gender: FAccession #: [id number] Tech: Daina Johnson [facility] Location: [facility] Ref.Physician: CARTER BURCIAGA Height(Cm): 167.6 BSA: [...] ischemia. Electronically Signed By: Carter Burciaga MD, [facility] 2017-01-08 16:13:16 CDT Electronically Signed By: Carter Burciaga MD, [facility] 2017-01-08 16:13:17 CDT CC: CC: Result [facility] Carter Burciaga MD IM NM PROCEDURES Final [...] millicuries documented in this encounter Care Teams Burlap Roll Coverer Relationship Specialty Start Date End Date Darrell Jackson MD [address] [facility] [address] [place] [address] [place] [address] PCP - General 10/19/16 08/05/19 documented as of this encounter
--- OUTSIDE RECORDS SUMMARY | 2024-07-29 02:37 | XMS_ITS | Encounter Summary ---
Author Organization [facility] Address [address] [facility] [address] [place] [address] Care Team Providers Care Dental Lab Technician Name Role Phone Darrell Jackson MD Primary Care Provider [phone] Reason for Visit * Reason Comments Coronary Artery Disease 6 mo f/u Encounter Details Date Type Department Care Team (Late st Contact Info) Description 02/04/2018 1:30 PM CDT Office Visit [facility] [address] [facility] [address] [address] Carter Burciaga MD [address] [address] Status post insertion of drug eluting coronary artery stent (Primary Dx); Coronary artery disease involving [place] coronary artery of lum[place] heart without angina pectoris Social History Tobacco Use Types Packs/Day Years Used Date Smoking Tobacco: Former Smokeless Tobacco: Never Alcohol Use Standard Drinks/Week Comments No 0 (1 standard drink = 0.6 oz pur e alcohol) Comments Unknown Sex and Gender Information Value Date Recorded Sex Assigned at Not on file Legal 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 Carter Burciaga MD documented in this encounter Plan of Treatment Not on file documented as of this encounter Visit Diagnoses Diagnosis Status post insertion of drug eluting coronary artery stent- Primary Coronary artery disease involving [place] coronary artery of lum[place] heart without angina pectoris documented in this [...] 0 added in this encounter Care Teams Dental Lab Technician Relationship Specialty Start Date End Date Darrell Jackson MD [address] [facility] [address] [facility] [address] INTERNAL MEDICINE [place], [place] [id number] PCP - General 10/19/16 08/05/19 documented as of this encounter
--- OUTSIDE RECORDS SUMMARY | 2024-07-29 02:37 | XMS_ITS | Encounter Summary ---
Author Organization [facility] Address [address] [facility] [address] [place] [address] Care Team Providers Care Scrap Drop Engineer Name Role Phone Darrell Jackson MD Primary Care Provider [phone] Encounter Details Date Type Department Care Team (Late st Contact Info) Description 09/02/2017 Telephone [facility] [address] 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 After reviewing notes, informed pt switched her toatorvastatin 10mg Qd. Pt verbalized understanding OM DECORATING CONSULTANT documented in this encounter Plan of Treatment Not on file documented as of this encounter Visit Diagnoses Not on filedocumented in this encounter Care Teams Scrap Drop Engineer Relationship Specialty Start Date End Date Darrell Jackson MD [address] [facility] [address] [facility] [address] [place] [address] PCP - General 10/19/16 08/05/19 documented as of this encounter
--- OUTSIDE RECORDS SUMMARY | 2024-07-29 02:37 | XMS_ITS | Encounter Summary ---
Author Organization [facility] Address [address] [facility] [address] [place] [address] Care Team Providers Care International Trade Compliance Manager Name Role Phone Darrell Jackson MD Primary Care Provider [phone] Reason for Visit * Reason Comments Follow-up 6 mos, CAD Encounter Details Date Type Department Care Team (Late st Contact Info) Description 12/27/2016 11:15 AM CDT Office Visit [facility] [address] [facility] [address] 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 Gender Identity Not on file Sexual Orientation [...] Body Mass Index 30.67 06/28/2016 10:59 AM TEMPORARY STAFF ACCOUNTANT documented in this encounter Progress Notes * [...] for this visit: Coronary artery disease involving kaw coronary artery of kaw heart without angina pectoris PLAN/RECOMMENDATIONS Schedule Lexiscan [...] 8 PM CDT Coronary artery disease involving kaw coronary artery of kaw heart without angina pectoris documented in this [...] Visit Diagnoses Diagnosis Coronary artery disease involving [place]aw coronary artery of kaw heart without angina pectoris- Primary documented in this encounter Care Teams International Trade Compliance Manager Relationship Specialty Start Date End Date Darrell Jackson MD [address] [place] [address] PCP - General 10/19/16 08/05/19 documented as of this encounter
--- OUTSIDE RECORDS SUMMARY | 2024-07-29 02:37 | XMS_ITS | Encounter Summary ---
Author Organization [facility] Address [address] [facility] [address] [place] [address] Care Team Providers Care Systems Integration Engineer Name Role Phone Ignacio Castro DO Primary Care Provider [phone] Reason for Visit * Reason Comments Follow-up 6 mo fu cad, h/o claire nt Encounter Details Date Type Department Care Team (Late st Contact Info) Description 08/06/2019 1:45 PM VOCATIONAL TECHNICAL EDUCATION TEACHER Office Visit [facility] Cardiology [address] [facility] 102 [place] [phone] Carter Burciaga MD [address] [facility] [address] [place], [place] [phone] Coronary artery disease involving [place] coronary artery of telida heart without angina pectoris (Primary Dx); Status [...] on file Legal Sex Female 9:05 AM VOCATIONAL TECHNICAL EDUCATION TEACHER Gender Identity Not on file Sexual Orientation Not on file documented as of this encounter Last Filed Vital Signs Vital Sign Reading Time Taken Comments Blood Pressure 116/74 08/06/2019 1:49 PM VOCATIONAL TECHNICAL EDUCATION TEACHER Pulse 71 08/06/2019 1:49 PM VOCATIONAL TECHNICAL EDUCATION TEACHER Temperature - - Respiratory Rate - - Oxygen Saturation 96% 08/06/2019 1:49 PM VOCATIONAL TECHNICAL EDUCATION TEACHER Inhaled Oxygen Concentration - - Weight 81.6 kg (180 lb) 08/06/2019 1:49 PM VOCATIONAL TECHNICAL EDUCATION TEACHER Height 167.6 cm (5' 6 ) 08/06/2019 1:49 PM VOCATIONAL TECHNICAL EDUCATION TEACHER Body Mass Index 29.05 08/06/2019 1:49 PM VOCATIONAL TECHNICAL EDUCATION TEACHER documented in this encounter Progress Notes [...] 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 Carter Burciaga MD TIONAL TECHNICAL EDUCATION TEACHER documented in this encounter Plan of Treatment Not on file documented as of this encounter Visit Diagnoses Diagnosis Coronary artery disease involving [place] coronary artery of telida heart without angina pectoris- Primary Status post insertion of drug eluting coronary artery stent documented in this encounter Care Teams Systems Integration Engineer Relationship Specialty Start Date End Date Ignacio Castro DO PCP - General Internal Medicine 08/06/19 09/19/21 documented as of this encounter
--- OUTSIDE RECORDS SUMMARY | 2024-07-29 02:37 | XMS_ITS | Encounter Summary ---
Author Organization [facility] Address [address] [facility] [address] [place] [address] Care Team Providers Care Photo Retoucher Name Role Phone Darrell Jackson MD Primary Care Provider [phone] Reason for Visit * Reason Comments Follow-up 6 mo fu on cad Encounter Details Date Type Department Care Team (Late st Contact Info) Description 02/03/2019 1:45 PM CDT Office Visit [facility] [address] [facility] [address] [address] Carter Burciaga MD [address] [address] Status post insertion of drug eluting coronary artery stent (Primary Dx); Coronary artery disease involving [place] coronary artery of [place] heart without angina pectoris Social History Tobacco Use Types Packs/Day Years Used Date Smoking Tobacco: Former Smokeless Tobacco: Never Alcohol Use Standard Drinks/Week Comments No 0 (1 standard drink = 0.6 oz pur e alcohol) Comments Unknown Sex and Gender Information Value Date Recorded Sex Assigned at Not on file Legal Sex 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 ALPRAZolam (XANAX) 0.25 mg tablet Take 1 tablet (0.25 mg total) by mouth nightly as needed for anxiety added in this encounter Care Teams Photo Retoucher Relationship Specialty Start Date End Date Darrell Jackson MD [address] [facility] [address] [facility] [address] [place] [address] PCP - General 10/19/16 08/05/19 documented as of this encounter
--- OUTSIDE RECORDS SUMMARY | 2024-07-29 02:37 | XMS_ITS | Encounter Summary ---
Author Organization [facility] Address [address] [facility] [address] [place] [address] Care Team Providers Care Daycare Provider Name Role Phone Darrell Jackson MD Primary Care Provider [phone] Encounter Details Date Type Department Care Team (Late st Contact Info) Description 03/06/2019 Orders Only [facility] [address] [facility] [address] [place] [address] ProviderScott MD [address] [place] [address] Social History Tobacco Use Types Packs/Day Years Used Date Smoking Tobacco: Former Smokeless Tobacco: Never Alcohol Use Standard Drinks/Week Comments No 0 (1 standard drink = 0.6 oz pur e alcohol) Comments Unknown Sex and Gender Information Value Date Recorded Sex Assigned at Not on file 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
--- OUTSIDE RECORDS SUMMARY | 2024-07-29 02:37 | XMS_ITS | Encounter Summary ---
Author Organization [facility] Address [address] [facility] [address] [place] [address] Care Team Providers Care Distribution Sales Representative Name Role Phone Darrell Jackson MD Primary Care Provider [phone] Encounter Details Date Type Department Care Team (Late st Contact Info) Description 04/15/2017 Telephone [facility] [address] [place] [phone] Carter Burciaga MD [address] [facility] 102 [place] [address] Social History Tobacco Use Types Packs/Day Years Used Date Smoking Tobacco: Former Alcohol Use Standard Drinks/Week Comments No 0 (1 standard drink = 0.6 oz pur e alcohol) Comments Unknown Sex and Gender Information Value Date Recorded Sex Assigned at Not on file 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 documented in this encounter Plan of Treatment Not on file documented as of this encounter Visit Diagnoses Not on filedocumented in this encounter Discontinued Medications Medication Sig Discontinue Reason Start Date End Da te rosuvastatin (CRESTOR) 5 mg tablet TAKE 1 TABLET BY MOUTH EVERY DAY Reorder 04/08/2015 04/15/2017 documented as of this encounter Care Teams Distribution Sales Representative Relationship Specialty Start Date End Date Darrell Jackson MD [address] [facility] [address] [place] [phone] PCP - General 10/19/16 08/05/19 documented as of this encounter
--- OUTSIDE RECORDS SUMMARY | 2024-07-29 02:37 | XMS_ITS | Encounter Summary ---
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
--- OUTSIDE RECORDS SUMMARY | 2024-07-29 02:37 | XMS_ITS | Encounter Summary ---
Author Organization [facility] Address [address] [facility] [address] [place] [address] Care Team Providers Care Manager Cost Name Role Phone Darrell Jackson MD Primary Care Provider [phone] Reason for Visit * Reason Comments Follow-up 6 mo follow up on CA D Encounter Details Date Type Department Care Team (Late st Contact Info) Description 07/25/2017 1:00 PM CORRECTIONAL PROGRAM SPECIALIST Office Visit [facility] [address] [facility] [address] [address] Carter Burciaga MD [address] [address] Status post insertion of drug eluting coronary artery stent (Primary Dx); Coronary artery disease involving [place] coronary artery of [place] heart without angina pectoris Social History Tobacco Use Types Packs/Day Years Used Date Smoking Tobacco: Former Smokeless Tobacco: Never Alcohol Use Standard Drinks/Week Comments No 0 (1 standard drink = 0.6 oz pur e alcohol) Comments Unknown Sex and Gender Information Value Date Recorded Sex Assigned at Not on file Legal Sex Female 9:05 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 Gender Identity Not on file Sexual Orientation Not on file documented as of this encounter Last Filed Vital Signs Vital Sign Reading Time Taken Comments Blood Pressure 114/68 07/25/2017 1:22 PM CORRECTIONAL PROGRAM SPECIALIST Pulse 81 07/25/2017 1:22 PM CORRECTIONAL PROGRAM SPECIALIST Temperature - - Respiratory Rate - - Oxygen Saturation 95% 07/25/2017 1:22 PM CORRECTIONAL PROGRAM SPECIALIST Inhaled Oxygen Concentration - - Weight 85.3 kg (188 lb) 07/25/2017 1:22 PM CORRECTIONAL PROGRAM SPECIALIST Height 167.6 cm (5' 6 ) 07/25/2017 1:22 PM CORRECTIONAL PROGRAM SPECIALIST Body Mass Index 30.34 07/25/2017 1:22 PM CORRECTIONAL PROGRAM SPECIALIST documented in this encounter Progress Notes [...] coronary artery stent Coronary artery disease involving [place] coronary artery of [place] heart without angina pectoris PLAN/RECOMMENDATIONS Continue current medical regimen as she is doing very well Continue follow-up at 6 month intervals. Carter Burciaga MD documented in this encounter Plan of Treatment Not on file documented as of this encounter Procedures Procedure Name Priority Date/Time Associated Diagnosis Comments POCT LIPID PANEL Routine 07/25/2017 1:40 PM CORRECTIONAL PROGRAM SPECIALIST Coronary artery disease involving [place] coronary artery of [place] heart without angina pectoris documented in this encounter Results * POCT lipid panel (07/25/2017 1:40 PM CORRECTIONAL PROGRAM SPECIALIST) Cholesterol, POC 165 mg/dL HDL, POC 66 mg/dL Triglycerides, POC 159 mg/dL LDL Cholesterol POC 67 mg/dL Chol/HDL Ratio, POC 2.5 Non-HDL Cholesterol, POC 99 mg/dL Cholesterol Total, POC 165 mg/dL Blood specimen (specimen) 07/25/2017 1:40 PM CORRECTIONAL PROGRAM SPECIALIST us Carter Burciaga MD POINT OF CARE TEST ORDER ANNIE Final Result documented in this encounter Visit Diagnoses Diagnosis Status post insertion of drug eluting coronary artery stent- Primary Coronary artery 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
--- OUTSIDE RECORDS SUMMARY | 2024-07-29 02:37 | XMS_ITS | Encounter Summary ---
Author Organization [facility] Address [address] [facility] [address] [place] [address] Care Team Providers Care Control Tower Operator Name Role Phone Darrell Jackson MD Primary Care Provider [phone] Reason for Visit * Reason Comments Follow-up 6 MO ON cad Encounter Details Date Type Department Care Team (Late st Contact Info) Description 07/29/2018 1:30 PM HEEL GUMMER Office Visit [facility] [address] [facility] 162 [facility] 102 [place] [address] Carter Burciaga MD [address] [address] Status post insertion of drug eluting coronary artery stent (Primary Dx); Coronary artery disease involving [place] coronary artery of [place] heart without angina pectoris Social History Tobacco Use Types Packs/Day Years Used Date Smoking Tobacco: Former Smokeless Tobacco: Never Alcohol Use Standard Drinks/Week Comments No 0 (1 standard drink = 0.6 oz pur e alcohol) Comments Unknown Sex and Gender Information Value Date Recorded Sex Assigned at Not on file Legal Sex Female 9:05 AM HEEL GUMMER Gender Identity Not on file Sexual Orientation Not on file documented as of this encounter Last Filed Vital Signs Vital Sign Reading Time Taken Comments Blood Pressure 116/72 07/29/2018 1:40 PM HEEL GUMMER Pulse 84 07/29/2018 1:40 PM HEEL GUMMER Temperature - - Respiratory Rate - - Oxygen Saturation 94% 07/29/2018 1:40 PM HEEL GUMMER Inhaled Oxygen Concentration - - Weight 86.2 kg (190 lb) 07/29/2018 1:40 PM HEEL GUMMER Height 167.6 cm (5' 6 ) 07/29/2018 1:40 PM HEEL GUMMER Body Mass Index 30.67 07/29/2018 1:40 PM HEEL GUMMER documented in this encounter Progress Notes * [...] coronary artery stent Coronary artery disease involving [place] coronary artery of [place] heart without angina pectoris PLAN/RECOMMENDATIONS No change in regimen Continue to see her at 6 month intervals or of course p.r.n. 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
--- OUTSIDE RECORDS SUMMARY | 2024-07-29 02:37 | XMS_ITS | Encounter Summary ---
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
--- OUTSIDE RECORDS SUMMARY | 2024-07-29 02:37 | XMS_ITS | Encounter Summary ---
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
== END 2024-07-22 05:17 | disposition left against medical advice (07) ==
PROVIDERS: Emergency Provider Emergency Medicine; PCP Nurse Practitioner Family
DX: R73.9 Hyperglycemia, unspecified (principal)
CPT/HCPCS: 82948; 99199

== ENCOUNTER 2024-10-10 16:59 | Emergency (ER) | payer MEDICARE, SELFPAY ==
--- NOTE | 2024-10-10 17:09 | ED_ITS ---
HPI - Skin/Abscess/Foreign Bdy General Chief complaint: Skin/Abscess/Foreign Body Stated complaint: right big toe infection Time Seen by Provider: 10/10/24 17:09 Source: patient, RN notes reviewed and old records reviewed Mode of arrival: ambulatory Limitations: no limitations History of Present Illness HPI narrative: Patient presents with complaints of right great toe pain. She reports that she had a procedure to remove the toenail 12 days ago. Says that 2 days ago she began to have increased pain and redness at site, is now having some drainage. She reports the pain kept her up last night. She denies any fever, chills, sweats. She denies any newer injury or trauma Related Data Home Medications ?Medication ?Instructions ?Recorded ?Confirmed ?Last Taken ?Type metoprolol succinate 50 mg 50 mg PO HS 06/24/19 10/10/24 04/18/21 History tablet,extended release 24 hr perfluorohexyloctane (PF) 100 % 1 drp EACH EYE DAILY 10/10/24 10/10/24 Unknown History eye drops (Miebo (PF)) tobramycin 0.3 %-dexamethasone 1 drp EACH EYE TID 10/10/24 10/10/24 Unknown History 0.05 % eye drops,suspension (Tobradex ST) Allergies Allergy/AdvReac Type Severity Reaction Status Date / Time Sulfa (Sulfonamide Allergy Mild HIVES Verified 10/10/24 17:00 Antibiotics) propoxyphene AdvReac Mild FLIPPED Verified 10/10/24 17:00 OUT codeine AdvReac Unknown PASSES OUT Verified 10/10/24 17:00 Review of Systems 2 Review of Systems: All systems reviewed & are unremarkable except as noted in HPI and below Constitutional: Constitutional: Reports no additional constitutional complaints ENT: Reports system reviewed and no additional complaints, except as documented Cardiovascular: Cardiovascular: Reports no additional cardiovascular complaints Respiratory: Respiratory: Reports no additional respiratory complaints Gastrointestinal: Gastrointestinal: Reports no additional gastrointestinal complaints Integumentary/Breasts: Skin/Breast: Reports as per HPI [facility] Past Medical History Medical History Obstructive sleep apnea does not use CPAP getting fitted for mouth appliance Cerebrovascular accident Hyperlipidemia Myocardial infarction Gastroesophageal reflux disease Coronary artery disease Hemorrhoids Anxiety Peptic ulcer disease Kidney stone Asthma Mitral valve prolapse Brain aneurysm Migraine Depression Benign essential hypertension Chronic obstructive pulmonary disease, unspecified Postmenopausal disorder Type 2 diabetes mellitus without complication, without long-term current use of insulin Surgical History Surgical History Status post coil embolization of cerebral aneurysm History of left-sided carotid endarterectomy History of rectal surgery anal fistulotomy History of cholecystectomy History of tonsillectomy History of cardiac catheterization Family History Family History Mother Hypertension Cerebrovascular accident Family history of diabetes mellitus in first degree relative Family history of congestive heart failure Diabetes mellitus Family history of hypercholesterolemia CHF (congestive heart failure) Grandparent Cerebrovascular accident Family history of hepatitis Family history of malignant neoplasm Father Hypertension Acute myocardial infarction Social History Social History Social History: Surrogate medical decision maker: Sheldon Troncoso, nena. Code status: Full code. Smoking packs per day: 1 Smoking cigarettes per day: 20.0 Years smoked: 39 Smoking pack-years: 39.00 Smoking status: Former smoker Second hand tobacco smoke exposure: Yes Smoking end date: 07/22/07 Additional smoking assessment comments: quit 2007 Alcohol intake: former Alcohol use details: quit 1998 Substance use: never Substance use type: does not use Do You Feel Safe in your Home?: Yes Lack of Transportation: No Lack of Food: Never True Current Housing: I Have Housing Concerned About Future Housing: No Difficulty Paying Gas/Electric Bills: No Difficulty Paying for Meds: No Currently Unemployed: No Education: Master's Degree or Higher Difficulty w/ Childcare or Family Care: No Living arrangements: with family Additional living arrangements comments: Single. Lives with son. 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 Spiritual care concerns: No Comments At the time of my signature, I reviewed and agree with the nursing past medical, surgical, social, and family history. There is no relevant family history pertinent to the patient complaint. Exam 2 Const: General: cooperative, no acute distress, alert and awake O rientation/consciousness: oriented to person, oriented to place and oriented to time HENMT: Head: normal to inspection Resp: Effort & Inspection: normal respiratory effort and able to speak in complete sentences Auscultation: clear to auscultation bilaterally, no crackles, no rales, no rhonchi and no wheezes Cardio: Palpation: normal PMI Rate: regular rate Rhythm: regular rhythm Heart sounds: S1 normal heart sound present and S2 normal heart sound present Neuro: General: oriented to person, oriented to place and oriented to time Cranial nerves: Yes CN's II-XII intact bilaterally Extrem: Ankle/foot/toe images: 1. Right great toe without nail, there is scabbing and maceration where nail once was. Some purulent drainage noted. Entirety of the toe is erythematous and warm to touch Psych: Appearance: grossly normal Thought process: Normal thought process present Insight: Good insight present (Psych) Judgement: Good judgement present (Psych) Course Course Level of Care: Express Care Visit Vital Signs Vital signs: Reviewed MDM - Skin/Abscess/Foreign Bdy MDM Narrative Medical decision making narrative: Patient with surgical procedure to remove right great toe, now with infection of sight. Start p.o. antibiotic therapy. Patient admits that she does have follow-up appointment with template maker scheduled for Saturday. She is encouraged to keep this, call the office Saturday if possible. Discharge instructions reviewed with patient, as well as provided in writing per nursing staff. The instructions also include specific and strict return/GO TO THE ER as well as f/u information. All questions have been answered, and the patient deny any further questions with discharge and discharge plan. Some parts of this dictation were generated by voice recognition software and may contain typographical and/or grammatical inaccuracies. Differential Diagnosis Differential diagnosis: Likely abscess of skin or subcutaneous tissue and cellulitis Medical Records Attestation: I reviewed the patient's medical records. Discharge Plan Discharge Clinical Impression: Cellulitis Qualifiers: Site of cellulitis: extremity Site of cellulitis of extremity: lower extremity Laterality: right Qualified Code(s): L03.115 - Cellulitis of right lower limb Patient Disposition: Home, Self-Care Condition: Stable Instructions: Antibiotic Form, Cellulitis (ED) Additional Instructions: In take medications as prescribed. Follow with primary care provider. Emergency department for new or worse symptoms Patient Language: Macedonian Prescriptions: New amoxicillin-pot clavulanate 875-125 mg tablet 1 tablet PO Q12H Qty: 14 0RF No Action Miebo (PF) 100 % drops 1 drp EACH EYE DAILY Tobradex ST 0.3-0.05 % drops,suspension 1 drp EACH EYE TID metoprolol succinate 50 mg tablet extended release 24 hr 50 mg PO HS Xiidra 5 % dropperette 1 drp EACH EYE Q12H Qty: 60 0RF alprazolam [Xanax] 0.25 mg tablet 0.25 mg PO BID PRN (Reason: Anxiety) Qty: 60 0RF Januvia 100 mg tablet 100 mg PO DAILY Qty: 90 1RF (DME) blood-glucose meter [Accu-Chek Guide Glucose Meter] Misc See Rx Instructions .Route Qty: 1 0RF Rx Instructions: Check blood glucose 1xday As directed (DME) Accu-Chek Guide test strips Strip See Rx Instructions .Route Qty: 100 3RF Rx Instructions: Check blood glucose 1xday As directed (DME) lancets [Accu-Chek Softclix Lancets] Misc See Rx Instructions .Route Qty: 200 3RF Rx Instructions: Check blood glucose 1xday As directed (DME) lancing device with lancets Kit See Rx Instructions .Route Qty: 1 0RF Rx Instructions: check glucose daily As directed clopidogrel 75 mg tablet See Rx Instructions .ROUTE .COMPLEX Qty: 90 1RF Dose Instruction: TAKE 1 TABLET BY MOUTH EVERY DAY Rx Instructions: TAKE 1 TABLET BY MOUTH EVERY DAY pantoprazole 40 mg tablet,delayed release (DR/EC) See Rx Instructions .ROUTE .COMPLEX Qty: 180 1RF Dose Instruction: TAKE 1 TABLET BY MOUTH TWICE A DAY Rx Instructions: TAKE 1 TABLET BY MOUTH TWICE A DAY atorvastatin 40 mg tablet 40 mg PO HS Qty: 90 1RF Follow-up/Referrals: Yo Suresh MD [Primary Care Provider] - 2 Weeks Stand Alone Forms: Work/School Release IP Time of Disposition: 17:46
[2024-10-10 17:11] VITALS: BP 123/50; PULSE 76; RESP 16; TEMP 36.1; O2SAT 99
== END 2024-10-10 17:57 | disposition home or self-care (01) ==
PROVIDERS: Emergency Provider Nurse Practitioner Family; PCP Family Medicine
DX: L03.115 Cellulitis of right lower limb (principal); I25.2 Old myocardial infarction; E78.5 Hyperlipidemia, unspecified; I25.10 Atherosclerotic heart disease of native coronary artery without angina pectoris; J44.9 Chronic obstructive pulmonary disease, unspecified; E11.9 Type 2 diabetes mellitus without complications; I10 Essential (primary) hypertension; Z86.73 Personal history of transient ischemic attack (TIA), and cerebral infarction without residual deficits; Z87.891 Personal history of nicotine dependence
CPT/HCPCS: 99213; G0463

== ENCOUNTER 2024-10-11 19:26 | Inpatient (IN) | payer MEDICARE, SELFPAY ==
--- NOTE | ~2024-10-11 | XR_ITS ---
EXAMINATION: XR foot RT min 3V DATE: 10/11/2024 23:15 INDICATION: Right great toe infection. TECHNIQUE: 3 views of right foot were obtained. COMPARISON: Right foot radiographs 01/01/2007 FINDINGS: Alignment is normal. No fracture. There is mild osteoarthritis of first metatarsophalangeal joint. There are enthesophytes at the posterior and plantar aspects of calcaneal tuberosity. IMPRESSION: 1. No evidence of osteomyelitis. Reviewed, dictated and finalized at location A.
--- OUTSIDE RECORDS SUMMARY | 2024-10-11 19:27 | XMS_ITS | Clinical Summary ---
Author Organization [facility] eEvent Address [address] [place] [address] Care Team Providers Care Cheese Wrapper Name Role Phone Ignacio Castro DO Primary Care Provider [phone] Source Comments [facility],non-owned Affiliates and Associated Physician Practices is amultiple site organization consisting of ambulatory clinics and hospital sitesin [place], [place], [place] and [place]. This disclosure is being madepursuant to the Care Everywhere program and may not contain all information available regarding this patient. Last updated 18.[facility] eEvent Allergies Active Allergy Reactions Criticality Noted Date [...] 02/06/1968 DTAP/TDAP/TD VACCINES (1 - Tdap) 1969 PNEUMOCOCCAL VACCINE 50+ (1 of 1 - PCV) 02/11/2000 ZOSTER VACCINE (1 of 2) 02/11/2000 COVID-19 VACCINE (1 - 2023-2 5 season) [...] patient's age to complete this topic MENINGOCOCCAL (Group B) VACC INE SHARED DECISION-MAKING Aged Out No longer eligibl e based on patient's age to complete this topic MENINGOCOCCAL GROUPS A/C/Y/W VACCINE Aged Out No longer eligible b ased on patient's age to complete this topic Care Teams Cheese Wrapper Relationship Specialty Start Date End Date Ignacio Castro DO [address] [place] [address] PCP - General Internal Medicine 02/19/19
--- OUTSIDE RECORDS SUMMARY | 2024-10-11 19:27 | XMS_ITS | Clinical Summary ---
Author Organization [facility] Address [address] [place], [place] [id number] Care Team Providers Care Industrial Insulator Name Role Phone Darrell Jackson MD Primary Care Provider [phone] Social History Tobacco Use Types Packs/Day Years [...] (1 - 1-dose 75+ series) 2025 Meningococcal B Vaccine Aged Out No l onger eligible based on patient's age to complete this topic Meningococcal Vaccine Aged Out No marshall jenny eligible based on patient's age to complete this topic RSV Immunizations Under 20 Months Aged Out No longer eligible based on patient's age to complete this topic Care Teams Industrial Insulator Relationship Specialty Start Date End Date Darrell Jackson MD PCP - General 04/17/16
--- OUTSIDE RECORDS SUMMARY | 2024-10-11 19:27 | XMS_ITS | Clinical Summary ---
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 Gender Identity Not on file Sexual [...] vaccine 65+ (1 of 1 - PCV) 02/11/2000 08/05/2013 Well Visit 65+ 2015 Influenza Vaccine (#1) 2024 9, 06/21/2018, 05/07/2016, Additional history exists Zoster Vaccine Completed 01/14/2018, 10/23/2017 Insurance [facility] HUMANA CHOICE MEDICARE PPO HUMANA CHOICE MEDICARE PPO Member Subscriber Plan / Payer (Ef fective 2022-Present) Name:Beatrice Calero Relation to Subscriber:Self Name:Beatrice Calero Payer ID:[id number] (NAIC) Type:MEDICARE RISK OTHER Address: [place] [id number] Care Teams Bottle Blower Relationship Specialty Start Date End Date Yo Suresh MD [address] [place] [address] PCP - General Family Practice 01/08/23 German Barcenas MD [address] [place] [address] Referring Physician Vascular Surgery 07/22/21
--- OUTSIDE RECORDS SUMMARY | 2024-10-11 19:27 | XMS_ITS | Referral Summary ---
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
[2024-10-11 19:36] VITALS: BP 133/66; PULSE 80; RESP 18; TEMP 36.6; O2SAT 100
[2024-10-11 22:22] VITALS: BP 128/58; PULSE 75; RESP 16; O2SAT 100
--- NOTE | 2024-10-11 22:23 | PC.NURSE ---
this rn elevated patient right leg/ toe
--- OUTSIDE RECORDS SUMMARY | 2024-10-11 22:31 | XMS_ITS | Clinical Summary ---
Author Organization [facility] Address [address] [place], [place] [id number] Care Team Providers Care Associate Professor Physician Name Role Phone Darrell Jackson MD Primary Care Provider [phone] Social History Tobacco Use Types Packs/Day Years [...] age to complete this topic Care Teams Associate Professor Physician Relationship Specialty Start Date End Date Darrell Jackson MD PCP - General 04/17/16
--- OUTSIDE RECORDS SUMMARY | 2024-10-11 22:31 | XMS_ITS | Clinical Summary ---
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 Gender Identity Not on file Sexual Orientation [...] exists Zoster Vaccine Completed 01/14/2018, 10/23/2017 Insurance [facility] HUMANA CHOICE MEDICARE PPO HUMANA CHOICE MEDICARE PPO Member Subscriber Plan / Payer (Ef fective 2022-Present) Name:Beatrice Calero Relation to Subscriber:Self Name:Beatrice Calero Payer ID:[id number] (NAIC) Type:MEDICARE RISK OTHER Address: [place] [id number] Care Teams Lotus Notes Developer Relationship Specialty Start Date End Date Yo Suresh MD [address] [place] [address] PCP - General Family Practice 01/08/23 German Barcenas MD [address] [place] [address] Referring Physician Vascular Surgery 07/22/21
--- OUTSIDE RECORDS SUMMARY | 2024-10-11 22:32 | XMS_ITS | Referral Summary ---
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
--- OUTSIDE RECORDS SUMMARY | 2024-10-11 22:32 | XMS_ITS | Clinical Summary ---
Author Organization [facility] [employer] Address [address] [facility] [place] [address] Care Team Providers Care Line And Frame Poler Name Role Phone Ignacio Castro DO Primary Care Provider [phone] Source Comments [facility],non-owned Affiliates and Associated Physician Practices is amultiple site organization consisting of ambulatory clinics and hospital sitesin [place], [place] and [place]. This disclosure is being madepursuant to the Care Everywhere program and may not contain all information available regarding this patient. Last updated 18.[facility] [employer] Allergies Active Allergy Reactions Criticality Noted Date [...] age to complete this topic Care Teams Line And Frame Poler Relationship Specialty Start Date End Date Ignacio Castro DO [address] [place] [address] PCP - General Internal Medicine 02/19/19
[2024-10-11 22:57] LABS: Basophils Percent Auto 0.5 % (0.2-1.2); Eosinophils Absolute Auto 0.2 K/mm3 (0-0.3); Eosinophils Percent Auto 2.3 % (0-4.4); Hematocrit 39.7 % (37.0-47.0); Hemoglobin 13.9 g/dL (12.0-15.0); Immature Granulocyte Absolute 0.03 K/mm3 (0.00-0.031); Immature Granulocyte Percent A 0.3 % (0-0.5); Lymphocytes Absolute Auto 2.77 K/mm3 (0.9-3.2); Lymphocytes Percent Auto 32.3 % (18.3-44.2); Mean Corpuscular Hemoglobin 34.8 pg (26-34); Mean Corpuscular Volume 99.5 fl (80-100); Mean Platelet Volume 10.9 fl (7.4-10.4); Monocytes Absolute Auto 0.7 K/mm3 (0.1-0.6); Monocytes Percent Auto 7.7 % (2.6-8.5); Neutrophils Absolute Auto 4.9 K/mm3 (1.3-6.7); Neutrophils Percent Auto 56.9 % (45.5-73.1); Platelet Count Result 300 k/mm3 (150-375); Red Blood Count 3.99 M/mm3 (4.2-5.4); White Blood Count 8.6 K/mm3 (4.5-10.0)
--- NOTE | 2024-10-11 22:58 | ED.WOUNDLAC ---
HPI - Wound/Laceration General Chief Complaint: Wound/Laceration <Neda Yuen PA-C - Last Filed: 10/12/24 00:51> Stated Complaint: toe infection <Neda Yuen PA-C - Last Filed: 10/12/24 00:51> Time Seen by Provider: 10/11/24 22:02 <Neda Yuen PA-C - Last Filed: 10/12/24 00:51> History of Present Illness HPI narrative: 74-year-old female with history of GERD, hyperlipidemia, type 2 diabetes, COPD, DARCY, CAD s/p cardiac stent placement presents to emergency department for right great toe infection. Patient states 2 weeks ago she had her toenail removed by Dr. Pacheco. She has been having pain and redness progressing since. She states the pain became so bad yesterday she went to urgent care and was told she had an infection, she was prescribed Augmentin. She has taken 3 doses but states her symptoms continue to worsen. She is reporting pain and redness to the left toe. States it has been weeping clear fluid. She denies fevers but does today she began developing flu-like symptoms including chills, nausea and malaise. Patient is requesting admission for IV antibiotics. <Neda Yuen PA-C - Last Filed: 10/12/24 00:51> Related Data Home Medications: Home Medications ?Medication ?Instructions ?Recorded ?Confirmed ?Last Taken ?Type metoprolol succinate 50 mg 50 mg PO HS 06/24/19 10/11/24 04/18/21 History tablet,extended release 24 hr perfluorohexyloctane (PF) 100 % 1 drp EACH EYE DAILY 10/10/24 10/12/24 Unknown History eye drops (Miebo (PF)) tobramycin 0.3 %-dexamethasone 1 drp EACH EYE TID 10/10/24 10/11/24 Unknown History 0.05 % eye drops,suspension (Tobradex ST) albuterol sulfate 90 mcg/actuation 2 puff inhalation Q6H PRN 10/12/24 10/12/24 Unknown History aerosol inhaler shortness of breath cholestyramine-aspartame 4 gram 1 ea PO HS 10/12/24 10/12/24 Unknown History oral powder for susp in a packet <Neda Yuen PA-C - Last Filed: 10/12/24 00:51> Allergies/Adverse Reactions: Allergies Allergy/AdvReac Type Severity Reaction Status Date / Time Sulfa (Sulfonamide Allergy Mild HIVES Verified 10/11/24 19:40 Antibiotics) propoxyphene AdvReac Mild FLIPPED Verified 10/11/24 19:40 OUT codeine AdvReac Unknown PASSES OUT Verified 10/11/24 19:40 <Neda Yuen PA-C - Last Filed: 10/12/24 00:51> Review of Systems Review of Systems: All systems reviewed & are unremarkable except as noted in HPI and below <Neda Yuen PA-C - Last Filed: 10/12/24 00:51> [facility] Past Medical History Medical History: Medical History Obstructive sleep apnea does not use CPAP getting fitted for mouth appliance Cerebrovascular accident Hyperlipidemia Myocardial infarction Gastroesophageal reflux disease Coronary artery disease Hemorrhoids Anxiety Peptic ulcer disease Kidney stone Asthma Mitral valve prolapse Brain aneurysm Migraine Depression Benign essential hypertension Chronic obstructive pulmonary disease, unspecified Postmenopausal disorder Type 2 diabetes mellitus without complication, without long-term current use of insulin <Neda Yuen PA-C - Last Filed: 10/12/24 00:51> Surgical History Surgical History: Surgical History Status post coil embolization of cerebral aneurysm History of left-sided carotid endarterectomy History of rectal surgery anal fistulotomy History of cholecystectomy History of tonsillectomy History of cardiac catheterization <Neda Yuen PA-C - Last Filed: 10/12/24 00:51> Family History Family History: Family History Mother Hypertension Cerebrovascular accident Family history of diabetes mellitus in first degree relative Family history of congestive heart failure Diabetes mellitus Family history of hypercholesterolemia CHF (congestive heart failure) Grandparent Cerebrovascular accident Family history of hepatitis Family history of malignant neoplasm Father Hypertension Acute myocardial infarction <Neda Yuen PA-C - Last Filed: 10/12/24 00:51> Social History Social History: Social History Social History: Surrogate medical decision maker: Sheldon Troncoso, nena. Code status: Full code. Smoking packs per day: 1 Smoking cigarettes per day: 20.0 Years smoked: 20 Smoking pack-years: 20.00 Smoking status: Former smoker Tobacco type: cigarettes Second hand tobacco smoke exposure: Yes Smoking end date: 07/22/07 Additional smoking assessment comments: quit 2007 Alcohol intake: never Alcohol use details: quit 1998 Substance use: never Substance use type: does not use Do You Feel Safe in your Home?: Yes Lack of Transportation: No Lack of Food: Never True Current Housing: I Have Housing Concerned About Future Housing: No Difficulty Paying Gas/Electric Bills: No Difficulty Paying for Meds: No Currently Unemployed: No Education: Master's Degree or Higher Difficulty w/ Childcare or Family Care: No Living arrangements: with family Additional living arrangements comments: Single. Lives with son. 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 Spiritual care concerns: No <Neda Yuen PA-C - Last Filed: 10/12/24 00:51> Exam Narrative: GENERAL: Well-appearing, well-nourished, and in no acute distress. HEAD: Normocephalic, atraumatic. EYES: EOMI. ENT: Nares clear, no rhinorrhea or epistaxis. Mucous membranes moist. NECK: Supple. CHEST: Clear to auscultation. No respiratory distress. HEART: Regular rate and rhythm. No murmur heard. Normal peripheral pulses. EXTREMITIES: RLE: Great toe with scabbing over the nail bed, warmth and blanching erythema throughout the entirety of the toe, tender to palpation. Patient is able to wiggle the toe. There is mild fluctuance at the location over the proximal nail fold would be. No spontaneous drainage, no crepitus, necrosis. Full range of motion of toe SKIN: Warm, dry, no rash. NEURO: No focal deficits. Alert and oriented x3 <Neda Yuen PA-C - Last Filed: 10/12/24 00:51> Course LIME KILN TENDER/PA Physician Supervision Informed by RAMY that patient presents after podiatry visit and now concern for infection. Patient to be admitted for IV antibiotics. I was available for consultation while patient in the ED but did not personally eaxmine patient and was not involved in their care. <Ginny Devine MD - Last Filed: 10/12/24 10:06> Vital Signs Vital signs: Vital Signs Temperature 97.8 F 10/11/24 19:36 Pulse Rate 80 10/11/24 19:36 Respiratory Rate 18 10/11/24 19:36 Blood Pressure 133/66 10/11/24 19:36 Pulse Oximetry 100 10/11/24 19:36 Oxygen Delivery Room Air 10/11/24 19:36 Temperature 98.1 F 10/12/24 05:26 Pulse Rate 64 10/12/24 05:26 Respiratory Rate 18 10/12/24 05:26 Blood Pressure 137/55 L 10/12/24 05:26 Pulse Oximetry 95 10/12/24 09:07 Oxygen Delivery Room Air 10/12/24 09:07 <Neda Yuen PA-C - Last Filed: 10/12/24 00:51> Vital Signs Temperature 97.8 F 10/11/24 19:36 Pulse Rate 80 10/11/24 19:36 Respiratory Rate 18 10/11/24 19:36 Blood Pressure 133/66 10/11/24 19:36 Pulse Oximetry 100 10/11/24 19:36 Oxygen Delivery Room Air 10/11/24 19:36 Temperature 98.1 F 10/12/24 05:26 Pulse Rate 64 10/12/24 05:26 Respiratory Rate 18 10/12/24 05:26 Blood Pressure 137/55 L 10/12/24 05:26 Pulse Oximetry 95 10/12/24 09:07 Oxygen Delivery Room Air 10/12/24 09:07 <Ginny Devine MD - Last Filed: 10/12/24 10:06> MDM - Wound/Laceration MDM Narrative Medical decision making narrative: 74-year-old female with history of type 2 diabetes, hypertension presents to the emergency department for an infection to her right great toe. Patient had her toenail removed [address] Pacheco. Over the past day she has developed flu-like symptoms addition to increasing redness and pain to the toe. She went to urgent care started and was prescribed Augmentin which she has taken 3 doses with worsening symptoms. Vitals are stable. Exam is significant for cellulitis throughout the great toe. There is a area of fluctuance to the location of what would be the proximal nail fold, however bedside ultrasound does not show any focal fluid collection for drainage. There is no crepitus, no necrosis. X-ray of the toe does not show any evidence of osteomyelitis. CBC without leukocytosis. Chemistries largely unremarkable. Given history of diabetes and wound, patient was started antibiotics for diabetic foot ulceration including vancomycin cefepime and Flagyl. Patient is requesting admission given she has failed outpatient oral antibiotics. Discussed with hospitalist, Dr. Araujo, who agrees to admission. <Neda Yuen PA-C - Last Filed: 10/12/24 00:51> Lab Data Result diagrams: 10/11/24 22:51 10/12/24 05:13 <Neda Yuen PA-C - Last Filed: 10/12/24 00:51> Labs: Lab Results 10/11/24 10/12/24 Range/Units 22:51 05:13 WBC 8.6 (4.5-10.0) K/mm3 RBC 3.99 L (4.2-5.4) M/mm3 Hgb 13.9 (12.0-15.0) g/dL Hct 39.7 (37.0-47.0) % MCV 99.5 (80-100) fl MCH 34.8 H (26-34) pg MCHC 35.0 (32-36) g/dl RDW 12.0 (11.5-14.5) % Plt Count 300 (150-375) k/mm3 MPV 10.9 H (7.4-10.4) fl Immature Gran % (Auto) 0.3 (0-0.5) % Neut % (Auto) 56.9 (45.5-73.1) % Lymph % (Auto) 32.3 (18.3-44.2) % Greer % (Auto) 7.7 (2.6-8.5) % Eos % (Auto) 2.3 (0-4.4) % Baso % (Auto) 0.5 (0.2-1.2) % Lymph # (Auto) 2.77 (0.9-3.2) K/mm3 Greer # (Auto) 0.7 H (0.1-0.6) K/mm3 Eos # (Auto) 0.2 (0-0.3) K/mm3 Baso # (Auto) 0.0 (0.0-0.1) K/mm3 Abs Immat Gran (auto) 0.03 (0.00-0.031) K/mm3 Absolute Neuts (auto) 4.9 (1.3-6.7) K/mm3 Absolute Nucleated RBC 0.000 (0.0-0.012) K/mm3 Nucleated RBC % 0.0 (0.0-0.2) % ESR 17 (0-20) mm/hr Sodium 138 (137-145) mmol/L Potassium 3.9 (3.4-5.0) mmol/L Chloride 101 (98-107) mmol/L Carbon Dioxide 31 H (22-30) mmol/L Anion Gap 6 (4-12) mmol/L BUN 12 (7-17) mg/dL Creatinine 0.65 L 0.63 L (0.7-1.0) mg/dL Estim Creat Clear Calc 61 63 ml/min Estimated GFR > 60 > 60 (59 - ) Glucose 132 H (65-110) mg/dL Hemoglobin A1c 6.3 H (<5.7) % Calcium 9.8 (8.4-10.2) mg/dL Total Bilirubin 0.9 (0.2-1.3) mg/dL AST 41 H (14-36) U/L ALT 30 (6-35) U/L Alkaline Phosphatase 155 H (38-126) U/L C-Reactive Protein < 0.5 (<1.0) mg/dL Total Protein 7.0 (6.3-8.2) g/dL Albumin 4.5 (3.5-5.1) g/dL <Neda Yuen PA-C - Last Filed: 10/12/24 00:51> Lab Results 10/11/24 10/12/24 Range/Units 22:51 05:13 WBC 8.6 (4.5-10.0) K/mm3 RBC 3.99 L (4.2-5.4) M/mm3 Hgb 13.9 (12.0-15.0) g/dL Hct 39.7 (37.0-47.0) % MCV 99.5 (80-100) fl MCH 34.8 H (26-34) pg MCHC 35.0 (32-36) g/dl RDW 12.0 (11.5-14.5) % Plt Count 300 (150-375) k/mm3 MPV 10.9 H (7.4-10.4) fl Immature Gran % (Auto) 0.3 (0-0.5) % Neut % (Auto) 56.9 (45.5-73.1) % Lymph % (Auto) 32.3 (18.3-44.2) % [place] % (Auto) 7.7 (2.6-8.5) % Eos % (Auto) 2.3 (0-4.4) % Baso % (Auto) 0.5 (0.2-1.2) % Lymph # (Auto) 2.77 (0.9-3.2) K/mm3 Greer # (Auto) 0.7 H (0.1-0.6) K/mm3 Eos # (Auto) 0.2 (0-0.3) K/mm3 Baso # (Auto) 0.0 (0.0-0.1) K/mm3 Abs Immat Gran (auto) 0.03 (0.00-0.031) K/mm3 Absolute Neuts (auto) 4.9 (1.3-6.7) K/mm3 Absolute Nucleated RBC 0.000 (0.0-0.012) K/mm3 Nucleated RBC % 0.0 (0.0-0.2) % ESR 17 (0-20) mm/hr Sodium 138 (137-145) mmol/L Potassium 3.9 (3.4-5.0) mmol/L Chloride 101 (98-107) mmol/L Carbon Dioxide 31 H (22-30) mmol/L Anion Gap 6 (4-12) mmol/L BUN 12 (7-17) mg/dL Creatinine 0.65 L 0.63 L (0.7-1.0) mg/dL Estim Creat Clear Calc 61 63 ml/min Estimated GFR > 60 > 60 (59 - ) Glucose 132 H (65-110) mg/dL Hemoglobin A1c 6.3 H (<5.7) % Calcium 9.8 (8.4-10.2) mg/dL Total Bilirubin 0.9 (0.2-1.3) mg/dL AST 41 H (14-36) U/L ALT 30 (6-35) U/L Alkaline Phosphatase 155 H (38-126) U/L C-Reactive Protein < 0.5 (<1.0) mg/dL Total Protein 7.0 (6.3-8.2) g/dL Albumin 4.5 (3.5-5.1) g/dL <Ginny Devine MD - Last Filed: 10/12/24 10:06> Discharge Plan Discharge Clinical Impression: Cellulitis Qualifiers: Site of cellulitis: extremity Site of cellulitis of extremity: lower extremity Laterality: right Qualified Code(s): L03.115 - Cellulitis of right lower limb <Neda Yuen PA-C - Last Filed: 10/12/24 00:51> Patient Disposition: Still a Patient <Neda Yuen PA-C - Last Filed: 10/12/24 00:51> Condition: Stable <Neda Yuen PA-C - Last Filed: 10/12/24 00:51>
--- NOTE | 2024-10-11 23:09 | PC.NURSE ---
this rn updated patient home medications.
[2024-10-11 23:10] LABS: Alanine Aminotransferase 30 U/L (6-35); Albumin Level 4.5 g/dL (3.5-5.1); Alkaline Phosphatase 155 U/L (38-126); Anion Gap 6 mmol/L (4-12); Aspartate Amino Transferase 41 U/L (14-36); Bilirubin,Total 0.9 mg/dL (0.2-1.3); Blood Urea Nitrogen 12 mg/dL (7-17); CRP < 0.5 mg/dL (<1.0); Calcium 9.8 mg/dL (8.4-10.2); Carbon Dioxide 31 mmol/L (22-30); Chloride 101 mmol/L (98-107); Estimated CRCL calculation 61 ml/min; Estimated Glomerular Filt Rate > 60; Glucose 132 mg/dL (65-110); Potassium 3.9 mmol/L (3.4-5.0); Sodium 138 mmol/L (137-145)
[2024-10-11] MEDS: CEFEPIME 2 GM/NS 50 ML 2 GM/50 ML BAG IVPB (23:18)
[2024-10-11 23:26] VITALS: BP 137/57; PULSE 79; RESP 14; O2SAT 94
[2024-10-11 23:47] LABS: Erythrocyte Sedimentation Rate 17 mm/hr (0-20)
[2024-10-12] MEDS: metroNIDAZOLE 500 MG/ISO 100ML 500 MG/100 ML BAG 100 MG IVPB ×4 (00:01→21:03)
[2024-10-12] MEDS: MORPHINE SULFATE (*CRX) 2 MG/ML INJ IV PUSH (00:02)
[2024-10-12] MEDS: VANCOMYCIN 1,750 MG/NS 500 ML 1,750 MG/500 ML BAG 250 MG IVPB (01:04)
--- NOTE | 2024-10-12 01:09 | P.HP_ITS ---
H&P: HPI History of Present Illness Date/Time: 10/12/24 01:09 Chief Complaint: Right big toe infection Narrative: 74 yo female with PM of DM2, HLD, CAD s/p stents, brain aneurysm s/p coiling, stroke and hypertension who presenteed to the ER on account of worsening right big toe pain, redness and swelling. Patient noted she had a the toenail removed about 2 weeks, however the past 2 days she noted worsening swelling, pain and redness of the big toe which prompted presentation first to urgent care then to the ER. Denies any chest pain, SOB, fever, vomiting, diarrhea dysuria or focal deficits. ER eval notable for T 97.8, KS 80, RR 18, BP 133/66, saturating 100% on room air. labs notable mostly unremarkable Patient was started on Broad antibiotics and cultures sent prior to admission Review of Systems Review of Systems: all other symptoms were reviewed and negative except as noted in the HPI above PMFSH Past Medical History Medical History Obstructive sleep apnea does not use CPAP getting fitted for mouth appliance Cerebrovascular accident Hyperlipidemia Myocardial infarction Gastroesophageal reflux disease Coronary artery disease Hemorrhoids Anxiety Peptic ulcer disease Kidney stone Asthma Mitral valve prolapse Brain aneurysm Migraine Depression Benign essential hypertension Chronic obstructive pulmonary disease, unspecified Postmenopausal disorder Type 2 diabetes mellitus without complication, without long-term current use of insulin Surgical History Surgical History Status post coil embolization of cerebral aneurysm History of left-sided carotid endarterectomy History of rectal surgery anal fistulotomy History of cholecystectomy History of tonsillectomy History of cardiac catheterization Family History Family History Mother Hypertension Cerebrovascular accident Family history of diabetes mellitus in first degree relative Family history of congestive heart failure Diabetes mellitus Family history of hypercholesterolemia CHF (congestive heart failure) Grandparent Cerebrovascular accident Family history of hepatitis Family history of malignant neoplasm Father Hypertension Acute myocardial infarction Social History Social History Social History: Surrogate medical decision maker: Sheldon Troncoso, son. Code status: Full code. Smoking packs per day: 1 Smoking cigarettes per day: 20.0 Years smoked: 39 Smoking pack-years: 39.00 Smoking status: Former smoker Second hand tobacco smoke exposure: Yes Smoking end date: 07/22/07 Additional smoking assessment comments: quit 2007 Alcohol intake: former Alcohol use details: quit 1998 Substance use: never Substance use type: does not use Do You Feel Safe in your Home?: Yes Lack of Transportation: No Lack of Food: Never True Current Housing: I Have Housing Concerned About Future Housing: No Difficulty Paying Gas/Electric Bills: No Difficulty Paying for Meds: No Currently Unemployed: No Education: Master's Degree or Higher Difficulty w/ Childcare or Family Care: No Living arrangements: with family Additional living arrangements comments: Single. Lives with son. 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 Spiritual care concerns: No Meds Home Medications and Allergies Home Medications ?Medication ?Instructions ?Recorded ?Confirmed ?Type metoprolol succinate 50 mg 50 mg PO HS 06/24/19 10/11/24 History tablet,extended release 24 hr lifitegrast 5 % eye drops in a 1 drp EACH EYE Q12H #60 ea 08/05/23 10/10/24 Rx dropperette (Xiidra) blood sugar diagnostic (Accu-Chek #100 ea 01/24/24 10/10/24 Rx Guide test strips) blood-glucose meter (Accu-Chek #1 ea 01/24/24 10/10/24 Rx Guide Glucose Meter) lancets (Accu-Chek Softclix #200 ea 01/24/24 10/10/24 Rx Lancets) lancing device with lancets kit #1 ea 01/24/24 10/10/24 Rx sitagliptin phosphate 100 mg 100 mg PO DAILY #90 tabs 04/06/24 10/11/24 Rx tablet (Januvia) clopidogrel 75 mg tablet See Rx Instructions .Route 05/11/24 10/11/24 Rx .COMPLEX #90 tabs pantoprazole 40 mg tablet,delayed See Rx Instructions .Route 07/13/24 10/11/24 Rx release .COMPLEX #180 tabs alprazolam 0.25 mg tablet (Xanax) 0.25 mg PO BID PRN Anxiety #60 tabs 07/21/24 10/11/24 Rx atorvastatin 40 mg tablet 40 mg PO HS #90 tabs 08/04/24 10/11/24 Rx amoxicillin 875 mg-potassium 1 tablet PO Q12H #14 tabs 10/10/24 Rx clavulanate 125 mg tablet perfluorohexyloctane (PF) 100 % 1 drp EACH EYE DAILY 10/10/24 10/10/24 History eye drops (Miebo (PF)) tobramycin 0.3 %-dexamethasone 1 drp EACH EYE TID 10/10/24 10/11/24 History 0.05 % eye drops,suspension (Tobradex ST) Allergies Allergy/AdvReac Type Severity Reaction Status Date / Time Sulfa (Sulfonamide Allergy Mild HIVES Verified 10/11/24 19:40 Antibiotics) propoxyphene AdvReac Mild FLIPPED Verified 10/11/24 19:40 OUT codeine AdvReac Unknown PASSES OUT Verified 10/11/24 19:40 Vital Signs Vital Signs - 24 hr 10/11/24 19:36 10/11/24 22:22 10/11/24 23:26 Temperature 97.8 F Pulse Rate 80 75 79 Respiratory Rate 18 16 14 Blood Pressure 133/66 128/58 L 137/57 L Pulse Oximetry 100 100 94 Oxygen Delivery Room Air Exam Narrative: General: alert and comfortable Eyes: EOMI, PERRLA ENNT External ears normal, Neck is supple, no masses, Respiratory systems: Clear to auscultation Cardiovascular S1, S2, normal rhythm, no murmur, rub, or gallop; no thrill or palpable murmurs on palpation. Gastrointestinal: soft, non-tender, and non-distended abdomen with no masses; BS present Skin: erythema and edema of the right big toe, nail bed appears absent of nail Musculoskeletal: no abnormality and no tenderness, normal ROM Neurologic: Alert and oriented x3, non focal Mental Status Exam: normal affect H&P: Results Labs Labs: Short CBC 10/11/24 Range/Units 22:51 WBC 8.6 (4.5-10.0) K/mm3 Hgb 13.9 (12.0-15.0) g/dL Hct 39.7 (37.0-47.0) % Plt Count 300 (150-375) k/mm3 BMP 10/11/24 22:51 Sodium 138 Potassium 3.9 Chloride 101 Carbon Dioxide 31 H BUN 12 Creatinine 0.65 L Glucose 132 H Calcium 9.8 Liver Function 10/11/24 Range/Units 22:51 Total Bilirubin 0.9 (0.2-1.3) mg/dL AST 41 H (14-36) U/L ALT 30 (6-35) U/L Alkaline Phosphatase 155 H (38-126) U/L Albumin 4.5 (3.5-5.1) g/dL Assessment and Plan Assessment and plan (1) Encounter for surgical aftercare following surgery on the skin and subcutaneous tissue: Code(s): Z48.817 - Encounter for surgical aftercare following surgery on the skin and subcutaneous tissue Status: Acute Plan Right big to infection s/p nail removed about 2 weeks ago exam showed erythema, edema and tenderness Blood culture, MRI pending Continue Cefepime, Flagyl and Vanc Podiatry consulted DM2 SSI with accucheks monitor and adjust HTN Titrate home meds with clinical course Hx of Stroke continue antiplatelets and statin Hx of brain aneurysm s/p coiling CAD s/p stents continue home meds once reconciled DVT prophyalxis on Sq Lovenox Full code Surrogate decision maker, Son, Corey Troncoso
--- NOTE | 2024-10-12 02:15 | ADMGEN ---
This patient, Beatrice Calero, was admitted to 2 Medical Room 251-01. Patient/family oriented to hospital policies and general routines including ID bracelet, bed and alarms, visiting hours, pain management, procedures, bathroom and other care routines, personal items, smoking policy, room service/diet, and visiting hours. Information on how to activate the Rapid Response Team has been discussed. Patient/Family are encouraged to report perceived risks to care and to ask questions if they do not understand what they are told or what they should do.
[2024-10-12 02:20] VITALS: BP 111/41; PULSE 71; RESP 18; TEMP 36.9; O2SAT 98; BMI 25.9
[2024-10-12] MEDS: ACETAMINOPHEN 325 MG TABLET 650 MG PO ×3 (03:01→21:26)
[2024-10-12 05:26] VITALS: BP 137/55; PULSE 64; RESP 18; TEMP 36.7; O2SAT 98
[2024-10-12 05:53] LABS: Estimated CRCL calculation 63 ml/min; Estimated Glomerular Filt Rate > 60
--- NOTE | 2024-10-12 07:50 | PM.IMPN ---
Progress Note: A&P Assessment and Plan (1) Cellulitis: Qualifiers: Laterality: right Site of cellulitis: extremity Site of cellulitis of extremity: lower extremity Qualified Code(s): L03.115 - Cellulitis of right lower limb Code(s): L03.90 - Cellulitis, unspecified Status: Acute Assessment and Plan: Toenail was removed [address] Pacheco since then has developed increased redness, swelling and pain to the toe. Went to urgent care and was prescribed Augmentin, has taken 3 doses prior to admission. - Vitals stable, WBC WNL - Blood cultures obtained - Antibiotics: Vanc, cefe, flagyl given failed outpatient abx and diabetes history started on 10/12 - Foot XR: No evidence of osteomyelitis - MRI ordered - Monitor vital signs, I&Os, neuro status and patient is a fall risk - Monitor serum electrolytes, CBC, cultures, WBC and temp curve - Consult podiatry - Consider surgery consult pending MRI results (2) Hypertension: Code(s): I10 - Essential (primary) hypertension Status: Acute Assessment and Plan: Chronic - Continue home medication: Metoprolol 50 mg daily - Blood pressures reviewed, remain stable. Continue to monitor. (3) Type 2 diabetes mellitus: Code(s): E11.9 - Type 2 diabetes mellitus without complications Status: Acute Assessment and Plan: - hypoglycemia protocol - POC blood glucose ACHS - home medication - sitagliptin 100 mg daily - correct regimen ordered - low dose TIDWM - A1C 6.3 Glucose reviewed, remains stable. (4) History of CVA (cerebrovascular accident) without residual deficits: Code(s): Z86.73 - Personal history of transient ischemic attack (TIA), and cerebral infarction without residual deficits Status: Acute Assessment and Plan: Hx of brain aneurysm s/p coiling Continue home medications: plavix 75 mg daily and atorvastatin 40 mg daily (5) Coronary artery disease: Code(s): I25.10 - Atherosclerotic heart disease of jamul coronary artery without angina pectoris Status: Acute Assessment and Plan: S/p stent placement Continue home medications: plavix 75 mg daily, metoprolol 50 mg daily, and atorvastatin 40 mg daily Time Spent With Patient Time with patient: 25 - 35 minutes Subjective Date/time seen: 10/12/24 07:50 Interval history: 74 yo female with PM of DM2, HLD, CAD s/p stents, brain aneurysm s/p coiling, stroke and hypertension who presented to the hospital for worsening right big toe pain, redness and swelling. Patient is pleasant lying comfortably in bed. She continues to endorse pain to the right great toe but denies any tingling or numbness. She states that the redness has slightly improved since admission. Patient has no other complaints denied chest pain, shortness a breath, palpitations, nausea/vomiting, and abdominal pain. Review of Systems Review of Systems: All systems reviewed & are unremarkable except as noted in HPI and below Exam Narrative: AF HR 77 RR 18 SPO2 95 BP 109/53 General: female in no acute respiratory distress who is nontoxic appearing, lying semi recumbent in bed. HEENT: Normocephalic. Atraumatic. Extraocular movement intact. Sclera clear and anicteric. No facial asymmetry. Chest: Lungs are clear to auscultation bilaterally. CV: Heart was regular rate and rhythm. Abd: Abdomen was soft. Nontender. Nondistended. Positive bowel sounds. Ext: No clubbing, cyanosis, or edema. DP pulses bilaterally. Right great toe with slight erythema and edema, scabbing to the nail bed area without nail present. No discharge noted. ROM to the toe intact. Objective Data Vital Signs Vital Signs: Vital Signs - 24 hr 10/11/24 19:36 10/11/24 22:22 10/11/24 23:26 Temperature 97.8 F Pulse Rate 80 75 79 Respiratory Rate 18 16 14 Blood Pressure 133/66 128/58 L 137/57 L Pulse Oximetry 100 100 94 Oxygen Delivery Room Air 10/12/24 02:19 10/12/24 02:20 10/12/24 05:26 Temperature 98.5 F 98.1 F Pulse Rate 71 64 Respiratory Rate 18 18 Blood Pressure 111/41 L 137/55 L Pulse Oximetry 98 98 Oxygen Delivery Room Air Intake/Output Intake/Output: Intake & Output 10/09/24 10/10/24 10/11/24 10/12/24 23:59 23:59 23:59 23:59 Intake Total 50 950 Output Total 600 Balance 50 350 Meds/Results Medications: Active Medications Generic Name Dose Route Start Last Admin Trade Name Freq PRN Reason Stop Dose Admin Acetaminophen 650 mg 10/12/24 02:50 10/12/24 03:01 Acetaminophen 325 Mg Tablet PO 650 mg Q4H PRN Administration Mild Pain (1-3) or Fever Alprazolam 0.25 mg 10/12/24 01:13 Alprazolam (*Crx) 0.25 Mg Tablet PO BID PRN Anxiety Dextrose 12.5 gm 10/12/24 01:09 Dextrose 50% 25 Gm/50 Ml Syringe IV PUSH PRN PRN Hypoglycemia Protocol Enoxaparin Sodium 40 mg 10/12/24 09:00 Enoxaparin 40 Mg/0.4 Ml Syringe SUB-Q DAILY TIFFANY Glucagon 1 mg 10/12/24 01:09 Glucagon For Inj 1 Mg Vial IM PRN PRN Hypoglycemia Protocol Glucose 15 gm 10/12/24 01:09 Glucose Oral Gel 15 Gm Of Glucse In 37.5 Gm Tube PO PRN PRN Hypoglycemia Protocol Cefepime HCl 2 gm in 50 mls @ 100 mls/hr 10/12/24 11:00 Maxipime 2 Gm/Ns 50 Ml IVPB Q12H TIFFANY Metronidazole 500 mg in 100 mls @ 100 mls/hr 10/12/24 06:00 10/12/24 06:28 Flagyl 500 Mg/Iso Soln 100 Ml IVPB Infused Q8H TIFFANY Infusion Vancomycin HCl 1,250 mg in 250 mls @ 166.667 mls/hr 10/12/24 18:00 Vancomycin 1,250 Mg/Ns 250 Ml IVPB Q18H TIFFANY Dextrose 1,000 mls @ 100 mls/hr 10/12/24 01:09 Dextrose 5% 1,000 Ml IVPB PRN PRN Hypoglycemia Protocol Insulin Aspart 2 - 5 units 10/12/24 08:00 Insulin Aspart (*Bkc) 100 Units/Ml SUB-Q TIDWM [facility] Protocol Insulin Aspart 1 - 2 units 10/12/24 21:00 Insulin Aspart (*Bkc) 100 Units/Ml SUB-Q HS [facility] Protocol Radiology Results: ITS Impressions Foot X-Ray 10/12/24 05:45 IMPRESSION: 1. No evidence of osteomyelitis. Labs Labs: Laboratory Results - last 24 hr 10/11/24 10/12/24 22:51 05:13 WBC 8.6 RBC 3.99 L Hgb 13.9 Hct 39.7 MCV 99.5 MCH 34.8 H MCHC 35.0 RDW 12.0 Plt Count 300 MPV 10.9 H Immature Gran % (Auto) 0.3 Neut % (Auto) 56.9 Lymph % (Auto) 32.3 Crook % (Auto) 7.7 Eos % (Auto) 2.3 Baso % (Auto) 0.5 Lymph # (Auto) 2.77 Crook # (Auto) 0.7 H Eos # (Auto) 0.2 Baso # (Auto) 0.0 Abs Immat Gran (auto) 0.03 Absolute Neuts (auto) 4.9 Absolute Nucleated RBC 0.000 Nucleated RBC % 0.0 ESR 17 Sodium 138 Potassium 3.9 Chloride 101 Carbon Dioxide 31 H Anion Gap 6 BUN 12 Creatinine 0.65 L 0.63 L Estim Creat Clear Calc 61 63 Estimated GFR > 60 > 60 Glucose 132 H Calcium 9.8 Total Bilirubin 0.9 AST 41 H ALT 30 Alkaline Phosphatase 155 H C-Reactive Protein < 0.5 Total Protein 7.0 Albumin 4.5
[2024-10-12 08:17] LABS: Glucose Point of Care 132 mg/dl (65-105)
[2024-10-12] MEDS: CLOPIDOGREL BISULFATE 75 MG TABLET BY MOUTH (08:24)
[2024-10-12 08:25] LABS: Hemoglobin A1C 6.3 % (<5.7)
[2024-10-12] MEDS: PANTOPRAZOLE 40 MG TABLET BY MOUTH ×2 (08:25→17:09)
[2024-10-12 09:07] VITALS: O2SAT 95
[2024-10-12] MEDS: CEFEPIME 2 GM/NS 50 ML 2 GM/50 ML BAG IVPB ×2 (10:10→22:15)
[2024-10-12 11:32] LABS: Glucose Point of Care 127 mg/dl (65-105)
[2024-10-12] MEDS: TOBRAMYCIN/DEXAMETHASONE OP 2.5 ML BTL 1 DROP EACH EYE ×2 (13:14→21:08)
[2024-10-12 14:00] VITALS: BP 109/53; PULSE 77; RESP 18; TEMP 37.3; O2SAT 95
[2024-10-12 17:05] LABS: Glucose Point of Care 95 mg/dl (65-105)
[2024-10-12] MEDS: VANCOMYCIN 1,250 MG/NS 250 ML 1,250 MG/250 ML BAG 166.67 MG IVPB (17:09)
--- NOTE | 2024-10-12 17:12 | P.HP_ITS ---
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 She states that she was compliant with local wound care as recommended. She states that this past Saturday10/10/24 she started having redness, swelling and pain to the great toe with flu like symptoms . She went to the Urgent Care center that told her she had a post procedure infection and prescribed Augmentin. She took the medication that evening and the next morning. Noticed no improvement. She went to [place] ER and was admitted for IV antibiotics. She states that her toe is much less red and drainage has stopped. No longe experiencing flu like symptoms . Review of Systems Review of Systems: All systems reviewed & are unremarkable except as noted in HPI and below PMFSH Past Medical History Medical History Obstructive sleep apnea does not use CPAP getting fitted for mouth appliance Cerebrovascular accident Hyperlipidemia Myocardial infarction Gastroesophageal reflux disease Coronary artery disease Hemorrhoids Anxiety Peptic ulcer disease Kidney stone Asthma Mitral valve prolapse Brain aneurysm Migraine Depression Benign essential hypertension Chronic obstructive pulmonary disease, unspecified Postmenopausal disorder Type 2 diabetes mellitus without complication, without long-term current use of insulin Surgical History Surgical History Status post coil embolization of cerebral aneurysm History of left-sided carotid endarterectomy History of rectal surgery anal fistulotomy History of cholecystectomy History of tonsillectomy History of cardiac catheterization Family History Family History Mother Hypertension Cerebrovascular accident Family history of diabetes mellitus in first degree relative Family history of congestive heart failure Diabetes mellitus Family history of hypercholesterolemia CHF (congestive heart failure) Grandparent Cerebrovascular accident Family history of hepatitis Family history of malignant neoplasm Father Hypertension Acute myocardial infarction Social History Social History Social History: Surrogate medical decision maker: Sheldon Troncoso, son. Code status: Full code. Smoking packs per day: 1 Smoking cigarettes per day: 20.0 Years smoked: 20 Smoking pack-years: 20.00 Smoking status: Former smoker Tobacco type: cigarettes Second hand tobacco smoke exposure: Yes Smoking end date: 07/22/07 Additional smoking assessment comments: quit 2007 Alcohol intake: never Alcohol use details: quit 1998 Substance use: never Substance use type: does not use Do You Feel Safe in your Home?: Yes Lack of Transportation: No Lack of Food: Never True Current Housing: I Have Housing Concerned About Future Housing: No Difficulty Paying Gas/Electric Bills: No Difficulty Paying for Meds: No Currently Unemployed: No Education: Master's Degree or Higher Difficulty w/ Childcare or Family Care: No Living arrangements: with family Additional living arrangements comments: Single. Lives with son. 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 Spiritual care concerns: No Meds Home Medications and Allergies Home Medications ?Medication ?Instructions ?Recorded ?Confirmed ?Type metoprolol succinate 50 mg 50 mg PO HS 06/24/19 10/11/24 History tablet,extended release 24 hr blood sugar diagnostic (Accu-Chek #100 01/24/24 10/12/24 Rx Guide test strips) blood-glucose meter (Accu-Chek #1 01/24/24 10/12/24 Rx Guide Glucose Meter) lancets (Accu-Chek Softclix #200 01/24/24 10/12/24 Rx Lancets) lancing device with lancets kit #1 01/24/24 10/12/24 Rx sitagliptin phosphate 100 mg 100 mg PO DAILY #90 tabs 04/06/24 10/11/24 Rx tablet (Januvia) clopidogrel 75 mg tablet See Rx Instructions .Route 05/11/24 10/11/24 Rx .COMPLEX #90 tabs pantoprazole 40 mg tablet,delayed See Rx Instructions .Route 07/13/24 10/11/24 R x release .COMPLEX #180 tabs alprazolam 0.25 mg tablet (Xanax) 0.25 mg PO BID PRN Anxiety #60 tabs 07/21/24 10/11/24 Rx atorvastatin 40 mg tablet 40 mg PO HS #90 tabs 08/04/24 10/11/24 Rx perfluorohexyloctane (PF) 100 % 1 drp EACH EYE DAILY 10/10/24 10/12/24 History eye drops (Miebo (PF)) tobramycin 0.3 %-dexamethasone 1 drp EACH EYE TID 10/10/24 10/11/24 History 0.05 % eye drops,suspension (Tobradex ST) albuterol sulfate 90 mcg/actuation 2 puff inhalation Q6H PRN 10/12/24 10/12/24 History aerosol inhaler shortness of breath cholestyramine-aspartame 4 gram 1 ea PO HS 10/12/24 10/12/24 History oral powder for susp in a packet Allergies Allergy/AdvReac Type Severity Reaction Status Date / Time Sulfa (Sulfonamide Allergy Mild HIVES Verified 10/11/24 19:40 Antibiotics) propoxyphene AdvReac Mild FLIPPED Verified 10/11/24 19:40 OUT codeine AdvReac Unknown PASSES OUT Verified 10/11/24 19:40 Vital Signs Vital Signs - 24 hr 10/11/24 19:36 10/11/24 22:22 10/11/24 23:26 Temperature 36.6 C Pulse Rate 80 75 79 Respiratory Rate 18 16 14 Blood Pressure 133/66 128/58 L 137/57 L Pulse Oximetry 100 100 94 Oxygen Delivery Room Air 10/12/24 02:19 10/12/24 02:20 10/12/24 05:26 Temperature 36.9 C 36.7 C Pulse Rate 71 64 Respiratory Rate 18 18 Blood Pressure 111/41 L 137/55 L Pulse Oximetry 98 98 Oxygen Delivery Room Air 10/12/24 08:00 10/12/24 09:07 10/12/24 14:00 Temperature 37.3 C Pulse Rate 77 Respiratory Rate 18 Blood Pressure 109/53 L Pulse Oximetry 95 95 Oxygen Delivery Room Air Room Air Exam Skin: Other: Dry eschar to right hallux nail bed with periwound erythema and minimal edema. No fluctuance to the surrounding structures, no purulence. No ascending cellulitis. H&P: Results Labs Labs: Short CBC 10/11/24 Range/Units 22:51 WBC 8.6 (4.5-10.0) K/mm3 Hgb 13.9 (12.0-15.0) g/dL Hct 39.7 (37.0-47.0) % Plt Count 300 (150-375) k/mm3 BMP 10/11/24 10/12/24 22:51 05:13 Sodium 138 Potassium 3.9 Chloride 101 Carbon Dioxide 31 H BUN 12 Creatinine 0.65 L 0.63 L Glucose 132 H Calcium 9.8 Liver Function 10/11/24 Range/Units 22:51 Total Bilirubin 0.9 (0.2-1.3) mg/dL AST 41 H (14-36) U/L ALT 30 (6-35) U/L Alkaline Phosphatase 155 H (38-126) U/L Albumin 4.5 (3.5-5.1) g/dL Assessment and Plan Assessment and plan (1) Cellulitis: Qualifiers: Laterality: right Site of cellulitis: extremity Site of cellulitis of extremity: lower extremity Qualified Code(s): L03.115 - Cellulitis of right lower limb Code(s): L03.90 - Cellulitis, unspecified Status: Acute Assessment and Plan: Cellulitis right hallux s/p permanent nail avulsion to treat chronic ingrown toe nail Continue with IV Abx for an additional day. D/c on Empirical abx Clindamycin 300mg, Q12h for 7 days. Betadine to the toe with Telfa and skin tape. Use a surgical shoe for weight bearing. Patient will follow up in my office Saturday. Thanks for help with this case, Dr. Pacheco [phone] (2) Type 2 diabetes mellitus: Qualifiers: Diabetes mellitus complication status: with neurologic complications Diabetes mellitus complication detail: with unspecified neuropathy Code(s): E11.9 - Type 2 diabetes mellitus without complications Status: Acute
--- NOTE | 2024-10-12 18:22 | PC.NURSE ---
patient wants scheduled 1700 eye drops for before bed time like she does at home, will pass on to manager night and leave on worklist
[2024-10-12 20:14] VITALS: BP 145/63; PULSE 76; RESP 20; TEMP 37.4; O2SAT 98
[2024-10-12] MEDS: ATORVASTATIN 40 MG TABLET PO (21:05)
[2024-10-12] MEDS: METOPROLOL SUCCINATE EXT REL 50 MG TABCR PO (21:05)
[2024-10-12 21:06] LABS: Glucose Point of Care 128 mg/dl (65-105)
[2024-10-12 22:10] LABS: Influenza A QL RT-PCR Negative (Negative); Influenza B QL RT-PCR Negative (Negative); RSV RNA, RT-PCR Negative (Negative); SARS-CoV-2 RNA PCR Negative (Negative)
[2024-10-12] MEDS: CYCLOBENZAPRINE HCL 10 MG TABLET PO (23:04)
[2024-10-12] MEDS: ALPRAZolam (*CRX) 0.25 MG TABLET PO (23:06)
[2024-10-13 04:14] VITALS: BP 115/49; PULSE 72; RESP 20; TEMP 36.9; O2SAT 96
[2024-10-13] MEDS: ACETAMINOPHEN 325 MG TABLET 650 MG PO ×3 (04:19→20:47)
[2024-10-13] MEDS: metroNIDAZOLE 500 MG/ISO 100ML 500 MG/100 ML BAG 100 MG IVPB ×2 (05:10→13:24)
[2024-10-13 05:28] LABS: Hematocrit 36.1 % (37.0-47.0); Hemoglobin 12.3 g/dL (12.0-15.0); Mean Corpuscular HGB Conc 34.1 g/dl (32-36); Mean Corpuscular Volume 99.7 fl (80-100); Mean Platelet Volume 10.5 fl (7.4-10.4); Platelet Count Result 248 k/mm3 (150-375); Red Blood Count 3.62 M/mm3 (4.2-5.4)
[2024-10-13 05:48] LABS: Alanine Aminotransferase 21 U/L (6-35); Albumin Level 3.7 g/dL (3.5-5.1); Alkaline Phosphatase 109 U/L (38-126); Anion Gap 8 mmol/L (4-12); Aspartate Amino Transferase 28 U/L (14-36); Blood Urea Nitrogen 9 mg/dL (7-17); Calcium 9.4 mg/dL (8.4-10.2); Carbon Dioxide 26 mmol/L (22-30); Chloride 105 mmol/L (98-107); Estimated CRCL calculation 58 ml/min; Estimated Glomerular Filt Rate > 60; Glucose 124 mg/dL (65-110); Potassium 3.8 mmol/L (3.4-5.0); Sodium 139 mmol/L (137-145)
[2024-10-13 08:03] LABS: Glucose Point of Care 136 mg/dl (65-105)
[2024-10-13] MEDS: TOBRAMYCIN/DEXAMETHASONE OP 2.5 ML BTL 1 DROP EACH EYE ×2 (08:08→13:23)
[2024-10-13] MEDS: PANTOPRAZOLE 40 MG TABLET BY MOUTH ×2 (08:08→17:38)
[2024-10-13] MEDS: CLOPIDOGREL BISULFATE 75 MG TABLET BY MOUTH (08:08)
--- NOTE | 2024-10-13 09:32 | PM.IMPN ---
Progress Note: A&P Assessment and Plan (1) Cellulitis: Qualifiers: Laterality: right Site of cellulitis: extremity Site of cellulitis of extremity: lower extremity Qualified Code(s): L03.115 - Cellulitis of right lower limb Code(s): L03.90 - Cellulitis, unspecified Status: Acute Assessment and Plan: Toenail was removed [address] Pacheco since then has developed increased redness, swelling and pain to the toe. Went to urgent care and was prescribed Augmentin, has taken 3 doses prior to admission. - Vitals stable, WBC WNL - Blood cultures: gram positive cocci in one bottle, likely a contaminant however patient has been on appropriate treatment despite that. Monitor cultures for final read. - Antibiotics: Vanc, cefe, flagyl given failed outpatient abx and diabetes history started on 10/12 - Foot XR: No evidence of osteomyelitis - MRI ordered, unsure if able to obtain MRI given coils. - Monitor vital signs, I&Os, neuro status and patient is a fall risk - Monitor serum electrolytes, CBC, cultures, WBC and temp curve - Consult podiatry Continue with IV Abx for an additional day. D/c on Empirical abx Clindamycin 300mg, Q12h for 7 days. Betadine to the toe with Telfa and skin tape. Use a surgical shoe for weight bearing. Patient will follow up in office Saturday. (2) Hypertension: Code(s): I10 - Essential (primary) hypertension Status: Acute Assessment and Plan: Chronic - Continue home medication: Metoprolol 50 mg daily - Blood pressures reviewed, remain stable. Continue to monitor. (3) Type 2 diabetes mellitus: Qualifiers: Diabetes mellitus complication detail: with unspecified neuropathy Diabetes mellitus complication status: with neurologic complications Code(s): E11.9 - Type 2 diabetes mellitus without complications Status: Acute Assessment and Plan: - hypoglycemia protocol - POC blood glucose ACHS - home medication - sitagliptin 100 mg daily - correct regimen ordered - low dose TIDWM - A1C 6.3 Glucose reviewed, remains stable. (4) History of CVA (cerebrovascular accident) without residual deficits: Code(s): Z86.73 - Personal history of transient ischemic attack (TIA), and cerebral infarction without residual deficits Status: Acute Assessment and Plan: Hx of brain aneurysm s/p coiling Continue home medications: plavix 75 mg daily and atorvastatin 40 mg daily (5) Coronary artery disease: Code(s): I25.10 - Atherosclerotic heart disease of [place] coronary artery without angina pectoris Status: Acute Assessment and Plan: S/p stent placement Continue home medications: plavix 75 mg daily, metoprolol 50 mg daily, and atorvastatin 40 mg daily Subjective Date/time seen: 10/13/24 09:32 Interval history: 74 yo female with PM of DM2, HLD, CAD s/p stents, brain aneurysm s/p coiling, stroke and hypertension who presented to the hospital for worsening right big toe pain, redness and swelling. Patient is pleasant lying comfortably in bed. She continues to endorse pain to the right great toe that she describes as a pressure. She is also endorsing increased back pain. She has no other complaints denying chest pain, palpitations, shortness of breath, nausea/vomiting and abdominal pain. Review of Systems Review of Systems: All systems reviewed & are unremarkable except as noted in HPI and below Exam Narrative: AF HR 72 RR 20 SpO2 96 BP 115/49 General: female in no acute respiratory distress who is nontoxic appearing, lying semi recumbent in bed. HEENT: Normocephalic. Atraumatic. Extraocular movement intact. Sclera clear and anicteric. No facial asymmetry. Chest: Lungs are clear to auscultation bilaterally. CV: Heart was regular rate and rhythm. Abd: Abdomen was soft. Nontender. Nondistended. Positive bowel sounds. Ext: No clubbing, cyanosis, or edema. DP pulses bilaterally. Right great toe with slight edema, erythema resolved, scabbing to the nail bed area without nail present. No discharge noted. ROM to the toe intact. Objective Data Vital Signs Vital Signs: Vital Signs - 24 hr 10/12/24 14:00 10/12/24 19:59 10/12/24 20:14 Temperature 99.2 F 99.4 F Pulse Rate 77 76 Respiratory Rate 18 20 Blood Pressure 109/53 L 145/63 H Pulse Oximetry 95 98 Oxygen Delivery Room Air 10/13/24 04:14 10/13/24 08:08 Temperature 98.4 F Pulse Rate 72 Respiratory Rate 20 Blood Pressure 115/49 L Pulse Oximetry 96 Oxygen Delivery Room Air Intake/Output Intake/Output: Intake & Output 10/10/24 10/11/24 10/12/24 03/25/25 23:59 23:59 23:59 23:59 Intake Total 50 2100 970 Output Total 600 Balance 50 1500 970 Meds/Results Medications: Active Medications Generic Name Dose Route Start Last Admin Trade Name Freq PRN Reason Stop Dose Admin Acetaminophen 650 mg 10/12/24 02:50 10/13/24 04:19 Acetaminophen 325 Mg Tablet PO 650 mg Q4H PRN Administration Mild Pain (1-3) or Fever Alprazolam 0.25 mg 10/12/24 01:13 10/12/24 23:06 Alprazolam (*Crx) 0.25 Mg Tablet PO 0.25 mg BID PRN Administration Anxiety Atorvastatin Calcium 40 mg 10/12/24 21:00 10/12/24 21:05 Atorvastatin 40 Mg Tablet PO 40 mg HS TIFFANY Administration Clopidogrel Bisulfate 75 mg 10/12/24 09:00 10/13/24 08:08 Clopidogrel Bisulfate 75 Mg Tablet BY MOUTH 75 mg DAILY TIFFANY Administration Cyclobenzaprine HCl 10 mg 10/12/24 22:57 10/12/24 23:04 Cyclobenzaprine Hcl 10 Mg Tablet PO 10 mg HS PRN Administration Muscle Spasm Dextrose 12.5 gm 10/12/24 01:09 Dextrose 50% 25 Gm/50 Ml Syringe IV PUSH PRN PRN Hypoglycemia Protocol Glucagon 1 mg 10/12/24 01:09 Glucagon For Inj 1 Mg Vial IM PRN PRN Hypoglycemia Protocol Glucose 15 gm 10/12/24 01:09 Glucose Oral Gel 15 Gm Of Glucse In 37.5 Gm Tube PO PRN PRN Hypoglycemia Protocol Cefepime HCl 2 gm in 50 mls @ 100 mls/hr 10/12/24 11:00 10/12/24 22:45 Maxipime 2 Gm/Ns 50 Ml IVPB Infused Q12H TIFFANY Infusion Metronidazole 500 mg in 100 mls @ 100 mls/hr 10/12/24 06:00 10/13/24 06:10 Flagyl 500 Mg/Iso Soln 100 Ml IVPB Infused Q8H TIFFANY Infusion Vancomycin HCl 1,250 mg in 250 mls @ 166.667 mls/hr 10/12/24 18:00 10/12/24 19:58 Vancomycin 1,250 Mg/Ns 250 Ml IVPB Infused Q18H TIFFANY Infusion Dextrose 1,000 mls @ 100 mls/hr 10/12/24 01:09 Dextrose 5% 1,000 Ml IVPB PRN PRN Hypoglycemia Protocol Insulin Aspart 2 - 5 units 10/12/24 08:00 10/13/24 08:09 Insulin Aspart (*Bkc) 100 Units/Ml SUB-Q Not Given TIDWM TIFFANY Protocol Insulin Aspart 1 - 2 units 10/12/24 21:00 10/12/24 21:17 Insulin Aspart (*Bkc) 100 Units/Ml SUB-Q Not Given HS TIFFANY Protocol Metoprolol Succinate 50 mg 10/12/24 21:00 10/12/24 21:05 Metoprolol Succinate Ext Rel 50 Mg Tabcr PO 50 mg HS TIFFANY Administration Pantoprazole Sodium 40 mg 10/12/24 09:00 10/13/24 08:08 Pantoprazole 40 Mg Tablet BY MOUTH 40 mg BID TIFFANY Administration Tobramycin/Dexamethasone 1 drop 10/12/24 13:00 10/13/24 08:08 Tobramycin/Dexamethasone Op 2.5 Ml Btl EACH EYE 1 drop TID TIFFANY Administration Radiology Results: ITS Impressions Foot X-Ray 10/12/24 05:45 IMPRESSION: 1. No evidence of osteomyelitis. Labs Labs: Laboratory Results - last 24 hr 10/12/24 10/12/24 10/12/24 11:29 16:57 20:18 WBC RBC Hgb Hct MCV MCH MCHC RDW Plt Count MPV Sodium Potassium Chloride Carbon Dioxide Anion Gap BUN Creatinine Estim Creat Clear Calc Estimated GFR Glucose POC Capillary Glucose 127 H 95 128 H Calcium Total Bilirubin AST ALT Alkaline Phosphatase Total Protein Albumin Influenza A (RT-PCR) Influenza B (RT-PCR) RSV (RT-PCR) SARS-CoV-2 RNA (RT-PCR) 10/12/24 10/13/24 10/13/24 21:29 05:19 08:01 WBC 7.0 RBC 3.62 L Hgb 12.3 Hct 36.1 L MCV 99.7 MCH 34.0 MCHC 34.1 RDW 12.0 Plt Count 248 MPV 10.5 H Sodium 139 Potassium 3.8 Chloride 105 Carbon Dioxide 26 Anion Gap 8 BUN 9 Creatinine 0.69 L Estim Creat Clear Calc 58 Estimated GFR > 60 Glucose 124 H POC Capillary Glucose 136 H Calcium 9.4 Total Bilirubin 1.0 AST 28 ALT 21 Alkaline Phosphatase 109 Total Protein 6.0 L Albumin 3.7 Influenza A (RT-PCR) Negative Influenza B (RT-PCR) Negative RSV (RT-PCR) Negative SARS-CoV-2 RNA (RT-PCR) Negative
[2024-10-13] MEDS: CEFEPIME 2 GM/NS 50 ML 2 GM/50 ML BAG IVPB (10:42)
--- NOTE | 2024-10-13 11:14 | ECG_ITS ---
Test Date: 2024-10-13 11:34:50 Measurements Intervals [place] Rate: 65 P: 90 [place]: 255 QRS: 3 QRSD: 84 T: 73 QT: 411 QTc: 430 Interpretive Statements SINUS RHYTHM WITH FIRST DEGREE AV BLOCK POSSIBLE RIGHT VENTRICULAR CONDUCTION DELAY [RSR (QR) IN V1/V2] NONSPECIFIC ST & T-WAVE ABNORMALITY No previous ECG available for comparison Electronically Signed On 10-13-2024 16:44:34 CDT by Cally Florentino M.D.
[2024-10-13 11:25] LABS: Vancomycin Trough 9.9 ug/mL (10.0-20.0)
[2024-10-13 11:50] LABS: Glucose Point of Care 102 mg/dl (65-105)
[2024-10-13 14:00] VITALS: BP 121/56; PULSE 83; RESP 18; TEMP 36.4; O2SAT 96
[2024-10-13] MEDS: KETOROLAC 10 MG TABLET PO (15:43)
[2024-10-13 17:02] LABS: Glucose Point of Care 112 mg/dl (65-105)
[2024-10-13] MEDS: METOPROLOL SUCCINATE EXT REL 50 MG TABCR PO (20:47)
[2024-10-13] MEDS: ATORVASTATIN 40 MG TABLET PO (20:47)
[2024-10-13] MEDS: CYCLOBENZAPRINE HCL 10 MG TABLET PO (20:47)
[2024-10-13] MEDS: ALPRAZolam (*CRX) 0.25 MG TABLET PO (20:47)
[2024-10-13] MEDS: cefTRIAXone 2 GM/NS 100 ML 2 GM/100 ML BAG IVPB (20:48)
[2024-10-13 21:01] LABS: Glucose Point of Care 149 mg/dl (65-105)
[2024-10-13 21:56] VITALS: BP 135/58; PULSE 68; RESP 16; TEMP 36.8; O2SAT 96
[2024-10-13] MEDS: MAG HYDROX/AL HYDROX/SIMETH 30 ML UDC PO (22:56)
[2024-10-14 05:20] VITALS: BP 126/52; PULSE 67; RESP 16; TEMP 37.1; O2SAT 94
[2024-10-14 05:24] LABS: Alanine Aminotransferase 19 U/L (6-35); Albumin Level 3.6 g/dL (3.5-5.1); Alkaline Phosphatase 130 U/L (38-126); Anion Gap 6 mmol/L (4-12); Aspartate Amino Transferase 28 U/L (14-36); Bilirubin,Total 0.6 mg/dL (0.2-1.3); Blood Urea Nitrogen 11 mg/dL (7-17); Calcium 9.4 mg/dL (8.4-10.2); Carbon Dioxide 27 mmol/L (22-30); Chloride 105 mmol/L (98-107); Estimated CRCL calculation 60 ml/min; Estimated Glomerular Filt Rate > 60; Glucose 118 mg/dL (65-110); Potassium 3.7 mmol/L (3.4-5.0); Sodium 138 mmol/L (137-145)
[2024-10-14 05:25] LABS: Hematocrit 37.1 % (37.0-47.0); Mean Corpuscular HGB Conc 32.3 g/dl (32-36); Mean Corpuscular Hemoglobin 32.7 pg (26-34); Mean Corpuscular Volume 101.1 fl (80-100); Mean Platelet Volume 10.7 fl (7.4-10.4); Platelet Count Result 231 k/mm3 (150-375); Red Blood Count 3.67 M/mm3 (4.2-5.4); Red Cell Distribution Width 11.9 % (11.5-14.5); White Blood Count 7.1 K/mm3 (4.5-10.0)
[2024-10-14 07:50] LABS: Glucose Point of Care 126 mg/dl (65-105)
[2024-10-14 08:00] VITALS: RESP 16; O2SAT 94
[2024-10-14] MEDS: CLINDAMYCIN HCL 150 MG CAP 300 MG PO ×2 (09:09→22:01)
[2024-10-14] MEDS: CLOPIDOGREL BISULFATE 75 MG TABLET BY MOUTH (09:09)
[2024-10-14] MEDS: PANTOPRAZOLE 40 MG TABLET BY MOUTH ×2 (09:09→17:14)
[2024-10-14] MEDS: TOBRAMYCIN/DEXAMETHASONE OP 2.5 ML BTL 1 DROP EACH EYE ×3 (09:15→17:14)
[2024-10-14 12:00] LABS: Glucose Point of Care 122 mg/dl (65-105)
[2024-10-14] MEDS: ACETAMINOPHEN 325 MG TABLET 650 MG PO ×2 (12:23→22:00)
[2024-10-14 14:00] VITALS: BP 132/63; PULSE 77; RESP 18; TEMP 36.7; O2SAT 96
--- NOTE | 2024-10-14 15:22 | P.PNIM_ITS ---
Progress Note: A&P Assessment and Plan (1) Cellulitis: Qualifiers: Laterality: right Site of cellulitis: extremity Site of cellulitis of extremity: lower extremity Qualified Code(s): L03.115 - Cellulitis of right lower limb Code(s): L03.90 - Cellulitis, unspecified Status: Acute Assessment and Plan: Toenail was removed [address] Pacheco since then has developed increased redness, swelling and pain to the toe. Went to urgent care and was prescribed Augmentin, has taken 3 doses prior to admission. - Vitals stable, WBC WNL - Blood cultures: gram positive cocci in one bottle, likely a contaminant however patient has been on appropriate treatment despite that. Monitor cultures for final read. - Antibiotics: Vanc, cefe, flagyl given failed outpatient abx and diabetes history started on 10/12 - Foot XR: No evidence of osteomyelitis - MRI ordered, unsure if able to obtain MRI given coils. PT states ok to do - Monitor vital signs, I&Os, neuro status and patient is a fall risk - Monitor serum electrolytes, CBC, cultures, WBC and temp curve - Consult podiatry Continue with IV Abx for an additional day. D/c on Empirical abx Clindamycin 300mg, Q12h for 7 days. Betadine to the toe with Telfa and skin tape. Use a surgical shoe for weight bearing. Patient will follow up in office Saturday. wound care consult ordered PT/OT ordered (2) Hypertension: Code(s): I10 - Essential (primary) hypertension Status: Acute Assessment and Plan: Chronic - Continue home medication: Metoprolol 50 mg daily - Blood pressures reviewed, remain stable. Continue to monitor. (3) Type 2 diabetes mellitus: Qualifiers: Diabetes mellitus complication status: with neurologic complications Diabetes mellitus complication detail: with unspecified neuropathy Code(s): E11.9 - Type 2 diabetes mellitus without complications Status: Acute Assessment and Plan: - hypoglycemia protocol - POC blood glucose ACHS - home medication - sitagliptin 100 mg daily - correct regimen ordered - low dose TIDWM - A1C 6.3 Glucose reviewed, remains stable. (4) History of CVA (cerebrovascular accident) without residual deficits: Code(s): Z86.73 - Personal history of transient ischemic attack (TIA), and cerebral infarction without residual deficits Status: Acute Assessment and Plan: Hx of brain aneurysm s/p coiling Continue home medications: plavix 75 mg daily and atorvastatin 40 mg daily (5) Coronary artery disease: Code(s): I25.10 - Atherosclerotic heart disease of [place] coronary artery without angina pectoris Status: Acute Assessment and Plan: S/p stent placement Continue home medications: plavix 75 mg daily, metoprolol 50 mg daily, and atorvastatin 40 mg daily Time Spent With Patient Time with patient: 25 - 35 minutes Subjective Date/time seen: 10/14/24 15:22 Interval history: pt is seen and examined. She is weak, not moving as much as she normally does. johnnys n/v/d. Review of Systems Review of Systems: all other symptoms were reviewed and negative except as noted in the HPI above All systems reviewed & are unremarkable except as noted in HPI and below Exam Narrative: AF HR 72 RR 20 SpO2 96 BP 115/49 General: female in no acute respiratory distress who is nontoxic appearing, lying semi recumbent in bed. HEENT: Normocephalic. Atraumatic. Extraocular movement intact. Sclera clear and anicteric. No facial asymmetry. Chest: Lungs are clear to auscultation bilaterally. CV: Heart was regular rate and rhythm. Abd: Abdomen was soft. Nontender. Nondistended. Positive bowel sounds. Ext: No clubbing, cyanosis, or edema. DP pulses bilaterally. Right great toe with slight edema, erythema resolved, scabbing to the nail bed area without nail present. No discharge noted. ROM to the toe intact. Const: General: comfortable Objective Data Vital Signs Vital Signs: Vital Signs - 24 hr 10/13/24 20:00 10/13/24 21:56 10/14/24 05:20 Temperature 98.2 F 98.7 F Pulse Rate 68 67 Respiratory Rate 16 16 Blood Pressure 135/58 L 126/52 L Pulse Oximetry 96 94 Oxygen Delivery Room Air 10/14/24 08:00 10/14/24 14:00 Temperature 98.1 F Pulse Rate 77 Respiratory Rate 16 18 Blood Pressure 132/63 Pulse Oximetry 94 96 Oxygen Delivery Room Air Intake/Output Intake/Output: Intake & Output 10/11/24 10/12/24 10/13/24 10/14/24 23:59 23:59 23:59 23:59 Intake Total 50 2100 1700 680 Output Total 600 Balance 50 1500 1700 680 Meds/Results Medications: Active Medications Generic Name Dose Route Start Last Admin Trade Name Freq PRN Reason Stop Dose Admin Acetaminophen 650 mg 10/12/24 02:50 10/14/24 12:23 Acetaminophen 325 Mg Tablet PO 650 mg Q4H PRN Administration Mild Pain (1-3) or Fever Al Hydrox/Mg Hydrox/Simethicone 30 ml 10/13/24 22:51 10/13/24 22:56 Mag Hydrox/Al Hydrox/Simeth 30 Ml Udc PO 30 ml Q6H PRN Administration Indigestion Alprazolam 0.25 mg 10/12/24 01:13 10/13/24 20:47 Alprazolam (*Crx) 0.25 Mg Tablet PO 0.25 mg BID PRN Administration Anxiety Atorvastatin Calcium 40 mg 10/12/24 21:00 10/13/24 20:47 Atorvastatin 40 Mg Tablet PO 40 mg HS TIFFANY Administration Clindamycin HCl 300 mg 10/14/24 09:00 10/14/24 09:09 Clindamycin Hcl 150 Mg Cap PO 10/20/24 21:01 300 mg Q12HR TIFFANY Administration Clopidogrel Bisulfate 75 mg 10/12/24 09:00 10/14/24 09:09 Clopidogrel Bisulfate 75 Mg Tablet BY MOUTH 75 mg DAILY TIFFANY Administration Cyclobenzaprine HCl 10 mg 10/12/24 22:57 10/13/24 20:47 Cyclobenzaprine Hcl 10 Mg Tablet PO 10 mg HS PRN Administration Muscle Spasm Dextrose 12.5 gm 10/12/24 01:09 Dextrose 50% 25 Gm/50 Ml Syringe IV PUSH PRN PRN Hypoglycemia Protocol Glucagon 1 mg 10/12/24 01:09 Glucagon For Inj 1 Mg Vial IM PRN PRN Hypoglycemia Protocol Glucose 15 gm 10/12/24 01:09 Glucose Oral Gel 15 Gm Of Glucse In 37.5 Gm Tube PO PRN PRN Hypoglycemia Protocol Dextrose 1,000 mls @ 100 mls/hr 10/12/24 01:09 Dextrose 5% 1,000 Ml IVPB PRN PRN Hypoglycemia Protocol Insulin Aspart 2 - 5 units 10/12/24 08:00 10/14/24 12:05 Insulin Aspart (*Bkc) 100 Units/Ml SUB-Q Not Given TIDWM TIFFANY Protocol Insulin Aspart 1 - 2 units 10/12/24 21:00 10/13/24 20:52 Insulin Aspart (*Bkc) 100 Units/Ml SUB-Q Not Given HS TIFFANY Protocol Metoprolol Succinate 50 mg 10/12/24 21:00 10/13/24 20:47 Metoprolol Succinate Ext Rel 50 Mg Tabcr PO 50 mg HS TIFFANY Administration Pantoprazole Sodium 40 mg 10/12/24 09:00 10/14/24 09:09 Pantoprazole 40 Mg Tablet BY MOUTH 40 mg BID TIFFANY Administration Tobramycin/Dexamethasone 1 drop 10/12/24 13:00 10/14/24 12:24 Tobramycin/Dexamethasone Op 2.5 Ml Btl EACH EYE 1 drop TID TIFFANY Administration Radiology Results: ITS Impressions Foot X-Ray 10/12/24 05:45 IMPRESSION: 1. No evidence of osteomyelitis. Labs Labs: Laboratory Results - last 24 hr 10/13/24 10/13/24 10/14/24 16:57 20:44 04:49 WBC 7.1 RBC 3.67 L Hgb 12.0 Hct 37.1 MCV 101.1 H MCH 32.7 MCHC 32.3 RDW 11.9 Plt Count 231 MPV 10.7 H Sodium 138 Potassium 3.7 Chloride 105 Carbon Dioxide 27 Anion Gap 6 BUN 11 Creatinine 0.66 L Estim Creat Clear Calc 60 Estimated GFR > 60 Glucose 118 H POC Capillary Glucose 112 H 149 H Calcium 9.4 Total Bilirubin 0.6 AST 28 ALT 19 Alkaline Phosphatase 130 H Total Protein 6.0 L Albumin 3.6 10/14/24 10/14/24 07:46 11:58 WBC RBC Hgb Hct MCV MCH MCHC RDW Plt Count MPV Sodium Potassium Chloride Carbon Dioxide Anion Gap BUN Creatinine Estim Creat Clear Calc Estimated GFR Glucose POC Capillary Glucose 126 H 122 H Calcium Total Bilirubin AST ALT Alkaline Phosphatase Total Protein Albumin
[2024-10-14 16:44] LABS: Glucose Point of Care 155 mg/dl (65-105)
[2024-10-14 19:54] VITALS: BP 149/66; PULSE 75; RESP 18; TEMP 36.9; O2SAT 100
[2024-10-14 21:57] LABS: Glucose Point of Care 127 mg/dl (65-105)
[2024-10-14] MEDS: ATORVASTATIN 40 MG TABLET PO (21:59)
[2024-10-14] MEDS: CYCLOBENZAPRINE HCL 10 MG TABLET PO (21:59)
[2024-10-14] MEDS: ALPRAZolam (*CRX) 0.25 MG TABLET PO (22:02)
[2024-10-14 22:03] VITALS: PULSE 75
[2024-10-14] MEDS: LIDOCAINE 5% PATCH 1 PATCH TRANSDERM (22:03)
[2024-10-14] MEDS: METOPROLOL SUCCINATE EXT REL 50 MG TABCR PO (22:03)
[2024-10-15 04:34] VITALS: BP 129/63; PULSE 61; RESP 16; TEMP 36.8; O2SAT 99
[2024-10-15 05:05] LABS: Hematocrit 35.3 % (37.0-47.0); Hemoglobin 11.7 g/dL (12.0-15.0); Mean Corpuscular HGB Conc 33.1 g/dl (32-36); Mean Corpuscular Hemoglobin 33.5 pg (26-34); Mean Corpuscular Volume 101.1 fl (80-100); Mean Platelet Volume 10.8 fl (7.4-10.4); Platelet Count Result 229 k/mm3 (150-375); Red Blood Count 3.49 M/mm3 (4.2-5.4); Red Cell Distribution Width 11.9 % (11.5-14.5)
[2024-10-15 05:19] LABS: Alanine Aminotransferase 22 U/L (6-35); Albumin Level 3.7 g/dL (3.5-5.1); Alkaline Phosphatase 155 U/L (38-126); Anion Gap 7 mmol/L (4-12); Aspartate Amino Transferase 37 U/L (14-36); Bilirubin,Total 0.6 mg/dL (0.2-1.3); Blood Urea Nitrogen 8 mg/dL (7-17); Calcium 9.3 mg/dL (8.4-10.2); Carbon Dioxide 27 mmol/L (22-30); Chloride 105 mmol/L (98-107); Estimated CRCL calculation 60 ml/min; Estimated Glomerular Filt Rate > 60; Glucose 122 mg/dL (65-110); Potassium 3.7 mmol/L (3.4-5.0); Sodium 139 mmol/L (137-145)
--- NOTE | 2024-10-15 07:15 | PCWOUND ---
WOCN NOTE Received referral for toe wound. 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 Pacheco for wound care instructions.
--- NOTE | 2024-10-15 07:45 | PM.DS ---
DS: Discharge Diagnosis Discharge Diagnosis (1) Cellulitis: Qualifiers: Laterality: right Site of cellulitis: extremity Site of cellulitis of extremity: lower extremity Qualified Code(s): L03.115 - Cellulitis of right lower limb Code(s): L03.90 - Cellulitis, unspecified Status: Acute Assessment and Plan: Toenail was removed [address] Pacheco since then has developed increased redness, swelling and pain to the toe. Went to urgent care and was prescribed Augmentin, has taken 3 doses prior to admission. - Vitals stable, WBC WNL - Blood cultures: gram positive cocci in one bottle, likely a contaminant however patient has been on appropriate treatment despite that. Monitor cultures for final read. - Antibiotics: Vanc, cefe, flagyl given failed outpatient abx and diabetes history started on 10/12 - Foot XR: No evidence of osteomyelitis - MRI ordered, unsure if able to obtain MRI given coils. PT states ok to do - Monitor vital signs, I&Os, neuro status and patient is a fall risk - Monitor serum electrolytes, CBC, cultures, WBC and temp curve - Consult podiatry Continue with IV Abx for an additional day. D/c on Empirical abx Clindamycin 300mg, Q12h for 7 days. Betadine to the toe with Telfa and skin tape. Use a surgical shoe for weight bearing. Patient will follow up in office Saturday. wound care consult ordered PT/OT ordered (2) Hypertension: Code(s): I10 - Essential (primary) hypertension Status: Acute Assessment and Plan: Chronic - Continue home medication: Metoprolol 50 mg daily - Blood pressures reviewed, remain stable. Continue to monitor. (3) Type 2 diabetes mellitus: Qualifiers: Diabetes mellitus complication detail: with unspecified neuropathy Diabetes mellitus complication status: with neurologic complications Code(s): E11.9 - Type 2 diabetes mellitus without complications Status: Acute Assessment and Plan: - hypoglycemia protocol - POC blood glucose ACHS - home medication - sitagliptin 100 mg daily - correct regimen ordered - low dose TIDWM - A1C 6.3 Glucose reviewed, remains stable. (4) History of CVA (cerebrovascular accident) without residual deficits: Code(s): Z86.73 - Personal history of transient ischemic attack (TIA), and cerebral infarction without residual deficits Status: Acute Assessment and Plan: Hx of brain aneurysm s/p coiling Continue home medications: plavix 75 mg daily and atorvastatin 40 mg daily (5) Coronary artery disease: Code(s): I25.10 - Atherosclerotic heart disease of [place] coronary artery without angina pectoris Status: Acute Assessment and Plan: S/p stent placement Continue home medications: plavix 75 mg daily, metoprolol 50 mg daily, and atorvastatin 40 mg daily DS: Summary Time Spent with Patient Time attestation: Total time spent providing and/or coordinating discharge services: Exam Narrative: AF HR 72 RR 20 SpO2 96 BP 115/49 General: female in no acute respiratory distress who is nontoxic appearing, lying semi recumbent in bed. HEENT: Normocephalic. Atraumatic. Extraocular movement intact. Sclera clear and anicteric. No facial asymmetry. Chest: Lungs are clear to auscultation bilaterally. CV: Heart was regular rate and rhythm. Abd: Abdomen was soft. Nontender. Nondistended. Positive bowel sounds. Ext: No clubbing, cyanosis, or edema. DP pulses bilaterally. Right great toe with slight edema, erythema resolved, scabbing to the nail bed area without nail present. No discharge noted. ROM to the toe intact. Const: General: comfortable DS: Data Data Completed and Pending Labs on day of discharge: Labs from last 24 hours 10/15/24 10/14/24 10/14/24 04:40 19:59 16:41 WBC 7.0 RBC 3.49 L Hgb 11.7 L Hct 35.3 L MCV 101.1 H MCH 33.5 MCHC 33.1 RDW 11.9 Plt Count 229 MPV 10.8 H Sodium 139 Potassium 3.7 Chloride 105 Carbon Dioxide 27 Anion Gap 7 BUN 8 Creatinine 0.66 L Estim Creat Clear Calc 60 Estimated GFR > 60 Glucose 122 H POC Capillary Glucose 127 H 155 H Calcium 9.3 Total Bilirubin 0.6 AST 37 H ALT 22 Alkaline Phosphatase 155 H Total Protein 6.0 L Albumin 3.7 10/14/24 10/14/24 11:58 07:46 WBC RBC Hgb Hct MCV MCH MCHC RDW Plt Count MPV Sodium Potassium Chloride Carbon Dioxide Anion Gap BUN Creatinine Estim Creat Clear Calc Estimated GFR Glucose POC Capillary Glucose 122 H 126 H Calcium Total Bilirubin AST ALT Alkaline Phosphatase Total Protein Albumin Preliminary micro results at discharge 10/11/24 23:04 Blood Culture - Preliminary Blood Gram positive cocci cluster is 10/11/24 23:06 Blood Culture - Preliminary Blood Discharge Plan Discharge Consulting providers: Cheko Pacheco Jr.; German Barcenas Patient Instructions: Clopidogrel (By mouth) Patient Language: [place] Discharge Medications: No Action [place] (PF) 100 % drops 1 drp EACH EYE DAILY Tobradex ST 0.3-0.05 % drops,suspension 1 drp EACH EYE TID metoprolol succinate 50 mg tablet extended release 24 hr 50 mg PO HS alprazolam [Xanax] 0.25 mg tablet 0.25 mg PO BID PRN (Reason: Anxiety) Qty: 60 0RF Januvia 100 mg tablet 100 mg PO DAILY Qty: 90 1RF albuterol sulfate 90 mcg/actuation HFA aerosol inhaler 2 puff INHALATION Q6H PRN (Reason: shortness of breath) cholestyramine-aspartame 4 gram powder in packet 1 ea PO HS (DME) blood-glucose meter [Accu-Chek Guide Glucose Meter] Misc See Rx Instructions .Route Qty: 1 0RF Rx Instructions: Check blood glucose 1xday As directed (DME) Accu-Chek Guide test strips Strip See Rx Instructions .Route Qty: 100 3RF Rx Instructions: Check blood glucose 1xday As directed (DME) lancets [Accu-Chek Softclix Lancets] Misc See Rx Instructions .Route Qty: 200 3RF Rx Instructions: Check blood glucose 1xday As directed (DME) lancing device with lancets Kit See Rx Instructions .Route Qty: 1 0RF Rx Instructions: check glucose daily As directed clopidogrel 75 mg tablet See Rx Instructions .ROUTE .COMPLEX Qty: 90 1RF Dose Instruction: TAKE 1 TABLET BY MOUTH EVERY DAY Rx Instructions: TAKE 1 TABLET BY MOUTH EVERY DAY pantoprazole 40 mg tablet,delayed release (DR/EC) See Rx Instructions .ROUTE .COMPLEX Qty: 180 1RF Dose Instruction: TAKE 1 TABLET BY MOUTH TWICE A DAY Rx Instructions: TAKE 1 TABLET BY MOUTH TWICE A DAY atorvastatin 40 mg tablet 40 mg PO HS Qty: 90 1RF Date of admission: 10/12/24 07:42 Primary Care Provider: Yo Suresh Admitting Provider: Steffen Araujo Attending physician on admission: Jade Corea Condition: Stable
[2024-10-15 08:20] LABS: Glucose Point of Care 130 mg/dl (65-105)
[2024-10-15 09:32] VITALS: RESP 16; O2SAT 99
[2024-10-15] MEDS: TOBRAMYCIN/DEXAMETHASONE OP 2.5 ML BTL 1 DROP EACH EYE ×3 (09:32→16:39)
[2024-10-15] MEDS: CLOPIDOGREL BISULFATE 75 MG TABLET BY MOUTH (09:32)
[2024-10-15] MEDS: PANTOPRAZOLE 40 MG TABLET BY MOUTH ×2 (09:32→16:39)
[2024-10-15] MEDS: CLINDAMYCIN HCL 150 MG CAP 300 MG PO ×2 (09:32→21:44)
[2024-10-15 11:40] LABS: Glucose Point of Care 119 mg/dl (65-105)
--- NOTE | 2024-10-15 12:27 | PCOTNOTE ---
Pt. is independent in room, with nursing confirmation. No skilled OT services necessary at this time for acute condition.
[2024-10-15 14:00] VITALS: BP 146/71; PULSE 71; RESP 18; TEMP 36.6; O2SAT 100
--- NOTE | 2024-10-15 16:07 | P.PNIM_ITS ---
Progress Note: A&P Assessment and Plan (1) Cellulitis: Qualifiers: Laterality: right Site of cellulitis: extremity Site of cellulitis of extremity: lower extremity Qualified Code(s): L03.115 - Cellulitis of right lower limb Code(s): L03.90 - Cellulitis, unspecified Status: Acute Assessment and Plan: Toenail was removed [address] Pacheco since then has developed increased redness, swelling and pain to the toe. Went to urgent care and was prescribed Augmentin, has taken 3 doses prior to admission. - Vitals stable, WBC WNL - Blood cultures: gram positive cocci in one bottle, likely a contaminant however patient has been on appropriate treatment despite that. Monitor cultures for final read. - Antibiotics: Vanc, cefe, flagyl given failed outpatient abx and diabetes history started on 10/12 - Foot XR: No evidence of osteomyelitis - MRI ordered, unsure if able to obtain MRI given coils. PT states ok to do - Monitor vital signs, I&Os, neuro status and patient is a fall risk - Monitor serum electrolytes, CBC, cultures, WBC and temp curve - Consult podiatry Continue with IV Abx for an additional day. D/c on Empirical abx Clindamycin 300mg, Q12h for 7 days. Betadine to the toe with Telfa and skin tape. Use a surgical shoe for weight bearing. Patient will follow up in office Saturday. wound care consult ordered PT/OT ordered (2) Hypertension: Code(s): I10 - Essential (primary) hypertension Status: Acute Assessment and Plan: Chronic - Continue home medication: Metoprolol 50 mg daily - Blood pressures reviewed, remain stable. Continue to monitor. (3) Type 2 diabetes mellitus: Qualifiers: Diabetes mellitus complication detail: with unspecified neuropathy Diabetes mellitus complication status: with neurologic complications Code(s): E11.9 - Type 2 diabetes mellitus without complications Status: Acute Assessment and Plan: - hypoglycemia protocol - POC blood glucose ACHS - home medication - sitagliptin 100 mg daily - correct regimen ordered - low dose TIDWM - A1C 6.3 Glucose reviewed, remains stable. (4) History of CVA (cerebrovascular accident) without residual deficits: Code(s): Z86.73 - Personal history of transient ischemic attack (TIA), and cerebral infarction without residual deficits Status: Acute Assessment and Plan: Hx of brain aneurysm s/p coiling Continue home medications: plavix 75 mg daily and atorvastatin 40 mg daily (5) Coronary artery disease: Code(s): I25.10 - Atherosclerotic heart disease of [place] coronary artery without angina pectoris Status: Acute Assessment and Plan: S/p stent placement Continue home medications: plavix 75 mg daily, metoprolol 50 mg daily, and atorvastatin 40 mg daily (6) Pain in buttock: Code(s): M79.18 - Myalgia, other site Status: Acute Assessment and Plan: redness noted to buttocks/coccyx pt is concerned taht she has fistula again as she had fistula in the past there is not drainage noted, area is diffused but painful to tough pt is requesting surgery to come and see her to eval for drainage will continue supportive measures for now- warm compresses, pain meds it doesnot appear that area can be I/D but will ask surgery to eval per pt request Time Spent With Patient Time with patient: 25 - 35 minutes Subjective Date/time seen: 10/15/24 16:07 Interval history: pt is seen and examined. She is weak but overall feeling better, Review of Systems Review of Systems: all other symptoms were reviewed and negative except as noted in the HPI above All systems reviewed & are unremarkable except as noted in HPI and below Exam Narrative: General: female in no acute respiratory distress who is nontoxic appearing, lying semi recumbent in bed. HEENT: Normocephalic. Atraumatic. Extraocular movement intact. Sclera clear and anicteric. No facial asymmetry. Chest: Lungs are clear to auscultation bilaterally. CV: Heart was regular rate and rhythm. Abd: Abdomen was soft. Nontender. Nondistended. Positive bowel sounds. Ext: No clubbing, cyanosis, or edema. DP pulses bilaterally. Right great toe with slight edema, erythema resolved, scabbing to the nail bed area without nail present. No discharge noted. ROM to the toe intact. Skin: General skin exam: erythema (coccyx) Objective Data Vital Signs Vital Signs: Vital Signs - 24 hr 10/14/24 19:54 10/14/24 22:03 10/15/24 04:34 Temperature 98.4 F 98.2 F Pulse Rate 75 75 61 Respiratory Rate 18 16 Blood Pressure 149/66 H 129/63 Pulse Oximetry 100 99 Oxygen Delivery 10/15/24 09:32 10/15/24 14:00 Temperature 97.9 F Pulse Rate 71 Respiratory Rate 16 18 Blood Pressure 146/71 H Pulse Oximetry 99 100 Oxygen Delivery Room Air Intake/Output Intake/Output: Intake & Output 10/12/24 10/13/24 10/14/24 10/15/24 23:59 23:59 23:59 23:59 Intake Total 2100 1700 1420 780 Output Total 600 Balance 1500 1700 1420 780 Meds/Results Medications: Active Medications Generic Name Dose Route Start Last Admin Trade Name Freq PRN Reason Stop Dose Admin Acetaminophen 650 mg 10/12/24 02:50 10/14/24 22:00 Acetaminophen 325 Mg Tablet PO 650 mg Q4H PRN Administration Mild Pain (1-3) or Fever Al Hydrox/Mg Hydrox/Simethicone 30 ml 10/13/24 22:51 10/13/24 22:56 Mag Hydrox/Al Hydrox/Simeth 30 Ml Udc PO 30 ml Q6H PRN Administration Indigestion Alprazolam 0.25 mg 10/12/24 01:13 10/14/24 22:02 Alprazolam (*Crx) 0.25 Mg Tablet PO 0.25 mg BID PRN Administration Anxiety Atorvastatin Calcium 40 mg 10/12/24 21:00 10/14/24 21:59 Atorvastatin 40 Mg Tablet PO 40 mg HS TIFFANY Administration Clindamycin HCl 300 mg 10/14/24 09:00 10/15/24 09:32 Clindamycin Hcl 150 Mg Cap PO 10/20/24 21:01 300 mg Q12HR TIFFANY Administration Clopidogrel Bisulfate 75 mg 10/12/24 09:00 10/15/24 09:32 Clopidogrel Bisulfate 75 Mg Tablet BY MOUTH 75 mg DAILY TIFFANY Administration Cyclobenzaprine HCl 10 mg 10/12/24 22:57 10/14/24 21:59 Cyclobenzaprine Hcl 10 Mg Tablet PO 10 mg HS PRN Administration Muscle Spasm Dextrose 12.5 gm 10/12/24 01:09 Dextrose 50% 25 Gm/50 Ml Syringe IV PUSH PRN PRN Hypoglycemia Protocol Glucagon 1 mg 10/12/24 01:09 Glucagon For Inj 1 Mg Vial IM PRN PRN Hypoglycemia Protocol Glucose 15 gm 10/12/24 01:09 Glucose Oral Gel 15 Gm Of Glucse In 37.5 Gm Tube PO PRN PRN Hypoglycemia Protocol Dextrose 1,000 mls @ 100 mls/hr 10/12/24 01:09 Dextrose 5% 1,000 Ml IVPB PRN PRN Hypoglycemia Protocol Insulin Aspart 2 - 5 units 10/12/24 08:00 10/15/24 11:43 Insulin Aspart (*Bkc) 100 Units/Ml SUB-Q Not Given TIDWM TIFFANY Protocol Insulin Aspart 1 - 2 units 10/12/24 21:00 10/14/24 20:48 Insulin Aspart (*Bkc) 100 Units/Ml SUB-Q Not Given HS TIFFANY Protocol Lidocaine 1 patch 10/14/24 21:00 10/14/24 22:03 Lidocaine 5% Patch TRANSDERM 1 patch HS TIFFANY Administration Metoprolol Succinate 50 mg 10/12/24 21:00 10/14/24 22:03 Metoprolol Succinate Ext Rel 50 Mg Tabcr PO 50 mg HS TIFFANY Administration Pantoprazole Sodium 40 mg 10/12/24 09:00 10/15/24 09:32 Pantoprazole 40 Mg Tablet BY MOUTH 40 mg BID TIFFANY Administration Tobramycin/Dexamethasone 1 drop 10/12/24 13:00 10/15/24 12:42 Tobramycin/Dexamethasone Op 2.5 Ml Btl EACH EYE 1 drop TID TIFFANY Administration Radiology Results: ITS Impressions Foot X-Ray 10/12/24 05:45 IMPRESSION: 1. No evidence of osteomyelitis. Labs Labs: Laboratory Results - last 24 hr 10/14/24 10/14/24 10/15/24 16:41 19:59 04:40 WBC 7.0 RBC 3.49 L Hgb 11.7 L Hct 35.3 L MCV 101.1 H MCH 33.5 MCHC 33.1 RDW 11.9 Plt Count 229 MPV 10.8 H Sodium 139 Potassium 3.7 Chloride 105 Carbon Dioxide 27 Anion Gap 7 BUN 8 Creatinine 0.66 L Estim Creat Clear Calc 60 Estimated GFR > 60 Glucose 122 H POC Capillary Glucose 155 H 127 H Calcium 9.3 Total Bilirubin 0.6 AST 37 H ALT 22 Alkaline Phosphatase 155 H Total Protein 6.0 L Albumin 3.7 10/15/24 10/15/24 08:15 11:33 WBC RBC Hgb Hct MCV MCH MCHC RDW Plt Count MPV Sodium Potassium Chloride Carbon Dioxide Anion Gap BUN Creatinine Estim Creat Clear Calc Estimated GFR Glucose POC Capillary Glucose 130 H 119 H Calcium Total Bilirubin AST ALT Alkaline Phosphatase Total Protein Albumin
[2024-10-15 16:30] LABS: Glucose Point of Care 98 mg/dl (65-105)
--- NOTE | 2024-10-15 17:26 | PM.CNGS ---
Assessment and Plan Assessment and plan (1) Fungal dermatitis: Code(s): B36.9 - Superficial mycosis, unspecified Status: Acute Assessment and Plan: No sign of abscess, buttocks abscess, perirectal abscess, or fistula. Tenderness associated with fungal dermatitis of the upper gluteal crease. No need for surgery. Will sign off. History of Present Illness Consult details Consult date: 10/15/24 Requesting physician: Olimpia Golden APRN Narrative: Patient is a 74-year-old woman known to me from anal fistula and fistulotomy in 2020. She was admitted on this occasion with a foot infection related to recent podiatry procedure. She began having some pain in her buttocks and in the buttocks crease yesterday or possibly the day before. I was asked to see her regarding possible perirectal or buttocks abscess. Review of Systems Review of Systems: All systems reviewed & are unremarkable except as noted in HPI and below (HPI) PMFSH Past Medical History Medical History Obstructive sleep apnea does not use CPAP getting fitted for mouth appliance Cerebrovascular accident Hyperlipidemia Myocardial infarction Gastroesophageal reflux disease Coronary artery disease Hemorrhoids Anxiety Peptic ulcer disease Kidney stone Asthma Mitral valve prolapse Brain aneurysm Migraine Depression Benign essential hypertension Chronic obstructive pulmonary disease, unspecified Postmenopausal disorder Type 2 diabetes mellitus without complication, without long-term current use of insulin Surgical History Surgical History Status post coil embolization of cerebral aneurysm History of left-sided carotid endarterectomy History of rectal surgery anal fistulotomy History of cholecystectomy History of tonsillectomy History of cardiac catheterization Family History Family History Mother Hypertension Cerebrovascular accident Family history of diabetes mellitus in first degree relative Family history of congestive heart failure Diabetes mellitus Family history of hypercholesterolemia CHF (congestive heart failure) Grandparent Cerebrovascular accident Family history of hepatitis Family history of malignant neoplasm Father Hypertension Acute myocardial infarction Social History Social History Social History: Surrogate medical decision maker: Sheldon Troncoso, son. Code status: Full code. Smoking packs per day: 1 Smoking cigarettes per day: 20.0 Years smoked: 20 Smoking pack-years: 20.00 Smoking status: Former smoker Tobacco type: cigarettes Second hand tobacco smoke exposure: Yes Smoking end date: 07/22/07 Additional smoking assessment comments: quit 2007 Alcohol intake: never Alcohol use details: quit 1998 Substance use: never Substance use type: does not use Do You Feel Safe in your Home?: Yes Lack of Transportation: No Lack of Food: Never True Current Housing: I Have Housing Concerned About Future Housing: No Difficulty Paying Gas/Electric Bills: No Difficulty Paying for Meds: No Currently Unemployed: No Education: Master's Degree or Higher Difficulty w/ Childcare or Family Care: No Living arrangements: with family Additional living arrangements comments: Single. Lives with son. 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 Spiritual care concerns: No Meds Home Medications and Allergies Home Medications ?Medication ?Instructions ?Recorded ?Confirmed ?Type metoprolol succinate 50 mg 50 mg PO HS 06/24/19 10/11/24 History tablet,extended release 24 hr blood sugar diagnostic (Accu-Chek #100 01/24/24 10/12/24 Rx Guide test strips) blood-glucose meter (Accu-Chek #1 01/24/24 10/12/24 Rx Guide Glucose Meter) lancets (Accu-Chek Softclix #200 01/24/24 10/12/24 Rx Lancets) lancing device with lancets kit #1 01/24/24 10/12/24 Rx sitagliptin phosphate 100 mg 100 mg PO DAILY #90 tabs 04/06/24 10/11/24 Rx tablet (Januvia) clopidogrel 75 mg tablet See Rx Instructions .Route 05/11/24 10/11/24 Rx .COMPLEX #90 tabs pantoprazole 40 mg tablet,delayed See Rx Instructions .Route 07/13/24 10/11/24 Rx release .COMPLEX #180 tabs alprazolam 0.25 mg tablet (Xanax) 0.25 mg PO BID PRN Anxiety #60 tabs 07/21/24 10/11/24 Rx atorvastatin 40 mg tablet 40 mg PO HS #90 tabs 08/04/24 10/11/24 Rx perfluorohexyloctane (PF) 100 % 1 drp EACH EYE DAILY 10/10/24 10/12/24 History eye drops (Miebo (PF)) tobramycin 0.3 %-dexamethasone 1 drp EACH EYE TID 10/10/24 10/11/24 History 0.05 % eye drops,suspension (Tobradex ST) albuterol sulfate 90 mcg/actuation 2 puff inhalation Q6H PRN 10/12/24 10/12/24 History aerosol inhaler shortness of breath cholestyramine-aspartame 4 gram 1 ea PO HS 10/12/24 10/12/24 History oral powder for susp in a packet Allergies Allergy/AdvReac Type Severity Reaction Status Date / Time Sulfa (Sulfonamide Allergy Mild HIVES Verified 10/11/24 19:40 Antibiotics) propoxyphene AdvReac Mild FLIPPED Verified 10/11/24 19:40 OUT codeine AdvReac Unknown PASSES OUT Verified 10/11/24 19:40 Vital Signs Vital Signs - 24 hr 10/14/24 19:54 10/14/24 22:03 10/15/24 04:34 Temperature 36.9 C 36.8 C Pulse Rate 75 75 61 Respiratory Rate 18 16 Blood Pressure 149/66 H 129/63 Pulse Oximetry 100 99 Oxygen Delivery 10/15/24 09:32 10/15/24 14:00 Temperature 36.6 C Pulse Rate 71 Respiratory Rate 16 18 Blood Pressure 146/71 H Pulse Oximetry 99 100 Oxygen Delivery Room Air Exam Const: General: comfortable, no acute distress, alert and awake GI: Inspection: non-distended GI Palp: Yes Soft to palpation and No Tenderness to palpation present (GI) Rectal Exam: normal sphincter tone, No abscess, No mass and No buttock abscess Back/Spine/Pelvis: Sacrum: erythema (Small skin opening gluteal crease, extensive yeast) midline Other: No buttocks or rectal abscesses seen Neuro: General: no focal motor deficits and CN's II-XI intact bilaterally Cranial nerves: Yes Equal, round and reactive pupils present, Yes Bilaterally intact EOM present, Yes facial symmetry and Yes Midline tongue present Speech: normal speech Motor exam (neuro): 5/5 motor strength present throughout and Motor abnormalities not present Extrem: General: no clubbing, cyanosis or edema and edema Psych: Affect: normal affect Thought process: Normal thought process present Insight: Good insight present (Psych) Results Labs 10/15/24 04:40 10/15/24 04:40 Labs: Abnormal lab results 03/10/15/24 10/15/24 Range/Units 19:59 04:40 08:15 RBC 3.49 L (4.2-5.4) M/mm3 Hgb 11.7 L (12.0-15.0) g/dL Hct 35.3 L (37.0-47.0) % MCV 101.1 H (80-100) fl MPV 10.8 H (7.4-10.4) fl Creatinine 0.66 L (0.7-1.0) mg/dL Glucose 122 H (65-110) mg/dL POC Capillary Glucose 127 H 130 H (65-105) mg/dl AST 37 H (14-36) U/L Alkaline Phosphatase 155 H (38-126) U/L Total Protein 6.0 L (6.3-8.2) g/dL 10/15/24 Range/Units 11:33 RBC (4.2-5.4) M/mm3 Hgb (12.0-15.0) g/dL Hct (37.0-47.0) % MCV (80-100) fl MPV (7.4-10.4) fl Creatinine (0.7-1.0) mg/dL Glucose (65-110) mg/dL POC Capillary Glucose 119 H (65-105) mg/dl AST (14-36) U/L Alkaline Phosphatase (38-126) U/L Total Protein (6.3-8.2) g/dL Diabetes panel 10/15/24 Range/Units 04:40 Sodium 139 (137-145) mmol/L Potassium 3.7 (3.4-5.0) mmol/L Chloride 105 (98-107) mmol/L Carbon Dioxide 27 (22-30) mmol/L BUN 8 (7-17) mg/dL Creatinine 0.66 L (0.7-1.0) mg/dL Glucose 122 H (65-110) mg/dL Calcium 9.3 (8.4-10.2) mg/dL AST 37 H (14-36) U/L ALT 22 (6-35) U/L Alkaline Phosphatase 155 H (38-126) U/L Total Protein 6.0 L (6.3-8.2) g/dL Albumin 3.7 (3.5-5.1) g/dL Calcium panel 10/15/24 Range/Units 04:40 Calcium 9.3 (8.4-10.2) mg/dL Albumin 3.7 (3.5-5.1) g/dL Pituitary panel 10/15/24 Range/Units 04:40 Sodium 139 (137-145) mmol/L Potassium 3.7 (3.4-5.0) mmol/L Chloride 105 (98-107) mmol/L Carbon Dioxide 27 (22-30) mmol/L BUN 8 (7-17) mg/dL Creatinine 0.66 L (0.7-1.0) mg/dL Glucose 122 H (65-110) mg/dL Calcium 9.3 (8.4-10.2) mg/dL Adrenal panel 10/15/24 Range/Units 04:40 Sodium 139 (137-145) mmol/L Potassium 3.7 (3.4-5.0) mmol/L Chloride 105 (98-107) mmol/L Carbon Dioxide 27 (22-30) mmol/L BUN 8 (7-17) mg/dL Creatinine 0.66 L (0.7-1.0) mg/dL Glucose 122 H (65-110) mg/dL Calcium 9.3 (8.4-10.2) mg/dL Total Bilirubin 0.6 (0.2-1.3) mg/dL AST 37 H (14-36) U/L ALT 22 (6-35) U/L Alkaline Phosphatase 155 H (38-126) U/L Total Protein 6.0 L (6.3-8.2) g/dL Albumin 3.7 (3.5-5.1) g/dL All other labs normal.
[2024-10-15 20:29] LABS: Glucose Point of Care 147 mg/dl (65-105)
[2024-10-15 20:43] VITALS: BP 125/45; PULSE 72; RESP 18; TEMP 36.9; O2SAT 99
[2024-10-15] MEDS: LIDOCAINE 5% PATCH 1 PATCH TRANSDERM (21:42)
[2024-10-15 21:43] VITALS: PULSE 72
[2024-10-15] MEDS: METOPROLOL SUCCINATE EXT REL 50 MG TABCR PO (21:43)
[2024-10-15] MEDS: CYCLOBENZAPRINE HCL 10 MG TABLET PO (21:44)
[2024-10-15] MEDS: ATORVASTATIN 40 MG TABLET PO (21:44)
[2024-10-15] MEDS: ALPRAZolam (*CRX) 0.25 MG TABLET PO (21:44)
[2024-10-16 04:39] LABS: Hematocrit 35.6 % (37.0-47.0); Hemoglobin 11.7 g/dL (12.0-15.0); Mean Corpuscular HGB Conc 32.9 g/dl (32-36); Mean Corpuscular Hemoglobin 33.1 pg (26-34); Mean Corpuscular Volume 100.8 fl (80-100); Mean Platelet Volume 10.7 fl (7.4-10.4); Platelet Count Result 230 k/mm3 (150-375); Red Blood Count 3.53 M/mm3 (4.2-5.4); Red Cell Distribution Width 11.9 % (11.5-14.5); White Blood Count 6.9 K/mm3 (4.5-10.0)
[2024-10-16 04:54] LABS: Alanine Aminotransferase 27 U/L (6-35); Albumin Level 3.7 g/dL (3.5-5.1); Alkaline Phosphatase 116 U/L (38-126); Anion Gap 4 mmol/L (4-12); Aspartate Amino Transferase 46 U/L (14-36); Bilirubin,Total 0.8 mg/dL (0.2-1.3); Blood Urea Nitrogen 8 mg/dL (7-17); Calcium 9.3 mg/dL (8.4-10.2); Carbon Dioxide 30 mmol/L (22-30); Chloride 104 mmol/L (98-107); Estimated CRCL calculation 57 ml/min; Estimated Glomerular Filt Rate > 60; Glucose 119 mg/dL (65-110); Potassium 3.8 mmol/L (3.4-5.0); Sodium 138 mmol/L (137-145)
[2024-10-16 06:00] VITALS: BP 111/39; PULSE 66; RESP 18; TEMP 36.7; O2SAT 94
--- NOTE | 2024-10-16 06:45 | PM.DS ---
DS: Admitting Diagnosis Discharge Date 10/16 Admitting Diagnosis Cellulitis DS: Discharge Diagnosis Discharge Diagnosis (1) Cellulitis: Qualifiers: Laterality: right Site of cellulitis: extremity Site of cellulitis of extremity: lower extremity Qualified Code(s): L03.115 - Cellulitis of right lower limb Code(s): L03.90 - Cellulitis, unspecified Status: Acute (2) Hypertension: Code(s): I10 - Essential (primary) hypertension Status: Acute (3) Type 2 diabetes mellitus: Qualifiers: Diabetes mellitus complication detail: with unspecified neuropathy Diabetes mellitus complication status: with neurologic complications Code(s): E11.9 - Type 2 diabetes mellitus without complications Status: Acute (4) History of CVA (cerebrovascular accident) without residual deficits: Code(s): Z86.73 - Personal history of transient ischemic attack (TIA), and cerebral infarction without residual deficits Status: Acute (5) Coronary artery disease: Code(s): I25.10 - Atherosclerotic heart disease of [place] coronary artery without angina pectoris Status: Acute (6) Pain in buttock: Code(s): M79.18 - Myalgia, other site Status: Acute Assessment and Plan: redness noted to buttocks/coccyx pt is concerned that she has fistula again as she had fistula in the past there is not drainage noted, area is diffused but painful to touch pt is requesting surgery to come and see her to eval for drainage will continue supportive measures for now- warm compresses, pain meds it does not appear that area can be I/D but will ask surgery to eval per pt request - no intervention from surgery - will order Betamethasone/clotrimazole cream - DS: Summary Hospital Course Hospital Course: The patient had 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 She states that she was compliant with local wound care as recommended. On 10/10/24 she started having redness, swelling and pain to the great toe with flu like symptoms . She went to the Urgent Care center, was told it was a post procedure infection and prescribed Augmentin. She took the medication that evening and the next morning. Noticed no improvement. She went to [place] [facility] and was admitted for IV antibiotics. Antibiotics: Vanc, cefe, flagyl given failed outpatient abx and diabetes history started on 10/12. Was started on clinda per content administrator recommendations. 9 more doses left- last dose 10/20 pm. rx sent to pt's pharmacy. - Foot XR: No evidence of osteomyelitis - MRI ordered, unsure if able to obtain MRI given coils. Given clinical improvement, will wait with MRI for now. Will need a close f/u with her High Lift Operator (already have an delta) to see if MRI is needed and pt can have it as an outpt at the center where MRI can be performed for pts with pacemakers and other implanted devices. She was concerned about pain to her buttocks and was afraid that fistula is coming back- requested surgical consult. Dr Barcenas saw her and there is no abscess, no fistula- pt was re assured. Fungal dermatitis cream was ordered. AST got slightly elevated and will need to be monitored closely after discharge. CMP ordered. Status at Discharge Functional status at discharge: independent ambulation Overall status at discharge: patient is progressing back to baseline Time Spent with Patient Time attestation: Total time spent providing and/or coordinating discharge services: Time spent: Greater than 30 minutes Exam Narrative: General: female in no acute respiratory distress who is nontoxic appearing, lying semi recumbent in bed. HEENT: Normocephalic. Atraumatic. Extraocular movement intact. Sclera clear and anicteric. No facial asymmetry. Chest: Lungs are clear to auscultation bilaterally. CV: Heart was regular rate and rhythm. Abd: Abdomen was soft. Nontender. Nondistended. Positive bowel sounds. Ext: No clubbing, cyanosis, or edema. DP pulses bilaterally. Right great toe with slight edema, erythema resolved, scabbing to the nail bed area without nail present. No discharge noted. ROM to the toe intact. Const: General: comfortable Skin: General skin exam: erythema (coccyx) DS: Data Data Completed and Pending Labs on day of discharge: Labs from last 24 hours 10/16/24 10/15/24 10/15/24 04:19 20:27 16:26 WBC 6.9 RBC 3.53 L Hgb 11.7 L Hct 35.6 L MCV 100.8 H MCH 33.1 MCHC 32.9 RDW 11.9 Plt Count 230 MPV 10.7 H Sodium 138 Potassium 3.8 Chloride 104 Carbon Dioxide 30 Anion Gap 4 BUN 8 Creatinine 0.70 Estim Creat Clear Calc 57 Estimated GFR > 60 Glucose 119 H POC Capillary Glucose 147 H 98 Calcium 9.3 Total Bilirubin 0.8 AST 46 H ALT 27 Alkaline Phosphatase 116 Total Protein 6.0 L Albumin 3.7 10/15/24 10/15/24 11:33 08:15 WBC RBC Hgb Hct MCV MCH MCHC RDW Plt Count MPV Sodium Potassium Chloride Carbon Dioxide Anion Gap BUN Creatinine Estim Creat Clear Calc Estimated GFR Glucose POC Capillary Glucose 119 H 130 H Calcium Total Bilirubin AST ALT Alkaline Phosphatase Total Protein Albumin Preliminary micro results at discharge 10/11/24 23:04 Blood Culture - Preliminary Blood Staphylococcus hominis 10/11/24 23:06 Blood Culture - Preliminary Blood Discharge Plan Discharge Attending physician on discharge: Xiang Muñoz Consulting providers: Cheko Pacheco Jr. Discharging Clinician: Olimpia Golden Patient Disposition: Home, Self-Care Activity: may shower Diet: diabetic Discharge Instructions: Please continue taking your antibiotics- you have total of 9 doses left as of this am. remaining doses RX was sent to your pharmacy. Please see DR Pacheco for follow up. MRI could be done if indicated as an outpt. Patient Instructions: Antibiotic Form, Clopidogrel (By mouth) Patient Language: Marshallese Stand Alone Forms: General Discharge Information Follow-up/Referrals: Cheko Pacheco Jr., DPM [Physician] - 1 Week Yo Suresh MD [Primary Care Provider] - 2 Weeks Discharge Medications: New clindamycin HCl 150 mg Capsule 300 mg PO Q12HR Qty: 9 0RF Rx Instructions: last day 4/ pm dose to complete the antibiotics course Continued Miebo (PF) 100 % drops 1 drp EACH EYE DAILY Tobradex ST 0.3-0.05 % drops,suspension 1 drp EACH EYE TID metoprolol succinate 50 mg tablet extended release 24 hr 50 mg PO HS alprazolam [Xanax] 0.25 mg tablet 0.25 mg PO BID PRN (Reason: Anxiety) Qty: 60 0RF Januvia 100 mg tablet 100 mg PO DAILY Qty: 90 1RF albuterol sulfate 90 mcg/actuation HFA aerosol inhaler 2 puff INHALATION Q6H PRN (Reason: shortness of breath) cholestyramine-aspartame 4 gram powder in packet 1 ea PO HS (DME) blood-glucose meter [Accu-Chek Guide Glucose Meter] Misc See Rx Instructions .Route Qty: 1 0RF Rx Instructions: Check blood glucose 1xday As directed (DME) Accu-Chek Guide test strips Strip See Rx Instructions .Route Qty: 100 3RF Rx Instructions: Check blood glucose 1xday As directed (DME) lancets [Accu-Chek Softclix Lancets] Misc See Rx Instructions .Route Qty: 200 3RF Rx Instructions: Check blood glucose 1xday As directed (DME) lancing device with lancets Kit See Rx Instructions .Route Qty: 1 0RF Rx Instructions: check glucose daily As directed clopidogrel 75 mg tablet See Rx Instructions .ROUTE .COMPLEX Qty: 90 1RF Dose Instruction: TAKE 1 TABLET BY MOUTH EVERY DAY Rx Instructions: TAKE 1 TABLET BY MOUTH EVERY DAY pantoprazole 40 mg tablet,delayed release (DR/EC) See Rx Instructions .ROUTE .COMPLEX Qty: 180 1RF Dose Instruction: TAKE 1 TABLET BY MOUTH TWICE A DAY Rx Instructions: TAKE 1 TABLET BY MOUTH TWICE A DAY atorvastatin 40 mg tablet 40 mg PO HS Qty: 90 1RF Other Ambulatory Orders: Comprehensive Metabolic Panel (Routine) Timeframe: 1 Week Location: Determined by Patient Ordered By: Olimpia Golden Date of admission: 10/12/24 07:42 Primary Care Provider: Yo Suresh Admitting Provider: Steffen Araujo Attending physician on admission: Jade Corea Condition: Stable Hospitalist MIPS Heart Failure (Exclusion) Patient has history of Heart Transplant or Left Ventricular Assistive Device?: No IF YES, STOP HERE Heart Failure (Qualifier) Patient has current or prior documentation of LVEF less than or equal to 40%, or mod/servere depressed LVSF?: No IF NO, STOP HERE
[2024-10-16 07:56] LABS: Glucose Point of Care 129 mg/dl (65-105)
[2024-10-16 08:31] LABS: Creatine Kinase 27 U/L (30-135)
[2024-10-16] MEDS: CLINDAMYCIN HCL 150 MG CAP 300 MG PO (09:00)
[2024-10-16] MEDS: PANTOPRAZOLE 40 MG TABLET BY MOUTH (09:00)
[2024-10-16] MEDS: CLOPIDOGREL BISULFATE 75 MG TABLET BY MOUTH (09:00)
[2024-10-16] MEDS: BETAMETHASONE/CLOTRIMAZOLE CREAM 15 GM TUBE 1 APPLIC TOPICAL (09:01)
[2024-10-16] MEDS: TOBRAMYCIN/DEXAMETHASONE OP 2.5 ML BTL 1 DROP EACH EYE (09:11)
[2024-10-16 11:50] LABS: Glucose Point of Care 128 mg/dl (65-105)
[2024-10-16 14:00] VITALS: BP 135/62; PULSE 80; RESP 18; TEMP 36.9; O2SAT 97
== END 2024-10-16 14:15 | disposition home or self-care (01) | DRG 863 ==
LOC: ANHED 10-12 00:50 → ANH2MED 10-12 01:24
PROVIDERS: Nurse Practitioner Gerontology; Student in an Organized Health Care Education/Training Program; Admitting Provider Internal Medicine; Emergency Provider Physician Assistant; PCP Family Medicine; Visit Provider Nurse Practitioner
DX: T81.40XA Infection following a procedure, unspecified, initial encounter (principal); L03.031 Cellulitis of right toe; I10 Essential (primary) hypertension; I34.1 Nonrheumatic mitral (valve) prolapse; I25.10 Atherosclerotic heart disease of native coronary artery without angina pectoris; J44.9 Chronic obstructive pulmonary disease, unspecified; E78.5 Hyperlipidemia, unspecified; E11.9 Type 2 diabetes mellitus without complications; K21.9 Gastro-esophageal reflux disease without esophagitis; M79.18 Myalgia, other site; B36.9 Superficial mycosis, unspecified; G47.33 Obstructive sleep apnea (adult) (pediatric); F32.A Depression, unspecified; F41.9 Anxiety disorder, unspecified; Z20.822 Contact with and (suspected) exposure to COVID-19; I25.2 Old myocardial infarction; Z95.5 Presence of coronary angioplasty implant and graft; Z86.73 Personal history of transient ischemic attack (TIA), and cerebral infarction without residual deficits; Z87.11 Personal history of peptic ulcer disease; Z87.442 Personal history of urinary calculi; Z87.891 Personal history of nicotine dependence; Z79.02 Long term (current) use of antithrombotics/antiplatelets; Z79.85 Long-term (current) use of injectable non-insulin antidiabetic drugs
CPT/HCPCS: 36415; 73630; 80053; 80202; 82550; 82565; 82948; 83036; 85025; 85027; 85652; 86140; 87040; 87181; 87637; 93005; 96365; 96366; 96367; 96368; 96375; 99285; A9270; G0378; J0692; J0696; J1836; J2270; J3370

== ENCOUNTER 2024-10-19 14:36 | Outpatient (CLI) | payer MEDICARE, SELFPAY ==
--- NOTE | ~2024-10-19 | CT_ITS ---
EXAMINATION:CT diagnostic chest wo con DATE: 10/19/2024 14:59 INDICATION: Solitary pulmonary nodule. TECHNIQUE: Computed tomography (CT) of the chest was performed without intravenous contrast. Automate d exposure control and iterative reconstruction technique were employed. The dose-length product (DLP ) was 90.18 mGy-cm. COMPARISON: CT abdomen and pelvis 07/03/2022 FINDINGS: There is mild scarring at the lung apices. A calcified left lung nodule is consistent with old granulomatous. There is a 3 mm nodule in right middle lobe, likely benign. There is mild emphysem a. There is mild atelectasis bilaterally. No pleural effusion. The heart size is normal. There are co ronary artery calcifications. No pericardial effusion. There are changes of cholecystectomy. There is severe cervical spondylosis and moderate thoracic spondylosis. IMPRESSION: 1. Small pulmonary nodule, likely benign. 2. Mild emphysema. Reviewed, dictated and finalized at location A.
--- OUTSIDE RECORDS SUMMARY | 2024-10-19 16:06 | XMS_ITS | Clinical Summary ---
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 Gender Identity Not on file Sexual Orientation [...] Vaccine Completed 01/14/2018, 10/23/2017 Insurance [facility] HUMANA CHOICE MEDICARE PPO HUMANA CHOICE MEDICARE PPO Member Subscriber Plan / Payer (Ef fective 2022-Present) Name:Beatrice Calero Relation to Subscriber:Self Name:Beatrice Calero Payer ID:[id number] (NAIC) Type:MEDICARE RISK OTHER Address: [place] [id number] Care Teams After School Counselor Relationship Specialty Start Date End Date Yo Suresh MD [address] [place] [address] PCP - General Family Practice 01/08/23 German Barcenas MD [address] [place] [address] Referring Physician Vascular Surgery 07/22/21
--- OUTSIDE RECORDS SUMMARY | 2024-10-19 16:06 | XMS_ITS | Clinical Summary ---
Author Organization [facility] Address [address] [place], [place] [id number] Care Team Providers Care Fire Prevention Research Engineer Name Role Phone Darrell Jackson MD Primary Care Provider [phone] Social History Tobacco Use Types Packs/Day Years [...] age to complete this topic Care Teams Fire Prevention Research Engineer Relationship Specialty Start Date End Date Darrell Jackson MD PCP - General 04/17/16
--- OUTSIDE RECORDS SUMMARY | 2024-10-19 16:06 | XMS_ITS | Clinical Summary ---
Author Organization [facility] Address [address] [place] [address] Care Team Providers Care Silo Operator Name Role Phone Ignacio Castro DO Primary Care Provider [phone] Source Comments [facility],non-owned Affiliates and Associated Physician Practices is amultiple site organization consisting of ambulatory clinics and hospital sitesin [place], [place], [place] and [place]. This disclosure is being madepursuant to the Care Everywhere program and may not contain all information available regarding this patient. Last updated 18.[facility] Allergies Active Allergy Reactions Criticality Noted Date [...] age to complete this topic Care Teams Silo Operator Relationship Specialty Start Date End Date Ignacio Castro DO [address] [place] [address] PCP - General Internal Medicine 02/19/19
--- OUTSIDE RECORDS SUMMARY | 2024-10-19 16:06 | XMS_ITS | Referral Summary ---
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
== END 2024-10-19 14:37 | disposition home or self-care (01) ==
PROVIDERS: PCP Family Medicine; Visit Provider Nurse Practitioner Family
DX: R91.1 Solitary pulmonary nodule (principal); J43.9 Emphysema, unspecified
CPT/HCPCS: 71250

== ENCOUNTER 2024-11-09 20:32 | Emergency (ER) | payer MEDICARE, SELFPAY ==
--- NOTE | ~2024-11-09 | XR_ITS ---
EXAM: XR toe 1st RT min 2V DATE: 11/09/2024 21:06 HISTORY: Poss infection . COMPARISON: 10/11/2024. FINDINGS: Osteopenia. No fracture or dislocation. No lytic or blastic lesion. Mild scattered degener ative change. No erosion or periosteal change. Soft tissue swelling over the great toe. IMPRESSION: No acute osseous finding in the left first toe. Reviewed, dictated and finalized at location K.
--- NOTE | ~2024-11-09 | CT_ITS ---
CT scan of the right lower extremity Clinical history right great toe pain and swelling TECHNIQUE: Following intravenous administration of 100 cc of Omnipaque 350 contrast internal, axial i maging of the right lower extremity was performed from the level of the knee through the foot. Sagitt al and coronal reformatted images were constructed. Dose reduction technique was used on this scan by utilizing automated exposure control and iterative reconstruction technique. The dose-length product (DLP) was 1240.85 mGy-cm. Findings: Visualized osseous structures are intact. No fracture or dislocation seen. No periosteal re action identified. No destructive change or osteomyelitis is evident. Visualized joint spaces are wel l preserved throughout without significant degenerative change. No evidence for inflammatory/erosive arthropathy. Visualized musculature is unremarkable. Subcutaneous soft tissues are unremarkable. No soft tissue ma ss or fluid collection evident. IMPRESSION: No significant abnormality seen. Reviewed, dictated and finalized at [facility].
--- OUTSIDE RECORDS SUMMARY | 2024-11-09 20:35 | XMS_ITS | Clinical Summary ---
Author Organization [facility] Address [address] [address] Care Team Providers Care Journeyman Millwright Name Role Phone Ignacio Castro DO Primary Care Provider [phone] Source Comments [facility],non-owned Affiliates and Associated Physician Practices is amultiple site organization consisting of ambulatory clinics and hospital sitesin [place], [place], [place] and [place]. This disclosure is being madepursuant to the Care Everywhere program and may not contain all information available regarding this patient. Last updated 18.[facility] [email or web address] Allergies Active Allergy Reactions Criticality Noted Date Comments Codeine Unknown 02/19/2019 Sulfa Drugs Unknown 02/19/2019 Social History Tobacco Use Types Packs/Day Years Used Date Smoking Tobacco: Never Assessed Comments Unknown Sex and Gender Information Value Date Recorded Sex Assigned at Not on file Legal Sex Female 3:34 PM CDT Gender Identity Not on file [...] VACCINE (1 of 2) 02/11/2000 COVID-19 VACCINE (2023-2 5 season) 2024 DEPRESSION SCREENING 07/22/2024 Respiratory Syncytial Virus (RSV) Vaccine Pt: or over 60 yrs (1 - 1-dose 75+ series) 2025 INFLUENZA VACCINE (Season Ended) 2025 HEPATITIS B VACCINE Aged Out No [...] on patient's age to complete this topic Insurance [employer] Care Teams Journeyman Millwright Relationship Specialty Start Date End Date Ignacio Castro DO [address] [place] [address] PCP - General Internal Medicine 02/19/19
--- OUTSIDE RECORDS SUMMARY | 2024-11-09 20:35 | XMS_ITS | Referral Summary ---
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
--- OUTSIDE RECORDS SUMMARY | 2024-11-09 20:35 | XMS_ITS | Clinical Summary ---
Author Organization [facility] Address [address] [place] [address] Care Team Providers Care Pelt Inspector Name Role Phone Darrell Jackson MD Primary Care Provider [phone] Social History Tobacco Use Types Packs/Day Years [...] 1 - Tdap) 1969 Mammogram Screening 1990 Pneumococcal Vaccine: 50+ Ye ars (1 of 1 - PCV) 02/11/2000 Zoster Vaccines (1 of 2) 02/11/2000 Dexa Scan (General) 2015 COVID-19 Vaccine ( - 2023-2 5 season) 2024 RSV Immunization or 60+ Years (1 [...] age to complete this topic Care Teams Pelt Inspector Relationship Specialty Start Date End Date Darrell Jackson MD PCP - General 04/17/16
--- OUTSIDE RECORDS SUMMARY | 2024-11-09 20:35 | XMS_ITS | Clinical Summary ---
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 Gender Identity Not on file Sexual Orientation [...] 08/05/2013 Well Visit 65+ 2015 Influenza Vaccine (Season Ended) 2025 05/12/2019, 06/21/2018, 05/07/2016, Additional history exists Zoster Vaccine Completed 01/14/2018, 10/23/2017 Insurance [facility] HUMANA CHOICE MEDICARE PPO HUMANA CHOICE MEDICARE PPO Care Teams Credit Professional Relationship Specialty Start Date End Date Yo Suresh MD [address] [facility] [address] [place] [address] PCP - General Family Practice 01/08/23 German Barcenas MD [address] [facility] [address] [place] [address] Referring Physician Vascular Surgery 07/22/21
[2024-11-09 20:42] VITALS: BP 128/69; PULSE 87; RESP 20; TEMP 36.7; O2SAT 96
[2024-11-09 20:51] LABS: Glucose Point of Care 237 mg/dl (65-105)
[2024-11-09 21:25] LABS: Basophils Percent Auto 0.3 % (0.2-1.2); Eosinophils Absolute Auto 0.1 K/mm3 (0-0.3); Eosinophils Percent Auto 0.8 % (0-4.4); Hematocrit 41.8 % (37.0-47.0); Hemoglobin 13.7 g/dL (12.0-15.0); Immature Granulocyte Absolute 0.05 K/mm3 (0.00-0.031); Immature Granulocyte Percent A 0.5 % (0-0.5); Lymphocytes Percent Auto 29.4 % (18.3-44.2); Mean Corpuscular HGB Conc 32.8 g/dl (32-36); Mean Corpuscular Hemoglobin 32.5 pg (26-34); Mean Corpuscular Volume 99.1 fl (80-100); Monocytes Absolute Auto 0.5 K/mm3 (0.1-0.6); Neutrophils Absolute Auto 6.3 K/mm3 (1.3-6.7); Platelet Count Result 302 k/mm3 (150-375); Red Blood Count 4.22 M/mm3 (4.2-5.4); White Blood Count 9.9 K/mm3 (4.5-10.0)
[2024-11-09 21:34] LABS: Alanine Aminotransferase 26 U/L (6-35); Albumin Level 4.4 g/dL (3.5-5.1); Alkaline Phosphatase 144 U/L (38-126); Anion Gap 10 mmol/L (4-12); Aspartate Amino Transferase 37 U/L (14-36); Bilirubin,Total 0.9 mg/dL (0.2-1.3); Blood Urea Nitrogen 11 mg/dL (7-17); Calcium 9.5 mg/dL (8.4-10.2); Carbon Dioxide 26 mmol/L (22-30); Chloride 100 mmol/L (98-107); Estimated CRCL calculation 57 ml/min; Estimated Glomerular Filt Rate > 60; Glucose 244 mg/dL (65-110); Potassium 3.8 mmol/L (3.4-5.0); Sodium 136 mmol/L (137-145)
[2024-11-09 23:00] VITALS: BP 152/63; PULSE 88; RESP 19; O2SAT 97
--- NOTE | 2024-11-10 00:54 | ED_ITS ---
HPI - Extremity Injury (Lower) General Chief Complaint: Extremity Injury, Lower Stated Complaint: Left foot toe infection, feeling very sick Time Seen by Provider: 11/10/24 00:38 Source: patient Mode of arrival: ambulatory Limitations: no limitations History of Present Illness HPI Narrative: This is a 74-year-old female with PMH of type 2 diabetes, CAD, CVA who presents to the ED for chief complaint of right great toe redness and swelling recurrent over the past weeks. Patient states that she had the right great toenail removed at the beginning of October with her sales recruitment specialist. States that she then had to be admitted to the hospital about a week ago for cellulitis to the toe. States that she has been taking doxycycline 100 mg as advised by her sales recruitment specialist since discharge last week. Today she noticed that the redness to the toes seemed greater and she has concern for possible infection. Does state that she is feeling generally unwell. States that she is very anxious that she will have to have the toe removed. Denies fevers, chills, nausea, vomiting. Related Data Home Medications ?Medication ?Instructions ?Recorded ?Confirmed ?Last Taken ?Type metoprolol succinate 50 mg 50 mg PO HS 06/24/19 10/21/24 04/18/21 History tablet,extended release 24 hr perfluorohexyloctane (PF) 100 % 1 drp EACH EYE DAILY 10/10/24 10/21/24 Unknown History eye drops (Miebo (PF)) tobramycin 0.3 %-dexamethasone 1 drp EACH EYE TID 10/10/24 10/21/24 Unknown History 0.05 % eye drops,suspension (Tobradex ST) albuterol sulfate 90 mcg/actuation 2 puff inhalation Q6H PRN 10/12/24 10/21/24 Unknown History aerosol inhaler shortness of breath cholestyramine-aspartame 4 gram 1 ea PO HS 10/12/24 10/21/24 Unknown History oral powder for susp in a packet Allergies Allergy/AdvReac Type Severity Reaction Status Date / Time Sulfa (Sulfonamide Allergy Mild HIVES Verified 11/09/24 20:33 Antibiotics) propoxyphene AdvReac Mild FLIPPED Verified 11/09/24 20:33 OUT codeine AdvReac Unknown PASSES OUT Verified 11/09/24 20:33 Review of Systems 2 Review of Systems: All systems as dictated in HPI PMFSH Past Medical History Medical History Obstructive sleep apnea does not use CPAP getting fitted for mouth appliance Cerebrovascular accident Hyperlipidemia Myocardial infarction Gastroesophageal reflux disease Coronary artery disease Hemorrhoids Anxiety Peptic ulcer disease Kidney stone Asthma Mitral valve prolapse Brain aneurysm Migraine Depression Benign essential hypertension Chronic obstructive pulmonary disease, unspecified Postmenopausal disorder Type 2 diabetes mellitus without complication, without long-term current use of insulin Surgical History Surgical History Status post coil embolization of cerebral aneurysm History of left-sided carotid endarterectomy History of rectal surgery anal fistulotomy History of cholecystectomy History of tonsillectomy History of cardiac catheterization Family History Family History Mother Hypertension Cerebrovascular accident Family history of diabetes mellitus in first degree relative Family history of congestive heart failure Diabetes mellitus Family history of hypercholesterolemia CHF (congestive heart failure) Grandparent Cerebrovascular accident Family history of hepatitis Family history of malignant neoplasm Father Hypertension Acute myocardial infarction Social History Social History Social History: Surrogate medical decision maker: Sheldon Troncoso, son. Code status: Full code. Smoking packs per day: 1 Smoking cigarettes per day: 20.0 Years smoked: 20 Smoking pack-years: 20.00 Smoking status: Former smoker Tobacco type: cigarettes Second hand tobacco smoke exposure: Yes Smoking end date: 07/22/07 Additional smoking assessment comments: quit 2007 Alcohol intake: never Alcohol use details: quit 1998 Substance use: never Substance use type: does not use Do You Feel Safe in your Home?: Yes Lack of Transportation: No Lack of Food: Never True Current Housing: I Have Housing Concerned About Future Housing: No Difficulty Paying Gas/Electric Bills: No Difficulty Paying for Meds: No Currently Unemployed: No Education: Master's Degree or Higher Difficulty w/ Childcare or Family Care: No Living arrangements: with family Additional living arrangements comments: Single. Lives with son. 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 Spiritual care concerns: No Exam 2 Narrative: GENERAL: Well-appearing, well-nourished, and in no acute distress. HEAD: Normocephalic, atraumatic. EYES: PERRLA and EOMI. ENT: Nares clear, no rhinorrhea or epistaxis. Mucous membranes moist. Oropharynx without tonsillar hypertrophy exudate or other lesions. NECK: Supple. No adenopathy or masses. CHEST: No respiratory distress. Clear to auscultation. No wheezes rales or rhonchi HEART: Regular rate and rhythm. No murmur heard. Normal peripheral pulses. ABDOMEN: Soft, nontender, nondistended, normal active bowel sounds. MSK: Normal range of motion. No edema. SKIN: Warm, dry, no rash. Right great toe with erythema up to the interphalangeal joint. The toenail is removed. There is no purulent drainage. No crepitus. Tenderness only to the wound bed where the nail was removed. Good cap refill. No necrotic appearing skin. NEURO: Alert and oriented x4. No focal deficits. PSYCH: Normal mood and affect. Course Vital Signs Vital signs: Vital Signs Temperature 98.1 F 11/09/24 20:42 Pulse Rate 87 11/09/24 20:42 Respiratory Rate 20 11/09/24 20:42 Blood Pressure 128/69 11/09/24 20:42 Pulse Oximetry 96 11/09/24 20:42 Oxygen Delivery Room Air 11/09/24 20:42 Temperature 98.1 F 11/09/24 20:42 Pulse Rate 80 11/10/24 03:57 Respiratory Rate 17 11/10/24 03:57 Blood Pressure 127/75 11/10/24 03:57 Pulse Oximetry 96 11/10/24 03:57 Oxygen Delivery Room Air 11/09/24 20:42 MDM - Extremity Injury (Lower) MDM Narrative Medical decision making narrative: This is a 74-year-old female who presents to the ED for chief complaint of right great toe pain, redness, swelling. She has concern for possible infection to the bone. Vitals are normal. Exam remarkable for the above. No crepitus or signs of deep space infection on exam. Lab work shows normal white count on CBC. CRP is negative. Patient was given IV fluids for elevated blood sugar. Suspect the findings of the toe today are more chronic, does not appear to be acutely infected. CT imaging with IV contrast of the right lower extremity: Preliminary read from stat rad; mild nonspecific subcutaneous edema worse distally. Mild lateral subluxation of the patella. No fracture or dislocation. Recommended that she follow-up closely with her sales recruitment specialist who is actively managing this issue. Patient will be discharged in stable condition. Supportive measures discussed and return precautions given. Patient is understanding and agreeable with plan for discharge with PCP follow-up. Lab Data 11/09/24 20:57 11/09/24 20:57 Labs: Lab Results 11/09/24 11/09/24 Range/Units 20:48 20:57 WBC 9.9 (4.5-10.0) K/mm3 RBC 4.22 (4.2-5.4) M/mm3 Hgb 13.7 (12.0-15.0) g/dL Hct 41.8 (37.0-47.0) % MCV 99.1 (80-100) fl MCH 32.5 (26-34) pg MCHC 32.8 (32-36) g/dl RDW 12.0 (11.5-14.5) % Plt Count 302 (150-375) k/mm3 MPV 11.0 H (7.4-10.4) fl Immature Gran % (Auto) 0.5 (0-0.5) % Neut % (Auto) 64.0 (45.5-73.1) % Lymph % (Auto) 29.4 (18.3-44.2) % [place] % (Auto) 5.0 (2.6-8.5) % Eos % (Auto) 0.8 (0-4.4) % Baso % (Auto) 0.3 (0.2-1.2) % Lymph # (Auto) 2.90 (0.9-3.2) K/mm3 [place] # (Auto) 0.5 (0.1-0.6) K/mm3 Eos # (Auto) 0.1 (0-0.3) K/mm3 Baso # (Auto) 0.0 (0.0-0.1) K/mm3 Abs Immat Gran (auto) 0.05 H (0.00-0.031) K/mm3 Absolute Neuts (auto) 6.3 (1.3-6.7) K/mm3 Absolute Nucleated RBC 0.000 (0.0-0.012) K/mm3 Nucleated RBC % 0.0 (0.0-0.2) % Sodium 136 L (137-145) mmol/L Potassium 3.8 (3.4-5.0) mmol/L Chloride 100 (98-107) mmol/L Carbon Dioxide 26 (22-30) mmol/L Anion Gap 10 (4-12) mmol/L BUN 11 (7-17) mg/dL Creatinine 0.70 (0.7-1.0) mg/dL Estim Creat Clear Calc 57 ml/min Estimated GFR > 60 (59 - ) Glucose 244 H (65-110) mg/dL POC Capillary Glucose 237 H (65-105) mg/dl Calcium 9.5 (8.4-10.2) mg/dL Total Bilirubin 0.9 (0.2-1.3) mg/dL AST 37 H (14-36) U/L ALT 26 (6-35) U/L Alkaline Phosphatase 144 H (38-126) U/L Total Protein 7.0 (6.3-8.2) g/dL Albumin 4.4 (3.5-5.1) g/dL Discharge Plan Discharge Clinical Impression: Pain of right great toe Patient Disposition: Home Condition: Stable Instructions: Antibiotic Form Additional Instructions: Exam and imaging reassuring. Please continue to follow-up with podiatry on this issue. Take doxycycline twice per day feel that the redness is getting worse. Podiatry should be able to further direct you on antibiotic dosing. If you have any new or worsening symptoms please return to the ER for further evaluation. Patient Language: Turkish Prescriptions: No Action Miebo (PF) 100 % drops 1 drp EACH EYE DAILY Tobradex ST 0.3-0.05 % drops,suspension 1 drp EACH EYE TID metoprolol succinate 50 mg tablet extended release 24 hr 50 mg PO HS (DME) OneTouch Verio test strips Strip See Rx Instructions .Route Qty: 100 1RF Rx Instructions: Check glucose 1xday As directed (DME) blood-glucose meter [OneTouch Verio Flex meter] Misc See Rx Instructions .Route Qty: 1 0RF Rx Instructions: Check glucose 1xday As directed alprazolam [Xanax] 0.25 mg tablet 0.25 mg PO BID PRN (Reason: Anxiety) Qty: 60 0RF Januvia 100 mg tablet 100 mg PO DAILY Qty: 90 1RF albuterol sulfate 90 mcg/actuation HFA aerosol inhaler 2 puff INHALATION Q6H PRN (Reason: shortness of breath) cholestyramine-aspartame 4 gram powder in packet 1 ea PO HS (DME) lancets [Accu-Chek Softclix Lancets] Misc See Rx Instructions .Route Qty: 200 3RF Rx Instructions: Check blood glucose 1xday As directed (DME) lancing device with lancets Kit See Rx Instructions .Route Qty: 1 0RF Rx Instructions: check glucose daily As directed pantoprazole 40 mg tablet,delayed release (DR/EC) See Rx Instructions .ROUTE .COMPLEX Qty: 180 1RF Dose Instruction: TAKE 1 TABLET BY MOUTH TWICE A DAY Rx Instructions: TAKE 1 TABLET BY MOUTH TWICE A DAY atorvastatin 40 mg tablet 40 mg PO HS Qty: 90 1RF clopidogrel 75 mg tablet See Rx Instructions .ROUTE .COMPLEX Qty: 90 1RF Dose Instruction: TAKE 1 TABLET BY MOUTH EVERY DAY Rx Instructions: TAKE 1 TABLET BY MOUTH EVERY DAY Follow-up/Referrals: Lia Downs APRN [Primary Care Provider] - Time of Disposition: 04:04
[2024-11-10 01:37] VITALS: BP 134/66; PULSE 78; O2SAT 98
[2024-11-10] MEDS: SODIUM CHLORIDE 0.9% IV 1,000 ML 999 ML IV CONT (01:37)
--- OUTSIDE RECORDS SUMMARY | 2024-11-10 01:51 | XMS_ITS | Referral Summary ---
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
--- OUTSIDE RECORDS SUMMARY | 2024-11-10 01:51 | XMS_ITS | Clinical Summary ---
Author Organization [facility] Address [address] [facility] [place] [address] Care Team Providers Care Gas Leak Inspector Helper Name Role Phone Ignacio Castro DO Primary Care Provider [phone] Source Comments [facility],non-owned Affiliates and Associated Physician Practices is amultiple site organization consisting of ambulatory clinics and hospital sitesin [place], [place], [place] and [place]. This disclosure is being madepursuant to the Care Everywhere program and may not contain all information available regarding this patient. Last updated 18.[facility] Allergies Active Allergy Reactions Criticality Noted Date [...] complete this topic Insurance [employer] Care Teams Gas Leak Inspector Helper Relationship Specialty Start Date End Date Ignacio Castro DO [address] [place] [address] PCP - General Internal Medicine 02/19/19
--- OUTSIDE RECORDS SUMMARY | 2024-11-10 01:51 | XMS_ITS | Clinical Summary ---
Author Organization [facility] Address [address] [place] [address] Care Team Providers Care Comparative Sociology Professor Name Role Phone Darrell Jackson MD Primary Care Provider [phone] Social History Tobacco Use Types Packs/Day Years [...] age to complete this topic Care Teams Comparative Sociology Professor Relationship Specialty Start Date End Date Darrell Jackson MD PCP - General 04/17/16
--- OUTSIDE RECORDS SUMMARY | 2024-11-10 01:51 | XMS_ITS | Clinical Summary ---
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
[2024-11-10 02:30] VITALS: BP 122/59; PULSE 82; RESP 16; O2SAT 96
[2024-11-10 03:38] VITALS: PULSE 81
[2024-11-10] MEDS: METOPROLOL SUCCINATE EXT REL 50 MG TABCR PO (03:38)
[2024-11-10] MEDS: ATORVASTATIN 40 MG TABLET PO (03:38)
[2024-11-10 03:57] VITALS: BP 127/75; PULSE 80; RESP 17; O2SAT 96
--- NOTE | 2024-11-10 04:45 | PC.NURSE ---
0445 - patient refused home medications stating that she will take them at home to double check her dosages.
[2024-11-10 04:52] VITALS: BP 130/73; PULSE 86; RESP 19; O2SAT 98
== END 2024-11-10 04:57 | disposition home or self-care (01) ==
PROVIDERS: Student in an Organized Health Care Education/Training Program; Emergency Provider Physician Assistant; PCP Nurse Practitioner Family
DX: M79.674 Pain in right toe(s) (principal); I25.10 Atherosclerotic heart disease of native coronary artery without angina pectoris; I25.2 Old myocardial infarction; I10 Essential (primary) hypertension; I34.1 Nonrheumatic mitral (valve) prolapse; E11.9 Type 2 diabetes mellitus without complications; E78.5 Hyperlipidemia, unspecified; J44.9 Chronic obstructive pulmonary disease, unspecified; G47.33 Obstructive sleep apnea (adult) (pediatric); K21.9 Gastro-esophageal reflux disease without esophagitis; F41.9 Anxiety disorder, unspecified; F32.A Depression, unspecified; Z87.442 Personal history of urinary calculi; Z87.11 Personal history of peptic ulcer disease; Z86.73 Personal history of transient ischemic attack (TIA), and cerebral infarction without residual deficits; Z87.891 Personal history of nicotine dependence; Z90.49 Acquired absence of other specified parts of digestive tract; Z79.84 Long term (current) use of oral hypoglycemic drugs; Z79.899 Other long term (current) drug therapy; Z79.02 Long term (current) use of antithrombotics/antiplatelets
CPT/HCPCS: 36415; 73660; 73701; 80053; 82948; 85025; 96360; 99284; A9270; J7030; Q9967

== ENCOUNTER 2025-04-09 12:49 | Emergency (ER) | payer MEDICARE, SELFPAY ==
--- NOTE | ~2025-04-09 | XR_ITS ---
EXAMINATION: XR toe 5th RT min 2V, 04/09/2025 13:15 CDT HISTORY: pain and bleeding, unknown injury COMPARISON: No comparisons available. Findings: No acute fracture or malalignment. No significant degenerative changes. Soft tissues unremarkable. Impression: No acute fracture or malalignment. Reviewed, dictated and finalized at location A. Impression: No acute fracture or malalignment.
[2025-04-09 12:57] VITALS: BP 126/52; PULSE 70; RESP 20; TEMP 37; O2SAT 98
--- NOTE | 2025-04-09 19:06 | ED_ITS ---
HPI - Wound/Laceration General Chief Complaint: Wound/Laceration Stated Complaint: Right Foot Toe Pain Time Seen by Provider: 04/09/25 13:10 Source: patient and RN notes reviewed Mode of arrival: ambulatory Limitations: no limitations History of Present Illness HPI narrative: 75-year-old female presents Express Care complaining of right pinky toe pain he redness. Patient says she notices this morning. Patient is unsure what happened however she noticed dry blood on her right pinky toe. Patient denies any injuries is unsure if she caught her right pinky toe on something. Patient denies any fevers, drainage, body aches, chills, nausea, vomiting, or any other symptoms. Patient denies cardiac history and no diabetes or vascular disease. Related Data Home Medications ?Medication ?Instructions ?Recorded ?Confirmed ?Last Taken ?Type metoprolol succinate 50 mg 50 mg PO HS 06/24/1904/18/21 History tablet,extended release 24 hr Zyrtec 04/09/25 Unknown History lifitegrast 5 % eye drops in a drp 04/09/25 Unknown H istory dropperette (Xiidra) Allergies Allergy/AdvReac Type Severity Reaction Status Date / Time Sulfa (Sulfonamide Allergy Mild HIVES Verified 04/09/25 12:54 Antibiotics) propoxyphene AdvReac Mild FLIPPED Verified 04/09/25 12:54 OUT codeine AdvReac Unknown PASSES OUT Verified 04/09/25 12:54 Review of Systems Review of Systems: CONSTITUTIONAL: Denies fever, chills, or sweats. EYES: Denies visual changes, redness, or discharge. ENT: Denies rhinorrhea, congestion, sore throat, or otalgia. CARDIOVASCULAR: Denies chest pain, palpitations, or edema. RESPIRATORY: Denies cough or dyspnea. GASTROINTESTINAL: Denies abdominal pain, nausea, vomiting, or diarrhea. GENITOURINARY: Denies dysuria or hematuria. SKIN: Denies rash or itching. MUSCULOSKELETAL: Denies back pain, joint pain, or myalgia. Positive for right little toe pain and redness. NEUROLOGIC: Denies headache, numbness, or weakness. PSYCHIATRIC: Denies anxiety or depression. All other systems reviewed are negative, except as documented in HPI. [facility] Past Medical History Medical History Obstructive sleep apnea does not use CPAP getting fitted for mouth appliance Cerebrovascular accident Hyperlipidemia Myocardial infarction Gastroesophageal reflux disease Coronary artery disease Hemorrhoids Anxiety Peptic ulcer disease Kidney stone Asthma Mitral valve prolapse Brain aneurysm Migraine Depression Benign essential hypertension Chronic obstructive pulmonary disease, unspecified Postmenopausal disorder Type 2 diabetes mellitus without complication, without long-term current use of insulin Surgical History Surgical History Status post coil embolization of cerebral aneurysm History of left-sided carotid endarterectomy History of rectal surgery anal fistulotomy History of cholecystectomy History of tonsillectomy History of cardiac catheterization Family History Family History Mother Hypertension Cerebrovascular accident Family history of diabetes mellitus in first degree relative Family history of congestive heart failure Diabetes mellitus Family history of hypercholesterolemia CHF (congestive heart failure) Grandparent Cerebrovascular accident Family history of hepatitis Family history of malignant neoplasm Father Hypertension Acute myocardial infarction Social History Social History Social History: Surrogate medical decision maker: Sheldon Troncoso, son. Code status: Full code. Smoking packs per day: 1 Smoking cigarettes per day: 20.0 Years smoked: 20 Smoking pack-years: 20.00 Smoking status: Former smoker Tobacco type: cigarettes Second hand tobacco smoke exposure: Yes Smoking end date: 07/22/07 Additional smoking assessment comments: quit 2007 Alcohol intake: never Alcohol use details: quit 1998 Substance use: never Substance use type: does not use Do You Feel Safe in your Home?: Yes Lack of Transportation: No Lack of Food: Never True Current Housing: I Have Housing Concerned About Future Housing: No Difficulty Paying Gas/Electric Bills: No Difficulty Paying for Meds: No Currently Unemployed: No Education: Master's Degree or Higher Difficulty w/ Childcare or Family Care: No Living arrangements: with family Additional living arrangements comments: Single. Lives with son. 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 Spiritual care concerns: No Comments At the time of my signature, I reviewed and agree with the nursing past medical, surgical, social, and family history. There is no relevant family history pertinent to the patient complaint. Exam Narrative: GENERAL: This is a well-nourished, well-developed adult, in no apparent dis tress. They are non ill-appearing, nontoxic appearing. HEAD: normocephalic, atraumatic. EYES: Sclera clear/white. Conjunctiva normal. Vision is grossly intact. Extraocular movements intact EARS: External ears normal, Hearing grossly intact. NOSE: External nose normal THROAT: Mucous membranes moist, NECK: Neck supple, CARDIOVASCULAR: Regular rate and rhythm RESPIRATORY: Clear to auscultation. Breath sounds equal bilaterally. No wheezes, rales, or rhonchi. SKIN: warm, Dry, intact with no suspicious lesions or rash, good texture and turgor. NEURO: awake, alert, and oriented to person, place and time. There were no obvious focal neurologic abnormalities. EXTREMITIES: Right pinky toe: Erythematous, mildly tender to palpate. This does not hot to touch. Nail bed nail plate intact. Dry blood present to the medial little toe. No paronychia. No ingrown toenail. Normal range of motion. Capillary refill less than 2 seconds. Skin is blanchable. Normal sensation. Neurovascular status intact. No obvious injury, redness, swelling, bruising to the rest of the foot. Right pedal pulse 2 +palpable. BACK: Nontender without deformity. No CVA tenderness. Course Course Emergency Course: Portions of this record may have been created with voice recognition software Level of Care: Express Care Visit Vital Signs Vital signs: Vital Signs Temperature 98.6 F 04/09/25 12:57 Pulse Rate 70 04/09/25 12:57 Respiratory Rate 04/09/25 12:57 Blood Pressure 126/52 L 04/09/25 12:57 Pulse Oximetry 98 04/09/25 12:57 Oxygen Delivery Room Air 04/09/25 12:57 Temperature 98.6 F 04/09/25 12:57 Pulse Rate 70 04/09/25 12:57 Respiratory Rate 04/09/25 12:57 Blood Pressure 126/52 L 04/09/25 12:57 Pulse Oximetry 98 04/09/25 12:57 Oxygen Delivery Room Air 04/09/25 12:57 Reviewed MDM - Wound/Laceration MDM Narrative Medical decision making narrative: X-ray of right pinky toe negative for any fractures or acute findings. Given the redness and swelling and pain we will have an treat for and cellulitis with cephalexin. Discussed physical exam findings. Advised supportive measures and signs/symptoms to go to the ER. Pt is appropriate for outpt treatment and f/u. Differential Diagnosis Differential diagnosis: Likely laceration, abrasion, avulsion of skin and other (Toe fracture, toe sprain, cellulitis,) Imaging Data Radiologist's impression: ITS Impressions Toe X-Ray 04/09/25 13:26 Impression: No acute fracture or malalignment. Critical Care Time Critical Care Time Critical Care Time: No Discharge Plan Discharge Clinical Impression: Injury of toe on right foot Qualifiers: Encounter type: initial encounter Qualified Code(s): S99.921A - Unspecified injury of right foot, initial encounter Patient Disposition: Home Condition: Stable Instructions: Antibiotic Form, Acute Wounds (ED) Additional Instructions: The x-ray of your right pinky toes negative for any fractures or acute findings. Wash the affected toe daily with mild soap and water, do not soak or scrub the wound. Do not use any peroxide. Avoid dirty water to the wound has healed completely. Take cephalexin as directed. Finish the course even if you start to feel better. You may take up to 1000 mg Tylenol every 6-8 hours. Do not exceed 1000 mg per dose, do exceed more than 4000 mg of Tylenol in a day. Follow-up with PCP in 3-5 days. If you developed worsening redness, swelling, pain, fevers, green/yellow drainage, nausea, vomiting, body aches, chills, or any serious concerns please go to the ER immediately. Patient Language: Chadian Prescriptions: New cephalexin 500 mg capsule 500 mg PO Q6H 7 Days Qty: 28 0RF No Action Xiidra 5 % dropperette Zyrtec metoprolol succinate 50 mg tablet extended release 24 hr 50 mg PO HS (DME) blood-glucose meter [OneTouch Verio Flex meter] [facility] [place] See Rx Instructions .Route Qty: 1 0RF Rx Instructions: Check glucose 1xday As directed (DME) lancets [Accu-Chek Softclix Lancets] [facility] [place] See Rx Instructions .Route Qty: 200 3RF Rx Instructions: Check blood glucose 1xday As directed (DME) lancing device with lancets Kit See Rx Instructions .Route Qty: 1 0RF Rx Instructions: check glucose daily As directed clopidogrel 75 mg tablet See Rx Instructions .ROUTE .COMPLEX Qty: 90 1RF Dose Instruction: TAKE 1 TABLET BY MOUTH EVERY DAY Rx Instructions: TAKE 1 TABLET BY MOUTH EVERY DAY Cholestyramine Light 4 gram powder in packet See Rx Instructions .ROUTE .COMPLEX Qty: 270 1RF Dose Instruction: 4 G ORALLY THREE TIMES A DAY NEEDED FOR DIARRHEA ADMINISTER W/MEAL AVOID OTHER MEDS WITHIN 1HR BEFORE OR 4-6HR AFTER DOSE Rx Instructions: 4 G ORALLY THREE TIMES A DAY NEEDED FOR DIARRHEA ADMINISTER W/MEAL AVOID OTHER MEDS WITHIN 1HR BEFORE OR 4-6HR AFTER DOSE atorvastatin 40 mg tablet 40 mg PO HS Qty: 90 1RF Januvia 100 mg tablet 100 mg PO DAILY Qty: 90 1RF pantoprazole 40 mg tablet,delayed release (DR/EC) See Rx Instructions .ROUTE .COMPLEX Qty: 180 1RF Dose Instruction: TAKE 1 TABLET BY MOUTH TWICE A DAY Rx Instructions: TAKE 1 TABLET BY MOUTH TWICE A DAY albuterol sulfate 90 mcg/actuation HFA aerosol inhaler 2 inh inhalation Q4H PRN (Reason: shortness of breath or wheezing) Qty: 25.5 2RF (DME) Accu-Chek Guide test strips Strip See Rx Instructions .ROUTE .COMPLEX Qty: 100 3RF Dose Instruction: CHECK BLOOD GLUCOSE 1XDAY DIRECTED Rx Instructions: CHECK BLOOD GLUCOSE 1XDAY DIRECTED alprazolam [Xanax] 0.25 mg tablet 0.25 mg PO BID PRN (Reason: Anxiety) Qty: 60 0RF cyclobenzaprine 10 mg tablet 10 mg PO QHS PRN (Reason: muscle spasm) Qty: 30 0RF Follow-up/Referrals: Lia Downs APRN [Primary Care Provider, Internal Medicine] Time of Disposition: 13:51
== END 2025-04-09 13:56 | disposition home or self-care (01) ==
PROVIDERS: PCP Nurse Practitioner Family
DX: S99.921A Unspecified injury of right foot, initial encounter (principal); X58.XXXA Exposure to other specified factors, initial encounter; G47.33 Obstructive sleep apnea (adult) (pediatric); Z86.73 Personal history of transient ischemic attack (TIA), and cerebral infarction without residual deficits; E78.5 Hyperlipidemia, unspecified; I25.2 Old myocardial infarction; K21.9 Gastro-esophageal reflux disease without esophagitis; I25.10 Atherosclerotic heart disease of native coronary artery without angina pectoris; I34.1 Nonrheumatic mitral (valve) prolapse; I10 Essential (primary) hypertension; J44.9 Chronic obstructive pulmonary disease, unspecified; E11.9 Type 2 diabetes mellitus without complications; Z79.84 Long term (current) use of oral hypoglycemic drugs
CPT/HCPCS: 73660; 99213; G0463

== ENCOUNTER 2025-05-04 16:10 | Emergency (ER) | payer MEDICARE, SELFPAY ==
[2025-05-04] VITALS (18 sets, daily range): BP systolic 127–166; BP diastolic 60–108; PULSE 69–111; RESP 13–25; TEMP 36.2–36.8; O2SAT 91–100
--- NOTE | ~2025-05-04 | CT_ITS ---
REFERENCE: [None available.] TECHNIQUE: Axial 2.5 and 5 mm images of the head and neck were obtained without and with infusion of contrast dose cc of intravenous contrast. Postcontrast 1.25 mm axial images were then obtained. On an independent workstation, 0.625 mm axial images were utilized to render MIP and MPR images of the intracranial circulation. CTA NECK: The aortic arch demonstrates normal caliber and patency. Normal branching pattern is noted of the supraaortic vessels. The origins of the supraaortic vessels are widely patent. There is focal string like severe stenosis within the right internal carotid artery which fills distally best seen on axial image 107. Follow up conventional angiogram is recommended. The common carotid and cervical segments of the left ICA and ECA demonstrate normal caliber and patency. The vertebral arteries are symmetric in size, demonstrating normal patency. CTA HEAD: Aneurysm coils are noted within the distal right internal carotid artery. The intracranial ICA, ESTELLA, and MCA demonstrate normal caliber and patency. No hemodynamically significant stenosis or aneurysm is identified. The distal vertebral, basilar, and bilateral posterior cerebral arteries demonstrate normal caliber and patency. The superior cerebellar arteries are also widely patent. NONVASCULAR FINDINGS: The soft tissue of the neck is unremarkable. No mass or pathologic enhancement is noted. There is no pathologically enlarged lymphadenopathy. The airway is patent. Chronic infarct within the left parietal lobe is noted. No acute intracranial hemorrhage, mass, or extraaxial fluid collections are noted. Ventricular size is normal. The skull is intact. The visualized mastoid air cells and sinuses are clear. There is no pathologic enhancement. IMPRESSION: Focal severe string-like stenosis of the proximal right ICA. Conventional angiogram is recommended. Reviewed, dictated and finalized at location S.
--- NOTE | 2025-05-04 16:59 | ED_ITS ---
HPI - Headache General Chief Complaint: Headache Stated Complaint: headache Time Seen by Provider: 05/04/25 16:34 History of Present Illness HPI Narrative: 75-year-old female with a past medical history including prior CVA currently on Plavix. She also has a history of remote cerebral aneurysm status post coiling in 2010. Presents to the emergency department today with complaints of a headache that have been bothering her since 4:00 a.m.. She states she woke up this morning feeling a headache that she describes as a throbbing sensation behind both her frontal temples and radiating towards the top of her head. She went to bed after taking some pain relievers and states that gradually got worse throughout the day and now radiates towards her neck. She thinks she might have a pinched nerve root also has been dealing with sinus issues that she took a Zyrtec for. Denies any visual changes, nausea, vomiting, fever, chills. No traumatic injuries. No other blood thinner or anticoagulation use. Has had headaches like this prior but no history of migraines. Related Data Home Medications ?Medication ?Instructions ?Recorded ?Confirmed ?Last Taken ?Type metoprolol succinate 50 mg 50 mg PO HS 06/24/1904/18/21 History tablet,extended release 24 hr Zyrtec 04/09/25 04/15/25 Unknown H istory lifitegrast 5 % eye drops in a drp 04/09/25 04/15/25 U nknown History dropperette (Xiidra) doxycycline hyclate 50 mg capsule mg PO 04/15/2504/15 Unknown History Allergies Allergy/AdvReac Type Severity Reaction Status Date / Time Sulfa (Sulfonamide Allergy Mild HIVES Verified 05/04/25 16:25 Antibiotics) propoxyphene AdvReac Mild FLIPPED Verified 05/04/25 16:25 OUT codeine AdvReac Unknown PASSES OUT Verified 05/04/25 16:25 Review of Systems 2 Review of Systems: As reviewed above in HPI [facility] Past Medical History Medical History Obstructive sleep apnea does not use CPAP getting fitted for mouth appliance Cerebrovascular accident Hyperlipidemia Myocardial infarction Gastroesophageal reflux disease Coronary artery disease Hemorrhoids Anxiety Peptic ulcer disease Kidney stone Asthma Mitral valve prolapse Brain aneurysm Migraine Depression Benign essential hypertension Chronic obstructive pulmonary disease, unspecified Postmenopausal disorder Type 2 diabetes mellitus without complication, without long-term current use of insulin Surgical History Surgical History Status post coil embolization of cerebral aneurysm History of left-sided carotid endarterectomy History of rectal surgery anal fistulotomy History of cholecystectomy History of tonsillectomy History of cardiac catheterization Family History Family History Mother Hypertension Cerebrovascular accident Family history of diabetes mellitus in first degree relative Family history of congestive heart failure Diabetes mellitus Family history of hypercholesterolemia CHF (congestive heart failure) Grandparent Cerebrovascular accident Family history of hepatitis Family history of malignant neoplasm Father Hypertension Acute myocardial infarction Social History Social History Social History: Surrogate medical decision maker: Sheldon Troncoso, nena. Code status: Full code. Smoking packs per day: 1 Smoking cigarettes per day: 20.0 Years smoked: 20 Smoking pack-years: 20.00 Smoking status: Former smoker Tobacco type: cigarettes Second hand tobacco smoke exposure: Yes Smoking end date: 07/22/07 Additional smoking assessment comments: quit 2007 Alcohol intake: never Alcohol use details: quit 1998 Substance use: never Substance use type: does not use Do You Feel Safe in your Home?: Yes Lack of Transportation: No Lack of Food: Never True Current Housing: I Have Housing Concerned About Future Housing: No Difficulty Paying Gas/Electric Bills: No Difficulty Paying for Meds: No Currently Unemployed: No Education: Master's Degree or Higher Difficulty w/ Childcare or Family Care: No Living arrangements: with family Additional living arrangements comments: Single. Lives with son. 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 Spiritual care concerns: No Exam 2 Narrative: GENERAL: [Well-appearing, well-nourished, and in no acute distress.] HEAD: [Normocephalic, atraumatic.] EYES: [PERRLA and EOMI.] ENT: Nares clear, no rhinorrhea or epistaxis. Mucous membranes moist. NECK: Supple. CHEST: [Clear to auscultation. No respiratory distress.] HEART: [Regular rate and rhythm]. No murmur heard. [Normal peripheral pulses.] ABDOMEN: [Soft, nondistended], [nontender], [No rigidity or guarding] EXTREMITIES: Normal range of motion. [No edema.] SKIN: Warm, dry, no rash. NEURO: [No focal deficits]. Alert and oriented [x3.] PSYCH: [Normal mood and affect.] Course Vital Signs Vital signs: Vital Signs Temperature 36.2 C L 05/04/25 16:14 Pulse Rate 81 05/04/25 16:14 Respiratory Rate 16 05/04/25 16:14 Blood Pressure 143/73 H 05/04/25 16:14 Pulse Oximetry 98 05/04/25 16:14 Temperature 36.6 C 05/04/25 21:27 Pulse Rate 76 05/04/25 21:27 Respiratory Rate 16 05/04/25 21:27 Blood Pressure 155/78 H 05/04/25 21:27 Pulse Oximetry 98 05/04/25 21:27 Oxygen Delivery Room Air 05/04/25 16:21 MDM - Headache MDM Narrative Medical decision making narrative: 75-year-old female with a past medical history including prior CVA currently on Plavix. She also has a history of remote cerebral aneurysm status post coiling in 2010. Presents to the emergency department today with complaints of a headache that have been bothering her since 4:00 a.m.. She states she woke up this morning feeling a headache that she describes as a throbbing sensation behind both her frontal temples and radiating towards the top of her head. She went to bed after taking some pain relievers and states that gradually got worse throughout the day and now radiates towards her neck. She thinks she might have a pinched nerve root also has been dealing with sinus issues that she took a Zyrtec for. Denies any visual changes, nausea, vomiting, fever, chills. No traumatic injuries. No other blood thinner or anticoagulation use. Has had headaches like this prior but no history of migraines. Patient is not any acute distress. No tachycardia, fever, hypoxia or blood pressure concerns. Mildly hypertensive but chronic. No red flag signs or symptoms on examination but she does have concerning past medical history including prior stroke and cerebral aneurysm. Differential includes migraine headache, tension headache, frontal headache from allergies. Pinched nerve/occipital neuralgia. Possibility intracranial process such subarachnoid hemorrhage especially with her history. Given patient's age and risk factor CT head and CT angiography of the head neck were ordered. She was given a combination of medications for migraine headache including Compazine, diphenhydramine, magnesium as well as 2 L of fluid resuscitation and Decadron for migraine prophylaxis. Will be re-evaluated after interventions and placed on groundwater monitoring technician. Patient CT head shows no acute hemorrhage. CT angiography shows stenosis in her right internal carotid artery. No significant stenosis in the intracranial arteries or other vessels. Patient re-evaluated felt much improved and no longer having throbbing headache. She is complaining of some posterior midline neck pain and thinks she may have slept on it wrong. No traumatic injuries. No concerning findings in the posterior imaging on her CT and CT head. Given a lidocaine patch with some improvement here. I discussed the CTA findings including the right-sided internal carotid artery stenosis. Discussed this with the radiologist on-call as well given that she has had some coils in the right ICA on previous imaging that was seen. Radiologist confirms that there appears to be a stenotic soft plaque in this region but good flow prior and distal to the stenosis region. Patient re-evaluated and still has no neurological deficits or symptoms on examination. NIH is 0. Given patient's internal carotid artery stenosis and prior endarterectomy in the left ICA she might benefit from being evaluated on outpatient basis by vascular surgery for elective endarterectomy given the severe stenosis. Discussed the case with the on-call neurologist Dr. Dale regarding anticoagulation status and what to place the patient on given she is already on Plavix. Recommendations are for daily 81 mg of aspirin per Neurology recommendations in addition to the daily Plavix. He recommend her following up with a vascular surgeon as well. Did reach out to the [facility] transfer system to get vascular surgery clinic information given we do not have the specialty here at the hospital. Vascular surgery clinic phone number and address were obtained and provided to the patient to set up an appointment. patient felt better and expressing desire to go home at this time. Given patient's symptom improvement and plan of care at this time she is safe for discharge home starting aspirin therapy and following up with vascular on outpatient basis. Encouraged to call her PCP for close follow-up as well while she is getting with vascular surgery and given very strict return precautions including any signs or symptoms of stroke or neurological deficit that she should return to the ER call 911 at that time for patient comfortable with plan and safely discharged home at this time. Medical Records Attestation: I reviewed the patient's medical records. Lab Data Attestation: I reviewed the patient's lab results. 05/04/25 17:24 05/04/25 17:24 Labs: Lab Results 05/04/25 Range/Units 17:24 WBC 8.4 (4.5-10.0) K/mm3 RBC 3.98 L (4.2-5.4) M/mm3 Hgb 13.2 (12.0-15.0) g/dL Hct 39.3 (37.0-47.0) % MCV 98.7 (80-100) fl MCH 33.2 (26-34) pg MCHC 33.6 (32-36) g/dl RDW 11.9 (11.5-14.5) % Plt Count 235 (150-375) k/mm3 MPV 11.0 H (7.4-10.4) fl Immature Gran % (Auto) 0.2 (0-0.5) % Neut % (Auto) 63.0 (45.5-73.1) % Lymph % (Auto) 28.0 (18.3-44.2) % Bradley % (Auto) 7.0 (2.6-8.5) % Eos % (Auto) 1.4 (0-4.4) % Baso % (Auto) 0.4 (0.2-1.2) % Lymph # (Auto) 2.36 (0.9-3.2) K/mm3 Bradley # (Auto) 0.6 (0.1-0.6) K/mm3 Eos # (Auto) 0.1 (0-0.3) K/mm3 Baso # (Auto) 0.0 (0.0-0.1) K/mm3 Abs Immat Gran (auto) 0.02 (0.00-0.031) K/mm3 Absolute Neuts (auto) 5.3 (1.3-6.7) K/mm3 Absolute Nucleated RBC 0.000 (0.0-0.012) K/mm3 Nucleated RBC % 0.0 (0.0-0.2) % PT 13.7 (11.1-14.7) Seconds INR 1.1 APTT 26.8 (22.3-36.8) Seconds Sodium 135 L (137-145) mmol/L Potassium 3.4 (3.4-5.0) mmol/L Chloride 101 (98-107) mmol/L Carbon Dioxide 26 (22-30) mmol/L Anion Gap 8 (4-12) mmol/L BUN 9 (7-17) mg/dL Creatinine 0.65 L (0.7-1.0) mg/dL Estim Creat Clear Calc 60 ml/min Estimated GFR > 60 (59 - ) Glucose 102 (65-110) mg/dL Calcium 9.6 (8.4-10.2) mg/dL Magnesium 1.9 (1.6-2.3) mg/dL Total Bilirubin 1.1 (0.2-1.3) mg/dL AST 28 (14-36) U/L ALT 15 (6-35) U/L Alkaline Phosphatase 124 (38-126) U/L Total Protein 6.9 (6.3-8.2) g/dL Albumin 4.2 (3.5-5.1) g/dL Imaging Data Attestation: I personally reviewed and interpreted this imaging study as follows: My impression: Impressions Head/Neck CTA 05/04/25 18:36 IMPRESSION: Focal severe string-like stenosis of the proximal right ICA. Conventional angiogram is recommended. Discharge Plan Discharge Clinical Impression: Migraine, Neck pain, Internal carotid artery stenosis Patient Disposition: Home Condition: Stable Instructions: Antibiotic Form, Carotid Artery Disease (DC), Acute Headache (ED) Additional Instructions: We treated your headache here with a combination medications that can help tension and migraine headaches. Your CT scan shows no acute abnormality such as a stroke, bleed or complication from your previous surgeries and coils. You do have severe carotid disease in the right-sided internal carotid artery with a soft plaque according to my radiologist with good flow proximally and distally. Given you had a previous carotid endarterectomy this might be indicated to prevent any further strokes or recurrent strokes or any new symptoms. Neurology recommended starting 81 mg of aspirin daily in addition to the Plavix that you are currently taking. We have given you contact info for the vascular surgery clinic at [facility] to call and make an appointment for evaluation. If you start experiencing symptoms such as unilateral weakness, unilateral sensory deficits, difficulty speaking, intractable or worsening headache, losing consciousness or any other emergent concerns please call 911/return to the emergency department otherwise follow-up with your regular care providers and vascular surgery on outpatient basis and take the new aspirin medication as well. Patient Language: Albanian Prescriptions: New aspirin 81 mg capsule 81 mg PO DAILY Qty: 60 0RF No Action Xiidra 5 % dropperette Zyrtec cephalexin 500 mg capsule 500 mg PO Q6H 7 Days Qty: 28 0RF metoprolol succinate 50 mg tablet extended release 24 hr 50 mg PO HS (DME) blood-glucose meter [OneTouch Verio Flex meter] [facility] See Rx Instructions .Route Qty: 1 0RF Rx Instructions: Check glucose 1xday As directed fluticasone propionate 50 mcg/actuation spray,suspension 2 spray intranasal DAILY Qty: 48 1RF Rx Instructions: administer into each nostril doxycycline hyclate 50 mg capsule PO (DME) lancets [Accu-Chek Softclix Lancets] [facility] See Rx Instructions .Route Qty: 200 3RF Rx Instructions: Check blood glucose 1xday As directed (DME) lancing device with lancets Kit See Rx Instructions .Route Qty: 1 0RF Rx Instructions: check glucose daily As directed clopidogrel 75 mg tablet See Rx Instructions .ROUTE .COMPLEX Qty: 90 1RF Dose Instruction: TAKE 1 TABLET BY MOUTH EVERY DAY Rx Instructions: TAKE 1 TABLET BY MOUTH EVERY DAY Cholestyramine Light 4 gram powder in packet See Rx Instructions .ROUTE .COMPLEX Qty: 270 1RF Dose Instruction: 4 G ORALLY THREE TIMES A DAY NEEDED FOR DIARRHEA ADMINISTER W/MEAL AVOID OTHER MEDS WITHIN 1HR BEFORE OR 4-6HR AFTER DOSE Rx Instructions: 4 G ORALLY THREE TIMES A DAY NEEDED FOR DIARRHEA ADMINISTER W/MEAL AVOID OTHER MEDS WITHIN 1HR BEFORE OR 4-6HR AFTER DOSE atorvastatin 40 mg tablet 40 mg PO HS Qty: 90 1RF Januvia 100 mg tablet 100 mg PO DAILY Qty: 90 1RF pantoprazole 40 mg tablet,delayed release (DR/EC) See Rx Instructions .ROUTE .COMPLEX Qty: 180 1RF Dose Instruction: TAKE 1 TABLET BY MOUTH TWICE A DAY Rx Instructions: TAKE 1 TABLET BY MOUTH TWICE A DAY albuterol sulfate 90 mcg/actuation HFA aerosol inhaler 2 inh inhalation Q4H PRN (Reason: shortness of breath or wheezing) Qty: 25.5 2RF (DME) Accu-Chek Guide test strips Strip See Rx Instructions .ROUTE .COMPLEX Qty: 100 3RF Dose Instruction: CHECK BLOOD GLUCOSE 1XDAY DIRECTED Rx Instructions: CHECK BLOOD GLUCOSE 1XDAY DIRECTED alprazolam [Xanax] 0.25 mg tablet 0.25 mg PO BID PRN (Reason: Anxiety) Qty: 60 0RF cyclobenzaprine 10 mg tablet 10 mg PO QHS PRN (Reason: muscle spasm) Qty: 30 0RF Follow-up/Referrals: Vascular Surgery [Other, Vascular Surgery] Referral Note: R ICA stenosis, prior endarterectomy Lia Downs, ELIZABETH [Primary Care Provider, Internal Medicine] Time of Disposition: 20:34
--- NOTE | 2025-05-04 17:05 | ECG_ITS ---
Test Date: 2025-05-04 17:16:28 Measurements Intervals [place] Rate: 69 P: -64 NH: 188 QRS: 7 QRSD: 79 T: 66 QT: 401 QTc: 432 Interpretive Statements SINUS RHYTHM BORDERLINE AV CONDUCTION DELAY POSSIBLE RIGHT VENTRICULAR CONDUCTION DELAY MINIMAL Q WAVES- ANTEROLATERAL LEADS BORDERLINE ST-T WAVE ABNORMALITY- HIGH LATERAL LEADS BASELINE ARTIFACT- I, II, AVR, AVL, V1 BORDERLINE ECG Compared to ECG 10/13/2024 11:34:50 NO SIGNIFICANT CHANGE Electronically Signed On 05-04-2025 19:28:11 CDT by Chago Watkins D.O.
[2025-05-04] MEDS: SODIUM CHLORIDE 0.9% IV 1,000 ML 999 ML IV CONT ×2 (17:14→17:26)
[2025-05-04] MEDS: dexAMETHasone SOD PHOS INJ 10 MG/ML 1 ML VIAL IV PUSH (17:21)
[2025-05-04] MEDS: PROCHLORPERAZINE EDISYLATE 10 MG/2 ML VIAL IV PUSH (17:21)
[2025-05-04] MEDS: MAGNESIUM SULF 2 GM/WATER 50ML 2 GM/50 ML BAG IVPB (17:25)
--- OUTSIDE RECORDS SUMMARY | 2025-05-04 17:28 | XMS_ITS | Clinical Summary ---
Author Organization [facility] [address] Address [address] [place] [address] Care Team Providers Care Accreditation Coordinator Name Role Phone German Barcenas MD Unavailable [phone] Yo Suresh MD Primary Care Provider [phone] Allergies Active Allergy Reactions Criticality Noted Date [...] route every day [address] (PROTONIX) 40 mg EC [...] EVERY DAY 90 tablet 2 4 Active doxycycline hyclate (VIBRAMYCIN) 50 mg capsule 5 Active Active Problems Problem Noted Date Diagnosed Date Coronary artery disease involving [place] coronar y artery 12/27/2016 Status post insertion [...] on file Legal Sex 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 Gender Identity Not on file Sexual Orientation Not on file Obstetrics History Last Filed Vital Signs Vital Sign Reading Time Taken Comments Blood Pressure 118/70 12/07/2024 1:53 PM CDT Pulse 66 12/07/2024 1:53 PM CDT Temperature - - Respiratory Rate 12 02/16/2020 1:36 PM CDT Oxygen Saturation 96% 12/07/2024 1:53 PM CDT Inhaled Oxygen Concentration - - Weight 73.4 kg (161 lb 12.8 oz) 12/07/2024 1:53 PM CDT Height 167.6 cm (5' 6) 12/07/2024 1:53 PM CDT Body Mass Index 26.12 12/07/2024 1:53 PM CDT Plan of Treatment Health Maintenance Due Date Last Done Comments Colon Cancer Screening-Colonoscopy 1950 Depression Screening 1950 Fall Risk Assessment 1950 Hepatitis C Screening 1950 Osteoporosis Screening-Bone Density Scan 1950 DTaP/Tdap/Td Vaccine (1 - Tdap) 1961 Hepatitis B Screening 02/11/1968 Pneumococcal vaccine 65+ (1 of 1 - PCV) 02/11/2000 08/05/2013 Well Visit 65+ 2015 Influenza Vaccine (#1) 2025 9, 06/21/2018, 05/07/2016, Additional history exists Zoster Vaccine Completed 01/14/2018, 10/23/2017 Insurance [facility] [employer] CHOICE MEDICARE O [facility] [place] [address] Care Teams Accreditation Coordinator Relationship Specialty Start Date End Date Yo Suresh MD [address] [address] PCP - General Family Practice 01/08/23 German Barcenas MD [address] [address] Referring Physician Vascular Surgery 07/22/21
--- OUTSIDE RECORDS SUMMARY | 2025-05-04 17:28 | XMS_ITS | Clinical Summary ---
Author Organization [facility] Address [address] [place] [address] Care Team Providers Care Horticultural Specialty Grower Name Role Phone Ignacio Castro DO Primary Care Provider [phone] Source Comments [facility],non-owned Affiliates and Associated Physician Practices is amultiple site organization consisting of ambulatory clinics and hospital sitesin [place], [place], [place] and [place]. This disclosure is being madepursuant to the Care Everywhere program and may not contain all information available regarding this patient. Last updated 18.[facility] [employer] Allergies Active Allergy Reactions Criticality Noted Date [...] 02/11/2000 ZOSTER VACCINE (1 of 2) 02/11/2000 DEPRESSION SCREENING 07/22/2024 Respiratory Syncytial Virus (RSV) Vaccine Pt: or over 60 yrs (1 - 1-dose 75+ series) 2025 COVID-19 VACCINE (1 - 2023-2 5 season) 2025 INFLUENZA VACCINE (#1) 2025 HEPATITIS B VACCINE Aged Out No [...] complete this topic Insurance [employer]ET[employer] Care Teams Horticultural Specialty Grower Relationship Specialty Start Date End Date Ignacio Castro DO [address] [place] [address] PCP - General Internal Medicine 02/19/19
--- OUTSIDE RECORDS SUMMARY | 2025-05-04 17:28 | XMS_ITS | Clinical Summary ---
Author Organization [facility] Address [address] [place] [address] Care Team Providers Care Cabinetmaker Maintenance Name Role Phone Darrell Jackson MD Primary Care Provider [phone] Social History Tobacco Use Types Packs/Day Years [...] Td Vaccines ( 1 - Tdap) 1969 Pneumococcal Vaccine: 50+ Ye ars (1 of 1 - PCV) 02/11/2000 Zoster Vaccines (1 of 2) 02/11/2000 Dexa Scan (General) 2015 RSV Immunization or 60+ Years (1 - 1-dose 75+ series) 2025 COVID-19 Vaccine ( - 2023-2 5 season) 2025 Influenza Adult (#1) 2025 Meningococcal B Vaccine Aged Out No l onger eligible based on patient's age to complete this topic Meningococcal Vaccine Aged Out No marshall jenny eligible based on patient's age to complete this topic RSV Immunizations Under 20 Months Aged Out No longer eligible based on patient's age to complete this topic Care Teams Cabinetmaker Maintenance Relationship Specialty Start Date End Date Darrell Jackson MD PCP - General 04/17/16
[2025-05-04 17:35] LABS: Hematocrit 39.3 % (37.0-47.0); Hemoglobin 13.2 g/dL (12.0-15.0); Immature Granulocyte Percent A 0.2 % (0-0.5); Lymphocytes Absolute Auto 2.36 K/mm3 (0.9-3.2); Mean Corpuscular HGB Conc 33.6 g/dl (32-36); Mean Corpuscular Hemoglobin 33.2 pg (26-34); Mean Corpuscular Volume 98.7 fl (80-100); Nucleated Red Blood Cells Absolute Auto 0.000 K/mm3 (0.0-0.012); Nucleated Red Blood Cells Perc 0.0 % (0.0-0.2); Platelet Count Result 235 k/mm3 (150-375); Red Blood Count 3.98 M/mm3 (4.2-5.4); White Blood Count 8.4 K/mm3 (4.5-10.0)
[2025-05-04 17:47] LABS: INR 1.1; Prothrombin Time 13.7 Seconds (11.1-14.7)
[2025-05-04 17:48] LABS: Partial Thromboplastin Time 26.8 Seconds (22.3-36.8)
[2025-05-04 17:49] LABS: Alanine Aminotransferase 15 U/L (6-35); Albumin Level 4.2 g/dL (3.5-5.1); Alkaline Phosphatase 124 U/L (38-126); Anion Gap 8 mmol/L (4-12); Aspartate Amino Transferase 28 U/L (14-36); Bilirubin,Total 1.1 mg/dL (0.2-1.3); Blood Urea Nitrogen 9 mg/dL (7-17); Calcium 9.6 mg/dL (8.4-10.2); Carbon Dioxide 26 mmol/L (22-30); Chloride 101 mmol/L (98-107); Estimated CRCL calculation 60 ml/min; Estimated Glomerular Filt Rate > 60; Glucose 102 mg/dL (65-110); Magnesium 1.9 mg/dL (1.6-2.3); Potassium 3.4 mmol/L (3.4-5.0); Sodium 135 mmol/L (137-145); Total Protein 6.9 g/dL (6.3-8.2)
[2025-05-04] MEDS: LIDOCAINE 5% PATCH 1 PATCH TRANSDERM (19:25)
== END 2025-05-04 21:29 | disposition home or self-care (01) ==
PROVIDERS: Emergency Provider Student in an Organized Health Care Education/Training Program; PCP Nurse Practitioner Family
DX: G43.909 Migraine, unspecified, not intractable, without status migrainosus (principal); M54.2 Cervicalgia; I25.2 Old myocardial infarction; I65.21 Occlusion and stenosis of right carotid artery; I25.10 Atherosclerotic heart disease of native coronary artery without angina pectoris; I10 Essential (primary) hypertension; I34.1 Nonrheumatic mitral (valve) prolapse; E11.9 Type 2 diabetes mellitus without complications; E78.5 Hyperlipidemia, unspecified; J44.9 Chronic obstructive pulmonary disease, unspecified; G47.33 Obstructive sleep apnea (adult) (pediatric); Z86.73 Personal history of transient ischemic attack (TIA), and cerebral infarction without residual deficits; Z87.11 Personal history of peptic ulcer disease; Z87.442 Personal history of urinary calculi; Z87.891 Personal history of nicotine dependence; Z90.49 Acquired absence of other specified parts of digestive tract; Z79.899 Other long term (current) drug therapy; Z79.02 Long term (current) use of antithrombotics/antiplatelets; Z79.84 Long term (current) use of oral hypoglycemic drugs
CPT/HCPCS: 36415; 70496; 70498; 80053; 83735; 85025; 85610; 85730; 93005; 96361; 96365; 96375; 99284; A9270; J0780; J1100; J1200; J3475; J7030; Q9967

== ENCOUNTER 2025-06-03 16:20 | Outpatient (CLI) | payer MEDICARE, SELFPAY ==
--- NOTE | ~2025-06-03 | CT_ITS ---
EXAMINATION:CT chest high resolution wo co DATE: 06/03/2025 16:49 INDICATION: Lung nodule TECHNIQUE: Computed tomography (CT) of the chest was performed without intravenous contrast. The dose-length product (DLP) was 156.41 mGy-cm. COMPARISON: October 19, 2024 FINDINGS: A 3 mm right middle lobe nodule described on the previous exam not clearly changed on today's exam. No consolidation effusion or pneumothorax. Scattered subcentimeter air cystic foci or centrilobular emphysematous changes similar to previous exam. No acute process seen in the visualized portion of the upper abdomen. Nonobstructing partially visualized right-sided kidney stones, cholecystectomy clips and atherosclerotic changes of the abdominal aorta noted. Nodular asymmetry in the right breast noted. IMPRESSION: 1. No significant interval change appreciated in right middle lobe nodule. Correlate with follow-up chest CT in 12 months or sooner if clinically appropriate. 2. Nodular asymmetry of the right breast incidentally noted. Correlation with diagnostic mammogram recommended if patient has not undergone recent screening mammogram. 3. Other chronic appearing findings as above. Reviewed, dictated and finalized at location A. UE AND GROOVE MACHINE OPERATOR IMPRESSION: 1. No significant interval change appreciated in right middle lobe nodule. Dee Dee elate with follow-up chest CT in 12 months or sooner if clinically appropriate. 2. Nodular asymmetry of the right breast incidentally noted. Correlation with d iagnostic mammogram recommended if patient has not undergone recent screening m ammogram. 3. Other chronic appearing findings as above.
== END 2025-06-03 16:21 | disposition home or self-care (01) ==
PROVIDERS: PCP Nurse Practitioner Family; Visit Provider Nurse Practitioner Family
DX: R91.1 Solitary pulmonary nodule (principal)
CPT/HCPCS: 71250